=== PATIENT | female | born 1965 | race Caucasian/White ===

== ENCOUNTER 2016-04-17 02:00 | Emergency (ER) | payer MEDICARE, OTHER ==
[~2016-04-17] VITALS: Ht 162.6 cm; Wt 103.4 kg
[~2016-04-17 02:00] MED LIST: AMLO1CAP15 PO; ASPI325T11 PO; ASPI81TA2 PO; AZIT250T PO; BENZ100C PO; CAND32TA2 PO; CRESTOR40 MG PO; ERGO500012 PO; EZET10TA3 PO; FLUT1DIS3 IH; FURO20TA3 PO; FURO40TA4 PO; GEMF600T3 PO; HYDR25TA9 PO; INSU100C SQ; INSU100V8 SQ; LATA2.5D2 EACHEYE; LINA5TAB PO; METF10002 PO; METO50TA2 PO; MUPI22OI2 TP; PANT40TA5 PO; POTA10CA PO; POTA20TA82 PO; PRED-220 PO; PRED50TA PO; PROAIR RESPICL90 MCG IH; PROM118S2 PO; TRAM50TA PO; VENTOLIN HFA18 GM IH
--- NOTE | 2016-04-17 03:17 | PHYS DOC ---
Past Medical History Past Medical History: Diabetes-Type II Additional Past Medical Histor: HIGH CHOL, obesity, YON Past Surgical History: Other Additional Past Surgical Histo: Nose SX Alcohol Use: None Drug Use: None Adult General Chief Complaint Chief Complaint: ABDOMINAL PAIN HPI HPI Patient is a 50 year old female who presents with abdominal pain. Patient reports epigastric pain that started tonight. She describes sharp pain that waxes and wanes. She says the pain gets worse after lying down. She had some diarrhea on Saturday, but none since. She also reports a cough and burping. She tried some sort of pain pill, but she is unsure what it was. No clear mitigating factors. No other acute complaints. Review of Systems Review of Systems Constitutional: Denies fever or chills Eyes: Denies change in visual acuity or eye pain HENT: Denies nasal congestion or sore throat Respiratory: Cough. Denies shortness of breath Cardiovascular: Denies chest pain GI: Epigastric pain, diarrhea (on Saturday only). Denies nausea, vomiting, bloody stools : Dysuria. Denies hematuria Musculoskeletal: Denies back pain or joint pain Integument: Denies rash or skin lesions Neurologic: Denies headache, focal weakness or sensory changes Current Medications Current Medications Current Medications Medications (Trade) Dose Ordered Sig/Palak Start Time Stop Time Status Last Admin Dose Admin Famotidine (Pepcid) 20 mg 1X ONCE 04/17/16 03:30 04/17/16 03:31 DC 04/17/16 03:45 20 MG Morphine Sulfate 4 mg 1X ONCE 04/17/16 03:30 04/17/16 03:31 DC 04/17/16 03:45 4 MG Nitrofurantoin Macrocrystals (Macrobid) 100 mg 1X ONCE 04/17/16 05:30 04/17/16 05:31 DC 04/17/16 05:40 100 MG Sodium Chloride (Iv Sodium Chloride 0.9% 1000ml Bag) 1,000 ml @ 1,000 mls/hr Q1H 04/17/16 03:30 04/17/16 04:29 DC 04/17/16 03:45 1,000 MLS/HR Allergies Allergies Allergies Coded Allergies Type Severity Reaction Last Updated Verified No Known Drug Allergies 06/07/13 No Physical Exam Physical Exam Constitutional: Well developed, well nourished, no acute distress, non-toxic appearance HENT: Normocephalic, atraumatic, bilateral external ears normal Eyes: EOMI, conjunctiva normal, no discharge Neck: Normal range of motion, no stridor Cardiovascular: Heart rate normal, regular rhythm, no murmur Lungs & Thorax: Bilateral breath sounds clear to auscultation. Occasional cough Abdomen: Bowel sounds normal, soft, non-distended, epigastric TTP without guarding or rebound Skin: Warm, dry, no erythema, no rash Extremities: No obvious deformity, no edema Neurologic: Alert and oriented X 3, no gross deficits noted Current Patient Data Vital Signs Vital Signs Date Time Temp Pulse Resp B/P Pulse Ox O2 Delivery O2 Flow Rate FiO2 04/17/16 05:00 80 14 158/66 97 Room Air 04/17/16 02:44 97.7 97.7 Lab Values Laboratory Tests Test 04/17/16 03:00 04/17/16 03:30 Urine Collection Type Unknown Urine Color Yellow Urine Clarity Clear Urine pH 5.5 Urine Specific [place] 1.025 Urine Protein Negativemg/dL (NEG-TRACE) Urine Glucose (UA) Negativemg/dL (NEG) Urine Ketones (Stick) Negativemg/dL (NEG) Urine Blood Negative (NEG) Urine Nitrite Negative (NEG) Urine Bilirubin Negative (NEG) Urine Urobilinogen Dipstick 1.0mg/dL (0.2 mg/dL) Urine Leukocyte Esterase Small (NEG) Urine RBC Occ/HPF (0-2) Urine WBC >40/HPF (0-4) Urine Squamous Epithelial Cells Many/LPF Urine Bacteria Many/HPF (0-FEW) White Blood Count 9.0x10^3/uL (4.0-11.0) Red Blood Count 4.34x10^6/uL (3.50-5.40) Hemoglobin 12.5g/dL (12.0-15.5) Hematocrit 38.7% (36.0-47.0) Mean Corpuscular Volume 89fL (79-100) Mean Corpuscular Hemoglobin 29pg (25-35) Mean Corpuscular Hemoglobin Concent 32g/dL (31-37) Red Cell Distribution Width 15.1% (11.5-14.5) H Platelet Count 201x10^3/uL (140-400) Neutrophils (%) (Auto) 73% (31-73) Lymphocytes (%) (Auto) 20% (24-48) L Monocytes (%) (Auto) 6% (0-9) Eosinophils (%) (Auto) 1% (0-3) Basophils (%) (Auto) 0% (0-3) Neutrophils # (Auto) 6.5x10^3uL (1.8-7.7) Lymphocytes # (Auto) 1.8x10^3/uL (1.0-4.8) Monocytes # (Auto) 0.6x10^3/uL (0.0-1.1) Eosinophils # (Auto) 0.1x10^3/uL (0.0-0.7) Basophils # (Auto) 0.0x10^3/uL (0.0-0.2) Sodium Level 144mmol/L (136-145) Potassium Level 4.5mmol/L (3.5-5.1) Chloride Level 107mmol/L (98-107) Carbon Dioxide Level 30mmol/L (21-32) Anion Gap 7 (6-14) Blood Urea Nitrogen 15mg/dL (7-20) Creatinine 0.8mg/dL (0.6-1.0) Estimated GFR (Cockcroft-Gault) 75.6 BUN/Creatinine Ratio 19 (6-20) Glucose Level 169mg/dL (70-99) H Calcium Level 10.1mg/dL (8.5-10.1) Total Bilirubin 0.5mg/dL (0.2-1.0) Aspartate Amino Transferase (AST) 17U/L (15-37) Alanine Aminotransferase (ALT) 30U/L (14-59) Alkaline Phosphatase 107U/L (46-116) Total Protein 6.8g/dL (6.4-8.2) Albumin 3.2g/dL (3.4-5.0) L Albumin/Globulin Ratio 0.9 (1.0-1.7) L Lipase 115U/L (73-393) Laboratory Tests 04/17/16 03:30 Laboratory Tests 04/17/16 03:30 EKG EKG EKG (my read): sinus rhythm, rate 88, normal axis, intervals wnl, no acute ischemic changes Radiology/Procedures Radiology/Procedures [] Course & Med Decision Making Course & Med Decision Making Pertinent Labs and Imaging studies reviewed. (See chart for details) Patient is 50-year-old female who presents with epigastric pain. Suspect gastritis versus PUD. Pancreatitis, etc. also on differential. Will check labs, UA, EKG to evaluate. IV fluids, pain medication, Pepcid, ordered for relief of symptoms. Labs largely unremarkable except for signs of possible UTI on UA. As patient says she is symptomatic we will go and treat this. Dose of Macrobid given in ED. Patient discharged home with prescription for same as well as omeprazole short course of pain medication. Given instructions for follow-up and return precautions. Dragon Disclaimer Dragon Disclaimer This electronic medical record was generated, in whole or in part, using a voice recognition dictation system. Departure Departure Impression: Primary Impression: Epigastric abdominal pain Additional Impression: UTI (urinary tract infection) Disposition: HOME, SELF-CARE Condition: STABLE Referrals: CHI AGRAWAL MD (PCP) MANUEL FOWLER MD Patient Instructions: Abdominal Pain, Urinary Tract Infection Additional Instructions: Thank you for allowing us to provide care today in the Emergency Department. Take the provided medication as directed. Use caution when taking the pain medication as it can make you drowsy. Schedule a follow up appointment with your primary care doctor and with a GI specialist using the provided contact information. Return promptly to the Emergency Department if you develop any new or concerning symptoms. Scripts Acetaminophen With Codeine (Tylenol With Codeine #3 Tablet)1 Each Tablet1 Tab PO PRN Q6HRS PRN PAIN #12 TAB Prov:COURTNEY ESTEVEZ MD 04/17/16 Omeprazole 20 Mg Tablet.dr20 Mg PO DAILY #30 TAB Prov:COURTNEY ESTEVEZ MD 04/17/16 Nitrofurantoin Monohyd/M-Cryst (Macrobid 100 Mg Capsule)100 Mg Capsule1 Cap PO BID #10 CAP Prov:COURTNEY ESTEVEZ MD 04/17/16 Problem Qualifiers COURTNEY ESTEVEZ MD Apr 17, 2016 03:17
[2016-04-17] MEDS ORDERED: MORPHINE SULFATE 4 MG/ML DISP.SYRIN. IV ONE (03:30)
[2016-04-17] MEDS ORDERED: FAMOTIDINE 20 MG/2 ML VIAL IVP ONE (03:30)
[2016-04-17] MEDS ORDERED: IV NORMAL SALINE 1000ML BAG 1,000 ML IV SCH (03:30)
[2016-04-17 04:14] LABS: BASO % 0 % (0-3); EOS % 1 % (0-3); HEMATOCRIT 38.7 % (36.0-47.0); HEMOGLOBIN 12.5 g/dL (12.0-15.5); LYMPH # 1.8 x10^3/uL (1.0-4.8); LYMPH % 20 % (24-48); MEAN CORPUSCULAR HEMOGLOBIN 29 pg (25-35); MEAN CORPUSCULAR HGB CONC 32 g/dL (31-37); MEAN CORPUSCULAR VOLUME 89 fL (79-100); MONO % 6 % (0-9); NEUT % 73 % (31-73); PLATELET COUNT 201 x10^3/uL (140-400); RED BLOOD COUNT 4.34 x10^6/uL (3.50-5.40); RED CELL DISTRIBUTION WIDTH 15.1 % (11.5-14.5)
[2016-04-17 04:16] LABS: BILIRUBIN,URINE NEGATIVE (NEG); GLUCOSE,URINE NEGATIVE (NEG); NITRITE,URINE NEGATIVE (NEG); PH,URINE 5.5; PROTEIN,URINE NEGATIVE (NEG-TRACE)
[2016-04-17 04:36] LABS: CALCIUM 10.1 mg/dL (8.5-10.1); CREATININE 0.8 mg/dL (0.6-1.0); GFR 75.6; POTASSIUM 4.5 mmol/L (3.5-5.1)
[2016-04-17 04:43] LABS: ALBUMIN 3.2 g/dL (3.4-5.0); ALBUMIN/GLOBULIN RATIO 0.9 (1.0-1.7); TOTAL BILIRUBIN 0.5 mg/dL (0.2-1.0); TOTAL PROTEIN 6.8 g/dL (6.4-8.2)
[2016-04-17 05:00] VITALS: BP 158/66
[2016-04-17 05:13] LABS: BACTERIA,URINE MANY /HPF (0-FEW); RBC,URINE OCC /HPF (0-2); SQUAMOUS EPITHELIAL CELL,UR MANY /LPF; WBC,URINE >40 /HPF (0-4)
[2016-04-17] MEDS ORDERED: NITR100C62 PO (05:24)
[2016-04-17] MEDS ORDERED: OMEP20TA PO (05:24)
[2016-04-17] MEDS ORDERED: ACET-704 PO (05:24)
[2016-04-17] MEDS ORDERED: NITROFURANTOIN MONOHYD/M-CRYST 100 MG CAPSULE. PO ONE (05:30)
--- NOTE | 2016-04-17 06:45 | EKG ---
[facility] [address] [place] [address] Test Date: 2016-04-17 Test Time: 03:49:23 Pat Name: BATSHEVA TRIVEDI Department: Room: Gender: F Make Up Man: [place] ER : 1965 Requested By: COURTNEY ESTEVEZ Order Number: [id number] Reading MD: Measurements Intervals [place] Rate: 88 P: 51 [place]: 124 QRS: 24 QRSD: 76 T: 2 QT: 356 QTc: 434 Interpretive Statements SINUS RHYTHM NO SPECIFIC ECG ABNORMALITIES RI6.01 No previous ECG available for comparison
== END 2016-04-17 05:40 | disposition home or self-care (01) ==
LOC: ER 02:00
DX: R10.13 Epigastric pain (principal); N39.0 Urinary tract infection, site not specified; E11.9 Type 2 diabetes mellitus without complications; M19.90 Unspecified osteoarthritis, unspecified site; E66.9 Obesity, unspecified; Z68.39 Body mass index [BMI] 39.0-39.9, adult
CPT/HCPCS: 36415; 80053; 81001; 83690; 85027; 87086; 93005; 96361; 96374; 96375; 99285; J2270; J7030; S0028

== ENCOUNTER 2016-06-02 19:40 | Emergency (ER) | payer MEDICARE, OTHER ==
[~2016-06-02] VITALS: Ht 162.6 cm; Wt 104.3 kg
[~2016-06-02 19:40] MED LIST changes: +ACET-704 PO; +NITR100C62 PO; +OMEP20TA PO
[2016-06-02] MEDS ORDERED: PREDNISONE 10 MG TABLET PO ONE (20:30)
[2016-06-02] MEDS ORDERED: IPRATRPIUM/ALBUTEROL 0.5/2.5MG 3 ML NEBU. NEB ONE (20:30)
[2016-06-02] MEDS ORDERED: ALBUTEROL SULFATE 2.5 MG/3 ML NEBU. NEB ONE (20:30)
[2016-06-02 20:48] VITALS: BP 158/70
[2016-06-02] MEDS ORDERED: PRED50TA PO (20:55)
--- NOTE | 2016-06-02 21:34 | ED.ADGEN ---
Past Medical History Past Medical History: Diabetes-Type II Additional Past Medical Histor: HIGH CHOL, obesity, YON Past Surgical History: Other Additional Past Surgical Histo: Nose SX Alcohol Use: None Drug Use: None Adult General Chief Complaint Chief Complaint: SHORTNESS OF BREATH HPI HPI Patient is a 50 year old female presents emergency department complaining of increasing dyspnea. Patient has a history of asthma. She reports that she has been using her albuterol as well as her inhaled steroid has been having increasing difficulty. She denies any other recent illness, fever, chills, nausea, vomiting. He does mention that she is being worked up for possible reflux induced asthma and cough. Review of Systems Review of Systems Constitutional: Denies fever or chills. [] Eyes: Denies change in visual acuity. [] HENT: Denies nasal congestion or sore throat. [] Respiratory: Denies cough or shortness of breath. [] Cardiovascular: Denies chest pain or edema. [] GI: Denies abdominal pain, nausea, vomiting, bloody stools or diarrhea. [] : Denies dysuria. [] Musculoskeletal: Denies back pain or joint pain. [] Integument: Denies rash. [] Neurologic: Denies headache, focal weakness or sensory changes. [] Endocrine: Denies polyuria or polydipsia. [] Lymphatic: Denies swollen glands. [] Psychiatric: Denies depression or anxiety. [] Current Medications Current Medications Current Medications Medications (Trade) Dose Ordered Sig/Palak Start Time Stop Time Status Last Admin Dose Admin Albuterol Sulfate (Ventolin Neb Soln) 2.5 mg 1X ONCE 06/02/16 20:30 06/02/16 20:31 DC 06/02/16 20:47 2.5 MG Albuterol/ Ipratropium (Duoneb) 3 ml 1X ONCE 06/02/16 20:30 06/02/16 20:31 DC 06/02/16 20:48 3 ML Prednisone (Prednisone) 50 mg 1X ONCE 06/02/16 20:30 06/02/16 20:31 DC 06/02/16 20:29 50 MG Allergies Allergies Allergies Coded Allergies Type Severity Reaction Last Updated Verified No Known Drug Allergies 06/07/13 No Physical Exam Physical Exam Constitutional: Well developed, well nourished, no acute distress, non-toxic appearance. [] HENT: Normocephalic, atraumatic, bilateral external ears normal, oropharynx moist, no oral exudates, nose normal. [] Eyes: PERRLA, EOMI, conjunctiva normal, no discharge. [] Neck: Normal range of motion, no tenderness, supple, no stridor. [] Cardiovascular:Heart rate regular rhythm, no murmur [] Lungs & Thorax: Bilateral breath sounds diminished with significant inspiratory and expiratory wheezing [] Abdomen: Bowel sounds normal, soft, no tenderness, no masses, no pulsatile masses. [] Skin: Warm, dry, no erythema, no rash. [] Back: No tenderness, no CVA tenderness. [] Extremities: No tenderness, no cyanosis, no clubbing, ROM intact, no edema. [] Neurologic: Alert and oriented X 3, normal motor function, normal sensory function, no focal deficits noted. [] Psychologic: Affect normal, judgement normal, mood normal. [] Current Patient Data Vital Signs Vital Signs Date Time Temp Pulse Resp B/P Pulse Ox O2 Delivery O2 Flow Rate FiO2 06/02/16 20:48 84 17 158/70 97 Room Air 06/02/16 19:50 98.3 98.3 EKG EKG [] Radiology/Procedures Radiology/Procedures Chest x-ray interpreted by me, no acute cardiopulmonary process. [] Course & Med Decision Making Course & Med Decision Making Pertinent Labs and Imaging studies reviewed. (See chart for details) Patient received a dose of prednisone here in emergency department. She also received a DuoNeb and albuterol with significant improvement in her aeration and breathing. Patient is being sent home a short steroid burst. She will follow with her doctor next week as needed return emergency department sooner she develops new or worsening symptoms. [] Dragon Disclaimer Dragon Disclaimer This electronic medical record was generated, in whole or in part, using a voice recognition dictation system. JINNY SOLIMAN MD Jun 02, 2016 21:34
--- NOTE | 2016-06-03 07:55 | RAD ---
EXAM: Chest, single view. HISTORY: Dyspnea. COMPARISON: 03/03/2016. FINDINGS: A frontal view of the chest is obtained. There is no infiltrate, effusion or pneumothorax. The heart is normal in size. IMPRESSION: No acute pulmonary finding.
--- NOTE | 2016-06-03 14:45 | EKG ---
[facility] [address] [place] [address] Test Date: 2016-06-02 Test Time: 19:54:15 Pat Name: BATSHEVA TRIVEDI Department: Room: Gender: F Process Tech: : 1965 Requested By: JINNY SOLIMAN Order Number: [id number] Reading MD: Meme Ramirez Measurements Intervals [place] Rate: 94 P: 39 [place]: 122 QRS: 4 QRSD: 78 T: 5 QT: 338 QTc: 428 Interpretive Statements SINUS RHYTHM NORMAL ECG RI6.01 Compared to ECG 04/17/2016 03:49:23 No significant changes Electronically Signed On 06-03-2016 19:22:26 CDT by Meme Ramirez
== END 2016-06-02 21:10 | disposition home or self-care (01) ==
LOC: ER 19:40
DX: R06.00 Dyspnea, unspecified (principal); R06.2 Wheezing; J45.909 Unspecified asthma, uncomplicated; E11.9 Type 2 diabetes mellitus without complications; G47.33 Obstructive sleep apnea (adult) (pediatric); E78.00 Pure hypercholesterolemia, unspecified; E66.9 Obesity, unspecified; Z68.39 Body mass index [BMI] 39.0-39.9, adult; Z79.899 Other long term (current) drug therapy
CPT/HCPCS: 71010; 93005; 94640; 99284; J7512; J7620

== ENCOUNTER 2016-08-21 16:25 | Emergency (ER) | payer MEDICARE, OTHER ==
[~2016-08-21] VITALS: Ht 162.6 cm; Wt 104.3 kg
[~2016-08-21 16:25] MED LIST changes: +ASPI-630 PO; -ASPI81TA2 PO; -ERGO500012 PO; +ERGO500027 PO; +EZET10TA18 PO; -EZET10TA3 PO; -LINA5TAB PO; +LINA5TAB4 PO; +METF-620 PO; -METF10002 PO; -OMEP20TA PO; +OMEP20TA8 PO; -POTA10CA PO; +POTASSIUM CHLO10 MEQ PO
[2016-08-21 17:44] LABS: CALCIUM 10.2 mg/dL (8.5-10.1); CREATININE 0.9 mg/dL (0.6-1.0); POTASSIUM 4.8 mmol/L (3.5-5.1)
[2016-08-21 17:51] LABS: ALBUMIN 3.2 g/dL (3.4-5.0); ALBUMIN/GLOBULIN RATIO 0.8 (1.0-1.7); TOTAL BILIRUBIN 0.2 mg/dL (0.2-1.0)
[2016-08-21 18:00] VITALS: BP 149/63
--- NOTE | 2016-08-21 18:20 | PHYS DOC ---
Past Medical History Past Medical History: Diabetes-Type II Additional Past Medical Histor: HIGH CHOL, obesity, YON Past Surgical History: Other Additional Past Surgical Histo: Nose SX Alcohol Use: None Drug Use: None Adult General Chief Complaint Chief Complaint: SHORTNESS OF BREATH HPI HPI Patient is a 50 year old female who presents with intermittent dyspnea for approx 3 weeks, but recently associated with abdominal bloating. States when she feels bloated, it makes it hard to breathe. She notes this is associated with some mild constipation. She denies abdominal pain, nausea or vomiting, fever or chills, dark or bloody stools, diarrhea, dysuria, back pain, chest pain , orthopnea, leg pain or swelling, hemoptysis. She states she was recently admitted at an outside facility for asthma exacerbation and is compliant with her medications. Review of Systems Review of Systems Constitutional: Denies fever or chills [] Eyes: Denies change in visual acuity, redness, or eye pain [] HENT: Denies nasal congestion or sore throat [] Respiratory: Has cough and shortness of breath [] Cardiovascular: No additional information not addressed in HPI [] GI: Denies abdominal pain, nausea, vomiting, bloody stools or diarrhea [] : Denies dysuria or hematuria [] Musculoskeletal: Denies back pain or joint pain [] Integument: Denies rash or skin lesions [] Neurologic: Denies headache, focal weakness or sensory changes [] Endocrine: Denies polyuria or polydipsia [] Allergies Allergies Allergies Coded Allergies Type Severity Reaction Last Updated Verified No Known Drug Allergies 06/07/13 No Physical Exam Physical Exam Constitutional: Well developed, well nourished, no acute distress, non-toxic appearance. [] HENT: Normocephalic, atraumatic, bilateral external ears normal, oropharynx moist, no oral exudates, nose normal. [] Eyes: PERRLA, EOMI. [] Neck: Normal range of motion, supple. [] Cardiovascular:Heart rate regular rhythm [] Lungs & Thorax: Bilateral breath sounds clear to auscultation [] Abdomen: Bowel sounds normal, soft, no tenderness, nondistended. [] Skin: Warm, dry, no erythema, no rash. [] Back: No tenderness, no CVA tenderness. [] Extremities: No tenderness, ROM intact, no edema. [] Neurologic: Alert and oriented X 3, normal motor function, normal sensory function, no focal deficits noted. [] Psychologic: Affect normal, judgement normal, mood normal. [] Current Patient Data Vital Signs Vital Signs Date Time Temp Pulse Resp B/P (MAP) Pulse Ox O2 Delivery O2 Flow Rate FiO2 08/21/16 18:00 70 25 149/63 (91) 96 Room Air 08/21/16 16:43 98.3 98.3 Lab Values Laboratory Tests Test 08/21/16 17:15 Sodium Level 138 mmol/L (136-145) Potassium Level 4.8 mmol/L (3.5-5.1) Chloride Level 104 mmol/L (98-107) Carbon Dioxide Level 27 mmol/L (21-32) Anion Gap 7 (6-14) Blood Urea Nitrogen 13 mg/dL (7-20) Creatinine 0.9 mg/dL (0.6-1.0) Estimated GFR (Cockcroft-Gault) 66.0 BUN/Creatinine Ratio 14 (6-20) Glucose Level 361 mg/dL (70-99) H Calcium Level 10.2 mg/dL (8.5-10.1) H Total Bilirubin 0.2 mg/dL (0.2-1.0) Aspartate Amino Transferase (AST) 14 U/L (15-37) L Alanine Aminotransferase (ALT) 32 U/L (14-59) Alkaline Phosphatase 128 U/L (46-116) H Troponin I Quantitative < 0.017 ng/mL (0.000-0.055) MK-Lay-O-Type Natriuretic Peptide 29 pg/mL (0-124) Total Protein 7.0 g/dL (6.4-8.2) Albumin 3.2 g/dL (3.4-5.0) L Albumin/Globulin Ratio 0.8 (1.0-1.7) L Lipase 153 U/L (73-393) Laboratory Tests 08/21/16 17:15 EKG EKG EKG as interpreted by me as normal sinus rhythm, rate 77, no ST-T changes, normal intervals, no ectopy Course & Med Decision Making Course & Med Decision Making Pertinent Labs and Imaging studies reviewed. (See chart for details) Workup is unremarkable. Encouraged symptomatic care such as trial of laxative. Return precautions given. She understands and agrees with plan. Dragon Disclaimer Dragon Disclaimer This electronic medical record was generated, in whole or in part, using a voice recognition dictation system. Departure Departure Impression: Primary Impression: Dyspnea Additional Impression: Abdominal bloating Disposition: HOME, SELF-CARE Condition: STABLE Referrals: CHI AGRAWAL MD (PCP) Patient Instructions: Shortness of Breath, [id number] Additional Instructions: Take miralax to help with abdominal bloating. Follow-up with your primary care doctor within one week. Return for any concerns. Problem Qualifiers Primary Impression: Dyspnea Dyspnea type: unspecified Qualified Codes: R06.00 - Dyspnea, unspecified Sander WALLACE MD Aug 21, 2016 18:20
--- NOTE | 2016-08-22 06:21 | EKG ---
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
== END 2016-08-21 18:52 | disposition home or self-care (01) ==
LOC: ER 16:25
DX: R06.00 Dyspnea, unspecified (principal); R14.0 Abdominal distension (gaseous); K59.00 Constipation, unspecified; E11.9 Type 2 diabetes mellitus without complications; E78.00 Pure hypercholesterolemia, unspecified; G47.33 Obstructive sleep apnea (adult) (pediatric); J45.901 Unspecified asthma with (acute) exacerbation; E66.9 Obesity, unspecified; Z68.39 Body mass index [BMI] 39.0-39.9, adult
CPT/HCPCS: 36415; 80053; 83690; 83880; 84484; 93005; 99285-25

== ENCOUNTER 2016-11-27 20:43 | Emergency (ER) | payer OTHER ==
[~2016-11-27] VITALS: Ht 162.6 cm; Wt 103.9 kg
[2016-11-27 21:52] VITALS: BP 171/75
[2016-11-27] MEDS ORDERED: AMOX500C PO (22:26)
[2016-11-27] MEDS ORDERED: FLUT9.9S NS (22:26)
--- NOTE | 2016-11-27 22:26 | PHYS DOC ---
Past Medical History Past Medical History: Diabetes-Type II, Hypertension Additional Past Medical Histor: HIGH CHOL, obesity, YON Past Surgical History: Hysterectomy, Other Additional Past Surgical Histo: Nose SX, RETINA SURGERY Alcohol Use: None Drug Use: None Adult General Chief Complaint Chief Complaint: EARACHE/EAR PAIN [facility] HPI Patient is a 51 year old female presents to the emergency department stating that she's been having ear discomfort for the last few days. She states that she normally uses Flonase to help with nasal congestion. She states that she has been having a sore throat with laryngitis as well for the last week she just started getting her voice back. She denies fever, chills or any nausea vomiting. Patient denies any drainage or discharge from the ear. She states that she hears an echo in the left ear. Review of Systems Review of Systems Constitutional: Denies fever or chills [] Eyes: Denies change in visual acuity, redness, or eye pain [] HENT: Denies nasal congestion or sore throat. C/o left ear pain and discomfort with echo sounds Respiratory: Denies cough or shortness of breath [] Cardiovascular: No additional information not addressed in HPI [] GI: Denies abdominal pain, nausea, vomiting, bloody stools or diarrhea [] : Denies dysuria or hematuria [] Musculoskeletal: Denies back pain or joint pain [] Integument: Denies rash or skin lesions [] Neurologic: Denies headache, focal weakness or sensory changes [] Endocrine: Denies polyuria or polydipsia [] Allergies Allergies Allergies Coded Allergies Type Severity Reaction Last Updated Verified No Known Drug Allergies 06/07/13 No Physical Exam Physical Exam Constitutional: Well developed, well nourished, no acute distress, non-toxic appearance. [] HENT: Normocephalic, atraumatic, bilateral external ears normal, oropharynx moist, no oral exudates, nose normal. Right tympanic membrane appears to be normal. Left tympanic membrane appears to be slightly red and bulging. Patient with postnasal drip noted no erythematous no exudate noted. Eyes: PERRLA, EOMI, conjunctiva normal, no discharge. [] Neck: Normal range of motion, no tenderness, supple, no stridor. [] Cardiovascular:Heart rate regular rhythm, no murmur [] Lungs & Thorax: Bilateral breath sounds clear to auscultation [] Skin: Warm, dry, no erythema, no rash. [] Back: No tenderness Extremities: No tenderness, no cyanosis, no clubbing, ROM intact, no edema. [] Neurologic: Alert and oriented X 3, normal motor function, normal sensory function, no focal deficits noted. [] Psychologic: Affect normal, judgement normal, mood normal. [] Current Patient Data Vital Signs Vital Signs Date Time Temp Pulse Resp B/P (MAP) Pulse Ox O2 Delivery O2 Flow Rate FiO2 11/27/16 21:52 98.0 84 18 96 Room Air 98.0 EKG EKG [] Radiology/Procedures Radiology/Procedures [] Course & Med Decision Making Course & Med Decision Making Pertinent Labs and Imaging studies reviewed. (See chart for details) She'll be placed on amoxicillin as it appears that she has some this nasal drip with possible sinusitis with an otitis media. Patient will be encouraged to use Coricidin HBP committed following up with primary care physician in the next 3- 5 days. Recommended continue use her Flonase. Signs and symptoms to return back to emergency department as been provided. Also recommended plenty of fluids. All questions and concerns been answered at patient's bedside. Patient agrees with discharge instructions treatment regimens and follow-up recommendations. Dragon Disclaimer Dragon Disclaimer This electronic medical record was generated, in whole or in part, using a voice recognition dictation system. Departure Departure Impression: Primary Impression: Otitis media, left Disposition: HOME, SELF-CARE Condition: STABLE Referrals: CHI AGRAWAL MD (PCP) Patient Instructions: Otitis Media, Adult, [id number] Additional Instructions: Activity as tolerated. You may use Coricidin HBP with nasal congestion and pressure in the left inner. Medication as prescribed. Continue to use Flonase as prescribed. Follow-up to primary care physician next 3-5 days. Return back to emergency prior signs symptoms become worse. Scripts Fluticasone Propionate (Flonase Allergy Relief) 9.9 Ml [place].susp 2 SPRAYS NS DAILY, #1 BOTTLE Prov: TRAY ARMENDARIZ APRN 11/27/16 Amoxicillin (AMOXICILLIN) 500 Mg Capsule 1 CAP PO BID, #20 CAP Prov: TRAY ARMENDARIZ APRN 11/27/16 Problem Qualifiers Primary Impression: Otitis media, left Otitis media type: unspecified Chronicity: unspecified Qualified Codes: H66.92 - Otitis media, unspecified, left ear TRAY ARMENDARIZ [employer] Nov 27, 2016 22:26
== END 2016-11-27 22:59 | disposition home or self-care (01) ==
LOC: ER 20:43
DX: H66.92 Otitis media, unspecified, left ear (principal); I10 Essential (primary) hypertension; E11.9 Type 2 diabetes mellitus without complications; E78.00 Pure hypercholesterolemia, unspecified; G47.33 Obstructive sleep apnea (adult) (pediatric)
CPT/HCPCS: 99283

== ENCOUNTER 2017-02-12 17:57 | Inpatient (IN) | payer OTHER ==
[~2017-02-12] VITALS: Ht 162.6 cm; Wt 105.8 kg
[~2017-02-12 17:57] MED LIST changes: +AMOX500C PO; +FLUT9.9S NS; +GUAI120L35 PO; +INSU100V31 SQ; -METO50TA2 PO; +METO50TA6 PO; +PRED20TA PO
--- NOTE | 2017-02-12 18:27 | PHYS DOC ---
Past Medical History Past Medical History: Asthma, Diabetes-Type II, Hypertension Additional Past Medical Histor: HIGH CHOL, obesity, YON, SLEEP APNEA Past Surgical History: Hysterectomy, Other Additional Past Surgical Histo: Nose SX, RETINA SURGERY Alcohol Use: None Drug Use: None Adult General Chief Complaint Chief Complaint: SHORTNESS OF BREATH [facility] HPI Patient is a 51 year old female who presents with several days of progressive shortness of breath cough denies fever or chills; denies tobacco use but does have a history of asthma; recent admission to the hospital was treated for lung infection and placed on steroids dismissed from the hospital 5 days ago on Saturday. Review of the records demonstrated that the patient was admitted for a chest pain rule out had a normal echocardiogram and was placed on steroids and Levaquin for possible pulmonary infection. Review of Systems Review of Systems Constitutional: Denies fever or chills [] Eyes: Denies change in visual acuity, redness, or eye pain [] HENT: Denies nasal congestion or sore throat [] Respiratory: Denies cough or shortness of breath [] Cardiovascular: No additional information not addressed in HPI [] GI: Denies abdominal pain, nausea, vomiting, bloody stools or diarrhea [] : Denies dysuria or hematuria [] Musculoskeletal: Denies back pain or joint pain [] Integument: Denies rash or skin lesions [] Neurologic: Denies headache, focal weakness or sensory changes [] Endocrine: Denies polyuria or polydipsia [] All other systems were reviewed and found to be within normal limits, except as documented in this note. Current Medications Current Medications Current Medications Medications (Trade) Dose Ordered Sig/Palak Start Time Stop Time Status Last Admin Dose Admin Albuterol Sulfate (Ventolin Neb Soln) 2.5 mg 1X ONCE 02/12/17 18:30 02/12/17 18:31 DC 02/12/17 18:45 2.5 MG Info (Do NOT chart on this entry -- for MONITORING) 1 each PRN DAILY PRN 02/12/17 20:15 02/14/17 20:14 Iohexol (Omnipaque 300 Mg/ml) 75 ml 1X ONCE 02/12/17 20:15 02/12/17 20:16 DC 02/12/17 20:25 75 ML Allergies Allergies Allergies Coded Allergies Type Severity Reaction Last Updated Verified No Known Drug Allergies 06/07/13 No Physical Exam Physical Exam Constitutional: Well developed, well nourished, no acute distress, non-toxic appearance. [] HENT: Normocephalic, atraumatic, bilateral external ears normal, oropharynx moist, no oral exudates, nose normal. [] Eyes: PERRLA, EOMI, conjunctiva normal, no discharge. [] Neck: Normal range of motion, no tenderness, supple, no stridor. [] Cardiovascular:Heart rate regular rhythm, no murmur [] Lungs & Thorax: Bilateral breath sounds crackles[] Abdomen: Bowel sounds normal, soft, no tenderness, no masses, no pulsatile masses. [] Skin: Warm, dry, no erythema, no rash. [] Back: No tenderness, no CVA tenderness. [] Extremities: No tenderness, no cyanosis, no clubbing, ROM intact, no edema. [] Neurologic: Alert and oriented X 3, normal motor function, normal sensory function, no focal deficits noted. [] Psychologic: Affect normal, judgement normal, mood normal. [] Current Patient Data Vital Signs Vital Signs Date Time Temp Pulse Resp B/P (MAP) Pulse Ox O2 Delivery O2 Flow Rate FiO2 02/12/17 21:50 84 22 190/81 (117) 98 Nasal Cannula 2.0 02/12/17 18:07 99.3 99.3 Lab Values Laboratory Tests Test 02/12/17 18:15 02/12/17 19:00 White Blood Count 9.3 x10^3/uL (4.0-11.0) Red Blood Count 4.20 x10^6/uL (3.50-5.40) Hemoglobin 12.3 g/dL (12.0-15.5) Hematocrit 38.0 % (36.0-47.0) Mean Corpuscular Volume 90 fL (79-100) Mean Corpuscular Hemoglobin 29 pg (25-35) Mean Corpuscular Hemoglobin Concent 32 g/dL (31-37) Red Cell Distribution Width 14.8 % (11.5-14.5) H Platelet Count 219 x10^3/uL (140-400) Neutrophils (%) (Auto) 60 % (31-73) Lymphocytes (%) (Auto) 26 % (24-48) Monocytes (%) (Auto) 11 % (0-9) H Eosinophils (%) (Auto) 3 % (0-3) Basophils (%) (Auto) 1 % (0-3) Neutrophils # (Auto) 5.5 x10^3uL (1.8-7.7) Lymphocytes # (Auto) 2.4 x10^3/uL (1.0-4.8) Monocytes # (Auto) 1.0 x10^3/uL (0.0-1.1) Eosinophils # (Auto) 0.3 x10^3/uL (0.0-0.7) Basophils # (Auto) 0.0 x10^3/uL (0.0-0.2) Sodium Level 141 mmol/L (136-145) Potassium Level 4.8 mmol/L (3.5-5.1) Chloride Level 102 mmol/L (98-107) Carbon Dioxide Level 32 mmol/L (21-32) Anion Gap 7 (6-14) Blood Urea Nitrogen 12 mg/dL (7-20) Creatinine 0.8 mg/dL (0.6-1.0) Estimated GFR (Cockcroft-Gault) 75.3 BUN/Creatinine Ratio 15 (6-20) Glucose Level 377 mg/dL (70-99) H Calcium Level 10.0 mg/dL (8.5-10.1) Total Bilirubin 0.3 mg/dL (0.2-1.0) Aspartate Amino Transferase (AST) 15 U/L (15-37) Alanine Aminotransferase (ALT) 30 U/L (14-59) Alkaline Phosphatase 137 U/L (46-116) H PU-Fkk-K-Type Natriuretic Peptide 24 pg/mL (0-124) Total Protein 6.8 g/dL (6.4-8.2) Albumin 3.3 g/dL (3.4-5.0) L Albumin/Globulin Ratio 0.9 (1.0-1.7) L Laboratory Tests 02/12/17 18:15 Laboratory Tests 02/12/17 19:00 EKG EKG [] Radiology/Procedures Radiology/Procedures Chest x-ray[ possible infiltrate left upper lobe not significantly changed from prior x-ray my interpretation] Course & Med Decision Making Course & Med Decision Making Pertinent Labs and Imaging studies reviewed. (See chart for details) [Patient had hypoxia with just walking to the bathroom with a sat in the mid 80s. CT scan of chest did not show any common embolism but did show multilobar pneumonia is worsened since the previous scan one week ago. Immunizations was placed on broad-spectrum antibiotics to cover for healthcare associated pneumonia and did not feel like she can go home. Discussed case with Dr. Culp who agrees to admit the patient to the floor. Dragon Disclaimer Dragon Disclaimer This electronic medical record was generated, in whole or in part, using a voice recognition dictation system. Departure Departure Impression: Primary Impression: Hypoxia Additional Impression: Pneumonia Disposition: 09 ADMITTED INPATIENT Condition: STABLE Referrals: CHI AGRAWAL MD (PCP) Problem Qualifiers EDGAR JUNIOR MD Feb 12, 2017 18:27
[2017-02-12 18:28] LABS: BASO % 1 % (0-3); EOS % 3 % (0-3); HEMOGLOBIN 12.3 g/dL (12.0-15.5); LYMPH # 2.4 x10^3/uL (1.0-4.8); LYMPH % 26 % (24-48); MEAN CORPUSCULAR HEMOGLOBIN 29 pg (25-35); MEAN CORPUSCULAR HGB CONC 32 g/dL (31-37); MEAN CORPUSCULAR VOLUME 90 fL (79-100); MONO % 11 % (0-9); NEUT % 60 % (31-73); PLATELET COUNT 219 x10^3/uL (140-400); RED CELL DISTRIBUTION WIDTH 14.8 % (11.5-14.5); WHITE BLOOD COUNT 9.3 x10^3/uL (4.0-11.0)
[2017-02-12] MEDS ORDERED: ALBUTEROL SULFATE 2.5 MG/3 ML NEBU. NEB ONE (18:30)
[2017-02-12 19:45] LABS: CREATININE 0.8 mg/dL (0.6-1.0); GFR 75.3; POTASSIUM 4.8 mmol/L (3.5-5.1)
[2017-02-12 19:53] LABS: ALBUMIN 3.3 g/dL (3.4-5.0); ALBUMIN/GLOBULIN RATIO 0.9 (1.0-1.7); TOTAL BILIRUBIN 0.3 mg/dL (0.2-1.0); TOTAL PROTEIN 6.8 g/dL (6.4-8.2)
[2017-02-12] MEDS ORDERED: CONTRAST GIVEN MC PRN (20:15)
[2017-02-12] MEDS ORDERED: IOHEXOL 300 MG/ML 100ML VIAL. IV ONE (20:15)
--- NOTE | 2017-02-12 20:52 | RAD ---
Examination: CT angiography chest HISTORY: History of hypoxia COMPARISON: 02/07/2017 TECHNIQUE: Axial CT angiography images were performed with IV contrast. Coronal sagittal 3-D MIP reformats are performed Exposure: One or more of the following individualized dose reduction techniques were utilized for this examination: 1. Automated exposure control 2. Adjustment of the mA and/or kV according to patient size 3. Use of iterative reconstruction technique Findings: The visualized aorta grossly appears unremarkable. No evidence of filling defect identified in the main pulmonary arterial trunk and right and left main pulmonary arteries. The evaluation of the distal segmental branches of the pulmonary arteries is somewhat limited on this examination. Mild coronary artery calcifications. There are multiple tree-in-bud airspace opacities identified in the right upper lobe, right middle lobe, right lower lobe, left lower lobe of the lung. There are patchy groundglass airspace consolidation changes identified in the left upper lobe of the lung again identified. Compared to prior exam the tree-in-bud airspace opacities have increased. Small bilateral hilar and mediastinal lymph nodes identified. The visualized liver, spleen, adrenals grossly appears unremarkable. Mild coronary artery calcifications. Moderate degenerative changes thoracic spine. IMPRESSION: 1. No evidence of central pulmonary embolism. 2. Interval increase in multiple diffuse tree-in-bud airspace opacities in the lungs could be infectious bronchiolitis or pneumonia or mucous plugging. There are patchy groundglass airspace consolidation identified in the left upper lobe of the lung likely pneumonia or atelectasis. Follow-up to resolution. 3. Mild prominent mediastinal and bilateral hilar lymph nodes probably reactive. Electronically signed by: Alon Inman MD (02/12/2017 8:48 PM) [place] [id number]
[2017-02-12] MEDS ORDERED: ONDANSETRON PF 4 MG/2 ML VIAL. IV PRN (22:15)
[2017-02-12] MEDS: CEFEPIME HCL IV Push 1 GM VIAL. IVP SCH (22:44)
[2017-02-12] MEDS ORDERED: VANCOMYCIN 2 GM in IV NORMAL SALINE 500ML BAG 500 ML IV ONE (23:00)
[2017-02-12 23:15] VITALS: BP 176/76
[2017-02-12] MEDS: MORPHINE SULFATE 2 MG/ML DISP.SYRIN. IV PRN (23:40)
[2017-02-12] MEDS: VANCOMYCIN PER PHARMACY MC PRN (23:57)
[2017-02-13 00:12] LABS: OBC FLU VALID
[2017-02-13] MEDS ORDERED: guaiFENesin/CODEINE 100mg/10mg 5 ML LIQUID PO PRN (01:00)
[2017-02-13] MEDS ORDERED: ALBUTEROL SULFATE 2.5 MG/3 ML NEBU. NEB PRN ×2 (01:00→11:00)
[2017-02-13] MEDS: IPRATRPIUM/ALBUTEROL 0.5/2.5MG 3 ML NEBU. NEB SCH ×5 (01:30→20:39)
[2017-02-13 03:52] VITALS: BP 164/72
[2017-02-13 04:30] LABS: BASO % 0 % (0-3); EOS % 3 % (0-3); HEMATOCRIT 37.8 % (36.0-47.0); HEMOGLOBIN 12.1 g/dL (12.0-15.5); LYMPH # 2.2 x10^3/uL (1.0-4.8); LYMPH % 25 % (24-48); MEAN CORPUSCULAR HEMOGLOBIN 29 pg (25-35); MEAN CORPUSCULAR HGB CONC 32 g/dL (31-37); MEAN CORPUSCULAR VOLUME 91 fL (79-100); MONO % 9 % (0-9); NEUT % 63 % (31-73); PLATELET COUNT 219 x10^3/uL (140-400); RED BLOOD COUNT 4.14 x10^6/uL (3.50-5.40); RED CELL DISTRIBUTION WIDTH 14.5 % (11.5-14.5); WHITE BLOOD COUNT 8.8 x10^3/uL (4.0-11.0)
[2017-02-13 05:22] LABS: CALCIUM 9.5 mg/dL (8.5-10.1); CREATININE 0.8 mg/dL (0.6-1.0); GFR 75.3
[2017-02-13] MEDS ORDERED: CEFEPIME HCL 1 GM in IV DEXTROSE 5% 50 ML IV SCH (06:00)
[2017-02-13] MEDS: CEFEPIME HCL IV Push 1 GM VIAL. IVP SCH ×3 (06:25→23:18)
[2017-02-13] MEDS: MORPHINE SULFATE 2 MG/ML DISP.SYRIN. IV PRN ×2 (06:30→20:19)
[2017-02-13 06:59] VITALS: BP 142/63
--- NOTE | 2017-02-13 08:07 | RAD ---
Indication: Cough, short of air for 5 days. Technique: Upright portable chest radiograph was obtained. Comparison is from 5 days ago. Findings: There is a left suprahilar opacity noted. The lungs otherwise are clear. The heart is not enlarged and there is no heart failure. Bony structures are intact. Leads overlie the patient. Impression: Left suprahilar infiltrate suspected.
[2017-02-13 10:36] VITALS: BP 152/74
[2017-02-13] MEDS ORDERED: NON FORMULARY ITEM (Albuterol Sulfate (Ventolin Hfa Inhaler) 2 PUFF) IH SCH (10:45)
[2017-02-13] MEDS ORDERED: [UNRECOGNIZED DRUG - OTHER] PO PRN (10:45)
[2017-02-13] MEDS ORDERED: CODEINE PHOSPHATE PO PRN (10:45)
[2017-02-13] MEDS ORDERED: GUAIFENESIN PO PRN (10:45)
[2017-02-13] MEDS: predniSONE 20 MG TABLET PO SCH (11:23)
[2017-02-13] MEDS: EZETIMIBE 10 MG TABLET. PO SCH (11:23)
[2017-02-13] MEDS: LOSARTAN POTASSIUM 50 MG TABLET. PO SCH (11:23)
[2017-02-13] MEDS: POTASSIUM CHLORIDE 20 MEQ TABLET.ER. PO SCH (11:23)
[2017-02-13] MEDS: FUROSEMIDE 40 MG TABLET. PO SCH (11:23)
[2017-02-13] MEDS: ASPIRIN CHEWABLE 81 MG TABLET. PO SCH (11:24)
[2017-02-13] MEDS: PANTOPRAZOLE 40 MG TABLET.DR. PO SCH (11:24)
[2017-02-13] MEDS: FLUTICASONE 50MCG/NASAL SPRAY 16GM BOTTLE. NS SCH (11:41)
[2017-02-13] MEDS: INSULIN DETEMIR 300 UNITS/3 ML INSULN.PEN. SQ SCH (12:00)
[2017-02-13] MEDS ORDERED: PROMETH/CODEINE 6.25/10MG 5 ML SYRUP. PO PRN (12:00)
[2017-02-13] MEDS: VANCOMYCIN 1.5 GM in IV DEXTROSE 5 %-0.45 % NACL 500 ML IV SCH ×2 (12:02→23:19)
[2017-02-13] MEDS: INSULIN ASPART 300 UNITS/3 ML INSULN.PEN SQ SCH ×3 (12:10→23:27)
--- NOTE | 2017-02-13 12:28 | HP ---
ADMIT DATE: 02/12/2017 CHIEF COMPLAINT: Shortness of breath. HISTORY OF PRESENT ILLNESS: The patient is a 51-year-old morbidly obese woman with asthma, recently admitted for chest pain, which was diagnosed as GERD after cardiac workup. She now presents with ongoing shortness of breath as well as especially right-sided rib pain. In the Emergency Room, a CTA showed left upper lobe pneumonia as well as multilobar tree-in-bud opacities. The patient is now admitted for pneumonia. PAST MEDICAL HISTORY: Asthma, diabetes type 2, hypertension, sleep apnea, hypercholesterolemia. PAST SURGICAL HISTORY: She is status post hysterectomy, retina surgery. FAMILY HISTORY: Positive for CAD. SOCIAL HISTORY: Lives with family. Never smoked, no toxic habits. ALLERGIES: No known drug allergies. MEDICATIONS: MAR reconciled with home medications. REVIEW OF SYSTEMS: Positive as per HPI. She also endorses subjective fevers and chills, general malaise, myalgias. She denies any abdominal pain, nausea, vomiting, diarrhea or dysuria. Denies any headaches or upper respiratory symptoms. Rest of organ system review was answered negatively. PHYSICAL EXAMINATION: VITAL SIGNS: From today show a blood pressure of 152/74, heart rate of 81, respiratory rate at 20. She is afebrile, satting 95% on 2 liters. GENERAL: This is a morbidly obese 51-year-old -Citizen Of [place] woman, alert and oriented, in no acute distress. HEENT: Shows no scleral icterus. NECK: Supple, without any lymphadenopathy. LUNGS: Clear, but poor air movement. HEART: Has regular rate and rhythm. ABDOMEN: Has positive bowel sounds, soft, nontender. EXTREMITIES: Show no edema. SKIN: Warm, soft and dry. NEUROLOGIC: She appears grossly intact. LABORATORY DATA: CBC with a WBC of 8.8, hemoglobin 12.1, platelets of 219. BUN and creatinine of 11 and 0.8. Normal electrolytes. Glucose at 394, calcium at 95. LFTs essentially within normal limits. Albumin at 3.3. Serologies for influenza are negative. IMAGING STUDIES: CTA as per HPI. ASSESSMENT AND PLAN: The patient is a 51-year-old woman with asthma and cardiac risk factors, now presenting with pneumonia. She has been started on broad spectrum antibiotics with cefepime and vancomycin. We will continue this for the time being. She is also receiving steroids for presumed asthma exacerbation given clinical findings. Her regimen also includes guaifenesin with codeine for suspected pneumonitis. We will start her on ibuprofen, adding Argos as needed. She will receive nebulizer treatments through respiratory therapy. All her home medications for cardiac issues will be continued as well as pantoprazole for GERD. We will start Lovenox for DVT prophylaxis. WENDY RAMACHANDRAN MD DR: UR/nts JOB#: [id number] / [id number] CHI Perera MD [facility]
[2017-02-13] MEDS: VANCOMYCIN PER PHARMACY MC PRN (13:48)
[2017-02-13] MEDS ORDERED: MUPIROCIN 2 % NASAL OINTMENT 22GM TUBE. NS SCH (14:00)
[2017-02-13] MEDS: ENOXAPARIN 40 MG/0.4 ML SYRINGE. SQ SCH ×2 (14:02→20:20)
[2017-02-13 14:33] VITALS: BP 153/67
[2017-02-13 19:00] VITALS: BP 147/90
[2017-02-13] MEDS: ATORVASTATIN CALCIUM 40 MG TABLET. PO SCH (20:19)
[2017-02-13] MEDS: LATANOPROST 0.005% OPHTH SOLUTION 2.5ML BOTTLE. OU SCH (20:19)
[2017-02-13] MEDS: LACTOBACILLUS RHAMNOSUS GG 1 CAPSULE. PO SCH (20:19)
[2017-02-13 23:27] VITALS: BP 150/78
[2017-02-14] MEDS: HYDROcodone/APAP 5/325MG 1 TAB TABLET PO PRN ×4 (00:34→23:43)
[2017-02-14 03:55] VITALS: BP 142/64
[2017-02-14 05:23] LABS: BASO % 1 % (0-3); EOS % 1 % (0-3); HEMATOCRIT 36.3 % (36.0-47.0); HEMOGLOBIN 11.8 g/dL (12.0-15.5); LYMPH # 2.2 x10^3/uL (1.0-4.8); LYMPH % 23 % (24-48); MEAN CORPUSCULAR HEMOGLOBIN 29 pg (25-35); MEAN CORPUSCULAR HGB CONC 32 g/dL (31-37); MEAN CORPUSCULAR VOLUME 90 fL (79-100); MONO % 9 % (0-9); NEUT % 67 % (31-73); PLATELET COUNT 217 x10^3/uL (140-400); RED BLOOD COUNT 4.04 x10^6/uL (3.50-5.40); RED CELL DISTRIBUTION WIDTH 14.1 % (11.5-14.5); WHITE BLOOD COUNT 9.3 x10^3/uL (4.0-11.0)
[2017-02-14] MEDS: CEFEPIME HCL IV Push 1 GM VIAL. IVP SCH ×3 (05:42→22:54)
[2017-02-14 05:59] LABS: CALCIUM 10.3 mg/dL (8.5-10.1); CREATININE 0.7 mg/dL (0.6-1.0); GFR 87.9
[2017-02-14 06:58] VITALS: BP 143/78
[2017-02-14] MEDS: IPRATRPIUM/ALBUTEROL 0.5/2.5MG 3 ML NEBU. NEB SCH ×5 (07:13→19:54)
[2017-02-14] MEDS: LACTOBACILLUS RHAMNOSUS GG 1 CAPSULE. PO SCH ×2 (07:59→21:08)
[2017-02-14] MEDS: PANTOPRAZOLE 40 MG TABLET.DR. PO SCH (08:00)
[2017-02-14] MEDS: EZETIMIBE 10 MG TABLET. PO SCH (08:00)
[2017-02-14] MEDS: POTASSIUM CHLORIDE 20 MEQ TABLET.ER. PO SCH (08:00)
[2017-02-14] MEDS: ENOXAPARIN 40 MG/0.4 ML SYRINGE. SQ SCH ×2 (08:01→21:09)
[2017-02-14] MEDS: LOSARTAN POTASSIUM 50 MG TABLET. PO SCH (08:01)
[2017-02-14] MEDS: ASPIRIN CHEWABLE 81 MG TABLET. PO SCH (08:01)
[2017-02-14] MEDS: predniSONE 20 MG TABLET PO SCH (08:01)
[2017-02-14] MEDS: FUROSEMIDE 40 MG TABLET. PO SCH (08:01)
[2017-02-14] MEDS: FLUTICASONE 50MCG/NASAL SPRAY 16GM BOTTLE. NS SCH (08:02)
[2017-02-14] MEDS: INSULIN DETEMIR 300 UNITS/3 ML INSULN.PEN. SQ SCH (08:14)
[2017-02-14] MEDS: INSULIN ASPART 300 UNITS/3 ML INSULN.PEN SQ SCH ×7 (08:15→21:15)
[2017-02-14 10:30] VITALS: BP 154/70
--- NOTE | 2017-02-14 11:48 | PDOC ---
PROGRESS NOTES Chief Complaint Chief Complaint Acute hypoxic respir failure ASSESSMENT AND PLAN: 1. Asthma exacerbation: on steroids, nebs suppl O2 2. Multi-lobar PNA/bronchiolitis: on broad- spectrum Abx, mucolytics. consult Dr Lambert. 3. CAD: no acute issues. cont home meds 4. GERD: on PPI 5. DVT prophylaxis: lovenox History of Present Illness History of Present Illness still SOB, ewa with exertion. no CP, N/V Vitals Vitals Vital Signs Date Time Temp Pulse Resp B/P (MAP) Pulse Ox O2 Delivery O2 Flow Rate FiO2 02/14/17 11:00 96 Nasal Cannula 2.0 02/14/17 10:30 97.4 72 18 154/70 (98) 97.4 Physical Exam General: Alert, Oriented X3, Cooperative, No acute distress Heart: Regular rate Lungs: Other (poor air movement, expir wheezes) Abdomen: Normal bowel sounds, No tenderness Extremities: No clubbing, No edema Skin: No rashes Labs LABS Laboratory Tests Test 02/13/17 16:32 02/13/17 21:06 02/14/17 05:00 02/14/17 07:07 Glucose (Fingerstick) 439 mg/dL (70-99) 433 mg/dL (70-99) 237 mg/dL (70-99) White Blood Count 9.3 x10^3/uL (4.0-11.0) Red Blood Count 4.04 x10^6/uL (3.50-5.40) Hemoglobin 11.8 g/dL (12.0-15.5) Hematocrit 36.3 % (36.0-47.0) Mean Corpuscular Volume 90 fL (79-100) Mean Corpuscular Hemoglobin 29 pg (25-35) Mean Corpuscular Hemoglobin Concent 32 g/dL (31-37) Red Cell Distribution Width 14.1 % (11.5-14.5) Platelet Count 217 x10^3/uL (140-400) Neutrophils (%) (Auto) 67 % (31-73) Lymphocytes (%) (Auto) 23 % (24-48) Monocytes (%) (Auto) 9 % (0-9) Eosinophils (%) (Auto) 1 % (0-3) Basophils (%) (Auto) 1 % (0-3) Neutrophils # (Auto) 6.2 x10^3uL (1.8-7.7) Lymphocytes # (Auto) 2.2 x10^3/uL (1.0-4.8) Monocytes # (Auto) 0.8 x10^3/uL (0.0-1.1) Eosinophils # (Auto) 0.1 x10^3/uL (0.0-0.7) Basophils # (Auto) 0.0 x10^3/uL (0.0-0.2) Sodium Level 137 mmol/L (136-145) Potassium Level 5.0 mmol/L (3.5-5.1) Chloride Level 101 mmol/L (98-107) Carbon Dioxide Level 29 mmol/L (21-32) Anion Gap 7 (6-14) Blood Urea Nitrogen 16 mg/dL (7-20) Creatinine 0.7 mg/dL (0.6-1.0) Estimated GFR (Cockcroft-Gault) 87.9 Glucose Level 327 mg/dL (70-99) Calcium Level 10.3 mg/dL (8.5-10.1) Test 02/14/17 10:40 02/14/17 11:25 Vancomycin Level Trough 10.0 mcg/mL (10.0-20.0) Vancomycin Last Dose Date 02/13/2017 Vancomycin Last Dose Time 2300 Glucose (Fingerstick) 182 mg/dL (70-99) WENDY RAMACHANDRAN MD Feb 14, 2017 11:48
[2017-02-14] MEDS: VANCOMYCIN 1.5 GM in IV DEXTROSE 5 %-0.45 % NACL 500 ML IV SCH (12:27)
[2017-02-14 14:39] VITALS: BP 161/75
--- NOTE | 2017-02-14 14:41 | CONS ---
DATE OF CONSULTATION: ATTENDING PHYSICIAN: Dr. Clay. REASON FOR CONSULTATION: Pneumonia. HISTORY OF PRESENT ILLNESS: The patient is a 51-year-old morbidly obese patient with no history of COPD, but history of asthma, adult onset. She was hospitalized about a week ago and at that time, she was treated for pneumonia, but she states that she did not go home on p.o. antibiotics. She subsequently came back to the hospital with increasing shortness of breath and wheezing. She still had a cough and left-sided pleuritic chest pain. The patient underwent a CT angiogram which was reviewed by me. She also had a CT angiogram on 02/07/2017 as well. There was no evidence of pulmonary embolism. The patient had a consolidation in the left upper lobe. She has no obvious mass. There was mildly prominent mediastinal or hilar adenopathy, which may be reactive. She has also had history of sleep apnea diagnosed recently and was supposed to have a CPAP titration study yesterday, but she ended up in the hospital. PAST MEDICAL HISTORY: Significant for history of asthma, history of type 2 diabetes, hypertension, sleep apnea, and hypercholesterolemia. PAST SURGICAL HISTORY: Status post hysterectomy and retinal surgery. FAMILY HISTORY: Positive for CAD. MEDICATIONS: All reviewed as listed in the MRAD including broad-spectrum antibiotics. REVIEW OF SYSTEMS: A 12-point system was obtained. Pertinent positives discussed in history of present illness, otherwise noncontributory. All systems that were negative were reviewed as well. SOCIAL HISTORY: Nonsmoker. PHYSICAL EXAMINATION: GENERAL: She is in no obvious respiratory distress. VITAL SIGNS: Stable, afebrile, pulse ox 95% on 2 liters. She does not use oxygen at home. HEENT: Sclerae nonicteric. NECK: Supple. LUNGS: With diffuse bilateral expiratory wheezes. CARDIOVASCULAR: Regular rate and rhythm. ABDOMEN: Soft, obese. EXTREMITIES: Just trace pitting edema. LABORATORY DATA: Reviewed. White cell count 9.3, hemoglobin 11.8 and platelets 217. BUN and creatinine 16 and 0.7. IMPRESSION: 1. Dyspnea with acute hypoxic respiratory failure secondary to acute exacerbation of asthma and pneumonia. 2. Abnormal CT chest with evidence of pneumonia involving the left upper lobe. This will be treated as healthcare-associated pneumonia, although the radiographic findings were almost similar to previous CAT scan. 3. No evidence of pulmonary embolism. 4. History of obstructive sleep apnea and will be scheduled for CPAP titration as an outpatient. RECOMMENDATIONS: 1. Continue with present broad-spectrum antibiotics. 2. Follow the clinical response to treatment. 3. Continue oxygen and wean off once saturations stay above 92%. 4. We will deescalate the antibiotics in 72 hours. 5. Outpatient CPAP titration study. 6. Weight loss is strongly emphasized. 7. Change PO prednisone to IV steroids 7. We will follow along with you. NÉSTOR GARNER MD DR: TAMEKA/zoya JOB#: [id number] / [id number] JASON
[2017-02-14] MEDS: methylPREDNISolone SOD SUCC PF 125 MG/2 ML VIAL. IV SCH ×2 (15:04→22:54)
[2017-02-14] MEDS: VANCOMYCIN PER PHARMACY MC PRN (16:13)
[2017-02-14 19:05] VITALS: BP 152/74
[2017-02-14] MEDS: BUDESONIDE 0.5 MG/2 ML NEBU. NEB SCH (19:54)
[2017-02-14] MEDS: LATANOPROST 0.005% OPHTH SOLUTION 2.5ML BOTTLE. OU SCH (21:09)
[2017-02-14] MEDS: ATORVASTATIN CALCIUM 40 MG TABLET. PO SCH (21:09)
[2017-02-14] MEDS: VANCOMYCIN 1.75 GM in IV DEXTROSE 5 %-0.45 % NACL 500 ML IV SCH (22:55)
[2017-02-14 23:05] VITALS: BP 132/84
[2017-02-15] MEDS: IPRATRPIUM/ALBUTEROL 0.5/2.5MG 3 ML NEBU. NEB SCH ×7 (00:05→23:38)
[2017-02-15 03:05] VITALS: BP 152/70
[2017-02-15 04:29] LABS: BASO % 0 % (0-3); EOS % 0 % (0-3); HEMATOCRIT 37.4 % (36.0-47.0); HEMOGLOBIN 11.9 g/dL (12.0-15.5); LYMPH # 1.1 x10^3/uL (1.0-4.8); LYMPH % 13 % (24-48); MEAN CORPUSCULAR HEMOGLOBIN 29 pg (25-35); MEAN CORPUSCULAR HGB CONC 32 g/dL (31-37); MEAN CORPUSCULAR VOLUME 90 fL (79-100); MONO % 3 % (0-9); NEUT % 85 % (31-73); PLATELET COUNT 221 x10^3/uL (140-400); RED BLOOD COUNT 4.14 x10^6/uL (3.50-5.40); RED CELL DISTRIBUTION WIDTH 14.2 % (11.5-14.5)
[2017-02-15 04:48] LABS: CALCIUM 10.9 mg/dL (8.5-10.1); CREATININE 0.8 mg/dL (0.6-1.0); GFR 75.3
[2017-02-15] MEDS: methylPREDNISolone SOD SUCC PF 125 MG/2 ML VIAL. IV SCH ×3 (06:04→21:50)
[2017-02-15] MEDS: HYDROcodone/APAP 5/325MG 1 TAB TABLET PO PRN ×3 (06:04→22:08)
[2017-02-15] MEDS: CEFEPIME HCL IV Push 1 GM VIAL. IVP SCH ×3 (06:04→21:50)
[2017-02-15 07:00] VITALS: BP 160/74
[2017-02-15] MEDS: BUDESONIDE 0.5 MG/2 ML NEBU. NEB SCH ×2 (08:04→20:12)
[2017-02-15] MEDS: LACTOBACILLUS RHAMNOSUS GG 1 CAPSULE. PO SCH ×2 (08:26→21:48)
[2017-02-15] MEDS: EZETIMIBE 10 MG TABLET. PO SCH (08:26)
[2017-02-15] MEDS: LOSARTAN POTASSIUM 50 MG TABLET. PO SCH (08:26)
[2017-02-15] MEDS: FUROSEMIDE 40 MG TABLET. PO SCH (08:27)
[2017-02-15] MEDS: FLUTICASONE 50MCG/NASAL SPRAY 16GM BOTTLE. NS SCH (08:27)
[2017-02-15] MEDS: PANTOPRAZOLE 40 MG TABLET.DR. PO SCH (08:27)
[2017-02-15] MEDS: POTASSIUM CHLORIDE 20 MEQ TABLET.ER. PO SCH (08:27)
[2017-02-15] MEDS: ASPIRIN CHEWABLE 81 MG TABLET. PO SCH (08:27)
[2017-02-15] MEDS: ENOXAPARIN 40 MG/0.4 ML SYRINGE. SQ SCH ×2 (08:28→21:49)
[2017-02-15] MEDS: INSULIN ASPART 300 UNITS/3 ML INSULN.PEN SQ SCH ×7 (08:40→21:53)
[2017-02-15] MEDS: INSULIN DETEMIR 300 UNITS/3 ML INSULN.PEN. SQ SCH (08:41)
[2017-02-15] MEDS: VANCOMYCIN 1.75 GM in IV DEXTROSE 5 %-0.45 % NACL 500 ML IV SCH ×2 (11:11→23:38)
--- NOTE | 2017-02-15 13:36 | PDOC ---
PROGRESS NOTES Chief Complaint Chief Complaint Acute hypoxic respir failure ASSESSMENT AND PLAN: 1. Asthma exacerbation: on steroids, nebs suppl O2 2. Multi-lobar PNA/bronchiolitis: on broad- spectrum Abx, mucolytics. appreciate Dr Lambert's input 3. CAD: no acute issues. cont home meds 4. GERD: on PPI 5. DVT prophylaxis: lovenox 6. Dispo: poss home in AM Vitals Vitals Vital Signs Date Time Temp Pulse Resp B/P (MAP) Pulse Ox O2 Delivery O2 Flow Rate FiO2 02/15/17 12:52 97 Room Air 2.0 02/15/17 08:26 90 160/74 02/15/17 07:00 97.6 18 97.6 Physical Exam General: Alert, Oriented X3, Cooperative, No acute distress Heart: Regular rate Lungs: Other (poor air movement, expir wheezes) Abdomen: Normal bowel sounds, No tenderness Extremities: No clubbing, No edema Skin: No rashes Labs LABS Laboratory Tests Test 02/14/17 16:31 02/14/17 21:08 02/15/17 03:30 02/15/17 07:46 Glucose (Fingerstick) 276 mg/dL (70-99) 380 mg/dL (70-99) 323 mg/dL (70-99) White Blood Count 9.0 x10^3/uL (4.0-11.0) Red Blood Count 4.14 x10^6/uL (3.50-5.40) Hemoglobin 11.9 g/dL (12.0-15.5) Hematocrit 37.4 % (36.0-47.0) Mean Corpuscular Volume 90 fL (79-100) Mean Corpuscular Hemoglobin 29 pg (25-35) Mean Corpuscular Hemoglobin Concent 32 g/dL (31-37) Red Cell Distribution Width 14.2 % (11.5-14.5) Platelet Count 221 x10^3/uL (140-400) Neutrophils (%) (Auto) 85 % (31-73) Lymphocytes (%) (Auto) 13 % (24-48) Monocytes (%) (Auto) 3 % (0-9) Eosinophils (%) (Auto) 0 % (0-3) Basophils (%) (Auto) 0 % (0-3) Neutrophils # (Auto) 7.6 x10^3uL (1.8-7.7) Lymphocytes # (Auto) 1.1 x10^3/uL (1.0-4.8) Monocytes # (Auto) 0.2 x10^3/uL (0.0-1.1) Eosinophils # (Auto) 0.0 x10^3/uL (0.0-0.7) Basophils # (Auto) 0.0 x10^3/uL (0.0-0.2) Sodium Level 138 mmol/L (136-145) Potassium Level 5.0 mmol/L (3.5-5.1) Chloride Level 102 mmol/L (98-107) Carbon Dioxide Level 27 mmol/L (21-32) Anion Gap 9 (6-14) Blood Urea Nitrogen 16 mg/dL (7-20) Creatinine 0.8 mg/dL (0.6-1.0) Estimated GFR (Cockcroft-Gault) 75.3 Glucose Level 324 mg/dL (70-99) Calcium Level 10.9 mg/dL (8.5-10.1) Test 02/15/17 11:44 Glucose (Fingerstick) 384 mg/dL (70-99) WENDY RAMACHANDRAN MD Feb 15, 2017 13:36
--- NOTE | 2017-02-15 14:15 | PDOC ---
PULMONARY PROGRESS NOTES Subjective no soa feels better Vitals Vital Signs Date Time Temp Pulse Resp B/P (MAP) Pulse Ox O2 Delivery O2 Flow Rate FiO2 02/15/17 12:52 97 Room Air 2.0 02/15/17 08:26 90 160/74 02/15/17 07:00 97.6 18 97.6 ROS: No Nausea, No Chest Pain, No Abdominal Pain, No Increase Cough General: Alert, No acute distress Lungs: Wheezing (faint) Cardiovascular: S1 Abdomen: Soft Neuro Exam: Alert Extremities: No Edema Skin: Warm Labs Laboratory Tests Test 02/13/17 16:32 02/13/17 21:06 02/14/17 05:00 02/14/17 07:07 Glucose (Fingerstick) 439 mg/dL (70-99) 433 mg/dL (70-99) 237 mg/dL (70-99) White Blood Count 9.3 x10^3/uL (4.0-11.0) Red Blood Count 4.04 x10^6/uL (3.50-5.40) Hemoglobin 11.8 g/dL (12.0-15.5) Hematocrit 36.3 % (36.0-47.0) Mean Corpuscular Volume 90 fL (79-100) Mean Corpuscular Hemoglobin 29 pg (25-35) Mean Corpuscular Hemoglobin Concent 32 g/dL (31-37) Red Cell Distribution Width 14.1 % (11.5-14.5) Platelet Count 217 x10^3/uL (140-400) Neutrophils (%) (Auto) 67 % (31-73) Lymphocytes (%) (Auto) 23 % (24-48) Monocytes (%) (Auto) 9 % (0-9) Eosinophils (%) (Auto) 1 % (0-3) Basophils (%) (Auto) 1 % (0-3) Neutrophils # (Auto) 6.2 x10^3uL (1.8-7.7) Lymphocytes # (Auto) 2.2 x10^3/uL (1.0-4.8) Monocytes # (Auto) 0.8 x10^3/uL (0.0-1.1) Eosinophils # (Auto) 0.1 x10^3/uL (0.0-0.7) Basophils # (Auto) 0.0 x10^3/uL (0.0-0.2) Sodium Level 137 mmol/L (136-145) Potassium Level 5.0 mmol/L (3.5-5.1) Chloride Level 101 mmol/L (98-107) Carbon Dioxide Level 29 mmol/L (21-32) Anion Gap 7 (6-14) Blood Urea Nitrogen 16 mg/dL (7-20) Creatinine 0.7 mg/dL (0.6-1.0) Estimated GFR (Cockcroft-Gault) 87.9 Glucose Level 327 mg/dL (70-99) Calcium Level 10.3 mg/dL (8.5-10.1) Test 02/14/17 10:40 02/14/17 11:25 02/14/17 16:31 02/14/17 21:08 Vancomycin Level Trough 10.0 mcg/mL (10.0-20.0) Vancomycin Last Dose Date 02/13/2017 Vancomycin Last Dose Time 2300 Glucose (Fingerstick) 182 mg/dL (70-99) 276 mg/dL (70-99) 380 mg/dL (70-99) Test 02/15/17 03:30 02/15/17 07:46 02/15/17 11:44 White Blood Count 9.0 x10^3/uL (4.0-11.0) Red Blood Count 4.14 x10^6/uL (3.50-5.40) Hemoglobin 11.9 g/dL (12.0-15.5) Hematocrit 37.4 % (36.0-47.0) Mean Corpuscular Volume 90 fL (79-100) Mean Corpuscular Hemoglobin 29 pg (25-35) Mean Corpuscular Hemoglobin Concent 32 g/dL (31-37) Red Cell Distribution Width 14.2 % (11.5-14.5) Platelet Count 221 x10^3/uL (140-400) Neutrophils (%) (Auto) 85 % (31-73) Lymphocytes (%) (Auto) 13 % (24-48) Monocytes (%) (Auto) 3 % (0-9) Eosinophils (%) (Auto) 0 % (0-3) Basophils (%) (Auto) 0 % (0-3) Neutrophils # (Auto) 7.6 x10^3uL (1.8-7.7) Lymphocytes # (Auto) 1.1 x10^3/uL (1.0-4.8) Monocytes # (Auto) 0.2 x10^3/uL (0.0-1.1) Eosinophils # (Auto) 0.0 x10^3/uL (0.0-0.7) Basophils # (Auto) 0.0 x10^3/uL (0.0-0.2) Sodium Level 138 mmol/L (136-145) Potassium Level 5.0 mmol/L (3.5-5.1) Chloride Level 102 mmol/L (98-107) Carbon Dioxide Level 27 mmol/L (21-32) Anion Gap 9 (6-14) Blood Urea Nitrogen 16 mg/dL (7-20) Creatinine 0.8 mg/dL (0.6-1.0) Estimated GFR (Cockcroft-Gault) 75.3 Glucose Level 324 mg/dL (70-99) Calcium Level 10.9 mg/dL (8.5-10.1) Glucose (Fingerstick) 323 mg/dL (70-99) 384 mg/dL (70-99) Laboratory Tests Test 02/14/17 16:31 02/14/17 21:08 02/15/17 03:30 02/15/17 07:46 Glucose (Fingerstick) 276 mg/dL (70-99) 380 mg/dL (70-99) 323 mg/dL (70-99) White Blood Count 9.0 x10^3/uL (4.0-11.0) Red Blood Count 4.14 x10^6/uL (3.50-5.40) Hemoglobin 11.9 g/dL (12.0-15.5) Hematocrit 37.4 % (36.0-47.0) Mean Corpuscular Volume 90 fL (79-100) Mean Corpuscular Hemoglobin 29 pg (25-35) Mean Corpuscular Hemoglobin Concent 32 g/dL (31-37) Red Cell Distribution Width 14.2 % (11.5-14.5) Platelet Count 221 x10^3/uL (140-400) Neutrophils (%) (Auto) 85 % (31-73) Lymphocytes (%) (Auto) 13 % (24-48) Monocytes (%) (Auto) 3 % (0-9) Eosinophils (%) (Auto) 0 % (0-3) Basophils (%) (Auto) 0 % (0-3) Neutrophils # (Auto) 7.6 x10^3uL (1.8-7.7) Lymphocytes # (Auto) 1.1 x10^3/uL (1.0-4.8) Monocytes # (Auto) 0.2 x10^3/uL (0.0-1.1) Eosinophils # (Auto) 0.0 x10^3/uL (0.0-0.7) Basophils # (Auto) 0.0 x10^3/uL (0.0-0.2) Sodium Level 138 mmol/L (136-145) Potassium Level 5.0 mmol/L (3.5-5.1) Chloride Level 102 mmol/L (98-107) Carbon Dioxide Level 27 mmol/L (21-32) Anion Gap 9 (6-14) Blood Urea Nitrogen 16 mg/dL (7-20) Creatinine 0.8 mg/dL (0.6-1.0) Estimated GFR (Cockcroft-Gault) 75.3 Glucose Level 324 mg/dL (70-99) Calcium Level 10.9 mg/dL (8.5-10.1) Test 02/15/17 11:44 Glucose (Fingerstick) 384 mg/dL (70-99) Medications Active Scripts Medications Dose Route/Sig Max Daily Dose Days Date Category Codeine-Guaifen 10-100 mg/5 ml (Guaifenesin/Codeine Phosphate) 120 Ml Liquid 120 Ml PO Q4-6HRS PRN 02/08/17 Rx Prednisone 20 Mg Tablet 2 Tab PO DAILY 02/08/17 Rx Novolog (Insulin Aspart) 100 Unit/1 Ml Vial 30 Unit SQ TIDWMEALS 02/07/17 Reported Flonase Allergy Relief (Fluticasone Propionate) 9.9 Ml [place].susp 2 Sprays NS DAILY 11/27/16 Rx Promethazine-Codeine Syrup (Promethazine Hcl/Codeine) 118 Ml Syrup 5 Ml PO Q4-6HRS 02/14/16 Rx Proair Respiclick (Albuterol Sulfate) 90 Mcg Aer.pow.ba 1 Puff IH PRN Q6HRS PRN 02/14/16 Rx Mupirocin Ointment (Mupirocin) 22 Gm Oint...g. 1 Agatha TP TID 11/10/15 Rx Pantoprazole Sodium 40 Mg Tablet.dr 40 Mg PO DAILYAC 02/04/15 Rx Aspirin 81 Mg Tab.chew 81 Mg PO DAILY 02/04/15 Reported Atacand (Candesartan Cilexetil) 32 Mg Tablet 32 Mg PO DAILY 02/04/15 Reported Ventolin Hfa Inhaler (Albuterol Sulfate) 18 Gm Hfa.aer.ad 2 Puff IH PRN Q4-6HRS 02/04/15 Reported Potassium Chloride 20 Meq Tablet.er 20 Meq PO DAILY 02/04/15 Reported Furosemide 40 Mg Tablet 40 Mg PO DAILY 02/04/15 Reported Xalatan (Latanoprost) 2.5 Ml Drops 2.5 Ml EACHEYE QHS 05/14/13 Reported Lantus (Insulin Glargine,Hum.rec.anlog) 100 Unit/1 Ml Vial 100 Unit SQ DAILY 02/09/13 Reported Zetia (Ezetimibe) 10 Mg Tablet 10 Mg PO DAILY 02/09/13 Reported Crestor (Rosuvastatin Calcium) 40 Mg Tablet 40 Mg PO QHS 02/09/13 Reported Metformin Hcl 1,000 Mg Tablet 1,000 Mg PO BID 02/09/13 Reported Impression . 1. Dyspnea with acute hypoxic respiratory failure secondary to acute exacerbation of asthma and pneumonia. 2. Abnormal CT chest with evidence of pneumonia involving the left upper lobe. This will be treated as healthcare-associated pneumonia, 3. No evidence of pulmonary embolism. 4. History of obstructive sleep apnea and will be scheduled for CPAP titration as an outpatient. Plan . 1. Continue with present broad-spectrum antibiotics. 2. Follow the clinical response to treatment. 3. Continue oxygen and wean off once saturations stay above 92%. 4. We will deescalate the antibiotics in 72 hours. 5. Outpatient CPAP titration study. 6. Weight loss is strongly emphasized. 7. IV steroids 7. better NÉSTOR GARNER MD Feb 15, 2017 14:15
[2017-02-15 15:00] VITALS: BP 156/81
[2017-02-15] MEDS: VANCOMYCIN PER PHARMACY MC PRN (15:10)
[2017-02-15 19:16] VITALS: BP 174/83
[2017-02-15] MEDS: LATANOPROST 0.005% OPHTH SOLUTION 2.5ML BOTTLE. OU SCH (21:47)
[2017-02-15] MEDS: ATORVASTATIN CALCIUM 40 MG TABLET. PO SCH (21:48)
[2017-02-15 23:54] VITALS: BP 186/88
[2017-02-16 03:41] VITALS: BP 184/85
[2017-02-16] MEDS: HYDROcodone/APAP 5/325MG 1 TAB TABLET PO PRN ×2 (05:58→13:51)
[2017-02-16] MEDS: CEFEPIME HCL IV Push 1 GM VIAL. IVP SCH ×2 (05:59→14:00)
[2017-02-16] MEDS: methylPREDNISolone SOD SUCC PF 125 MG/2 ML VIAL. IV SCH ×2 (05:59→14:00)
[2017-02-16 06:03] LABS: BASO % 0 % (0-3); EOS % 0 % (0-3); HEMATOCRIT 37.8 % (36.0-47.0); HEMOGLOBIN 12.1 g/dL (12.0-15.5); LYMPH # 1.2 x10^3/uL (1.0-4.8); LYMPH % 11 % (24-48); MEAN CORPUSCULAR HEMOGLOBIN 29 pg (25-35); MEAN CORPUSCULAR HGB CONC 32 g/dL (31-37); MEAN CORPUSCULAR VOLUME 89 fL (79-100); MONO % 4 % (0-9); NEUT % 85 % (31-73); PLATELET COUNT 235 x10^3/uL (140-400); RED BLOOD COUNT 4.22 x10^6/uL (3.50-5.40); RED CELL DISTRIBUTION WIDTH 14.4 % (11.5-14.5); WHITE BLOOD COUNT 11.5 x10^3/uL (4.0-11.0)
[2017-02-16 06:34] LABS: CALCIUM 11.4 mg/dL (8.5-10.1); CREATININE 0.8 mg/dL (0.6-1.0); GFR 75.3; POTASSIUM 4.5 mmol/L (3.5-5.1)
[2017-02-16 07:00] VITALS: BP 168/77
[2017-02-16] MEDS: BUDESONIDE 0.5 MG/2 ML NEBU. NEB SCH (07:59)
[2017-02-16] MEDS: IPRATRPIUM/ALBUTEROL 0.5/2.5MG 3 ML NEBU. NEB SCH ×2 (07:59→11:51)
[2017-02-16] MEDS ORDERED: PRED-220 PO (09:38)
[2017-02-16] MEDS ORDERED: AMOX1TAB61 PO (09:38)
--- NOTE | 2017-02-16 09:45 | PDOC3 ---
Discharge Summary Visit Information Date of Admission: Feb 12, 2017 Date of Discharge: Feb 16, 2017 Admitting Diagnosis: hypoxia Final Diagnosis Acute hypoxic respiratory failure 1. Asthma exacerbation: on steroids, nebs suppl O2 2. Multi-lobar PNA/bronchiolitis: on broad- spectrum Abx, mucolytics. ELIZABETH Mohamud 3. CAD: no acute issues. cont home meds 4. GERD: on PPI 5. YON, not adequately treated Problems Medical Problems: (1) Bilateral lower extremity edema Status: Acute (2) Hypoxia Status: Acute (3) Pneumonia Status: Acute Brief Hospital Course Allergies Allergies Coded Allergies Type Severity Reaction Last Updated Verified No Known Drug Allergies 06/07/13 No Vital Signs Vital Signs Date Time Temp Pulse Resp B/P (MAP) Pulse Ox O2 Delivery O2 Flow Rate FiO2 02/16/17 08:08 Room Air 02/16/17 07:55 94 02/16/17 07:00 97.4 68 18 168/77 (107) 2.0 97.4 Lab Results Laboratory Tests Test 02/14/17 10:40 02/14/17 11:25 02/14/17 16:31 02/14/17 21:08 Vancomycin Level Trough 10.0 mcg/mL (10.0-20.0) Vancomycin Last Dose Date 02/13/2017 Vancomycin Last Dose Time 2300 Glucose (Fingerstick) 182 mg/dL (70-99) 276 mg/dL (70-99) 380 mg/dL (70-99) Test 02/15/17 03:30 02/15/17 07:46 02/15/17 11:44 02/15/17 17:20 White Blood Count 9.0 x10^3/uL (4.0-11.0) Red Blood Count 4.14 x10^6/uL (3.50-5.40) Hemoglobin 11.9 g/dL (12.0-15.5) Hematocrit 37.4 % (36.0-47.0) Mean Corpuscular Volume 90 fL (79-100) Mean Corpuscular Hemoglobin 29 pg (25-35) Mean Corpuscular Hemoglobin Concent 32 g/dL (31-37) Red Cell Distribution Width 14.2 % (11.5-14.5) Platelet Count 221 x10^3/uL (140-400) Neutrophils (%) (Auto) 85 % (31-73) Lymphocytes (%) (Auto) 13 % (24-48) Monocytes (%) (Auto) 3 % (0-9) Eosinophils (%) (Auto) 0 % (0-3) Basophils (%) (Auto) 0 % (0-3) Neutrophils # (Auto) 7.6 x10^3uL (1.8-7.7) Lymphocytes # (Auto) 1.1 x10^3/uL (1.0-4.8) Monocytes # (Auto) 0.2 x10^3/uL (0.0-1.1) Eosinophils # (Auto) 0.0 x10^3/uL (0.0-0.7) Basophils # (Auto) 0.0 x10^3/uL (0.0-0.2) Sodium Level 138 mmol/L (136-145) Potassium Level 5.0 mmol/L (3.5-5.1) Chloride Level 102 mmol/L (98-107) Carbon Dioxide Level 27 mmol/L (21-32) Anion Gap 9 (6-14) Blood Urea Nitrogen 16 mg/dL (7-20) Creatinine 0.8 mg/dL (0.6-1.0) Estimated GFR (Cockcroft-Gault) 75.3 Glucose Level 324 mg/dL (70-99) Calcium Level 10.9 mg/dL (8.5-10.1) Glucose (Fingerstick) 323 mg/dL (70-99) 384 mg/dL (70-99) 285 mg/dL (70-99) Test 02/15/17 21:46 02/16/17 05:40 02/16/17 07:57 Glucose (Fingerstick) 326 mg/dL (70-99) 253 mg/dL (70-99) White Blood Count 11.5 x10^3/uL (4.0-11.0) Red Blood Count 4.22 x10^6/uL (3.50-5.40) Hemoglobin 12.1 g/dL (12.0-15.5) Hematocrit 37.8 % (36.0-47.0) Mean Corpuscular Volume 89 fL (79-100) Mean Corpuscular Hemoglobin 29 pg (25-35) Mean Corpuscular Hemoglobin Concent 32 g/dL (31-37) Red Cell Distribution Width 14.4 % (11.5-14.5) Platelet Count 235 x10^3/uL (140-400) Neutrophils (%) (Auto) 85 % (31-73) Lymphocytes (%) (Auto) 11 % (24-48) Monocytes (%) (Auto) 4 % (0-9) Eosinophils (%) (Auto) 0 % (0-3) Basophils (%) (Auto) 0 % (0-3) Neutrophils # (Auto) 9.8 x10^3uL (1.8-7.7) Lymphocytes # (Auto) 1.2 x10^3/uL (1.0-4.8) Monocytes # (Auto) 0.5 x10^3/uL (0.0-1.1) Eosinophils # (Auto) 0.0 x10^3/uL (0.0-0.7) Basophils # (Auto) 0.0 x10^3/uL (0.0-0.2) Sodium Level 137 mmol/L (136-145) Potassium Level 4.5 mmol/L (3.5-5.1) Chloride Level 102 mmol/L (98-107) Carbon Dioxide Level 32 mmol/L (21-32) Anion Gap 3 (6-14) Blood Urea Nitrogen 15 mg/dL (7-20) Creatinine 0.8 mg/dL (0.6-1.0) Estimated GFR (Cockcroft-Gault) 75.3 Glucose Level 292 mg/dL (70-99) Calcium Level 11.4 mg/dL (8.5-10.1) Laboratory Tests Test 02/15/17 11:44 02/15/17 17:20 02/15/17 21:46 02/16/17 05:40 Glucose (Fingerstick) 384 mg/dL (70-99) 285 mg/dL (70-99) 326 mg/dL (70-99) White Blood Count 11.5 x10^3/uL (4.0-11.0) Red Blood Count 4.22 x10^6/uL (3.50-5.40) Hemoglobin 12.1 g/dL (12.0-15.5) Hematocrit 37.8 % (36.0-47.0) Mean Corpuscular Volume 89 fL (79-100) Mean Corpuscular Hemoglobin 29 pg (25-35) Mean Corpuscular Hemoglobin Concent 32 g/dL (31-37) Red Cell Distribution Width 14.4 % (11.5-14.5) Platelet Count 235 x10^3/uL (140-400) Neutrophils (%) (Auto) 85 % (31-73) Lymphocytes (%) (Auto) 11 % (24-48) Monocytes (%) (Auto) 4 % (0-9) Eosinophils (%) (Auto) 0 % (0-3) Basophils (%) (Auto) 0 % (0-3) Neutrophils # (Auto) 9.8 x10^3uL (1.8-7.7) Lymphocytes # (Auto) 1.2 x10^3/uL (1.0-4.8) Monocytes # (Auto) 0.5 x10^3/uL (0.0-1.1) Eosinophils # (Auto) 0.0 x10^3/uL (0.0-0.7) Basophils # (Auto) 0.0 x10^3/uL (0.0-0.2) Sodium Level 137 mmol/L (136-145) Potassium Level 4.5 mmol/L (3.5-5.1) Chloride Level 102 mmol/L (98-107) Carbon Dioxide Level 32 mmol/L (21-32) Anion Gap 3 (6-14) Blood Urea Nitrogen 15 mg/dL (7-20) Creatinine 0.8 mg/dL (0.6-1.0) Estimated GFR (Cockcroft-Gault) 75.3 Glucose Level 292 mg/dL (70-99) Calcium Level 11.4 mg/dL (8.5-10.1) Test 02/16/17 07:57 Glucose (Fingerstick) 253 mg/dL (70-99) Brief Hospital Course Ms. Howard is a 51 old admit for acute hypoxia, pneumonia and exac of asthma. / Vanc and cefepime, lungs cleared over 4 days, IV solumedrol, will pred taper at DC, Augmentin 5 days she felt well and wanted DC, needs YON eval, titration, Discharge Information Condition at Discharge: Improved Follow Up: Weeks Disposition/Orders: D/C to Home Scheduled Albuterol Sulfate (Ventolin Hfa Inhaler), 2 PUFF IH PRN Q4-6HRS, (Reported) Amoxicillin/Potassium Clav (Augmentin 875-125 Tablet), 1 TAB PO BID Aspirin (Aspirin), 81 MG PO DAILY, (Reported) Candesartan Cilexetil (Atacand), 32 MG PO DAILY, (Reported) Ezetimibe (Zetia), 10 MG PO DAILY, (Reported) Fluticasone Propionate (Flonase Allergy Relief), 2 SPRAYS NS DAILY Furosemide (Furosemide), 40 MG PO DAILY, (Reported) Insulin Aspart (Novolog), 30 UNIT SQ TIDWMEALS, (Reported) Insulin Glargine,Hum.rec.anlog (Lantus), 100 UNIT SQ DAILY, (Reported) Latanoprost (Xalatan), 2.5 ML EACHEYE QHS, (Reported) Metformin Hcl (Metformin Hcl), 1,000 MG PO BID, (Reported) Mupirocin (Mupirocin Ointment), 1 FELICIANO TP TID Pantoprazole Sodium (Pantoprazole Sodium), 40 MG PO DAILYAC Potassium Chloride (Potassium Chloride), 20 MEQ PO DAILY, (Reported) Prednisone (Prednisone), 2 TAB PO DAILY Prednisone (Prednisone), 10 MG PO UD Promethazine Hcl/Codeine (Promethazine-Codeine Syrup), 5 ML PO Q4-6HRS Rosuvastatin Calcium (Crestor), 40 MG PO QHS, (Reported) Scheduled PRN Albuterol Sulfate (Proair Respiclick), 1 PUFF IH PRN Q6HRS PRN for SHORTNESS OF BREATH Guaifenesin/Codeine Phosphate (Codeine-Guaifen 10-100 mg/5 ml), 120 ML PO Q4- 6HRS PRN for COUGH Patient Instructions Patient Instructions > 30 min face to face Exam, alert, lungs clear, good volume, no edema JOHAN RUSSELL MD Feb 16, 2017 09:45
--- NOTE | 2017-02-16 10:18 | PDOC ---
PULMONARY PROGRESS NOTES Subjective no soa feels better Vitals Vital Signs Date Time Temp Pulse Resp B/P (MAP) Pulse Ox O2 Delivery O2 Flow Rate FiO2 02/16/17 08:08 Room Air 02/16/17 07:55 94 02/16/17 07:00 97.4 68 18 168/77 (107) 2.0 97.4 ROS: No Nausea, No Chest Pain, No Abdominal Pain, No Increase Cough General: Alert, No acute distress Lungs: Wheezing (resolved) Cardiovascular: S1 Abdomen: Soft Neuro Exam: Alert Extremities: No Edema Skin: Warm Labs Laboratory Tests Test 02/14/17 10:40 02/14/17 11:25 02/14/17 16:31 02/14/17 21:08 Vancomycin Level Trough 10.0 mcg/mL (10.0-20.0) Vancomycin Last Dose Date 02/13/2017 Vancomycin Last Dose Time 2300 Glucose (Fingerstick) 182 mg/dL (70-99) 276 mg/dL (70-99) 380 mg/dL (70-99) Test 02/15/17 03:30 02/15/17 07:46 02/15/17 11:44 02/15/17 17:20 White Blood Count 9.0 x10^3/uL (4.0-11.0) Red Blood Count 4.14 x10^6/uL (3.50-5.40) Hemoglobin 11.9 g/dL (12.0-15.5) Hematocrit 37.4 % (36.0-47.0) Mean Corpuscular Volume 90 fL (79-100) Mean Corpuscular Hemoglobin 29 pg (25-35) Mean Corpuscular Hemoglobin Concent 32 g/dL (31-37) Red Cell Distribution Width 14.2 % (11.5-14.5) Platelet Count 221 x10^3/uL (140-400) Neutrophils (%) (Auto) 85 % (31-73) Lymphocytes (%) (Auto) 13 % (24-48) Monocytes (%) (Auto) 3 % (0-9) Eosinophils (%) (Auto) 0 % (0-3) Basophils (%) (Auto) 0 % (0-3) Neutrophils # (Auto) 7.6 x10^3uL (1.8-7.7) Lymphocytes # (Auto) 1.1 x10^3/uL (1.0-4.8) Monocytes # (Auto) 0.2 x10^3/uL (0.0-1.1) Eosinophils # (Auto) 0.0 x10^3/uL (0.0-0.7) Basophils # (Auto) 0.0 x10^3/uL (0.0-0.2) Sodium Level 138 mmol/L (136-145) Potassium Level 5.0 mmol/L (3.5-5.1) Chloride Level 102 mmol/L (98-107) Carbon Dioxide Level 27 mmol/L (21-32) Anion Gap 9 (6-14) Blood Urea Nitrogen 16 mg/dL (7-20) Creatinine 0.8 mg/dL (0.6-1.0) Estimated GFR (Cockcroft-Gault) 75.3 Glucose Level 324 mg/dL (70-99) Calcium Level 10.9 mg/dL (8.5-10.1) Glucose (Fingerstick) 323 mg/dL (70-99) 384 mg/dL (70-99) 285 mg/dL (70-99) Test 02/15/17 21:46 02/16/17 05:40 02/16/17 07:57 Glucose (Fingerstick) 326 mg/dL (70-99) 253 mg/dL (70-99) White Blood Count 11.5 x10^3/uL (4.0-11.0) Red Blood Count 4.22 x10^6/uL (3.50-5.40) Hemoglobin 12.1 g/dL (12.0-15.5) Hematocrit 37.8 % (36.0-47.0) Mean Corpuscular Volume 89 fL (79-100) Mean Corpuscular Hemoglobin 29 pg (25-35) Mean Corpuscular Hemoglobin Concent 32 g/dL (31-37) Red Cell Distribution Width 14.4 % (11.5-14.5) Platelet Count 235 x10^3/uL (140-400) Neutrophils (%) (Auto) 85 % (31-73) Lymphocytes (%) (Auto) 11 % (24-48) Monocytes (%) (Auto) 4 % (0-9) Eosinophils (%) (Auto) 0 % (0-3) Basophils (%) (Auto) 0 % (0-3) Neutrophils # (Auto) 9.8 x10^3uL (1.8-7.7) Lymphocytes # (Auto) 1.2 x10^3/uL (1.0-4.8) Monocytes # (Auto) 0.5 x10^3/uL (0.0-1.1) Eosinophils # (Auto) 0.0 x10^3/uL (0.0-0.7) Basophils # (Auto) 0.0 x10^3/uL (0.0-0.2) Sodium Level 137 mmol/L (136-145) Potassium Level 4.5 mmol/L (3.5-5.1) Chloride Level 102 mmol/L (98-107) Carbon Dioxide Level 32 mmol/L (21-32) Anion Gap 3 (6-14) Blood Urea Nitrogen 15 mg/dL (7-20) Creatinine 0.8 mg/dL (0.6-1.0) Estimated GFR (Cockcroft-Gault) 75.3 Glucose Level 292 mg/dL (70-99) Calcium Level 11.4 mg/dL (8.5-10.1) Laboratory Tests Test 02/15/17 11:44 02/15/17 17:20 02/15/17 21:46 02/16/17 05:40 Glucose (Fingerstick) 384 mg/dL (70-99) 285 mg/dL (70-99) 326 mg/dL (70-99) White Blood Count 11.5 x10^3/uL (4.0-11.0) Red Blood Count 4.22 x10^6/uL (3.50-5.40) Hemoglobin 12.1 g/dL (12.0-15.5) Hematocrit 37.8 % (36.0-47.0) Mean Corpuscular Volume 89 fL (79-100) Mean Corpuscular Hemoglobin 29 pg (25-35) Mean Corpuscular Hemoglobin Concent 32 g/dL (31-37) Red Cell Distribution Width 14.4 % (11.5-14.5) Platelet Count 235 x10^3/uL (140-400) Neutrophils (%) (Auto) 85 % (31-73) Lymphocytes (%) (Auto) 11 % (24-48) Monocytes (%) (Auto) 4 % (0-9) Eosinophils (%) (Auto) 0 % (0-3) Basophils (%) (Auto) 0 % (0-3) Neutrophils # (Auto) 9.8 x10^3uL (1.8-7.7) Lymphocytes # (Auto) 1.2 x10^3/uL (1.0-4.8) Monocytes # (Auto) 0.5 x10^3/uL (0.0-1.1) Eosinophils # (Auto) 0.0 x10^3/uL (0.0-0.7) Basophils # (Auto) 0.0 x10^3/uL (0.0-0.2) Sodium Level 137 mmol/L (136-145) Potassium Level 4.5 mmol/L (3.5-5.1) Chloride Level 102 mmol/L (98-107) Carbon Dioxide Level 32 mmol/L (21-32) Anion Gap 3 (6-14) Blood Urea Nitrogen 15 mg/dL (7-20) Creatinine 0.8 mg/dL (0.6-1.0) Estimated GFR (Cockcroft-Gault) 75.3 Glucose Level 292 mg/dL (70-99) Calcium Level 11.4 mg/dL (8.5-10.1) Test 02/16/17 07:57 Glucose (Fingerstick) 253 mg/dL (70-99) Medications Active Scripts Medications Dose Route/Sig Max Daily Dose Days Date Category Codeine-Guaifen 10-100 mg/5 ml (Guaifenesin/Codeine Phosphate) 120 Ml Liquid 120 Ml PO Q4-6HRS PRN 02/08/17 Rx Prednisone 20 Mg Tablet 2 Tab PO DAILY 02/08/17 Rx Novolog (Insulin Aspart) 100 Unit/1 Ml Vial 30 Unit SQ TIDWMEALS 02/07/17 Reported Flonase Allergy Relief (Fluticasone Propionate) 9.9 Ml [place].susp 2 Sprays NS DAILY 11/27/16 Rx Promethazine-Codeine Syrup (Promethazine Hcl/Codeine) 118 Ml Syrup 5 Ml PO Q4-6HRS 02/14/16 Rx Proair Respiclick (Albuterol Sulfate) 90 Mcg Aer.pow.ba 1 Puff IH PRN Q6HRS PRN 02/14/16 Rx Mupirocin Ointment (Mupirocin) 22 Gm Oint...g. 1 Agatha TP TID 11/10/15 Rx Pantoprazole Sodium 40 Mg Tablet.dr 40 Mg PO DAILYAC 02/04/15 Rx Aspirin 81 Mg Tab.chew 81 Mg PO DAILY 02/04/15 Reported Atacand (Candesartan Cilexetil) 32 Mg Tablet 32 Mg PO DAILY 02/04/15 Reported Ventolin Hfa Inhaler (Albuterol Sulfate) 18 Gm Hfa.aer.ad 2 Puff IH PRN Q4-6HRS 02/04/15 Reported Potassium Chloride 20 Meq Tablet.er 20 Meq PO DAILY 02/04/15 Reported Furosemide 40 Mg Tablet 40 Mg PO DAILY 02/04/15 Reported Xalatan (Latanoprost) 2.5 Ml Drops 2.5 Ml EACHEYE QHS 05/14/13 Reported Lantus (Insulin Glargine,Hum.rec.anlog) 100 Unit/1 Ml Vial 100 Unit SQ DAILY 02/09/13 Reported Zetia (Ezetimibe) 10 Mg Tablet 10 Mg PO DAILY 02/09/13 Reported Crestor (Rosuvastatin Calcium) 40 Mg Tablet 40 Mg PO QHS 02/09/13 Reported Metformin Hcl 1,000 Mg Tablet 1,000 Mg PO BID 02/09/13 Reported Impression . 1. Dyspnea with acute hypoxic respiratory failure secondary to acute exacerbation of asthma and pneumonia. 2. Abnormal CT chest with evidence of pneumonia involving the left upper lobe. This will be treated as healthcare-associated pneumonia, 3. No evidence of pulmonary embolism. 4. History of obstructive sleep apnea and will be scheduled for CPAP titration as an outpatient. Plan . 1. can change to PO antibiotics. 2. Follow the clinical response to treatment. 3. oxygen wean off once saturations stay above 92%. 4. ok with [place] home 5. Outpatient CPAP titration study. 6. Weight loss is strongly emphasized. 7. steroids taper 7. ok with [place] home NÉSTOR GARNER MD Feb 16, 2017 10:18
[2017-02-16] MEDS: FLUTICASONE 50MCG/NASAL SPRAY 16GM BOTTLE. NS SCH (10:28)
[2017-02-16] MEDS: LACTOBACILLUS RHAMNOSUS GG 1 CAPSULE. PO SCH (10:28)
[2017-02-16] MEDS: FUROSEMIDE 40 MG TABLET. PO SCH (10:28)
[2017-02-16] MEDS: ASPIRIN CHEWABLE 81 MG TABLET. PO SCH (10:29)
[2017-02-16] MEDS: PANTOPRAZOLE 40 MG TABLET.DR. PO SCH (10:29)
[2017-02-16] MEDS: POTASSIUM CHLORIDE 20 MEQ TABLET.ER. PO SCH (10:29)
[2017-02-16] MEDS: LOSARTAN POTASSIUM 50 MG TABLET. PO SCH (10:30)
[2017-02-16] MEDS: EZETIMIBE 10 MG TABLET. PO SCH (10:30)
[2017-02-16] MEDS: ENOXAPARIN 40 MG/0.4 ML SYRINGE. SQ SCH (10:32)
[2017-02-16] MEDS: INSULIN ASPART 300 UNITS/3 ML INSULN.PEN SQ SCH ×4 (10:45→13:17)
[2017-02-16] MEDS: INSULIN DETEMIR 300 UNITS/3 ML INSULN.PEN. SQ SCH (10:48)
[2017-02-16 11:00] VITALS: BP 192/85
[2017-02-16] MEDS: VANCOMYCIN 1.75 GM in IV DEXTROSE 5 %-0.45 % NACL 500 ML IV SCH (11:00)
[2017-02-16] MEDS: VANCOMYCIN PER PHARMACY MC PRN (13:12)
[2017-02-16 15:00] VITALS: BP 170/71
[2017-02-16] MEDS ORDERED: AMLO5TAB4 PO (15:22)
== END 2017-02-16 17:08 | disposition home or self-care (01) | DRG 193 ==
LOC: ER 17:57 → 6 SOUTH 21:57
PROVIDERS: ADMIT Internal Medicine; ATTEND Internal Medicine
DX: J18.1 Lobar pneumonia, unspecified organism (principal); J96.01 Acute respiratory failure with hypoxia; J45.901 Unspecified asthma with (acute) exacerbation; E66.9 Obesity, unspecified; Y95 Nosocomial condition; J40 Bronchitis, not specified as acute or chronic; E11.9 Type 2 diabetes mellitus without complications; E78.00 Pure hypercholesterolemia, unspecified; G47.33 Obstructive sleep apnea (adult) (pediatric); I10 Essential (primary) hypertension; I25.10 Atherosclerotic heart disease of native coronary artery without angina pectoris; K21.9 Gastro-esophageal reflux disease without esophagitis; Z82.49 Family history of ischemic heart disease and other diseases of the circulatory system; Z90.710 Acquired absence of both cervix and uterus
CPT/HCPCS: 36415; 71010; 71275; 80048; 80053; 80202; 82962; 83880; 85025; 87804; 94640; 94760; 96365; J0692; J1650; J1815; J2270; J2930; J3370; J7040; J7512; J7613; J7620; J7626; Q9967; 99285-25

== ENCOUNTER → 2017-04-22 | Outpatient (CLI) | payer OTHER | END | disposition home or self-care (01) | LOC: RAD 15:12 | DX: M79.671 Pain in right foot (principal); M77.8 Other enthesopathies, not elsewhere classified; M79.89 Other specified soft tissue disorders | CPT/HCPCS: 73630 ==

== ENCOUNTER 2017-05-11 03:47 | Emergency (ER) | payer OTHER ==
[2017-05-11 04:34] LABS: BILIRUBIN,URINE NEGATIVE (NEG); COLOR,URINE YELLOW; GLUCOSE,URINE >=1000 mg/dL (NEG); NITRITE,URINE NEGATIVE (NEG); PROTEIN,URINE NEGATIVE (NEG-TRACE); UROBILINOGEN,URINE 0.2 mg/dL (0.2 mg/dL)
[2017-05-11 04:43] LABS: CLARITY,URINE CLEAR
[2017-05-11 04:44] LABS: AMORPHOUS SEDIMENT,UR PRESENT /HPF; BACTERIA,URINE 0 /HPF (0-FEW); RBC,URINE 0 /HPF (0-2); SQUAMOUS EPITHELIAL CELL,UR FEW /LPF; WBC,URINE OCC /HPF (0-4)
[2017-05-11 04:51] LABS: ADD MAN DIFF? YES; BASO # 0.1 x10^3/uL (0.0-0.2); BASO % 0 % (0-3); EOS # 0.1 x10^3/uL (0.0-0.7); EOS % 1 % (0-3); HEMATOCRIT 41.4 % (36.0-47.0); HEMOGLOBIN 13.6 g/dL (12.0-15.5); LYMPH % 6 % (24-48); MEAN CORPUSCULAR HEMOGLOBIN 29 pg (25-35); MEAN CORPUSCULAR HGB CONC 33 g/dL (31-37); MEAN CORPUSCULAR VOLUME 89 fL (79-100); MONO # 0.9 x10^3/uL (0.0-1.1); MONO % 5 % (0-9); NEUT # 14.7 x10^3uL (1.8-7.7); NEUT % 88 % (31-73); PLATELET COUNT 223 x10^3/uL (140-400); RED BLOOD COUNT 4.65 x10^6/uL (3.50-5.40); RED CELL DISTRIBUTION WIDTH 13.7 % (11.5-14.5); WHITE BLOOD COUNT 16.8 x10^3/uL (4.0-11.0)
[2017-05-11 04:59] LABS: ANION GAP 7 (6-14); BLOOD UREA NITROGEN 17 mg/dL (7-20); BUN/CREATININE RATIO 21 (6-20); CALCIUM 11.6 mg/dL (8.5-10.1); CARBON DIOXIDE 27 mmol/L (21-32); CHLORIDE 101 mmol/L (98-107); CREATININE 0.8 mg/dL (0.6-1.0); GFR 75.3; GLUCOSE 341 mg/dL (70-99); POTASSIUM 4.8 mmol/L (3.5-5.1); SODIUM 135 mmol/L (136-145)
[2017-05-11 05:07] LABS: ALBUMIN 3.6 g/dL (3.4-5.0); ALBUMIN/GLOBULIN RATIO 0.8 (1.0-1.7); ALK PHOS 142 U/L (46-116); ALT (SGPT) 36 U/L (14-59); AST (SGOT) 20 U/L (15-37); TOTAL BILIRUBIN 0.4 mg/dL (0.2-1.0)
[2017-05-11 05:14] LABS: TROPONINI < 0.017 ng/mL (0.000-0.055)
[2017-05-11] MEDS: IV NORMAL SALINE 1000ML BAG 1,000 ML IV (05:17)
[2017-05-11] MEDS: KETOROLAC 30 MG/ML INJ. IV (05:21)
[2017-05-11 05:28] LABS: % BANDS 7 % (0-9); % LYMPHS 8 % (24-48); % MONOS 3 % (0-10); % SEGS 82 % (35-66); PLT ESTIMATE ADEQUATE (ADEQUATE)
[2017-05-11 05:44] LABS: INFLUENZA A PATIENT NEGATIVE (NEGATIVE); INFLUENZA B PATIENT NEGATIVE (NEGATIVE); OBC FLU VALID
[2017-05-11] MEDS: IPRATRPIUM/ALBUTEROL 0.5/2.5MG 3 ML NEBU. NEB (06:14)
== END 2017-05-11 06:46 | disposition home or self-care (01) ==
LOC: ER 03:47
DX: J18.9 Pneumonia, unspecified organism (principal); E78.00 Pure hypercholesterolemia, unspecified; E11.9 Type 2 diabetes mellitus without complications; I10 Essential (primary) hypertension; G47.33 Obstructive sleep apnea (adult) (pediatric); E66.9 Obesity, unspecified; Z68.39 Body mass index [BMI] 39.0-39.9, adult
CPT/HCPCS: 36415; 70450; 71045; 80053; 81001; 84484; 85007; 85025; 87804; 87804-59; 93005; 94640; 96361; 96374; 99285-25; J1885; J7030; J7620

== ENCOUNTER 2017-05-14 18:51 | Inpatient (IN) | payer OTHER ==
[2017-05-14 19:44] LABS: ADD MAN DIFF? NO
[2017-05-14] MEDS ORDERED: ONDANSETRON PF 4 MG/2 ML VIAL. IV (19:45)
[2017-05-14 19:51] LABS: BASO # 0.1 x10^3/uL (0.0-0.2); BASO % 1 % (0-3); EOS # 0.1 x10^3/uL (0.0-0.7); EOS % 2 % (0-3); HEMATOCRIT 37.3 % (36.0-47.0); HEMOGLOBIN 12.3 g/dL (12.0-15.5); LYMPH % 33 % (24-48); MEAN CORPUSCULAR HEMOGLOBIN 30 pg (25-35); MEAN CORPUSCULAR HGB CONC 33 g/dL (31-37); MEAN CORPUSCULAR VOLUME 90 fL (79-100); MONO # 0.6 x10^3/uL (0.0-1.1); MONO % 9 % (0-9); NEUT # 3.5 x10^3uL (1.8-7.7); NEUT % 56 % (31-73); PLATELET COUNT 222 x10^3/uL (140-400); RED BLOOD COUNT 4.16 x10^6/uL (3.50-5.40); RED CELL DISTRIBUTION WIDTH 13.4 % (11.5-14.5); WHITE BLOOD COUNT 6.3 x10^3/uL (4.0-11.0)
[2017-05-14 19:59] LABS: INR 0.9 (0.8-1.1); PARTIAL THROMBOPLASTIN TIME 28 SEC (24-38); PROTHROMBIN TIME PATIENT 11.8 SEC (11.7-14.0)
[2017-05-14] MEDS: PIPERACILLIN/TAZOBACTAM 3.375 GM in IV NORMAL SALINE 50ML 50 ML IV (20:06)
[2017-05-14] MEDS: IV NORMAL SALINE 1000ML BAG 1,000 ML IV ×2 (20:07→22:21)
[2017-05-14 20:08] LABS: ANION GAP 10 (6-14); BLOOD UREA NITROGEN 11 mg/dL (7-20); BUN/CREATININE RATIO 12 (6-20); CALCIUM 10.8 mg/dL (8.5-10.1); CARBON DIOXIDE 25 mmol/L (21-32); CHLORIDE 102 mmol/L (98-107); CREATININE 0.9 mg/dL (0.6-1.0); GFR 65.8; GLUCOSE 416 mg/dL (70-99); POTASSIUM 4.3 mmol/L (3.5-5.1); SODIUM 137 mmol/L (136-145)
[2017-05-14 20:14] LABS: LACTIC ACID 1.7 mmol/L (0.4-2.0)
[2017-05-14 20:16] LABS: TROPONINI < 0.017 ng/mL (0.000-0.055)
[2017-05-14 20:21] LABS: ALBUMIN/GLOBULIN RATIO 0.7 (1.0-1.7); ALK PHOS 138 U/L (46-116); ALT (SGPT) 28 U/L (14-59); AST (SGOT) 18 U/L (15-37); MAGNESIUM 1.8 mg/dL (1.8-2.4); TOTAL BILIRUBIN 0.3 mg/dL (0.2-1.0); TOTAL PROTEIN 7.5 g/dL (6.4-8.2)
[2017-05-14 20:21] LABS: NT-PRO BNP 63 pg/mL (0-124)
[2017-05-14] MEDS: fentaNYL PF VIAL 100 MCG/2 ML VIAL IV (21:05)
[2017-05-14] MEDS ORDERED: diphenhydrAMINE HCL 25 MG CAPSULE PO (21:45)
[2017-05-14] MEDS ORDERED: NON FORMULARY ITEM (Albuterol Sulfate (Proair Respiclick) 1 PUFF) IH (21:45)
[2017-05-14] MEDS ORDERED: DEXTROSE 50% 25 GM / 50ML DISP.SYRIN. IV ×2 (21:45→22:00)
[2017-05-14] MEDS ORDERED: ALBUTEROL SULFATE 2.5 MG/3 ML NEBU. NEB ×2 (21:45→22:00)
[2017-05-14] MEDS: IPRATRPIUM/ALBUTEROL 0.5/2.5MG 3 ML NEBU. NEB (22:13)
[2017-05-14] MEDS: oxyCODONE/APAP 5/325 1 TAB TABLET PO (22:20)
[2017-05-14] MEDS: LATANOPROST 0.005% OPHTH SOLUTION 2.5ML BOTTLE. OU (22:20)
[2017-05-14] MEDS: AZITHRMYCN 500MG IVPB FOR OMNI 250 ML IV (22:21)
[2017-05-14] MEDS: INSULIN ASPART 300 UNITS/3 ML INSULN.PEN SQ (22:34)
[2017-05-14] MEDS: INSULIN DETEMIR 300 UNITS/3 ML INSULN.PEN. SQ (22:34)
[2017-05-15] MEDS: oxyCODONE/APAP 5/325 1 TAB TABLET PO ×4 (01:59→21:01)
[2017-05-15 04:25] LABS: ADD MAN DIFF? NO
[2017-05-15 04:28] LABS: BASO % 1 % (0-3); EOS # 0.2 x10^3/uL (0.0-0.7); EOS % 3 % (0-3); HEMOGLOBIN 11.3 g/dL (12.0-15.5); LYMPH # 2.1 x10^3/uL (1.0-4.8); LYMPH % 36 % (24-48); MEAN CORPUSCULAR HEMOGLOBIN 30 pg (25-35); MEAN CORPUSCULAR HGB CONC 33 g/dL (31-37); MEAN CORPUSCULAR VOLUME 90 fL (79-100); MONO # 0.6 x10^3/uL (0.0-1.1); MONO % 10 % (0-9); NEUT # 2.9 x10^3uL (1.8-7.7); NEUT % 50 % (31-73); PLATELET COUNT 198 x10^3/uL (140-400); RED BLOOD COUNT 3.79 x10^6/uL (3.50-5.40); RED CELL DISTRIBUTION WIDTH 13.3 % (11.5-14.5); WHITE BLOOD COUNT 5.9 x10^3/uL (4.0-11.0)
[2017-05-15 04:49] LABS: ANION GAP 6 (6-14); BLOOD UREA NITROGEN 11 mg/dL (7-20); CARBON DIOXIDE 27 mmol/L (21-32); CHLORIDE 107 mmol/L (98-107); CREATININE 0.7 mg/dL (0.6-1.0); GFR 87.9; GLUCOSE 308 mg/dL (70-99); POTASSIUM 4.2 mmol/L (3.5-5.1); SODIUM 140 mmol/L (136-145)
[2017-05-15] MEDS: IV NORMAL SALINE 1000ML BAG 1,000 ML IV ×3 (06:22→15:45)
[2017-05-15 08:00] LABS: POC GLUCOSE 260 mg/dL (70-99)
[2017-05-15] MEDS: FLUTICASONE 50MCG/NASAL SPRAY 16GM BOTTLE. NS (08:35)
[2017-05-15] MEDS: LOSARTAN POTASSIUM 50 MG TABLET. PO (08:36)
[2017-05-15] MEDS: amLODIPine BESYLATE 5 MG TABLET PO (08:36)
[2017-05-15] MEDS: FUROSEMIDE 40 MG TABLET. PO (08:37)
[2017-05-15] MEDS: PANTOPRAZOLE 40 MG TABLET.DR. PO (08:37)
[2017-05-15] MEDS: EZETIMIBE 10 MG TABLET. PO (08:37)
[2017-05-15] MEDS: IPRATRPIUM/ALBUTEROL 0.5/2.5MG 3 ML NEBU. NEB ×2 (08:41→19:22)
[2017-05-15] MEDS: INSULIN ASPART 300 UNITS/3 ML INSULN.PEN SQ ×6 (08:43→17:40)
[2017-05-15] MEDS: PIPERACILLIN/TAZOBACTAM 3.375 GM in IV NORMAL SALINE 100ML 100 ML IV ×3 (11:44→23:55)
[2017-05-15 13:17] LABS: POC GLUCOSE 192 mg/dL (70-99)
[2017-05-15 17:18] LABS: HEMOGLOBIN A1C 10.3 % (4.8-5.6)
[2017-05-15 19:06] LABS: POC GLUCOSE 108 mg/dL (70-99)
[2017-05-15 20:34] LABS: POC GLUCOSE 109 mg/dL (70-99)
[2017-05-15] MEDS: LATANOPROST 0.005% OPHTH SOLUTION 2.5ML BOTTLE. OU (21:01)
[2017-05-15] MEDS: LACTOBACILLUS RHAMNOSUS GG 1 CAPSULE. PO (21:01)
[2017-05-15] MEDS: ATORVASTATIN CALCIUM 40 MG TABLET. PO (21:01)
[2017-05-15] MEDS: INSULIN DETEMIR 300 UNITS/3 ML INSULN.PEN. SQ (21:06)
[2017-05-16] MEDS: PIPERACILLIN/TAZOBACTAM 3.375 GM in IV NORMAL SALINE 100ML 100 ML IV ×2 (05:20→12:09)
[2017-05-16] MEDS: IPRATRPIUM/ALBUTEROL 0.5/2.5MG 3 ML NEBU. NEB (06:28)
[2017-05-16] MEDS: PANTOPRAZOLE 40 MG TABLET.DR. PO (07:21)
[2017-05-16] MEDS: oxyCODONE/APAP 5/325 1 TAB TABLET PO (07:22)
[2017-05-16] MEDS: amLODIPine BESYLATE 5 MG TABLET PO (07:58)
[2017-05-16] MEDS: FUROSEMIDE 40 MG TABLET. PO (07:58)
[2017-05-16] MEDS: LACTOBACILLUS RHAMNOSUS GG 1 CAPSULE. PO (07:58)
[2017-05-16] MEDS: LOSARTAN POTASSIUM 50 MG TABLET. PO (07:59)
[2017-05-16] MEDS: FLUTICASONE 50MCG/NASAL SPRAY 16GM BOTTLE. NS (08:00)
[2017-05-16] MEDS: EZETIMIBE 10 MG TABLET. PO (08:00)
[2017-05-16] MEDS: INSULIN ASPART 300 UNITS/3 ML INSULN.PEN SQ ×4 (08:37→12:18)
[2017-05-16 09:12] LABS: POC GLUCOSE 243 mg/dL (70-99)
[2017-05-16 13:03] LABS: POC GLUCOSE 227 mg/dL (70-99)
[2017-05-16] MEDS: DIPHENHYDRAMINE/ZINC ACETATE 2%/0.1% TOPICAL CREAM 28GM TUBE. TP (13:42)
[2017-05-17] MEDS ORDERED: PIPERACILLIN/TAZOBACTAM 3.375 GM in IV NORMAL SALINE 50ML 50 ML IV (18:00)
== END 2017-05-16 14:45 | disposition home or self-care (01) | DRG 202 ==
LOC: ER 18:51 → 6 SOUTH 19:45
DX: J45.901 Unspecified asthma with (acute) exacerbation (principal); E44.0 Moderate protein-calorie malnutrition; L03.116 Cellulitis of left lower limb; E11.65 Type 2 diabetes mellitus with hyperglycemia; Z68.41 Body mass index [BMI] 40.0-44.9, adult; J06.9 Acute upper respiratory infection, unspecified; K21.9 Gastro-esophageal reflux disease without esophagitis; B34.9 Viral infection, unspecified; E66.9 Obesity, unspecified; E78.5 Hyperlipidemia, unspecified; G47.33 Obstructive sleep apnea (adult) (pediatric); I10 Essential (primary) hypertension; Z82.49 Family history of ischemic heart disease and other diseases of the circulatory system; Z82.5 Family history of asthma and other chronic lower respiratory diseases; Z90.710 Acquired absence of both cervix and uterus; Z68.39 Body mass index [BMI] 39.0-39.9, adult; Z87.01 Personal history of pneumonia (recurrent)
CPT/HCPCS: 36415; 71045; 80048; 80053; 82962; 83036; 83605; 83735; 83880; 84484; 85025; 85610; 85730; 87040; 93005; 93971; 94640; 94760; 96374; 96375; 99285-25; J0456; J1815; J2543; J3010; J7030; J7620

== ENCOUNTER 2017-06-21 15:50 | Emergency (ER) | payer OTHER ==
[2017-06-21 17:05] LABS: ADD MAN DIFF? NO
[2017-06-21 17:06] LABS: BASO # 0.1 x10^3/uL (0.0-0.2); BASO % 1 % (0-3); EOS # 0.3 x10^3/uL (0.0-0.7); EOS % 4 % (0-3); HEMATOCRIT 40.5 % (36.0-47.0); HEMOGLOBIN 13.5 g/dL (12.0-15.5); LYMPH # 2.3 x10^3/uL (1.0-4.8); LYMPH % 30 % (24-48); MEAN CORPUSCULAR HEMOGLOBIN 30 pg (25-35); MEAN CORPUSCULAR HGB CONC 33 g/dL (31-37); MEAN CORPUSCULAR VOLUME 90 fL (79-100); MONO # 0.6 x10^3/uL (0.0-1.1); MONO % 8 % (0-9); NEUT # 4.4 x10^3uL (1.8-7.7); NEUT % 58 % (31-73); PLATELET COUNT 229 x10^3/uL (140-400); RED BLOOD COUNT 4.51 x10^6/uL (3.50-5.40); RED CELL DISTRIBUTION WIDTH 13.9 % (11.5-14.5); WHITE BLOOD COUNT 7.7 x10^3/uL (4.0-11.0)
[2017-06-21 17:18] LABS: ANION GAP 9 (6-14); BLOOD UREA NITROGEN 16 mg/dL (7-20); BUN/CREATININE RATIO 20 (6-20); CALCIUM 10.3 mg/dL (8.5-10.1); CARBON DIOXIDE 29 mmol/L (21-32); CHLORIDE 106 mmol/L (98-107); CREATININE 0.8 mg/dL (0.6-1.0); GFR 75.3; GLUCOSE 76 mg/dL (70-99); POTASSIUM 3.9 mmol/L (3.5-5.1); SODIUM 144 mmol/L (136-145)
[2017-06-21 17:24] LABS: ALBUMIN 3.5 g/dL (3.4-5.0); ALBUMIN/GLOBULIN RATIO 0.8 (1.0-1.7); ALK PHOS 126 U/L (46-116); ALT (SGPT) 32 U/L (14-59); AST (SGOT) 20 U/L (15-37); TOTAL BILIRUBIN 0.3 mg/dL (0.2-1.0)
[2017-06-21] MEDS: HYDROcodone/APAP 5/325MG 1 TAB TABLET PO (18:21)
[2017-06-21] MEDS: CLINDAMYCIN HCL 150 MG CAPSULE. PO (18:21)
[2017-06-21 18:52] LABS: NT-PRO BNP 58 pg/mL (0-124)
== END 2017-06-21 18:45 | disposition home or self-care (01) ==
LOC: ER 15:50
DX: L03.116 Cellulitis of left lower limb (principal); L03.115 Cellulitis of right lower limb; E11.9 Type 2 diabetes mellitus without complications; E78.00 Pure hypercholesterolemia, unspecified; I10 Essential (primary) hypertension
CPT/HCPCS: 36415; 80053; 83880; 85025; 99284

== ENCOUNTER 2017-06-27 20:01 | Inpatient (IN) | payer OTHER ==
[2017-06-27 20:48] LABS: ADD MAN DIFF? NO
[2017-06-27 20:50] LABS: BASO # 0.1 x10^3/uL (0.0-0.2); BASO % 1 % (0-3); EOS # 0.4 x10^3/uL (0.0-0.7); EOS % 5 % (0-3); HEMATOCRIT 36.4 % (36.0-47.0); HEMOGLOBIN 12.6 g/dL (12.0-15.5); LYMPH # 1.8 x10^3/uL (1.0-4.8); LYMPH % 23 % (24-48); MEAN CORPUSCULAR HEMOGLOBIN 31 pg (25-35); MEAN CORPUSCULAR HGB CONC 35 g/dL (31-37); MEAN CORPUSCULAR VOLUME 90 fL (79-100); MONO # 0.6 x10^3/uL (0.0-1.1); MONO % 7 % (0-9); NEUT # 5.1 x10^3uL (1.8-7.7); NEUT % 65 % (31-73); PLATELET COUNT 230 x10^3/uL (140-400); RED BLOOD COUNT 4.06 x10^6/uL (3.50-5.40); RED CELL DISTRIBUTION WIDTH 13.4 % (11.5-14.5); WHITE BLOOD COUNT 7.8 x10^3/uL (4.0-11.0)
[2017-06-27] MEDS: IPRATRPIUM/ALBUTEROL 0.5/2.5MG 3 ML NEBU. NEB ×2 (20:51→22:43)
[2017-06-27 21:01] LABS: ANION GAP 6 (6-14); BLOOD UREA NITROGEN 13 mg/dL (7-20); BUN/CREATININE RATIO 14 (6-20); CALCIUM 9.8 mg/dL (8.5-10.1); CARBON DIOXIDE 26 mmol/L (21-32); CHLORIDE 104 mmol/L (98-107); CREATININE 0.9 mg/dL (0.6-1.0); GFR 65.8; GLUCOSE 376 mg/dL (70-99); POTASSIUM 4.2 mmol/L (3.5-5.1); SODIUM 136 mmol/L (136-145)
[2017-06-27 21:07] LABS: ALBUMIN 3.1 g/dL (3.4-5.0); ALBUMIN/GLOBULIN RATIO 0.8 (1.0-1.7); ALK PHOS 148 U/L (46-116); ALT (SGPT) 29 U/L (14-59); AST (SGOT) 17 U/L (15-37); TOTAL BILIRUBIN 0.2 mg/dL (0.2-1.0); TOTAL PROTEIN 7.1 g/dL (6.4-8.2)
[2017-06-27 21:12] LABS: NT-PRO BNP 50 pg/mL (0-124); TROPONINI < 0.017 ng/mL (0.000-0.055)
[2017-06-27 21:30] LABS: INFLUENZA A PATIENT NEGATIVE (NEGATIVE); INFLUENZA B PATIENT NEGATIVE (NEGATIVE); OBC FLU VALID
[2017-06-27] MEDS: methylPREDNISolone SOD SUCC PF 125 MG/2 ML VIAL. IV (22:30)
[2017-06-27] MEDS: HYDROcodone/APAP 10/325 1 TAB TABLET PO (22:47)
[2017-06-27] MEDS ORDERED: DEXTROSE 50% 25 GM / 50ML DISP.SYRIN. IV (23:15)
[2017-06-27] MEDS ORDERED: ACETAMINOPHEN 325 MG TABLET. PO (23:15)
[2017-06-27] MEDS ORDERED: ONDANSETRON PF 4 MG/2 ML VIAL. IV (23:15)
[2017-06-28 01:01] LABS: POC GLUCOSE 338 mg/dL (70-99)
[2017-06-28] MEDS: ALBUTEROL SULFATE 2.5 MG/3 ML NEBU. NEB (02:07)
[2017-06-28] MEDS: IPRATRPIUM/ALBUTEROL 0.5/2.5MG 3 ML NEBU. NEB ×2 (07:21→11:23)
[2017-06-28 07:54] LABS: POC GLUCOSE 347 mg/dL (70-99)
[2017-06-28] MEDS: methylPREDNISolone SOD SUCC PF 40 MG/ML VIAL. IV (08:28)
[2017-06-28] MEDS: INSULIN LISPRO 300 UNITS/3 ML INSULN.PEN. SQ ×3 (08:46→13:12)
[2017-06-28 09:26] LABS: BASO % 0 % (0-3); EOS % 0 % (0-3); HEMATOCRIT 39.7 % (36.0-47.0); HEMOGLOBIN 13.1 g/dL (12.0-15.5); LYMPH # 0.9 x10^3/uL (1.0-4.8); LYMPH % 12 % (24-48); MEAN CORPUSCULAR HEMOGLOBIN 30 pg (25-35); MEAN CORPUSCULAR HGB CONC 33 g/dL (31-37); MEAN CORPUSCULAR VOLUME 90 fL (79-100); MONO # 0.1 x10^3/uL (0.0-1.1); MONO % 1 % (0-9); NEUT # 7.1 x10^3uL (1.8-7.7); NEUT % 87 % (31-73); PLATELET COUNT 231 x10^3/uL (140-400); RED BLOOD COUNT 4.43 x10^6/uL (3.50-5.40); WHITE BLOOD COUNT 8.1 x10^3/uL (4.0-11.0)
[2017-06-28] MEDS: INSULIN GLARGINE 300 UNITS/3 ML INSULN.PEN. SQ (09:26)
[2017-06-28 09:33] LABS: ADD MAN DIFF? YES
[2017-06-28 09:42] LABS: ANION GAP 11 (6-14); BLOOD UREA NITROGEN 18 mg/dL (7-20); CALCIUM 10.2 mg/dL (8.5-10.1); CARBON DIOXIDE 26 mmol/L (21-32); CHLORIDE 103 mmol/L (98-107); CREATININE 0.9 mg/dL (0.6-1.0); GFR 65.8; GLUCOSE 412 mg/dL (70-99); POTASSIUM 4.5 mmol/L (3.5-5.1); SODIUM 140 mmol/L (136-145)
[2017-06-28] MEDS ORDERED: HYDROcodone/APAP 5/325MG 1 TAB TABLET PO (10:15)
[2017-06-28] MEDS ORDERED: NON FORMULARY ITEM (Albuterol Sulfate (Proair Respiclick) 1 PUFF) IH (10:15)
[2017-06-28] MEDS ORDERED: DEXTROSE 50% 25 GM / 50ML DISP.SYRIN. IV (10:15)
[2017-06-28] MEDS ORDERED: HYDROcodone/CHLORPHEN POLIS 5 ML SUS.ER.12H PO (10:30)
[2017-06-28 11:24] LABS: POC GLUCOSE 311 mg/dL (70-99)
[2017-06-28] MEDS ORDERED: FUROSEMIDE 40 MG TABLET. PO (11:30)
[2017-06-28] MEDS ORDERED: POTASSIUM CHLORIDE 20 MEQ TABLET.ER. PO (11:30)
[2017-06-28] MEDS ORDERED: EZETIMIBE 10 MG TABLET. PO (11:30)
[2017-06-28] MEDS ORDERED: amLODIPine BESYLATE 5 MG TABLET PO (11:30)
[2017-06-28] MEDS ORDERED: PANTOPRAZOLE 40 MG TABLET.DR. PO (11:30)
[2017-06-28] MEDS ORDERED: ASPIRIN CHEWABLE 81 MG TABLET. PO (11:30)
[2017-06-28] MEDS ORDERED: LOSARTAN POTASSIUM 50 MG TABLET. PO (11:30)
[2017-06-28] MEDS ORDERED: FLUTICASONE 50MCG/NASAL SPRAY 16GM BOTTLE. NS (11:30)
[2017-06-28] MEDS ORDERED: INSULIN LISPRO 300 UNITS/3 ML INSULN.PEN. SQ (12:00)
[2017-06-28 12:49] LABS: % BANDS 3 % (0-9); % LYMPHS 10 % (24-48); % SEGS 87 % (35-66)
[2017-06-28 12:50] LABS: PLT ESTIMATE ADEQUATE (ADEQUATE)
[2017-06-28] MEDS ORDERED: ATORVASTATIN CALCIUM 40 MG TABLET. PO (21:00)
[2017-06-28] MEDS ORDERED: LATANOPROST 0.005% OPHTH SOLUTION 2.5ML BOTTLE. OU (21:00)
[2017-06-29] MEDS ORDERED: predniSONE 20 MG TABLET PO (09:00)
== END 2017-06-28 14:11 | disposition home or self-care (01) | DRG 202 ==
LOC: ER 20:01 → 6 SOUTH 22:04
DX: J45.901 Unspecified asthma with (acute) exacerbation (principal); J44.1 Chronic obstructive pulmonary disease with (acute) exacerbation; E66.01 Morbid (severe) obesity due to excess calories; Z68.41 Body mass index [BMI] 40.0-44.9, adult; I10 Essential (primary) hypertension; S81.802A Unspecified open wound, left lower leg, initial encounter; E11.9 Type 2 diabetes mellitus without complications; E78.5 Hyperlipidemia, unspecified; G47.33 Obstructive sleep apnea (adult) (pediatric); Z87.01 Personal history of pneumonia (recurrent); K21.9 Gastro-esophageal reflux disease without esophagitis; Z82.49 Family history of ischemic heart disease and other diseases of the circulatory system; Z90.710 Acquired absence of both cervix and uterus; E78.00 Pure hypercholesterolemia, unspecified; X58.XXXA Exposure to other specified factors, initial encounter; Y93.89 Activity, other specified; Y92.89 Other specified places as the place of occurrence of the external cause; Y99.8 Other external cause status
CPT/HCPCS: 36415; 71046; 80048; 80053; 82962; 83880; 84484; 85007; 85025; 87804; 87804-59; 93005; 94640; 94760; 99285-25; J1815; J2920; J7613; J7620

== ENCOUNTER 2017-10-16 22:44 | Emergency (ER) | payer OTHER ==
[~2017-10-16] VITALS: Ht 162.6 cm; Wt 103.0 kg
[~2017-10-16 22:44] MED LIST changes: +AMLO5TAB4 PO; +AMOX1TAB61 PO; +CLIN300C8 PO; +GUAI600T47 PO; +HYDR-971 PO; +HYDR5SUS PO; +INSU300I SQ; +LEVO500T59 PO; +LEVO750T31 PO; -METF-620 PO; +METF10003 PO; +POTA10TA12 PO; -POTASSIUM CHLO10 MEQ PO; -PROM118S2 PO; +PROM118S5 PO
[2017-10-16 22:45] VITALS: BP 143/65
--- NOTE | 2017-10-16 23:15 | PHYS DOC ---
Past Medical History Past Medical History: Asthma, Diabetes-Type II, High Cholesterol, Hypertension , Pneumonia Additional Past Medical Histor: HIGH CHOL, obesity, YON, SLEEP APNEA Past Surgical History: Hysterectomy Additional Past Surgical Histo: Nose SX, RETINA SURGERY Alcohol Use: None Drug Use: None Adult General Chief Complaint Chief Complaint: SHORTNESS OF BREATH HPI HPI Patient is a pleasant 52-year-old female who presents to the emergency department for evaluation. She states that she has been having shortness of breath, along with wheezing and a cough, for the past several weeks. She saw her primary care provider a few weeks ago and was diagnosed with bronchitis and placed on Levaquin, but did not get any better. She saw her primary care provider yesterday and was put on azithromycin. She was referred to the emergency department because of shortness of breath but did not come until today. She reports a cough productive of some whitish sputum. She denies any pain, including any chest pain. Does admit to some mild upper back pain with coughing only. She denies any abdominal pain, fevers, chills, dizziness, or lightheadedness. She is noted to be hypertensive, but has a history of such, and reports compliance with her medications. There are no alleviating, or exacerbating factors to her symptoms. Review of Systems Review of Systems Constitutional: Denies fever or chills [] Eyes: Denies change in visual acuity, redness, or eye pain [] HENT: Denies nasal congestion or sore throat [] Respiratory: Reports cough & shortness of breath, denies pleuritic chest pain [] Cardiovascular: The patient denies any chest pain, palpitations, or orthopnea [ ] GI: Denies abdominal pain, nausea, vomiting, bloody stools or diarrhea [] : Denies dysuria or hematuria [] Musculoskeletal: Denies back pain or joint pain [] Integument: Denies rash or skin lesions [] Neurologic: Denies headache, focal weakness or sensory changes [] Endocrine: Denies polyuria or polydipsia [] All other systems were reviewed and found to be within normal limits, except as documented in this note. Current Medications Current Medications Current Medications Medications (Trade) Dose Ordered Sig/Palak Start Time Stop Time Status Last Admin Dose Admin Albuterol/ Ipratropium (Duoneb) 3 ml 1X ONCE 8/15/18 23:30 10/16/17 23:31 DC 10/16/17 23:25 3 ML Insulin Human Regular (HumuLIN R VIAL) 5 unit 1X ONCE 10/17/17 00:30 10/17/17 00:31 Methylprednisolone Sodium Succinate (SOLU-Medrol 125MG VIAL) 125 mg 1X ONCE 10/16/17 23:30 10/16/17 23:31 DC 10/16/17 23:32 125 MG Allergies Allergies Allergies Coded Allergies Type Severity Reaction Last Updated Verified No Known Drug Allergies 06/07/13 No Physical Exam Physical Exam PHYSICAL EXAM: CONSTITUTIONAL: Well developed, well nourished HEAD: normocephalic, atraumatic EENT: PERRL, EOMI. Conjunctivae normal color, sclerae non-icteric; moist mucous membranes. NECK: Supple, non-tender; no meningismus. LUNGS: Lungs CTA, breathing even and unlabored. Normal air movement. HEART: Regular rate and rhythm, no murmur CHEST: No deformity; non-tender ABDOMEN: The abdomen is soft, and non-tender, no masses or bruits. EXTREM: Normal ROM; no deformity, no calf tenderness. Normal pulses palpable in all extremities. There is 1-2+ bilateral pitting pedal edema. The patient states that she has had chronic pedal edema in her legs are actually has a small as they have been in several years. SKIN: No rash; no diaphoresis NEURO: Alert; normal speech and cognition; CN's grossly intact; strength grossly intact without focal deficit. BACK: No CVA TTP. Current Patient Data Vital Signs Vital Signs Date Time Temp Pulse Resp B/P (MAP) Pulse Ox O2 Delivery O2 Flow Rate FiO2 10/16/17 23:27 95 Room Air 10/16/17 22:45 143/65 (91) Lab Values Laboratory Tests Test 10/16/17 23:30 White Blood Count 7.2 x10^3/uL (4.0-11.0) Red Blood Count 4.35 x10^6/uL (3.50-5.40) Hemoglobin 13.0 g/dL (12.0-15.5) Hematocrit 39.0 % (36.0-47.0) Mean Corpuscular Volume 90 fL (79-100) Mean Corpuscular Hemoglobin 30 pg (25-35) Mean Corpuscular Hemoglobin Concent 33 g/dL (31-37) Red Cell Distribution Width 13.5 % (11.5-14.5) Platelet Count 225 x10^3/uL (140-400) Neutrophils (%) (Auto) 62 % (31-73) Lymphocytes (%) (Auto) 27 % (24-48) Monocytes (%) (Auto) 6 % (0-9) Eosinophils (%) (Auto) 3 % (0-3) Basophils (%) (Auto) 1 % (0-3) Neutrophils # (Auto) 4.5 x10^3uL (1.8-7.7) Lymphocytes # (Auto) 2.0 x10^3/uL (1.0-4.8) Monocytes # (Auto) 0.5 x10^3/uL (0.0-1.1) Eosinophils # (Auto) 0.2 x10^3/uL (0.0-0.7) Basophils # (Auto) 0.1 x10^3/uL (0.0-0.2) Sodium Level 136 mmol/L (136-145) Potassium Level 4.6 mmol/L (3.5-5.1) Chloride Level 105 mmol/L (98-107) Carbon Dioxide Level 25 mmol/L (21-32) Anion Gap 6 (6-14) Blood Urea Nitrogen 15 mg/dL (7-20) Creatinine 0.8 mg/dL (0.6-1.0) Estimated GFR (Cockcroft-Gault) 75.0 BUN/Creatinine Ratio 19 (6-20) Glucose Level 373 mg/dL (70-99) H Calcium Level 9.8 mg/dL (8.5-10.1) Total Bilirubin 0.3 mg/dL (0.2-1.0) Aspartate Amino Transferase (AST) 8 U/L (15-37) L Alanine Aminotransferase (ALT) 24 U/L (14-59) Alkaline Phosphatase 149 U/L (46-116) H Creatine Kinase 84 U/L (26-192) Creatine Kinase MB (Mass) 0.5 ng/mL (0.0-3.6) Creatine Kinase MB Relative Index 0.6 % (0-4) Troponin I Quantitative < 0.017 ng/mL (0.000-0.055) [id number]-Yfx-[id number]-Type Natriuretic Peptide 55 pg/mL (0-124) Total Protein 7.3 g/dL (6.4-8.2) Albumin 3.3 g/dL (3.4-5.0) L Albumin/Globulin Ratio 0.8 (1.0-1.7) L Laboratory Tests 10/16/17 23:30 Laboratory Tests 10/16/17 23:30 EKG EKG [Normal sinus rhythm at a rate of 88 bpm, normal axis, normal intervals, nonspecific ST/T changes are present.] Radiology/Procedures Radiology/Procedures [ER physician preliminary chest x-ray interpretation: Bronchial wall thickening in the right lower lobe without definite infiltrate. No other acute disease noted.] Course & Med Decision Making Course & Med Decision Making Pertinent Labs and Imaging studies reviewed. (See chart for details) [12:25 AM: The patient's condition remained stable. Her oxygenation saturation is 96% on room air. Her wheezing has significant improve, she has mild residual rhonchi in the right lung base. I do suspect she might have bronchitis but she just started a Zithromax yesterday and I encouraged her to continue. I will add prednisone. She does take insulin at home and does have information on sliding scale and I stressed importance of close blood sugar monitoring on the steroids and return precautions discussed in detail.] Dragon Disclaimer Dragon Disclaimer This electronic medical record was generated, in whole or in part, using a voice recognition dictation system. Departure Departure Impression: Primary Impression: Acute bronchitis Additional Impression: Asthma exacerbation Disposition: HOME, SELF-CARE Condition: STABLE Referrals: CHI AGRAWAL MD (PCP) Patient Instructions: Acute Bronchitis, Asthma, Adult Additional Instructions: Continue using your previously prescribed antibiotics, as well as your breathing medications as previously prescribed. The prescribed steroids may cause blood sugar elevation. Monitor blood sugar closely and use your insulin as instructed, to help manage elevations in blood sugar. Scripts Prednisone (PREDNISONE) 20 Mg Tablet 40 MG PO DAILY for 5 Days, #10 TAB Prov: JINNY MCCORMACK MD 10/17/17 Problem Qualifiers JINNY MCCORMACK MD Oct 16, 2017 23:15
[2017-10-16] MEDS ORDERED: methylPREDNISolone SOD SUCC PF 125 MG/2 ML VIAL. IV ONE (23:30)
[2017-10-16] MEDS ORDERED: IPRATRPIUM/ALBUTEROL 0.5/2.5MG 3 ML NEBU. NEB ONE (23:30)
[2017-10-16 23:40] LABS: BASO # 0.1 x10^3/uL (0.0-0.2); BASO % 1 % (0-3); EOS # 0.2 x10^3/uL (0.0-0.7); EOS % 3 % (0-3); LYMPH % 27 % (24-48); MEAN CORPUSCULAR HEMOGLOBIN 30 pg (25-35); MEAN CORPUSCULAR HGB CONC 33 g/dL (31-37); MEAN CORPUSCULAR VOLUME 90 fL (79-100); MONO # 0.5 x10^3/uL (0.0-1.1); MONO % 6 % (0-9); NEUT # 4.5 x10^3uL (1.8-7.7); NEUT % 62 % (31-73); PLATELET COUNT 225 x10^3/uL (140-400); RED BLOOD COUNT 4.35 x10^6/uL (3.50-5.40); RED CELL DISTRIBUTION WIDTH 13.5 % (11.5-14.5); WHITE BLOOD COUNT 7.2 x10^3/uL (4.0-11.0)
[2017-10-16 23:52] LABS: CALCIUM 9.8 mg/dL (8.5-10.1); CREATININE 0.8 mg/dL (0.6-1.0); POTASSIUM 4.6 mmol/L (3.5-5.1)
[2017-10-16 23:58] LABS: ALBUMIN 3.3 g/dL (3.4-5.0); ALBUMIN/GLOBULIN RATIO 0.8 (1.0-1.7); TOTAL BILIRUBIN 0.3 mg/dL (0.2-1.0); TOTAL PROTEIN 7.3 g/dL (6.4-8.2)
[2017-10-17] MEDS ORDERED: INSULIN REGULAR 100 UNIT/ML 3ML VIAL. IV ONE (00:30)
[2017-10-17] MEDS ORDERED: PRED20TA PO (00:30)
--- NOTE | 2017-10-17 00:32 | EKG ---
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
--- NOTE | 2017-10-17 08:49 | RAD ---
EXAM: PA and lateral views of the chest DATE: 10/16/2017 11:04 PM INDICATION: cough x 3 weeks COMPARISON: No Prior FINDINGS: The heart is not enlarged. Calcified hilar lymph nodes are seen. Platelike opacities right midlung likely subsegmental atelectasis. No lobar consolidation. No pleural effusion or pneumothorax. IMPRESSION: 1. Platelike opacities right midlung likely subsegmental atelectasis. No lobar consolidation. Electronically signed by: Abhay Elizondo MD (10/17/2017 8:45 AM) [facility]
== END 2017-10-17 00:56 | disposition home or self-care (01) ==
LOC: ER 22:44
DX: J45.901 Unspecified asthma with (acute) exacerbation (principal); J20.9 Acute bronchitis, unspecified; E78.00 Pure hypercholesterolemia, unspecified; E11.9 Type 2 diabetes mellitus without complications; I10 Essential (primary) hypertension; E66.9 Obesity, unspecified; Z68.39 Body mass index [BMI] 39.0-39.9, adult
CPT/HCPCS: 36415; 71046; 80053; 82553; 83880; 84484; 85025; 93005; 94640; 96374; 96375; 99285; J1815; J2930; J7620

== ENCOUNTER 2018-03-02 19:10 | Emergency (ER) | payer OTHER ==
[~2018-03-02] VITALS: Ht 162.6 cm; Wt 81.6 kg
[~2018-03-02 19:10] MED LIST changes: +CAND32TA19 PO; -CAND32TA2 PO; -GEMF600T3 PO; +GEMF600T8 PO; +HYDR-2145 PO; +HYDR-3164 PO; -HYDR-971 PO; -HYDR25TA9 PO; +LINA5TAB PO; -LINA5TAB4 PO; -METF10003 PO; +METF10007 PO
--- NOTE | 2018-03-02 19:38 | PHYS DOC ---
Past Medical History Past Medical History: Asthma, Diabetes-Type II, High Cholesterol, Hypertension , Pneumonia Additional Past Medical Histor: HIGH CHOL, obesity, YON, SLEEP APNEA Past Surgical History: Hysterectomy Additional Past Surgical Histo: Nose SX, RETINA SURGERY Alcohol Use: None Drug Use: None Adult General Chief Complaint Chief Complaint: SHORTNESS OF BREATH HPI HPI Patient is a 52 year old female who presents with shortness of breath and cough. This started approximately a month ago prior to traveling to [facility]. While in [facility] approximately 48 hours ago was exposed to generator exhaust which made things much worse. Patient has been using a leftover metered-dose inhaler which initially helped with symptoms while she was overseas however over the past 48 hours has not significantly improved anything. Notes that she is coughing up green sputum. No fever. Nothing else seems to make the symptoms better or worse. Patient reports the symptoms as moderate in intensity.[] Review of Systems Review of Systems Constitutional: Denies fever or chills [] Eyes: Denies change in visual acuity, redness, or eye pain [] HENT: Denies nasal congestion or sore throat [] Respiratory: See history of present illness[] Cardiovascular: No chest pain or palpitations[] GI: Denies abdominal pain, nausea, vomiting, bloody stools or diarrhea [] : Denies dysuria or hematuria [] Musculoskeletal: Denies back pain or joint pain [] Integument: Denies rash or skin lesions [] Neurologic: Denies headache, focal weakness or sensory changes [] Endocrine: Denies polyuria or polydipsia [] All other systems were reviewed and found to be within normal limits, except as documented in this note. Current Medications Current Medications Current Medications Medications (Trade) Dose Ordered Sig/Palak Start Time Stop Time Status Last Admin Dose Admin Albuterol Sulfate (Ventolin Neb Soln) 2.5 mg 1X ONCE 03/02/18 23:15 03/02/18 23:16 DC Albuterol/ Ipratropium (Duoneb) 3 ml STK-MED ONCE 03/03/18 01:25 03/03/18 01:27 DC Insulin Human Regular (HumuLIN R VIAL) 10 unit 1X ONCE 03/02/18 23:00 03/02/18 23:01 DC 03/02/18 23:05 10 UNIT Ipratropium Steedman (Atrovent) 0.5 mg 1X ONCE 03/02/18 19:45 03/02/18 19:46 DC 03/02/18 19:52 0.5 MG Lidocaine HCl (Lidocaine HCl 2% Abboject) 100 mg STK-MED ONCE 03/02/18 21:34 03/02/18 21:35 DC Propofol 50 ml @ As Directed STK-MED ONCE 03/02/18 21:44 03/02/18 21:45 DC Succinylcholine Chloride (Anectine) 200 mg STK-MED ONCE 03/02/18 21:34 03/02/18 21:35 DC Allergies Allergies Allergies Coded Allergies Type Severity Reaction Last Updated Verified No Known Drug Allergies 06/07/13 No Physical Exam Physical Exam Constitutional: Well developed, well nourished, no acute distress, non-toxic appearance. [] HENT: Normocephalic, atraumatic, bilateral external ears normal, oropharynx moist, no oral exudates, nose normal. [] Eyes: PERRLA, EOMI, conjunctiva normal, no discharge. [] Neck: Normal range of motion, no tenderness, supple, no stridor. [] Cardiovascular:Heart rate regular rhythm, no murmur [] Lungs & Thorax: Inspiratory and expiratory wheezes[] Abdomen: Bowel sounds normal, soft, no tenderness, no masses, no pulsatile masses. [] Skin: Warm, dry, no erythema, no rash. [] Back: No tenderness, no CVA tenderness. [] Extremities: No tenderness, no cyanosis, no clubbing, ROM intact, no edema. [] Neurologic: Alert and oriented X 3, normal motor function, normal sensory function, no focal deficits noted. [] Psychologic: Affect normal, judgement normal, mood normal. [] Current Patient Data Vital Signs Vital Signs Date Time Temp Pulse Resp B/P (MAP) Pulse Ox O2 Delivery O2 Flow Rate FiO2 03/03/18 01:28 95 Nasal Cannula 1.0 03/02/18 20:10 97.7 124 22 172/75 (107) 97.7 Lab Values Laboratory Tests Test 03/02/18 19:20 03/02/18 19:37 03/02/18 20:00 03/03/18 00:00 Urine Collection Type Unknown Urine Color Yellow Urine Clarity Cloudy Urine pH 5.0 Urine Specific [place] >=1.030 Urine Protein Negative mg/dL (NEG-TRACE) Urine Glucose (UA) >=1000 mg/dL (NEG) Urine Ketones (Stick) Negative mg/dL (NEG) Urine Blood Trace (NEG) Urine Nitrite Negative (NEG) Urine Bilirubin Negative (NEG) Urine Urobilinogen Dipstick 0.2 mg/dL (0.2 mg/dL) Urine Leukocyte Esterase Small (NEG) Urine RBC Occ /HPF (0-2) Urine WBC 5-10 /HPF (0-4) Urine Squamous Epithelial Cells Many /LPF Urine Bacteria Few /HPF (0-FEW) Urine Yeast Present /HPF POC Urine HCG, Qualitative Hcg negative (Negative) White Blood Count 7.9 x10^3/uL (4.0-11.0) Red Blood Count 4.63 x10^6/uL (3.50-5.40) Hemoglobin 14.4 g/dL (12.0-15.5) Hematocrit 42.6 % (36.0-47.0) Mean Corpuscular Volume 92 fL (79-100) Mean Corpuscular Hemoglobin 31 pg (25-35) Mean Corpuscular Hemoglobin Concent 34 g/dL (31-37) Red Cell Distribution Width 13.4 % (11.5-14.5) Platelet Count 229 x10^3/uL (140-400) Neutrophils (%) (Auto) 62 % (31-73) Lymphocytes (%) (Auto) 23 % (24-48) L Monocytes (%) (Auto) 8 % (0-9) Eosinophils (%) (Auto) 6 % (0-3) H Basophils (%) (Auto) 1 % (0-3) Neutrophils # (Auto) 4.9 x10^3uL (1.8-7.7) Lymphocytes # (Auto) 1.8 x10^3/uL (1.0-4.8) Monocytes # (Auto) 0.7 x10^3/uL (0.0-1.1) Eosinophils # (Auto) 0.5 x10^3/uL (0.0-0.7) Basophils # (Auto) 0.1 x10^3/uL (0.0-0.2) D-Dimer (Priscilla) 0.68 ug/mlFEU (0.00-0.50) H Sodium Level 134 mmol/L (136-145) L Potassium Level 4.2 mmol/L (3.5-5.1) Chloride Level 97 mmol/L (98-107) L Carbon Dioxide Level 26 mmol/L (21-32) Anion Gap 11 (6-14) Blood Urea Nitrogen 16 mg/dL (7-20) Creatinine 1.4 mg/dL (0.6-1.0) H Estimated GFR (Cockcroft-Gault) 39.3 BUN/Creatinine Ratio 11 (6-20) Glucose Level 530 mg/dL (70-99) *H Calcium Level 11.7 mg/dL (8.5-10.1) H Total Bilirubin 0.4 mg/dL (0.2-1.0) Aspartate Amino Transferase (AST) 19 U/L (15-37) Alanine Aminotransferase (ALT) 27 U/L (14-59) Alkaline Phosphatase 150 U/L (46-116) H Troponin I Quantitative < 0.017 ng/mL (0.000-0.055) JO-Dhb-A-Type Natriuretic Peptide 44 pg/mL (0-124) Total Protein 7.6 g/dL (6.4-8.2) Albumin 3.6 g/dL (3.4-5.0) Albumin/Globulin Ratio 0.9 (1.0-1.7) L Prothrombin Time 12.4 SEC (11.7-14.0) Prothrombin Time INR 1.0 (0.8-1.1) Test 03/03/18 02:44 Glucose (Fingerstick) 306 mg/dL (70-99) H Laboratory Tests 03/02/18 20:00 Laboratory Tests 03/02/18 20:00 EKG EKG EKG shows a sinus rhythm at 80 bpm, normal axis, QTC of 507 ms, no ST elevation , nonspecific ST-T wave changes.[] Radiology/Procedures Radiology/Procedures Examination: PORTABLE CHEST 1V History: PATIENT JUST RETURNED FROM [place] AFTER 1 MONTH THERE. PATIENT SAID PRODUCTIVE (GREEN) COUGH X1 MONTH. STARTED OUT IN SINUSES BEFORE LEFT AND NOW IN CHEST. SOB, HX OF ASTHMA, HYPERTENTION, AND HYPERLIPIDEMIA Comparison/Correlation: 10/16/2017 two-view chest x-ray exam Findings: Portable upright frontal view chest was obtained. Heart size and pulmonary vasculature are normal. No infiltrate or effusion. Bony structures are intact. No pneumothorax. Impression: No active disease. PROCEDURE: LUNG VENT/PERFUSION SCAN(VQ) Nuclear medicine ventilation/perfusion scan: Reason for examination: Dyspnea. Chest pain with productive cough for one month. Elevated d-dimer. Recent travel. Ventilation scan was performed with 13.5 mCi of xenon-133 gas and posterior images were obtained. Perfusion scan was performed using 5.5 mCi of technetium 99m MAA. Standard 8 images were obtained. The ventilation scan shows homogeneous activity on single breath and equilibrium phase images and there appears be good washout. Perfusion scan shows heterogeneous activity but no focal perfusion defect is identified. IMPRESSION: No focal perfusion defect identified. No ventilation/perfusion mismatch. Low probability of pulmonary embolus.[] Course & Med Decision Making Course & Med Decision Making Pertinent Labs and Imaging studies reviewed. (See chart for details) ED course: Patient arrived, was placed in bed, in tolerated exam well. Patient breathing treatment which significantly improved her breath sounds and patient was feeling better. With the slightly elevated d-dimer was elected to perform the VQ scan given her risk due to traveling. Patient tolerated the VQ scan without any complications. After the return of lab and imaging findings these were discussed with the patient, all questions were answered. Patient was discharged in improved condition. Medical decision making: There does not appear to be congestive heart failure, acute coronary syndrome, status asthmaticus/continued hypoxia. Patient's oxygen saturation was at 94% on room air after breathing treatments were concluded. Patient's blood sugar improved with insulin administration and patient continuing to eat crackers and pudding.[] Dragon Disclaimer Dragon Disclaimer This electronic medical record was generated, in whole or in part, using a voice recognition dictation system. Departure Departure Impression: Primary Impression: Asthma exacerbation Additional Impression: Type 2 diabetes mellitus Disposition: HOME, SELF-CARE Condition: GOOD Referrals: CHI AGRAWAL MD (PCP) Follow-up in 2 days Patient Instructions: Asthma, Adult, Type 2 Diabetes Mellitus, Adult Additional Instructions: Follow-up with your regular doctor in 2 days. Follow your diabetic diet. Return to the ER if worsening difficulty breathing or any other concerns. Scripts Prednisone (PREDNISONE) 50 Mg Tablet 50 MG PO DAILY for 7 Days, #7 TAB Prov: XOCHITL WELLINGTON DO 03/03/18 Nebulizer and Compressor (Procare Compressor Nebulizer) 1 Each Each EACH , #1 Prov: XOCHITL WELLINGTON 03/03/18 Ipratropium Steedman (ATROVENT HFA) 12.9 Gm Hfa.aer.ad 2 PUFF IH QID, #12.9 GM 0 Refills Prov: ELIZXOCHITL PEREZ 03/03/18 Albuterol Sulfate (VENTOLIN HFA INHALER) 18 Gm Hfa.aer.ad 2 PUFF INH Q4HRS for FOR ASTHMA, #1 INHALER 0 Refills Prov: ELIZXOCHITL PEREZ 03/03/18 Problem Qualifiers Primary Impression: Asthma exacerbation Asthma severity: moderate Asthma persistence: unspecified Qualified Codes: J45.901 - Unspecified asthma with (acute) exacerbation Additional Impression: Type 2 diabetes mellitus Diabetes mellitus residential insulin use: with termination clerk use Diabetes mellitus complication status: with unspecified complications Qualified Codes: E11.8 - Type 2 diabetes mellitus with unspecified complications; 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
[2018-03-02 19:44] LABS: BILIRUBIN,URINE NEGATIVE (NEG); CLARITY,URINE CLOUDY; COLOR,URINE YELLOW; NITRITE,URINE NEGATIVE (NEG); PROTEIN,URINE NEGATIVE (NEG-TRACE); UROBILINOGEN,URINE 0.2 mg/dL (0.2 mg/dL)
[2018-03-02] MEDS ORDERED: ALBUTEROL SULFATE 2.5 MG/3 ML NEBU. NEB ONE ×2 (19:45→23:15)
[2018-03-02] MEDS ORDERED: IPRATROPIUM BROMIDE 0.5 MG/2.5 ML NEBU. NEB ONE (19:45)
--- NOTE | 2018-03-02 19:53 | RAD ---
Examination: PORTABLE CHEST 1V History: PATIENT JUST RETURNED FROM [place] AFTER 1 MONTH THERE. PATIENT SAID PRODUCTIVE (GREEN) COUGH X1 MONTH. STARTED OUT IN SINUSES BEFORE LEFT AND NOW IN CHEST. SOB, HX OF ASTHMA, HYPERTENTION, AND HYPERLIPIDEMIA Comparison/Correlation: 10/16/2017 two-view chest x-ray exam Findings: Portable upright frontal view chest was obtained. Heart size and pulmonary vasculature are normal. No infiltrate or effusion. Bony structures are intact. No pneumothorax. Impression: No active disease. Electronically signed by: Reggie Alamo MD (03/02/2018 7:49 PM) [facility]
[2018-03-02 20:00] LABS: BACTERIA,URINE FEW /HPF (0-FEW); RBC,URINE OCC /HPF (0-2); SQUAMOUS EPITHELIAL CELL,UR MANY /LPF; YEAST,URINE PRESENT /HPF
--- NOTE | 2018-03-02 20:23 | EKG ---
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
[2018-03-02 20:25] LABS: BASO # 0.1 x10^3/uL (0.0-0.2); BASO % 1 % (0-3); EOS # 0.5 x10^3/uL (0.0-0.7); EOS % 6 % (0-3); HEMATOCRIT 42.6 % (36.0-47.0); HEMOGLOBIN 14.4 g/dL (12.0-15.5); LYMPH # 1.8 x10^3/uL (1.0-4.8); LYMPH % 23 % (24-48); MEAN CORPUSCULAR HEMOGLOBIN 31 pg (25-35); MEAN CORPUSCULAR HGB CONC 34 g/dL (31-37); MEAN CORPUSCULAR VOLUME 92 fL (79-100); MONO # 0.7 x10^3/uL (0.0-1.1); MONO % 8 % (0-9); NEUT # 4.9 x10^3uL (1.8-7.7); NEUT % 62 % (31-73); PLATELET COUNT 229 x10^3/uL (140-400); RED BLOOD COUNT 4.63 x10^6/uL (3.50-5.40); RED CELL DISTRIBUTION WIDTH 13.4 % (11.5-14.5); WHITE BLOOD COUNT 7.9 x10^3/uL (4.0-11.0)
[2018-03-02 20:56] LABS: ALBUMIN 3.6 g/dL (3.4-5.0); ALBUMIN/GLOBULIN RATIO 0.9 (1.0-1.7); CALCIUM 11.7 mg/dL (8.5-10.1); CREATININE 1.4 mg/dL (0.6-1.0); GFR 39.3; POTASSIUM 4.2 mmol/L (3.5-5.1); TOTAL BILIRUBIN 0.4 mg/dL (0.2-1.0); TOTAL PROTEIN 7.6 g/dL (6.4-8.2)
[2018-03-02] MEDS ORDERED: SUCCINYLCHOLINE 200 MG/10 ML VIAL. ONE (21:34)
[2018-03-02] MEDS ORDERED: LIDOCAINE 2% 100 MG/5 ML SYRINGE. ONE (21:34)
[2018-03-02] MEDS ORDERED: PROPOFOL 50 ML IV ONE (21:44)
[2018-03-02] MEDS ORDERED: INSULIN REGULAR 100 UNIT/ML 3ML VIAL. IV ONE (23:00)
[2018-03-03 01:00] VITALS: BP 183/83
[2018-03-03] MEDS ORDERED: IPRATRPIUM/ALBUTEROL 0.5/2.5MG 3 ML NEBU. ONE (01:25)
[2018-03-03] MEDS ORDERED: IPRATRPIUM/ALBUTEROL 0.5/2.5MG 3 ML NEBU. NEB ONE (01:30)
[2018-03-03 01:59] LABS: PROTHROMBIN TIME PATIENT 12.4 SEC (11.7-14.0)
--- NOTE | 2018-03-03 02:51 | RAD ---
Nuclear medicine ventilation/perfusion scan: Reason for examination: Dyspnea. Chest pain with productive cough for one month. Elevated d-dimer. Recent travel. Ventilation scan was performed with 13.5 mCi of xenon-133 gas and posterior images were obtained. Perfusion scan was performed using 5.5 mCi of technetium 99m MAA. Standard 8 images were obtained. The ventilation scan shows homogeneous activity on single breath and equilibrium phase images and there appears be good washout. Perfusion scan shows heterogeneous activity but no focal perfusion defect is identified. IMPRESSION: No focal perfusion defect identified. No ventilation/perfusion mismatch. Low probability of pulmonary embolus. Electronically signed by: Paula Mendiola MD (03/03/2018 2:47 AM) [facility]
[2018-03-03] MEDS ORDERED: ATROVENT HFA12.9 GM IH (03:06)
[2018-03-03] MEDS ORDERED: VENTOLIN HFA18 GM INH (03:06)
[2018-03-03] MEDS ORDERED: [UNRECOGNIZED DRUG - CODE] MC (03:06)
[2018-03-03] MEDS ORDERED: PRED50TA PO (03:06)
== END 2018-03-03 03:19 | disposition home or self-care (01) ==
LOC: ER 19:10
DX: E11.9 Type 2 diabetes mellitus without complications (principal); J45.901 Unspecified asthma with (acute) exacerbation; J45.909 Unspecified asthma, uncomplicated; E78.00 Pure hypercholesterolemia, unspecified; I10 Essential (primary) hypertension; E66.9 Obesity, unspecified; Z90.710 Acquired absence of both cervix and uterus; Z79.4 Long term (current) use of insulin; Z68.30 Body mass index [BMI] 30.0-30.9, adult
CPT/HCPCS: 36415; 71045; 78582; 80053; 81001; 81025; 82962; 83880; 84484; 85025; 85379; 85610; 87086; 93005; 94640; 96374; 99284; A9540; A9558; J1815; J7613; J7620; J7644

== ENCOUNTER 2018-04-06 17:28 | Emergency (ER) | payer OTHER ==
[~2018-04-06] VITALS: Ht 162.6 cm; Wt 94.8 kg
[~2018-04-06 17:28] MED LIST changes: +ATROVENT HFA12.9 GM IH; +VENTOLIN HFA18 GM INH; +[UNRECOGNIZED DRUG - CODE] MC
[2018-04-06] MEDS ORDERED: IPRATRPIUM/ALBUTEROL 0.5/2.5MG 3 ML NEBU. ONE (18:24)
[2018-04-06] MEDS ORDERED: IPRATRPIUM/ALBUTEROL 0.5/2.5MG 3 ML NEBU. NEB ONE (18:30)
[2018-04-06] MEDS ORDERED: predniSONE 10 MG TABLET PO ONE (18:30)
[2018-04-06 18:37] LABS: BASO # 0.1 x10^3/uL (0.0-0.2); BASO % 1 % (0-3); EOS # 0.2 x10^3/uL (0.0-0.7); EOS % 3 % (0-3); HEMATOCRIT 38.8 % (36.0-47.0); HEMOGLOBIN 12.5 g/dL (12.0-15.5); LYMPH # 1.9 x10^3/uL (1.0-4.8); LYMPH % 25 % (24-48); MEAN CORPUSCULAR HEMOGLOBIN 29 pg (25-35); MEAN CORPUSCULAR HGB CONC 32 g/dL (31-37); MEAN CORPUSCULAR VOLUME 90 fL (79-100); MONO # 0.7 x10^3/uL (0.0-1.1); MONO % 9 % (0-9); NEUT # 4.8 x10^3uL (1.8-7.7); NEUT % 63 % (31-73); PLATELET COUNT 283 x10^3/uL (140-400); RED BLOOD COUNT 4.29 x10^6/uL (3.50-5.40); RED CELL DISTRIBUTION WIDTH 13.1 % (11.5-14.5); WHITE BLOOD COUNT 7.6 x10^3/uL (4.0-11.0)
[2018-04-06 18:46] LABS: CALCIUM 11.3 mg/dL (8.5-10.1); POTASSIUM 4.4 mmol/L (3.5-5.1)
[2018-04-06 18:51] LABS: ALBUMIN/GLOBULIN RATIO 0.7 (1.0-1.7); TOTAL BILIRUBIN 0.2 mg/dL (0.2-1.0); TOTAL PROTEIN 7.1 g/dL (6.4-8.2)
[2018-04-06 18:53] LABS: BILIRUBIN,URINE NEGATIVE (NEG); CLARITY,URINE CLOUDY; COLOR,URINE YELLOW; NITRITE,URINE NEGATIVE (NEG); PROTEIN,URINE NEGATIVE (NEG-TRACE); UROBILINOGEN,URINE 0.2 mg/dL (0.2 mg/dL)
[2018-04-06 19:01] LABS: BACTERIA,URINE MODERATE /HPF (0-FEW); RBC,URINE 0 /HPF (0-2); SQUAMOUS EPITHELIAL CELL,UR FEW /LPF
[2018-04-06 19:23] VITALS: BP 173/80
[2018-04-06] MEDS ORDERED: IOHEXOL 350 MG/ML 100 ML VIAL. IV ONE (19:30)
--- NOTE | 2018-04-06 19:57 | RAD ---
CTA Chest with contrast: Clinical History: soa, exercise intolerance, OMNI 350, 80ml Shortness of breath. Axial helical images of the chest were obtained after the administration of 80 cc of IV Omni 300 and timed appropriately for a pulmonary arterial study. Conventional axial reconstruction was performed in addition to coronal, sagittal and bilateral oblique MIP (maximum intensity projection). This study was ordered to detect possible pulmonary embolism. There are no filling defects to suggest pulmonary embolism. The more peripheral subsegmental pulmonary arteries are not well opacified limiting our sensitivity for small peripheral pulmonary emboli. There is patchy opacities throughout the lungs with some sparing of the lung bases. There is no mediastinal or hilar lymphadenopathy. The thoracic aorta appears normal. Impression: 1. No evidence of pulmonary embolism. 2. Bilateral infiltrates likely atypical pneumonia. PQRS Compliance Statement: One or more of the following individualized dose reduction techniques were utilized for this examination: 1. Automated exposure control 2. Adjustment of the mA and/or kV according to patient size 3. Use of iterative reconstruction technique Electronically signed by: Bridger Jansen III, MD (04/06/2018 7:52 PM) [facility]
--- NOTE | 2018-04-06 20:34 | RAD ---
Chest PA and lateral: Reason for examination: Short of breath. Exercise intolerance. Comparison is made to previous studies dated 03/02/2018 and 10/16/2017. The heart size is normal. Mediastinum is unremarkable. Calcified granuloma is again seen at the left hilum. Lung baker show some faint groundglass infiltrates bilaterally which correspond to the infiltrates seen on CT exam. No acute bony abnormalities are seen. Impression: Subtle groundglass infiltrates bilaterally which appear to be predominantly lower lobe. Electronically signed by: Paula Mendiola MD (04/06/2018 8:29 PM) [facility]
[2018-04-06] MEDS ORDERED: AZIT250T PO (21:09)
[2018-04-06] MEDS ORDERED: PRED50TA PO (21:09)
--- NOTE | 2018-04-06 21:09 | PHYS DOC ---
Past Medical History Past Medical History: Asthma, Diabetes-Type II, High Cholesterol, Hypertension , Pneumonia Additional Past Medical Histor: HIGH CHOL, obesity, YON, SLEEP APNEA Past Surgical History: Hysterectomy Additional Past Surgical Histo: Nose SX, RETINA SURGERY Alcohol Use: None Drug Use: None Adult General Chief Complaint Chief Complaint: SHORTNESS OF BREATH HPI HPI Patient is a 52 year old [f__sex] who presents with [] Review of Systems Review of Systems Constitutional: Denies fever or chills [] Eyes: Denies change in visual acuity, redness, or eye pain [] HENT: Denies nasal congestion or sore throat [] Respiratory: Denies cough or shortness of breath [] Cardiovascular: No additional information not addressed in HPI [] GI: Denies abdominal pain, nausea, vomiting, bloody stools or diarrhea [] : Denies dysuria or hematuria [] Musculoskeletal: Denies back pain or joint pain [] Integument: Denies rash or skin lesions [] Neurologic: Denies headache, focal weakness or sensory changes [] Endocrine: Denies polyuria or polydipsia [] All other systems were reviewed and found to be within normal limits, except as documented in this note. Current Medications Current Medications Current Medications Medications (Trade) Dose Ordered Sig/Palak Start Time Stop Time Status Last Admin Dose Admin Albuterol/ Ipratropium (Duoneb) 3 ml STK-MED ONCE 04/06/18 18:24 04/06/18 18:28 DC Iohexol (Omnipaque 350 Mg/ml) 80 ml 1X ONCE 04/06/18 19:30 04/06/18 19:31 DC 04/06/18 19:41 80 ML Prednisone (Prednisone) 50 mg 1X ONCE 04/06/18 18:30 04/06/18 18:31 DC 04/06/18 19:22 50 MG Allergies Allergies Allergies Coded Allergies Type Severity Reaction Last Updated Verified No Known Drug Allergies 06/07/13 No Physical Exam Physical Exam Constitutional: Well developed, well nourished, no acute distress, non-toxic appearance. [] HENT: Normocephalic, atraumatic, bilateral external ears normal, oropharynx moist, no oral exudates, nose normal. [] Eyes: PERRLA, EOMI, conjunctiva normal, no discharge. [] Neck: Normal range of motion, no tenderness, supple, no stridor. [] Cardiovascular:Heart rate regular rhythm, no murmur [] Lungs & Thorax: Bilateral breath sounds clear to auscultation [] Abdomen: Bowel sounds normal, soft, no tenderness, no masses, no pulsatile masses. [] Skin: Warm, dry, no erythema, no rash. [] Back: No tenderness, no CVA tenderness. [] Extremities: No tenderness, no cyanosis, no clubbing, ROM intact, no edema. [] Neurologic: Alert and oriented X 3, normal motor function, normal sensory function, no focal deficits noted. [] Psychologic: Affect normal, judgement normal, mood normal. [] Current Patient Data Vital Signs Vital Signs Date Time Temp Pulse Resp B/P (MAP) Pulse Ox O2 Delivery O2 Flow Rate FiO2 04/06/18 19:23 85 18 173/80 (111) 94 Room Air 04/06/18 18:04 97.4 97.4 Lab Values Laboratory Tests Test 04/06/18 18:27 04/06/18 18:45 04/06/18 18:51 White Blood Count 7.6 x10^3/uL (4.0-11.0) Red Blood Count 4.29 x10^6/uL (3.50-5.40) Hemoglobin 12.5 g/dL (12.0-15.5) Hematocrit 38.8 % (36.0-47.0) Mean Corpuscular Volume 90 fL (79-100) Mean Corpuscular Hemoglobin 29 pg (25-35) Mean Corpuscular Hemoglobin Concent 32 g/dL (31-37) Red Cell Distribution Width 13.1 % (11.5-14.5) Platelet Count 283 x10^3/uL (140-400) Neutrophils (%) (Auto) 63 % (31-73) Lymphocytes (%) (Auto) 25 % (24-48) Monocytes (%) (Auto) 9 % (0-9) Eosinophils (%) (Auto) 3 % (0-3) Basophils (%) (Auto) 1 % (0-3) Neutrophils # (Auto) 4.8 x10^3uL (1.8-7.7) Lymphocytes # (Auto) 1.9 x10^3/uL (1.0-4.8) Monocytes # (Auto) 0.7 x10^3/uL (0.0-1.1) Eosinophils # (Auto) 0.2 x10^3/uL (0.0-0.7) Basophils # (Auto) 0.1 x10^3/uL (0.0-0.2) D-Dimer (Priscilla) 0.75 ug/mlFEU (0.00-0.50) H Sodium Level 141 mmol/L (136-145) Potassium Level 4.4 mmol/L (3.5-5.1) Chloride Level 104 mmol/L (98-107) Carbon Dioxide Level 29 mmol/L (21-32) Anion Gap 8 (6-14) Blood Urea Nitrogen 21 mg/dL (7-20) H Creatinine 1.0 mg/dL (0.6-1.0) Estimated GFR (Cockcroft-Gault) 58.0 BUN/Creatinine Ratio 21 (6-20) H Glucose Level 190 mg/dL (70-99) H Calcium Level 11.3 mg/dL (8.5-10.1) H Total Bilirubin 0.2 mg/dL (0.2-1.0) Aspartate Amino Transferase (AST) 16 U/L (15-37) Alanine Aminotransferase (ALT) 26 U/L (14-59) Alkaline Phosphatase 147 U/L (46-116) H HX-Vkp-R-Type Natriuretic Peptide 41 pg/mL (0-124) Total Protein 7.1 g/dL (6.4-8.2) Albumin 3.0 g/dL (3.4-5.0) L Albumin/Globulin Ratio 0.7 (1.0-1.7) L Urine Collection Type Unknown Urine Color Yellow Urine Clarity Cloudy Urine pH 6.0 Urine Specific [place] >=1.030 Urine Protein Negative mg/dL (NEG-TRACE) Urine Glucose (UA) >=1000 mg/dL (NEG) Urine Ketones (Stick) Negative mg/dL (NEG) Urine Blood Negative (NEG) Urine Nitrite Negative (NEG) Urine Bilirubin Negative (NEG) Urine Urobilinogen Dipstick 0.2 mg/dL (0.2 mg/dL) Urine Leukocyte Esterase Negative (NEG) Urine RBC 0 /HPF (0-2) Urine WBC 1-4 /HPF (0-4) Urine Squamous Epithelial Cells Few /LPF Urine Bacteria Moderate /HPF (0-FEW) Urine Mucus Slight /LPF POC Urine HCG, Qualitative Hcg negative (Negative) Laboratory Tests 04/06/18 18:27 Laboratory Tests 04/06/18 18:27 EKG EKG [] Radiology/Procedures Radiology/Procedures [] Course & Med Decision Making Course & Med Decision Making Pertinent Labs and Imaging studies reviewed. (See chart for details) [] Dragon Disclaimer Dragon Disclaimer This electronic medical record was generated, in whole or in part, using a voice recognition dictation system. Departure Departure Impression: Primary Impression: Pneumonia Disposition: HOME, SELF-CARE Condition: STABLE Referrals: CHI AGRAWAL MD (PCP) Patient Instructions: Pneumonia, Adult Additional Instructions: Take medications as prescribed. Use your inhalers at home as directed. Follow- up with your primary care provider in 3 days if not improving or return to the emergency department if worsening. Scripts Prednisone (PREDNISONE) 50 Mg Tablet 1 TAB PO DAILY for SOA, #5 TAB Prov: JODY VÁSQUEZ CIG[employer]OLER 04/06/18 Azithromycin (ZITHROMAX) 250 Mg Tablet 1 PKG PO UD for pneumonia, #1 PKG Prov: JODY VÁSQUEZ [employer]IG[employer]OLER 04/06/18 JODY VÁSQUEZ APRN Apr 06, 2018 21:09
--- NOTE | 2018-04-07 06:15 | EKG ---
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
== END 2018-04-06 21:20 | disposition home or self-care (01) ==
LOC: ER 17:28
DX: J18.9 Pneumonia, unspecified organism (principal); J45.909 Unspecified asthma, uncomplicated; E11.9 Type 2 diabetes mellitus without complications; E78.00 Pure hypercholesterolemia, unspecified; I10 Essential (primary) hypertension; G47.33 Obstructive sleep apnea (adult) (pediatric); E66.9 Obesity, unspecified; Z68.35 Body mass index [BMI] 35.0-35.9, adult; Z90.710 Acquired absence of both cervix and uterus
CPT/HCPCS: 36415; 71046; 71275; 80053; 81001; 81025; 83880; 85025; 85379; 93005; 94640; 99284; J7512; J7620; Q9967

== ENCOUNTER 2018-06-09 20:38 | Inpatient (IN) | payer OTHER ==
[~2018-06-09] VITALS: Ht 162.6 cm; Wt 94.8 kg
[2018-06-09] MEDS ORDERED: IPRATRPIUM/ALBUTEROL 0.5/2.5MG 3 ML NEBU. NEB ONE (21:45)
[2018-06-09] MEDS ORDERED: methylPREDNISolone SOD SUCC PF 125 MG/2 ML VIAL. IV ONE (21:45)
[2018-06-09] MEDS ORDERED: IV NORMAL SALINE 1000ML BAG 1,000 ML IV ONE (21:45)
[2018-06-09 21:57] LABS: BASO # 0.1 x10^3/uL (0.0-0.2); BASO % 1 % (0-3); EOS # 0.1 x10^3/uL (0.0-0.7); EOS % 1 % (0-3); HEMATOCRIT 39.7 % (36.0-47.0); HEMOGLOBIN 13.1 g/dL (12.0-15.5); LYMPH # 0.7 x10^3/uL (1.0-4.8); LYMPH % 9 % (24-48); MEAN CORPUSCULAR HEMOGLOBIN 30 pg (25-35); MEAN CORPUSCULAR HGB CONC 33 g/dL (31-37); MEAN CORPUSCULAR VOLUME 90 fL (79-100); MONO # 0.5 x10^3/uL (0.0-1.1); MONO % 7 % (0-9); NEUT # 6.5 x10^3uL (1.8-7.7); NEUT % 83 % (31-73); PLATELET COUNT 195 x10^3/uL (140-400); WHITE BLOOD COUNT 7.8 x10^3/uL (4.0-11.0)
[2018-06-09 22:08] LABS: CALCIUM 10.2 mg/dL (8.5-10.1); CREATININE 0.8 mg/dL (0.6-1.0); POTASSIUM 4.3 mmol/L (3.5-5.1)
[2018-06-09 22:14] LABS: ALBUMIN 3.5 g/dL (3.4-5.0); ALBUMIN/GLOBULIN RATIO 0.8 (1.0-1.7); TOTAL BILIRUBIN 0.4 mg/dL (0.2-1.0); TOTAL PROTEIN 7.7 g/dL (6.4-8.2)
[2018-06-09] MEDS ORDERED: ACETAMINOPHEN 500 MG TABLET PO ONE (22:45)
--- NOTE | 2018-06-09 23:04 | PHYS DOC ---
Past Medical History Past Medical History: Asthma, Diabetes-Type II, High Cholesterol, Hypertension , Pneumonia Additional Past Medical Histor: HIGH CHOL, obesity, YON, SLEEP APNEA Past Surgical History: Hysterectomy, Oophorectomy Additional Past Surgical Histo: Nose SX, RETINA SURGERY Alcohol Use: None Drug Use: None Adult General Chief Complaint Chief Complaint: SHORTNESS OF BREATH HPI HPI 52-year-old female with multiple medical problems presents with a several day history of progressive shortness of breath cough and fever. She states she was hospitalized with pneumonia recently. She denies any hemoptysis. She did not have a flu shot this year. Patient did her nebulize treatments at home without any relief.[] Review of Systems Review of Systems Constitutional: Reports fever[] Eyes: Denies change in visual acuity, redness, or eye pain [] HENT: Denies nasal congestion or sore throat [] Respiratory: Per history of present illness[] Cardiovascular: No additional information not addressed in HPI [] GI: Denies abdominal pain, nausea, vomiting, bloody stools or diarrhea [] : Denies dysuria or hematuria [] Musculoskeletal: Denies back pain or joint pain [] Integument: Denies rash or skin lesions [] Neurologic: Denies headache, focal weakness or sensory changes [] Endocrine: Denies polyuria or polydipsia [] All other systems were reviewed and found to be within normal limits, except as documented in this note. Current Medications Current Medications Current Medications Medications (Trade) Dose Ordered Sig/Palak Start Time Stop Time Status Last Admin Dose Admin Acetaminophen (Tylenol) 650 mg PRN Q4HRS PRN 06/09/18 23:15 06/10/18 23:14 UNV Albuterol/ Ipratropium (Duoneb) 3 ml RTQID 06/10/18 08:00 06/11/18 07:59 UNV Methylprednisolone Sodium Succinate (SOLU-Medrol 40MG VIAL) 40 mg Q8HRS 06/10/18 06:00 UNV Methylprednisolone Sodium Succinate (SOLU-Medrol 125MG VIAL) 125 mg 1X ONCE 06/09/18 21:45 06/09/18 21:46 DC 06/09/18 22:12 125 MG Sodium Chloride 1,000 ml @ 125 mls/hr Q8H 06/09/18 23:05 06/10/18 23:04 UNV Allergies Allergies Allergies Coded Allergies Type Severity Reaction Last Updated Verified No Known Drug Allergies 06/07/13 No Physical Exam Physical Exam Constitutional: Well developed, well nourished, no acute distress, appears acutely ill but not toxic. [] HENT: Normocephalic, atraumatic, bilateral external ears normal, oropharynx moist, no oral exudates, nose normal. [] Eyes: PERRLA, EOMI, conjunctiva normal, no discharge. [] Neck: Normal range of motion, no tenderness, supple, no stridor. [] Cardiovascular:Heart rate regular rhythm, no murmur [] Lungs & Thorax: Scattered wheezes throughout both lungs no rales[] Abdomen: Bowel sounds normal, soft, no tenderness, no masses, no pulsatile masses. [] Skin: Warm, dry, no erythema, no rash. [] Back: No tenderness, no CVA tenderness. [] Extremities: No tenderness, no cyanosis, no clubbing, ROM intact, no edema. [] Neurologic: Alert and oriented X 3, normal motor function, normal sensory function, no focal deficits noted. [] Psychologic: Anxious. [] Current Patient Data Vital Signs Vital Signs Date Time Temp Pulse Resp B/P (MAP) Pulse Ox O2 Delivery O2 Flow Rate FiO2 06/09/18 22:31 96 Nasal Cannula 2.0 06/09/18 21:14 101.2 109 22 177/72 (107) 101.2 Lab Values Laboratory Tests Test 06/09/18 21:48 06/09/18 22:36 White Blood Count 7.8 x10^3/uL (4.0-11.0) Red Blood Count 4.40 x10^6/uL (3.50-5.40) Hemoglobin 13.1 g/dL (12.0-15.5) Hematocrit 39.7 % (36.0-47.0) Mean Corpuscular Volume 90 fL (79-100) Mean Corpuscular Hemoglobin 30 pg (25-35) Mean Corpuscular Hemoglobin Concent 33 g/dL (31-37) Red Cell Distribution Width 14.0 % (11.5-14.5) Platelet Count 195 x10^3/uL (140-400) Neutrophils (%) (Auto) 83 % (31-73) H Lymphocytes (%) (Auto) 9 % (24-48) L Monocytes (%) (Auto) 7 % (0-9) Eosinophils (%) (Auto) 1 % (0-3) Basophils (%) (Auto) 1 % (0-3) Neutrophils # (Auto) 6.5 x10^3uL (1.8-7.7) Lymphocytes # (Auto) 0.7 x10^3/uL (1.0-4.8) L Monocytes # (Auto) 0.5 x10^3/uL (0.0-1.1) Eosinophils # (Auto) 0.1 x10^3/uL (0.0-0.7) Basophils # (Auto) 0.1 x10^3/uL (0.0-0.2) Sodium Level 141 mmol/L (136-145) Potassium Level 4.3 mmol/L (3.5-5.1) Chloride Level 104 mmol/L (98-107) Carbon Dioxide Level 25 mmol/L (21-32) Anion Gap 12 (6-14) Blood Urea Nitrogen 12 mg/dL (7-20) Creatinine 0.8 mg/dL (0.6-1.0) Estimated GFR (Cockcroft-Gault) 75.0 BUN/Creatinine Ratio 15 (6-20) Glucose Level 167 mg/dL (70-99) H Calcium Level 10.2 mg/dL (8.5-10.1) H Total Bilirubin 0.4 mg/dL (0.2-1.0) Aspartate Amino Transferase (AST) 22 U/L (15-37) Alanine Aminotransferase (ALT) 31 U/L (14-59) Alkaline Phosphatase 138 U/L (46-116) H Troponin I Quantitative < 0.017 ng/mL (0.000-0.055) OS-Mvm-J-Type Natriuretic Peptide 23 pg/mL (0-124) Total Protein 7.7 g/dL (6.4-8.2) Albumin 3.5 g/dL (3.4-5.0) Albumin/Globulin Ratio 0.8 (1.0-1.7) L Influenza Type A Antigen Negative (NEGATIVE) Influenza Type B Antigen Negative (NEGATIVE) Laboratory Tests 06/09/18 21:48 Laboratory Tests 06/09/18 21:48 EKG EKG [] Interpretation Time: EKG: Normal sinus rhythm rate of [address]-T changes Radiology/Procedures Radiology/Procedures [] Impressions: Chest x-ray: Negative exam as interpreted by me. Certainly no infiltrate that I can see Course & Med Decision Making Course & Med Decision Making Pertinent Labs and Imaging studies reviewed. (See chart for details) [ED course: Evaluation reveals a 52-year-old female with scattered wheezes and high fever. She was given Tylenol along with a liter of IV normal saline, 2 DuoNeb's and 125 Solu-Medrol. She continued to wheeze and maintain an oxygen saturation of 91% on 2 L. At this time I feel it best to keep her hospitalized if her frequent nebs and IV steroids. We will go ahead and also get a pulmonary consult. Dragon Disclaimer Dragon Disclaimer This electronic medical record was generated, in whole or in part, using a voice recognition dictation system. Departure Departure Impression: Primary Impression: COPD exacerbation Disposition: ADMITTED INPATIENT Admitting Physician: Tc Fletcher Condition: GUARDED Referrals: CHI AGRAWAL MD (PCP) JODI MADRIGAL DO Jun 09, 2018 23:04
[2018-06-09 23:07] LABS: INFLUENZA A PATIENT NEGATIVE (NEGATIVE); INFLUENZA B PATIENT NEGATIVE (NEGATIVE)
[2018-06-09] MEDS ORDERED: ACETAMINOPHEN 325 MG TABLET. PO PRN (23:15)
[2018-06-10] VITALS (7 sets, daily range): BP systolic 135–179; BP diastolic 65–83
[2018-06-10] MEDS: IV NORMAL SALINE 1000ML BAG 1,000 ML IV SCH ×3 (00:35→13:00)
[2018-06-10] MEDS: methylPREDNISolone SOD SUCC PF 40 MG/ML VIAL. IV SCH ×3 (05:40→21:36)
--- NOTE | 2018-06-10 06:44 | EKG ---
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
[2018-06-10] MEDS: IPRATRPIUM/ALBUTEROL 0.5/2.5MG 3 ML NEBU. NEB SCH ×4 (07:45→19:58)
--- NOTE | 2018-06-10 07:57 | RAD ---
CHEST AP ONLY Clinical Indication: SOA X1 DAY. HX OF ASTHMA Comparison: 04/06/2018 two-view chest x-ray exam. Findings: The cardiomediastinal silhouette is normal. Lungs are clear. There is no pneumothorax. No pleural effusion is appreciated. No acute bone abnormality. IMPRESSION: No acute cardiopulmonary process. Electronically signed by: Reggie Alamo MD (06/10/2018 7:54 AM) [facility]
--- NOTE | 2018-06-10 09:26 | NUR ---
O2 use: Pt tried ADLs w/o oxygen, sats dropped to 88% on RA. Pt sitting upright at bedside w/o O2, sat @ 88% on RA. Pt states she felt tired w/o O2. Pt put back on O2 via NC on 2lt, Sat 95%. Will remain on O2 for now. Will continue to monitor.
--- NOTE | 2018-06-10 09:59 | PDOC1 ---
History and Physical Date of Admission Date of Admission DATE: 06/10/18 TIME: 09:59 Identification/Chief Complaint Chief Complaint SEEN IN ER, 52-year-old female with multiple medical problems presents with a several day history of progressive shortness of breath cough and fever. She states she was hospitalized with pneumonia recently. She denies any hemoptysis. does have hx hypercapnic/ hypoxic resp failure, she has never smoked, however her son is a heavy smoker, and smokes near her and in her car. FEBRILE AFTER ADMIT TO 101 F r/o sepsis Past Medical History Past Medical History Past Medical History Past Medical History Past Medical History: Asthma, Diabetes-Type II, High Cholesterol, Hypertension , Pneumonia Additional Past Medical Histor: HIGH CHOL, obesity, YON, SLEEP APNEA Past Surgical History: Hysterectomy, Oophorectomy Additional Past Surgical Histo: Nose SX, RETINA SURGERY Alcohol Use: None Drug Use: None family hx obesity Cardiovascular: HTN, Hyperlipidemia Pulmonary: Asthma, Pneumonia CENTRAL NERVOUS SYSTEM: Other GI: GERD Heme/Onc: No pertinent hx Hepatobiliary: No pertinent hx Psych: No pertinent hx Musculoskeletal: low back pain Rheumatologic: No pertinent hx Infectious disease: No pertinent hx Endocrine: Diabetes Dermatology: Cellulitis Past Surgical History Past Surgical History: , Hysterectomy Family History Family History: Coronary Artery Disease, Hypertension Social History Smoke: No ALCOHOL: none Drugs: None Current Medications Current Medications Current Medications Methylprednisolone Sodium Succinate (SOLU-Medrol 125MG VIAL) 125 mg 1X ONCE IV Last administered on 06/09/18at 22:12; Start 06/09/18 at 21:45; Stop 06/09/18 at 21:46; Status DC Albuterol/ Ipratropium (Duoneb) 6 ml 1X ONCE NEB Last administered on at 22:31; Start 06/09/18 at 21:45; Stop 06/09/18 at 21:46; Status DC Sodium Chloride 1,000 ml @ 1,000 mls/hr 1X ONCE IV Last administered on at 22:12; Start 06/09/18 at 21:45; Stop 06/09/18 at 22:44; Status DC Acetaminophen (Tylenol) 1,000 mg 1X ONCE PO Last administered on 06/09/18at 22: 40; Start 06/09/18 at 22:45; Stop 06/09/18 at 22:46; Status DC Sodium Chloride 1,000 ml @ 125 mls/hr Q8H IV Last administered on 06/10/18at 00: 35; Start 06/09/18 at 23:15; Stop 06/10/18 at 23:14 Acetaminophen (Tylenol) 650 mg PRN Q4HRS PRN PO FEVER Last administered on at 05:39; Start 06/09/18 at 23:15; Stop 06/10/18 at 23:14 Albuterol/ Ipratropium (Duoneb) 3 ml RTQID NEB Last administered on 06/10/18at 07 :45; Start 06/10/18 at 08:00; Stop 06/11/18 at 07:59 Methylprednisolone Sodium Succinate (SOLU-Medrol 40MG VIAL) 40 mg Q8HRS IV Last administered on 06/10/18at 05:40; Start 06/10/18 at 06:00 Active Scripts Active Procare Compressor Nebulizer (Nebulizer and Compressor) 1 Each Each Each MC Atrovent Hfa (Ipratropium [place]) 12.9 Gm Hfa.aer.ad 2 Puff IH QID Ventolin Hfa Inhaler (Albuterol Sulfate) 18 Gm Hfa.aer.ad 2 Puff INH Q4HRS [place] 5-325 Tablet (Acetaminophen/Hydrocodone Bitart) 1 Each Tablet 1 Tab PO PRN Q6HRS PRN Hydrocodone-Chlorpheniram Susp (Hydrocodone/Chlorphen Polis) 5 Ml Amanda.er.12h 5 Ml PO PRN Q12HR PRN 5 Days Norvasc (Amlodipine Besylate) 5 Mg Tablet 1 Tab PO DAILY Flonase Allergy Relief (Fluticasone Propionate) 9.9 Ml [place].susp 2 Sprays NS DAILY Proair Respiclick (Albuterol Sulfate) 90 Mcg Aer.pow.ba 1 Puff IH PRN Q6HRS PRN Pantoprazole Sodium 40 Mg Tablet.dr 40 Mg PO DAILYAC Reported Lola Breenostar (Insulin Glargine,Hum.rec.anlog) 300 Unit/1 Ml Insuln.pen 100 Units SQ DAILY08 Novolog (Insulin Aspart) 100 Unit/1 Ml Vial 30 Unit SQ TIDWMEALS Aspirin 81 Mg Tab.chew 81 Mg PO DAILY Atacand (Candesartan Cilexetil) 32 Mg Tablet 32 Mg PO DAILY Potassium Chloride 20 Meq Tablet.er 20 Meq PO DAILY Furosemide 40 Mg Tablet 40 Mg PO DAILY Xalatan (Latanoprost) 2.5 Ml Drops 2.5 Ml EACHEYE QHS Zetia (Ezetimibe) 10 Mg Tablet 10 Mg PO DAILY Crestor (Rosuvastatin Calcium) 40 Mg Tablet 40 Mg PO QHS Metformin Hcl 1,000 Mg Tablet 1,000 Mg PO BID Allergies Allergies: Coded Allergies: No Known Drug Allergies (Unverified , 06/07/13) ROS Review of System Review of Systems Review of Systems Constitutional: Reports fever[] Eyes: Denies change in visual acuity, redness, or eye pain [] HENT: Denies nasal congestion or sore throat [] Respiratory: Per history of present illness[] Cardiovascular: No additional information not addressed in HPI [] GI: Denies abdominal pain, nausea, vomiting, bloody stools or diarrhea [] : Denies dysuria or hematuria [] Musculoskeletal: Denies back pain or joint pain [] Integument: Denies rash or skin lesions [] they are healing left lower leg Neurologic: Denies headache, focal weakness or sensory changes [] Endocrine: Denies polyuria or polydipsia [] 14 pt systems were reviewed and found to be within normal limits, except as documented Respiratory: YES: Cough, Shortness of breath, Wheezing Skin: Yes Rash Physical Exam Physical Exam HEENT: Eyes, the sclerae were nonicteric. NECK: Jugular venous distention was not elevated. No lymphadenopathy. CHEST: Full expansion. LUNGS: wheezes. CARDIOVASCULAR: Regular rate and rhythm with S1, S2, no S3. ABDOMEN: Soft, nontender, nondistended. EXTREMITIES: No clubbing, cyanosis or edema. cellulitis of the left lower leg. General: Alert, Oriented X3, Cooperative, mild distress HEENT: PERRLA, EOMI, Mucous membr. moist/pink Lungs: Other (few exp wheezes) Heart: S1S2, RRR, no thrills Breasts: Not examined Abdomen: Soft Rectal Exam: not examined PELVIC: Examination not indicated Neuro: Normal speech, Cranial nerves 3-12 NL Psych/Mental Status: Mental status NL, Mood NL Vitals Vitals Vital Signs Date Time Temp Pulse Resp B/P (MAP) Pulse Ox O2 Delivery O2 Flow Rate FiO2 06/10/18 07:45 96 Nasal Cannula 2.0 06/10/18 07:00 98.1 78 16 143/83 (103) 98.1 Labs Labs Laboratory Tests Test 06/09/18 21:48 06/09/18 22:36 06/10/18 07:19 White Blood Count 7.8 x10^3/uL (4.0-11.0) Red Blood Count 4.40 x10^6/uL (3.50-5.40) Hemoglobin 13.1 g/dL (12.0-15.5) Hematocrit 39.7 % (36.0-47.0) Mean Corpuscular Volume 90 fL (79-100) Mean Corpuscular Hemoglobin 30 pg (25-35) Mean Corpuscular Hemoglobin Concent 33 g/dL (31-37) Red Cell Distribution Width 14.0 % (11.5-14.5) Platelet Count 195 x10^3/uL (140-400) Neutrophils (%) (Auto) 83 % (31-73) Lymphocytes (%) (Auto) 9 % (24-48) Monocytes (%) (Auto) 7 % (0-9) Eosinophils (%) (Auto) 1 % (0-3) Basophils (%) (Auto) 1 % (0-3) Neutrophils # (Auto) 6.5 x10^3uL (1.8-7.7) Lymphocytes # (Auto) 0.7 x10^3/uL (1.0-4.8) Monocytes # (Auto) 0.5 x10^3/uL (0.0-1.1) Eosinophils # (Auto) 0.1 x10^3/uL (0.0-0.7) Basophils # (Auto) 0.1 x10^3/uL (0.0-0.2) Sodium Level 141 mmol/L (136-145) Potassium Level 4.3 mmol/L (3.5-5.1) Chloride Level 104 mmol/L (98-107) Carbon Dioxide Level 25 mmol/L (21-32) Anion Gap 12 (6-14) Blood Urea Nitrogen 12 mg/dL (7-20) Creatinine 0.8 mg/dL (0.6-1.0) Estimated GFR (Cockcroft-Gault) 75.0 BUN/Creatinine Ratio 15 (6-20) Glucose Level 167 mg/dL (70-99) Calcium Level 10.2 mg/dL (8.5-10.1) Total Bilirubin 0.4 mg/dL (0.2-1.0) Aspartate Amino Transf (AST/SGOT) 22 U/L (15-37) Alanine Aminotransferase (ALT/SGPT) 31 U/L (14-59) Alkaline Phosphatase 138 U/L (46-116) Troponin I Quantitative < 0.017 ng/mL (0.000-0.055) ZL-Hdg-X-Type Natriuretic Peptide 23 pg/mL (0-124) Total Protein 7.7 g/dL (6.4-8.2) Albumin 3.5 g/dL (3.4-5.0) Albumin/Globulin Ratio 0.8 (1.0-1.7) Influenza Type A Antigen Negative (NEGATIVE) Influenza Type B Antigen Negative (NEGATIVE) Glucose (Fingerstick) 318 mg/dL (70-99) Laboratory Tests Test 06/09/18 21:48 06/09/18 22:36 06/10/18 07:19 White Blood Count 7.8 x10^3/uL (4.0-11.0) Red Blood Count 4.40 x10^6/uL (3.50-5.40) Hemoglobin 13.1 g/dL (12.0-15.5) Hematocrit 39.7 % (36.0-47.0) Mean Corpuscular Volume 90 fL (79-100) Mean Corpuscular Hemoglobin 30 pg (25-35) Mean Corpuscular Hemoglobin Concent 33 g/dL (31-37) Red Cell Distribution Width 14.0 % (11.5-14.5) Platelet Count 195 x10^3/uL (140-400) Neutrophils (%) (Auto) 83 % (31-73) Lymphocytes (%) (Auto) 9 % (24-48) Monocytes (%) (Auto) 7 % (0-9) Eosinophils (%) (Auto) 1 % (0-3) Basophils (%) (Auto) 1 % (0-3) Neutrophils # (Auto) 6.5 x10^3uL (1.8-7.7) Lymphocytes # (Auto) 0.7 x10^3/uL (1.0-4.8) Monocytes # (Auto) 0.5 x10^3/uL (0.0-1.1) Eosinophils # (Auto) 0.1 x10^3/uL (0.0-0.7) Basophils # (Auto) 0.1 x10^3/uL (0.0-0.2) Sodium Level 141 mmol/L (136-145) Potassium Level 4.3 mmol/L (3.5-5.1) Chloride Level 104 mmol/L (98-107) Carbon Dioxide Level 25 mmol/L (21-32) Anion Gap 12 (6-14) Blood Urea Nitrogen 12 mg/dL (7-20) Creatinine 0.8 mg/dL (0.6-1.0) Estimated GFR (Cockcroft-Gault) 75.0 BUN/Creatinine Ratio 15 (6-20) Glucose Level 167 mg/dL (70-99) Calcium Level 10.2 mg/dL (8.5-10.1) Total Bilirubin 0.4 mg/dL (0.2-1.0) Aspartate Amino Transf (AST/SGOT) 22 U/L (15-37) Alanine Aminotransferase (ALT/SGPT) 31 U/L (14-59) Alkaline Phosphatase 138 U/L (46-116) Troponin I Quantitative < 0.017 ng/mL (0.000-0.055) AK-Ddr-L-Type Natriuretic Peptide 23 pg/mL (0-124) Total Protein 7.7 g/dL (6.4-8.2) Albumin 3.5 g/dL (3.4-5.0) Albumin/Globulin Ratio 0.8 (1.0-1.7) Influenza Type A Antigen Negative (NEGATIVE) Influenza Type B Antigen Negative (NEGATIVE) Glucose (Fingerstick) 318 mg/dL (70-99) Images Images CHEST AP ONLY Clinical Indication: SOA X1 DAY. HX OF ASTHMA Comparison: 04/06/2018 two-view chest x-ray exam. Findings: The cardiomediastinal silhouette is normal. Lungs are clear. There is no pneumothorax. No pleural effusion is appreciated. No acute bone abnormality. IMPRESSION: No acute cardiopulmonary process. 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
[2018-06-10] MEDS ORDERED: DEXTROSE 50% 25 GM / 50ML DISP.SYRIN. IV PRN (10:45)
[2018-06-10] MEDS ORDERED: [UNRECOGNIZED DRUG - OTHER] PO PRN (10:45)
[2018-06-10] MEDS ORDERED: HYDROCODONE PO PRN (10:45)
[2018-06-10] MEDS ORDERED: ALBUTEROL SULFATE 2.5 MG/3 ML NEBU. NEB PRN (11:00)
[2018-06-10] MEDS: BUDESONIDE 0.5 MG/2 ML NEBU. NEB SCH ×2 (12:00→19:58)
[2018-06-10] MEDS: INSULIN LISPRO 300 UNITS/3 ML INSULN.PEN. SQ SCH ×4 (12:00→17:01)
[2018-06-10] MEDS ORDERED: IPRATROPIUM BROMIDE 0.5 MG/2.5 ML NEBU. NEB SCH (12:00)
[2018-06-10] MEDS: PIPERACILLIN/TAZOBACTAM 3.375 GM in IV NORMAL SALINE 50ML 50 ML IV SCH ×2 (12:03→17:03)
[2018-06-10] MEDS: FUROSEMIDE 40 MG TABLET. PO SCH (12:05)
[2018-06-10] MEDS: EZETIMIBE 10 MG TABLET. PO SCH (12:05)
[2018-06-10] MEDS: ASPIRIN CHEWABLE 81 MG TABLET. PO SCH (12:05)
[2018-06-10] MEDS: amLODIPine BESYLATE 5 MG TABLET PO SCH (12:06)
[2018-06-10] MEDS: FLUTICASONE 50MCG/NASAL SPRAY 16GM BOTTLE. NS SCH (12:07)
[2018-06-10] MEDS: PANTOPRAZOLE 40 MG TABLET.DR. PO SCH (12:51)
[2018-06-10] MEDS: POTASSIUM CHLORIDE 20 MEQ TABLET.ER. PO SCH (12:51)
[2018-06-10] MEDS: metFORMIN 500 MG TABLET PO SCH ×2 (12:52→16:55)
[2018-06-10] MEDS: LOSARTAN POTASSIUM 50 MG TABLET. PO SCH (12:52)
[2018-06-10] MEDS ORDERED: NON FORMULARY ITEM (Ipratropium Bromide (Atrovent Hfa) 2 PUFF) IH SCH (13:00)
[2018-06-10 13:14] LABS: BASE EXCESS COOX -3 mmol/L (-3-3); HCO3 COOX 22 mmol/L (21-28); METHEMOGLOBIN 0.5 % (0.0-1.9); OXYHEMOGLOBIN 91.6 %; PCO2 COOX 39 mmHg (35-46); PO2 COOX 69 mmHg (75-108); SAT O2 COOX 92 % (92-99)
--- NOTE | 2018-06-10 17:17 | CONS ---
DATE OF CONSULTATION: 06/10/2018 PULMONARY CONSULTATION ATTENDING PHYSICIAN: Dr. Tc Fletcher. REASON FOR CONSULTATION: Dyspnea. HISTORY OF PRESENT ILLNESS: The patient is a 52-year-old obese patient who has history of asthma and second-hand exposure to cigarettes from her son. She came into the hospital with several days of shortness of breath, cough and some subjective fever. She says she has some wheezing as well. The patient was seen in the Emergency Room and was hospitalized. Her chest x-ray was reviewed by me. There was no acute infiltrates. She also has sleep apnea for which she is not compliant with CPAP. PAST MEDICAL HISTORY: History of asthma, obesity, type 2 diabetes, dyslipidemia, YON. PAST SURGICAL HISTORY: Hysterectomy, oophorectomy. ALLERGIES: None. CURRENT MEDICATIONS: Reviewed as listed in the MRAD. REVIEW OF SYSTEMS: Twelve-point system obtained. Pertinent positives discussed in my history of present illness, otherwise noncontributory. All systems that were negative were reviewed as well. SOCIAL HISTORY: Denies any significant tobacco use. FAMILY HISTORY: Noncontributory to lungs. PHYSICAL EXAMINATION: VITAL SIGNS: Reviewed. She had a fever of 101.2, now she has been afebrile. HEENT: Sclerae nonicteric. NECK: Supple. LUNGS: Clear breath sounds, no wheezing. CARDIOVASCULAR: Regular rate. ABDOMEN: Soft, nontender. EXTREMITIES: With no pitting edema. LABORATORY DATA: Reviewed. Influenza screen negative. Her ABGs with a pH of 7.37, pCO2 of 39 and pO2 of 69 on room air. IMPRESSION: 1. Dyspnea secondary to acute asthma exacerbation, probably triggered by viral illness. 2. No definite consolidation seen on the chest x-ray. 3. Influenza screen negative. 4. History of obstructive sleep apnea with marginal compliance to CPAP. 5. Underlying obesity. RECOMMENDATIONS: 1. Continue with present bronchodilators. 2. She was instructed regarding losing weight. 3. She was also instructed regarding compliance with CPAP. 4. She is afebrile. Antibiotics can be changed to p.o. 5. Change steroids to p.o. 6. If she continues to remain afebrile, could be discharged home. NÉSTOR GARNER MD DR: TAMEKA/zoya JOB#: [id number] / [id number]
[2018-06-10] MEDS ORDERED: HYDROcodone/APAP 5/325MG 1 TAB TABLET PO PRN (19:30)
[2018-06-10] MEDS ORDERED: ATORVASTATIN CALCIUM 40 MG TABLET. PO SCH (21:00)
[2018-06-10] MEDS ORDERED: MONTELUKAST SODIUM 10 MG TABLET. PO SCH (21:00)
[2018-06-10] MEDS ORDERED: LATANOPROST 0.005% OPHTH SOLUTION 2.5ML BOTTLE. OU SCH (21:00)
[2018-06-11] MEDS: PIPERACILLIN/TAZOBACTAM 3.375 GM in IV NORMAL SALINE 50ML 50 ML IV SCH ×3 (00:20→12:00)
[2018-06-11 02:43] VITALS: BP 138/65
[2018-06-11] MEDS: methylPREDNISolone SOD SUCC PF 40 MG/ML VIAL. IV SCH ×2 (05:47→13:22)
[2018-06-11 06:17] LABS: BILIRUBIN,URINE NEGATIVE (NEG); CLARITY,URINE CLEAR; COLOR,URINE YELLOW; NITRITE,URINE NEGATIVE (NEG); PROTEIN,URINE NEGATIVE (NEG-TRACE); UROBILINOGEN,URINE 0.2 mg/dL (0.2 mg/dL)
[2018-06-11 06:48] LABS: HYALINE CASTS, URINE OCCASIONAL /HPF; SQUAMOUS EPITHELIAL CELL,UR MOD /LPF
[2018-06-11 06:49] LABS: BACTERIA,URINE 0 /HPF (0-FEW); RBC,URINE 0 /HPF (0-2)
[2018-06-11 06:50] LABS: YEAST,URINE PRESENT /HPF
[2018-06-11 07:00] VITALS: BP 149/77
[2018-06-11] MEDS: INSULIN LISPRO 300 UNITS/3 ML INSULN.PEN. SQ SCH ×4 (07:56→12:09)
[2018-06-11] MEDS: BUDESONIDE 0.5 MG/2 ML NEBU. NEB SCH (08:25)
[2018-06-11 08:35] LABS: BASO % 0 % (0-3); EOS % 0 % (0-3); HEMATOCRIT 36.1 % (36.0-47.0); HEMOGLOBIN 12.1 g/dL (12.0-15.5); LYMPH # 0.8 x10^3/uL (1.0-4.8); LYMPH % 11 % (24-48); MEAN CORPUSCULAR HEMOGLOBIN 31 pg (25-35); MEAN CORPUSCULAR HGB CONC 34 g/dL (31-37); MEAN CORPUSCULAR VOLUME 92 fL (79-100); MONO # 0.3 x10^3/uL (0.0-1.1); MONO % 5 % (0-9); NEUT # 6.5 x10^3uL (1.8-7.7); NEUT % 85 % (31-73); PLATELET COUNT 176 x10^3/uL (140-400); RED BLOOD COUNT 3.95 x10^6/uL (3.50-5.40); RED CELL DISTRIBUTION WIDTH 14.2 % (11.5-14.5); WHITE BLOOD COUNT 7.7 x10^3/uL (4.0-11.0)
[2018-06-11 08:53] LABS: ALBUMIN 2.8 g/dL (3.4-5.0); ALBUMIN/GLOBULIN RATIO 0.7 (1.0-1.7); CALCIUM 9.8 mg/dL (8.5-10.1); CREATININE 0.8 mg/dL (0.6-1.0); POTASSIUM 4.7 mmol/L (3.5-5.1); TOTAL BILIRUBIN 0.3 mg/dL (0.2-1.0); TOTAL PROTEIN 6.6 g/dL (6.4-8.2)
[2018-06-11] MEDS ORDERED: LACTOBACILLUS RHAMNOSUS GG 1 CAPSULE. PO SCH (09:00)
[2018-06-11] MEDS ORDERED: INSULIN GLARGINE 300 UNITS/3 ML INSULN.PEN. SQ SCH ×2 (09:00→21:00)
[2018-06-11] MEDS: metFORMIN 500 MG TABLET PO SCH (09:42)
[2018-06-11] MEDS: LOSARTAN POTASSIUM 50 MG TABLET. PO SCH (09:43)
[2018-06-11] MEDS: POTASSIUM CHLORIDE 20 MEQ TABLET.ER. PO SCH (09:43)
[2018-06-11] MEDS: PANTOPRAZOLE 40 MG TABLET.DR. PO SCH (09:44)
[2018-06-11] MEDS: ASPIRIN CHEWABLE 81 MG TABLET. PO SCH (09:44)
[2018-06-11] MEDS: EZETIMIBE 10 MG TABLET. PO SCH (09:45)
[2018-06-11] MEDS: FUROSEMIDE 40 MG TABLET. PO SCH (09:45)
[2018-06-11] MEDS: amLODIPine BESYLATE 5 MG TABLET PO SCH (09:45)
[2018-06-11] MEDS: FLUTICASONE 50MCG/NASAL SPRAY 16GM BOTTLE. NS SCH (09:50)
[2018-06-11] MEDS ORDERED: MONT10TA9 PO (10:52)
[2018-06-11] MEDS ORDERED: BUDE0.5A NEB (10:52)
[2018-06-11 11:00] VITALS: BP 158/70
--- NOTE | 2018-06-11 11:00 | PDOC3 ---
Discharge Summary Visit Information Date of Admission: Jun 10, 2018 Date of Discharge: Jun 11, 2018 Admitting Diagnosis Comment: 1. Dyspnea secondary to acute asthma exacerbation, probably triggered by viral illness. 2. No definite consolidation seen on the chest x-ray. 3. Influenza screen negative. 4. History of obstructive sleep apnea with marginal compliance to CPAP. 5. Underlying obesity. Brief Hospital Course Allergies Allergies Coded Allergies Type Severity Reaction Last Updated Verified No Known Drug Allergies 06/07/13 No Vital Signs Vital Signs Date Time Temp Pulse Resp B/P (MAP) Pulse Ox O2 Delivery O2 Flow Rate FiO2 06/11/18 09:45 84 149/77 06/11/18 08:22 91 Room Air 06/11/18 07:00 98.1 18 98.1 06/10/18 21:32 2.0 Lab Results Laboratory Tests Test 06/09/18 21:48 06/09/18 22:36 06/10/18 07:19 06/10/18 10:43 White Blood Count 7.8 x10^3/uL (4.0-11.0) Red Blood Count 4.40 x10^6/uL (3.50-5.40) Hemoglobin 13.1 g/dL (12.0-15.5) Hematocrit 39.7 % (36.0-47.0) Mean Corpuscular Volume 90 fL (79-100) Mean Corpuscular Hemoglobin 30 pg (25-35) Mean Corpuscular Hemoglobin Concent 33 g/dL (31-37) Red Cell Distribution Width 14.0 % (11.5-14.5) Platelet Count 195 x10^3/uL (140-400) Neutrophils (%) (Auto) 83 % (31-73) Lymphocytes (%) (Auto) 9 % (24-48) Monocytes (%) (Auto) 7 % (0-9) Eosinophils (%) (Auto) 1 % (0-3) Basophils (%) (Auto) 1 % (0-3) Neutrophils # (Auto) 6.5 x10^3uL (1.8-7.7) Lymphocytes # (Auto) 0.7 x10^3/uL (1.0-4.8) Monocytes # (Auto) 0.5 x10^3/uL (0.0-1.1) Eosinophils # (Auto) 0.1 x10^3/uL (0.0-0.7) Basophils # (Auto) 0.1 x10^3/uL (0.0-0.2) Sodium Level 141 mmol/L (136-145) Potassium Level 4.3 mmol/L (3.5-5.1) Chloride Level 104 mmol/L (98-107) Carbon Dioxide Level 25 mmol/L (21-32) Anion Gap 12 (6-14) Blood Urea Nitrogen 12 mg/dL (7-20) Creatinine 0.8 mg/dL (0.6-1.0) Estimated GFR (Cockcroft-Gault) 75.0 BUN/Creatinine Ratio 15 (6-20) Glucose Level 167 mg/dL (70-99) Calcium Level 10.2 mg/dL (8.5-10.1) Total Bilirubin 0.4 mg/dL (0.2-1.0) Aspartate Amino Transf (AST/SGOT) 22 U/L (15-37) Alanine Aminotransferase (ALT/SGPT) 31 U/L (14-59) Alkaline Phosphatase 138 U/L (46-116) Troponin I Quantitative < 0.017 ng/mL (0.000-0.055) CM-Ibk-X-Type Natriuretic Peptide 23 pg/mL (0-124) Total Protein 7.7 g/dL (6.4-8.2) Albumin 3.5 g/dL (3.4-5.0) Albumin/Globulin Ratio 0.8 (1.0-1.7) Influenza Type A Antigen Negative (NEGATIVE) Influenza Type B Antigen Negative (NEGATIVE) Glucose (Fingerstick) 318 mg/dL (70-99) O2 Saturation 92 % (92-99) Arterial Blood pH 7.37 (7.35-7.45) Arterial Blood pCO2 at Patient Temp 39 mmHg (35-46) Arterial Blood pO2 at Patient Temp 69 mmHg (75-108) Arterial Blood HCO3 22 mmol/L (21-28) Arterial Blood Base Excess -3 mmol/L (-3-3) Oxyhemoglobin 91.6 % Methemoglobin 0.5 % (0.0-1.9) Carbon Monoxide, Quantitative 0.3 % (0.0-1.9) FiO2 21 Test 06/10/18 11:43 06/10/18 12:55 06/10/18 16:56 06/10/18 19:20 Glucose (Fingerstick) 335 mg/dL (70-99) 323 mg/dL (70-99) Lactic Acid Level 3.3 mmol/L (0.4-2.0) Urine Collection Type Unknown Urine Color Yellow Urine Clarity Clear Urine pH 5.0 Urine Specific [place] 1.020 Urine Protein Negative mg/dL (NEG-TRACE) Urine Glucose (UA) >=1000 mg/dL (NEG) Urine Ketones (Stick) Negative mg/dL (NEG) Urine Blood Negative (NEG) Urine Nitrite Negative (NEG) Urine Bilirubin Negative (NEG) Urine Urobilinogen Dipstick 0.2 mg/dL (0.2 mg/dL) Urine Leukocyte Esterase Negative (NEG) Urine RBC 0 /HPF (0-2) Urine WBC 1-4 /HPF (0-4) Urine Squamous Epithelial Cells Mod /LPF Urine Bacteria 0 /HPF (0-FEW) Urine Hyaline Casts Occasional /HPF Urine Mucus Slight /LPF Urine Yeast Present /HPF Test 06/10/18 20:04 06/11/18 06:30 06/11/18 07:17 06/11/18 07:22 Glucose (Fingerstick) 248 mg/dL (70-99) 300 mg/dL (70-99) White Blood Count 7.7 x10^3/uL (4.0-11.0) Red Blood Count 3.95 x10^6/uL (3.50-5.40) Hemoglobin 12.1 g/dL (12.0-15.5) Hematocrit 36.1 % (36.0-47.0) Mean Corpuscular Volume 92 fL (79-100) Mean Corpuscular Hemoglobin 31 pg (25-35) Mean Corpuscular Hemoglobin Concent 34 g/dL (31-37) Red Cell Distribution Width 14.2 % (11.5-14.5) Platelet Count 176 x10^3/uL (140-400) Neutrophils (%) (Auto) 85 % (31-73) Lymphocytes (%) (Auto) 11 % (24-48) Monocytes (%) (Auto) 5 % (0-9) Eosinophils (%) (Auto) 0 % (0-3) Basophils (%) (Auto) 0 % (0-3) Neutrophils # (Auto) 6.5 x10^3uL (1.8-7.7) Lymphocytes # (Auto) 0.8 x10^3/uL (1.0-4.8) Monocytes # (Auto) 0.3 x10^3/uL (0.0-1.1) Eosinophils # (Auto) 0.0 x10^3/uL (0.0-0.7) Basophils # (Auto) 0.0 x10^3/uL (0.0-0.2) Sodium Level 139 mmol/L (136-145) Potassium Level 4.7 mmol/L (3.5-5.1) Chloride Level 105 mmol/L (98-107) Carbon Dioxide Level 24 mmol/L (21-32) Anion Gap 10 (6-14) Blood Urea Nitrogen 16 mg/dL (7-20) Creatinine 0.8 mg/dL (0.6-1.0) Estimated GFR (Cockcroft-Gault) 75.0 BUN/Creatinine Ratio 20 (6-20) Glucose Level 345 mg/dL (70-99) Calcium Level 9.8 mg/dL (8.5-10.1) Total Bilirubin 0.3 mg/dL (0.2-1.0) Aspartate Amino Transf (AST/SGOT) 16 U/L (15-37) Alanine Aminotransferase (ALT/SGPT) 26 U/L (14-59) Alkaline Phosphatase 124 U/L (46-116) Total Protein 6.6 g/dL (6.4-8.2) Albumin 2.8 g/dL (3.4-5.0) Albumin/Globulin Ratio 0.7 (1.0-1.7) Lactic Acid Level 1.9 mmol/L (0.4-2.0) Laboratory Tests Test 06/10/18 11:43 06/10/18 12:55 06/10/18 16:56 06/10/18 19:20 Glucose (Fingerstick) 335 mg/dL (70-99) 323 mg/dL (70-99) Lactic Acid Level 3.3 mmol/L (0.4-2.0) Urine Collection Type Unknown Urine Color Yellow Urine Clarity Clear Urine pH 5.0 Urine Specific [place] 1.020 Urine Protein Negative mg/dL (NEG-TRACE) Urine Glucose (UA) >=1000 mg/dL (NEG) Urine Ketones (Stick) Negative mg/dL (NEG) Urine Blood Negative (NEG) Urine Nitrite Negative (NEG) Urine Bilirubin Negative (NEG) Urine Urobilinogen Dipstick 0.2 mg/dL (0.2 mg/dL) Urine Leukocyte Esterase Negative (NEG) Urine RBC 0 /HPF (0-2) Urine WBC 1-4 /HPF (0-4) Urine Squamous Epithelial Cells Mod /LPF Urine Bacteria 0 /HPF (0-FEW) Urine Hyaline Casts Occasional /HPF Urine Mucus Slight /LPF Urine Yeast Present /HPF Test 06/10/18 20:04 06/11/18 06:30 06/11/18 07:17 06/11/18 07:22 Glucose (Fingerstick) 248 mg/dL (70-99) 300 mg/dL (70-99) White Blood Count 7.7 x10^3/uL (4.0-11.0) Red Blood Count 3.95 x10^6/uL (3.50-5.40) Hemoglobin 12.1 g/dL (12.0-15.5) Hematocrit 36.1 % (36.0-47.0) Mean Corpuscular Volume 92 fL (79-100) Mean Corpuscular Hemoglobin 31 pg (25-35) Mean Corpuscular Hemoglobin Concent 34 g/dL (31-37) Red Cell Distribution Width 14.2 % (11.5-14.5) Platelet Count 176 x10^3/uL (140-400) Neutrophils (%) (Auto) 85 % (31-73) Lymphocytes (%) (Auto) 11 % (24-48) Monocytes (%) (Auto) 5 % (0-9) Eosinophils (%) (Auto) 0 % (0-3) Basophils (%) (Auto) 0 % (0-3) Neutrophils # (Auto) 6.5 x10^3uL (1.8-7.7) Lymphocytes # (Auto) 0.8 x10^3/uL (1.0-4.8) Monocytes # (Auto) 0.3 x10^3/uL (0.0-1.1) Eosinophils # (Auto) 0.0 x10^3/uL (0.0-0.7) Basophils # (Auto) 0.0 x10^3/uL (0.0-0.2) Sodium Level 139 mmol/L (136-145) Potassium Level 4.7 mmol/L (3.5-5.1) Chloride Level 105 mmol/L (98-107) Carbon Dioxide Level 24 mmol/L (21-32) Anion Gap 10 (6-14) Blood Urea Nitrogen 16 mg/dL (7-20) Creatinine 0.8 mg/dL (0.6-1.0) Estimated GFR (Cockcroft-Gault) 75.0 BUN/Creatinine Ratio 20 (6-20) Glucose Level 345 mg/dL (70-99) Calcium Level 9.8 mg/dL (8.5-10.1) Total Bilirubin 0.3 mg/dL (0.2-1.0) Aspartate Amino Transf (AST/SGOT) 16 U/L (15-37) Alanine Aminotransferase (ALT/SGPT) 26 U/L (14-59) Alkaline Phosphatase 124 U/L (46-116) Total Protein 6.6 g/dL (6.4-8.2) Albumin 2.8 g/dL (3.4-5.0) Albumin/Globulin Ratio 0.7 (1.0-1.7) Lactic Acid Level 1.9 mmol/L (0.4-2.0) Brief Hospital Course Ms. Howard is a 52 old female admitted for acute asthma exacerbation. Chest x-ray is negative for pneumonia. She had some fevers. No white count. Comanagement pulmonary. Okay to go home today. Steroid taper Pulmicort, she requested PPI and Robitussin with codeine. Wrote some Doxy Rx 1 midnight stay today dc < 30 mins Proc: none Discharge Information Condition at Discharge: Improved, Stable Disposition/Orders: D/C to Home Scheduled Albuterol Sulfate (Ventolin Hfa Inhaler) 18 Gm Hfa.aer.ad, 2 PUFF INH Q4HRS for FOR ASTHMA, #1 Ref 0 Prescribed by: XOCHITL WELLINGTON DO on 03/03/18 0306 Last Action: HELD on 06/10/181920 by KJ VÁSQUEZ Amlodipine Besylate (Norvasc) 5 Mg Tablet, 1 TAB PO DAILY, #30 Ref 1 Prescribed by: JOHAN RUSSELL on 02/16/17 1522 Last Action: Continued on 06/10/18 1040 by ROME JOHNSON MD Aspirin (Aspirin) 81 Mg Tab.chew, 81 MG PO DAILY, (Reported) Entered as Reported by: EDDIE GRIFFITH RPH on 02/04/15 1008 Last Action: Continued on 06/10/181039 by ROME JOHNSON MD Budesonide (Budesonide) 0.5 Mg/2 Ml Ampul.neb, 0.5 MG NEB RTBID for copd MDD 1, #60 Prescribed by: RUDY ARIAS on 06/11/18 1052 Candesartan Cilexetil (Atacand) 32 Mg Tablet, 32 MG PO DAILY, (Reported) Entered as Reported by: EDDIE GRIFFITH RPH on 02/04/15 0957 Last Action: Converted on 06/10/181039 by ROME JOHNSON MD Ezetimibe (Zetia) 10 Mg Tablet, 10 MG PO DAILY, (Reported) Entered as Reported by: OLIVER TEJADA on 02/09/13 1748 Last Action: Continued on 06/10/181039 by ROME JOHNSON MD Fluticasone Propionate (Flonase Allergy Relief) 9.9 Ml [place].susp, 2 SPRAYS NS DAILY, #1 Prescribed by: TRAY ARMENDARIZ APRN on 11/27/16 2226 Last Action: Converted on 06/10/181039 by ROME JOHNSON MD Furosemide (Furosemide) 40 Mg Tablet, 40 MG PO DAILY, (Reported) Entered as Reported by: EDDIE GRIFFITH RPH on 02/04/15 0955 Last Action: Continued on 06/10/181039 by ROME JOHNSON MD Insulin Aspart (Novolog) 100 Unit/1 Ml Vial, 30 UNIT SQ TIDWMEALS, (Reported) Entered as Reported by: CORINA MORENO on 02/07/17 195 Last Action: Converted on 06/10/181039 by ROME JOHNSON MD Insulin Glargine,Hum.rec.anlog ([place]jeo Solostar) 300 Unit/1 Ml Insuln.pen, 100 UNITS SQ DAILY08, (Reported) Entered as Reported by: MIA CIFUENTES on 06/28/17 0832 Last Action: Converted on 06/10/18 1506 by NEVA PEREIRA RN Ipratropium [place] (Atrovent Hfa) 12.9 Gm Hfa.aer.ad, 2 PUFF IH QID, #12.9 Ref 0 Prescribed by: XOCHITL WELLINGTON DO on 03/03/18 0306 Last Action: Converted on 06/10/181039 by ROME JOHNSON MD Latanoprost (Xalatan) 2.5 Ml Drops, 2.5 ML EACHEYE QHS, (Reported) Entered as Reported by: CARMEL VILLANUEVA on 05/14/132135 Last Action: Converted on 06/10/181039 by ROME JOHNSON MD Metformin Hcl (Metformin Hcl) 1,000 Mg Tablet, 1,000 MG PO BID, (Reported) Entered as Reported by: OLIVER TEJADA on 02/09/131744 Last Action: Converted on 06/10/181039 by ROME JOHNSON MD Montelukast Sodium (Montelukast Sodium Tablet) 10 Mg Tablet, 10 MG PO QHS for copd MDD 1, #30 Prescribed by: RUDY ARIAS on 06/11/18 1052 Pantoprazole Sodium (Pantoprazole Sodium) 40 Mg Tablet.dr, 40 MG PO DAILYAC, # 30 Ref 1 Prescribed by: JOHAN RUSSELL on 02/04/15 1425 Last Action: Continued on 06/10/181039 by ROME JOHNSON MD Potassium Chloride (Potassium Chloride) 20 Meq Tablet.er, 20 MEQ PO DAILY, ( Reported) Entered as Reported by: EDDIE GRIFFITH [facility] on 02/04/15 0955 Last Action: Converted on 06/10/181039 by ROME JOHNSON MD Rosuvastatin Calcium (Crestor) 40 Mg Tablet, 40 MG PO QHS, (Reported) Entered as Reported by: OLIVER TEJADA on 02/09/138 Last Action: Converted on 06/10/181039 by ROME JOHNSON MD Scheduled PRN Albuterol Sulfate (Proair Respiclick) 90 Mcg Aer.pow.ba, 1 PUFF IH PRN Q6HRS PRN for SHORTNESS OF BREATH, #1 Prescribed by: Sallie Lipscomb APRN on 02/14/162146 Last Action: Converted on 06/10/181039 by ROME JOHNSON MD Hydrocodone/Apap 5-325 ([place] 5-325 Tablet) 1 Each Tablet, 1 TAB PO PRN Q6HRS PRN for PAIN, #8 Ref 0 Prescribed by: DANIELLE HONEYCUTT on 06/21/171810 Last Action: Continued on 06/10/181920 by KJ VÁSQUEZ Hydrocodone/Chlorphen Polis (Hydrocodone-Chlorpheniram Susp) 5 Ml Amanda.er.12h, 5 ML PO PRN Q12HR PRN for COUGH for 5 Days, #60 Ref 0 Prescribed by: RIO JOSEPH on 05/11/17 0616 Last Action: Converted on 06/10/18 1040 by ROME JOHNSON MD [employer] Nebulizer and Compressor (Procare Compressor Nebulizer) 1 Each Each, EACH , #1 , (DME) Prescribed by: XOCHITL WELLINGTON DO on 03/03/18 0306 RUDY ARIAS MD Jun 11, 2018 11:00
--- NOTE | 2018-06-11 11:00 | NUR ---
SW following pt for anticipated dc needs. Chart reviewed. Pt does not have skilled needs. No other SW needs noted at this time.
[2018-06-11] MEDS ORDERED: DOXY100T PO (11:01)
--- NOTE | 2018-06-11 15:00 | NUR ---
Discharge Note: pt discharged home with self care pt stable upon discharge BATSHEVA TRIVEDI Discharge instructions and discharge home medications reviewed with Patient and a copy given. All questions have been answered and understanding verbalized. The following instructions and handouts were given: COPD exacerbation
== END 2018-06-11 15:06 | disposition home or self-care (01) | DRG 202 ==
LOC: ER 20:38 → 5 NORTH 23:05 → OBSVTOIN 06-10 10:46
PROVIDERS: ADMIT Internal Medicine; ATTEND Internal Medicine
DX: J45.901 Unspecified asthma with (acute) exacerbation (principal); J44.1 Chronic obstructive pulmonary disease with (acute) exacerbation; R65.10 Systemic inflammatory response syndrome (SIRS) of non-infectious origin without acute organ dysfunction; L03.116 Cellulitis of left lower limb; J44.0 Chronic obstructive pulmonary disease with (acute) lower respiratory infection; I10 Essential (primary) hypertension; E66.01 Morbid (severe) obesity due to excess calories; E78.00 Pure hypercholesterolemia, unspecified; G47.33 Obstructive sleep apnea (adult) (pediatric); K21.9 Gastro-esophageal reflux disease without esophagitis; E78.5 Hyperlipidemia, unspecified; E11.9 Type 2 diabetes mellitus without complications; B34.9 Viral infection, unspecified; Z79.899 Other long term (current) drug therapy; Z79.82 Long term (current) use of aspirin; Z90.710 Acquired absence of both cervix and uterus; Z91.19 Patient's noncompliance with other medical treatment and regimen; Z82.49 Family history of ischemic heart disease and other diseases of the circulatory system; Z79.51 Long term (current) use of inhaled steroids; Z68.35 Body mass index [BMI] 35.0-35.9, adult; Z79.4 Long term (current) use of insulin; J20.9 Acute bronchitis, unspecified
CPT/HCPCS: 36415; 36600; 71045; 80053; 81001; 82805; 82962; 83605; 83880; 84484; 85025; 87040; 87804; 93005; 94640; 94760; 96361; 96374; G0378; G0379; J1815; J2543; J2920; J2930; J7030; J7613; J7620; J7626; 99285-25

== ENCOUNTER 2018-07-11 15:36 | Emergency (ER) | payer OTHER ==
[~2018-07-11] VITALS: Ht 162.6 cm; Wt 99.8 kg
[~2018-07-11 15:36] MED LIST changes: +BUDE0.5A NEB; +DOXY100T PO; +MONT10TA9 PO
[2018-07-11] MEDS ORDERED: IPRATRPIUM/ALBUTEROL 0.5/2.5MG 3 ML NEBU. NEB ONE (16:30)
[2018-07-11] MEDS ORDERED: methylPREDNISolone SOD SUCC PF 125 MG/2 ML VIAL. IV ONE (16:30)
[2018-07-11 16:39] LABS: BASO # 0.1 x10^3/uL (0.0-0.2); BASO % 1 % (0-3); EOS # 0.1 x10^3/uL (0.0-0.7); EOS % 1 % (0-3); HEMATOCRIT 38.6 % (36.0-47.0); HEMOGLOBIN 12.6 g/dL (12.0-15.5); LYMPH # 1.4 x10^3/uL (1.0-4.8); LYMPH % 18 % (24-48); MEAN CORPUSCULAR HEMOGLOBIN 30 pg (25-35); MEAN CORPUSCULAR HGB CONC 33 g/dL (31-37); MEAN CORPUSCULAR VOLUME 91 fL (79-100); MONO # 0.6 x10^3/uL (0.0-1.1); MONO % 8 % (0-9); NEUT # 5.7 x10^3uL (1.8-7.7); NEUT % 72 % (31-73); PLATELET COUNT 228 x10^3/uL (140-400); RED BLOOD COUNT 4.23 x10^6/uL (3.50-5.40); RED CELL DISTRIBUTION WIDTH 13.8 % (11.5-14.5); WHITE BLOOD COUNT 7.9 x10^3/uL (4.0-11.0)
[2018-07-11 16:49] LABS: CALCIUM 10.6 mg/dL (8.5-10.1); CREATININE 0.9 mg/dL (0.6-1.0); GFR 65.5; POTASSIUM 5.1 mmol/L (3.5-5.1)
[2018-07-11 16:54] LABS: ALBUMIN 3.2 g/dL (3.4-5.0); ALBUMIN/GLOBULIN RATIO 0.9 (1.0-1.7); MAGNESIUM 1.6 mg/dL (1.8-2.4); TOTAL BILIRUBIN 0.2 mg/dL (0.2-1.0); TOTAL PROTEIN 6.6 g/dL (6.4-8.2)
--- NOTE | 2018-07-11 17:01 | PHYS DOC ---
Past Medical History Past Medical History: Asthma, COPD, Diabetes-Type II, High Cholesterol, Hypertension, Pneumonia Additional Past Medical Histor: HIGH CHOL, obesity, YON, SLEEP APNEA Past Surgical History: Hysterectomy, Oophorectomy Additional Past Surgical Histo: Nose SX, RETINA SURGERY Alcohol Use: None Drug Use: None Adult General Chief Complaint Chief Complaint: SHORTNESS OF BREATH HPI HPI Patient is a 52 year old female with history of asthma, COPD, nonsmoker, hy pertension, high cholesterol, diabetes type 2, who presents to the ED today complaining of a productive cough, nasal, social, shortness of breath, symptoms began yesterday. Patient denies any fever. Denies any chest pain. PCP Dr. Carmen Agrawal Review of Systems Review of Systems Constitutional: Denies fever or chills [] Eyes: Denies change in visual acuity, redness, or eye pain [] HENT: Reports nasal congestion, sore throat [] Respiratory: Reports cough and shortness of breath [] Cardiovascular: No additional information not addressed in HPI [] GI: Denies abdominal pain, nausea, vomiting, bloody stools or diarrhea [] : Denies dysuria or hematuria [] Musculoskeletal: Denies back pain or joint pain [] Integument: Denies rash or skin lesions [] Neurologic: Denies headache, focal weakness or sensory changes [] All other systems were reviewed and found to be within normal limits, except as documented in this note. Current Medications Current Medications Current Medications Medications (Trade) Dose Ordered Sig/Palak Start Time Stop Time Status Last Admin Dose Admin Albuterol/ Ipratropium (Duoneb) 3 ml 1X ONCE 07/11/18 16:30 07/11/18 16:31 DC 07/11/18 16:37 3 ML Insulin Human Regular (HumuLIN R VIAL) 8 unit 1X ONCE 07/11/18 17:45 07/11/18 17:46 DC 07/11/18 17:51 8 UNIT Methylprednisolone Sodium Succinate (SOLU-Medrol 125MG VIAL) 125 mg 1X ONCE 07/11/18 16:30 07/11/18 16:31 DC 07/11/18 17:20 125 MG Allergies Allergies Allergies Coded Allergies Type Severity Reaction Last Updated Verified No Known Drug Allergies 06/07/13 No Physical Exam Physical Exam Constitutional: Well developed, well nourished, no acute distress, non-toxic appearance. [] HENT: Normocephalic, atraumatic, bilateral external ears normal, oropharynx moist, no oral exudates, nose normal. [] Eyes: PERRLA, EOMI, conjunctiva normal, no discharge. [] Neck: Normal range of motion, no tenderness, supple, no stridor. [] Cardiovascular:Heart rate regular rhythm, no murmur [] Lungs & Thorax: Slight wheezing to anterior and posterior lung bases specific ally upper lung bases. Abdomen: Bowel sounds normal, soft, no tenderness, no masses, no pulsatile masses. [] Skin: Warm, dry, no erythema, no rash. [] Back: No tenderness, no CVA tenderness. [] Extremities: No tenderness, no cyanosis, no clubbing, ROM intact, no edema. [] Neurologic: Alert and oriented X 3, normal motor function, normal sensory function, no focal deficits noted. [] Psychologic: Affect normal, judgement normal, mood normal. [] Current Patient Data Vital Signs Vital Signs Date Time Temp Pulse Resp B/P (MAP) Pulse Ox O2 Delivery O2 Flow Rate FiO2 07/11/18 16:39 94 Room Air 07/11/18 15:57 98.3 95 20 191/86 (121) 98.3 Lab Values Laboratory Tests Test 07/11/18 16:25 07/11/18 17:15 White Blood Count 7.9 x10^3/uL (4.0-11.0) Red Blood Count 4.23 x10^6/uL (3.50-5.40) Hemoglobin 12.6 g/dL (12.0-15.5) Hematocrit 38.6 % (36.0-47.0) Mean Corpuscular Volume 91 fL (79-100) Mean Corpuscular Hemoglobin 30 pg (25-35) Mean Corpuscular Hemoglobin Concent 33 g/dL (31-37) Red Cell Distribution Width 13.8 % (11.5-14.5) Platelet Count 228 x10^3/uL (140-400) Neutrophils (%) (Auto) 72 % (31-73) Lymphocytes (%) (Auto) 18 % (24-48) L Monocytes (%) (Auto) 8 % (0-9) Eosinophils (%) (Auto) 1 % (0-3) Basophils (%) (Auto) 1 % (0-3) Neutrophils # (Auto) 5.7 x10^3uL (1.8-7.7) Lymphocytes # (Auto) 1.4 x10^3/uL (1.0-4.8) Monocytes # (Auto) 0.6 x10^3/uL (0.0-1.1) Eosinophils # (Auto) 0.1 x10^3/uL (0.0-0.7) Basophils # (Auto) 0.1 x10^3/uL (0.0-0.2) Sodium Level 137 mmol/L (136-145) Potassium Level 5.1 mmol/L (3.5-5.1) Chloride Level 102 mmol/L (98-107) Carbon Dioxide Level 27 mmol/L (21-32) Anion Gap 8 (6-14) Blood Urea Nitrogen 15 mg/dL (7-20) Creatinine 0.9 mg/dL (0.6-1.0) Estimated GFR (Cockcroft-Gault) 65.5 BUN/Creatinine Ratio 17 (6-20) Glucose Level 391 mg/dL (70-99) H Calcium Level 10.6 mg/dL (8.5-10.1) H Magnesium Level 1.6 mg/dL (1.8-2.4) L Total Bilirubin 0.2 mg/dL (0.2-1.0) Aspartate Amino Transferase (AST) 19 U/L (15-37) Alanine Aminotransferase (ALT) 30 U/L (14-59) Alkaline Phosphatase 152 U/L (46-116) H Creatine Kinase 87 U/L (26-192) Creatine Kinase MB (Mass) 0.6 ng/mL (0.0-3.6) Creatine Kinase MB Relative Index 0.7 % (0-4) Troponin I Quantitative < 0.017 ng/mL (0.000-0.055) QI-Rgl-P-Type Natriuretic Peptide 27 pg/mL (0-124) Total Protein 6.6 g/dL (6.4-8.2) Albumin 3.2 g/dL (3.4-5.0) L Albumin/Globulin Ratio 0.9 (1.0-1.7) L Thyroid Stimulating Hormone (TSH) 0.857 uIU/mL (0.358-3.74) Urine Collection Type Void Urine Color Yellow Urine Clarity Clear Urine pH 6.0 Urine Specific [place] >=1.030 Urine Protein Negative mg/dL (NEG-TRACE) Urine Glucose (UA) >=1000 mg/dL (NEG) Urine Ketones (Stick) Negative mg/dL (NEG) Urine Blood Negative (NEG) Urine Nitrite Negative (NEG) Urine Bilirubin Negative (NEG) Urine Urobilinogen Dipstick 0.2 mg/dL (0.2 mg/dL) Urine Leukocyte Esterase Small (NEG) Urine RBC 0 /HPF (0-2) Urine WBC 5-10 /HPF (0-4) Urine Squamous Epithelial Cells Few /LPF Urine Bacteria 0 /HPF (0-FEW) Urine Opiates Screen Neg (NEG) Urine Methadone Screen Neg (NEG) Urine Barbiturates Neg (NEG) Urine Phencyclidine Screen Neg (NEG) Urine Amphetamine/Methamphetamine Neg (NEG) Urine Benzodiazepines Screen Neg (NEG) Urine Cocaine Screen Neg (NEG) Urine Cannabinoids Screen Neg (NEG) Urine Ethyl Alcohol Neg (NEG) Laboratory Tests 07/11/18 16:25 Laboratory Tests 07/11/18 16:25 EKG EKG Interpreted by Dr. Brower sinus rhythm heart rate 97 no STEMI Radiology/Procedures Radiology/Procedures Chest x-ray interpreted by Dr. Brower was negative for any acute findings[] Course & Med Decision Making Course & Med Decision Making Pertinent Labs and Imaging studies reviewed. (See chart for details) This is a 52-year-old female patient presenting to the ED today with sore throat, cough, nasal congestion, shortness of breath, symptoms began yesterday. She has history of asthma and COPD, she is not a nonsmoker. Patient arrives in the ED with a temperature of 98.3, heart rate 95, O2 sats 95% on room air, blood pressure 191/86, respiration 20 room air. She had slight wheezing. Given a DuoNeb treatment, Solu-Medrol. Lungs are cleared up. Her O2 sats have remained above 95% after the breathing treatment. CBC with normal WBC, CMP with nothing really acute, blood glucose was 391, she has history of diabetes and states she is in the process of trying to get a different doctor because she believes her PCP is not managing her diabetes well. Blood pressure went down to 150s over 70s. She was given insulin in the ED. Blood glucose will be rechecked prior to d/c. Chest x-ray was negative for any acute findings I offered this patient admission, she declined, she states she does not want to be admitted because the last time she was admitted the hospital at [facility], she felt she had to tell the nurses what to do including changing her bed after the bed was not changed for 3 days. Patient was discharged to home with prednisone, doxycycline and breathing treatments. Encouraged her to follow-up with her current PCPuntil she finds a new one provided return precautions and discharged in stable condition. Dragon Disclaimer Dragon Disclaimer This electronic medical record was generated, in whole or in part, using a voice recognition dictation system. Departure Departure Impression: Primary Impression: URI (upper respiratory infection) Additional Impressions: Hypertension COPD exacerbation Acute bronchitis Hyperglycemia Disposition: HOME, SELF-CARE Condition: STABLE Referrals: CHI AGRAWAL MD (PCP) follow up next week Patient Instructions: Chronic Obstructive Pulmonary Disease Exacerbation, Upper Respiratory Infection, Adult, [id number] Additional Instructions: You were evaluated in the emergency room, please continue taking your breathing treatments as ordered. Continue using your blood pressure medications and insulin, follow-up with your doctor in the course of next week, come back to the ED at any point symptoms worsen. Scripts Hydrocodone/Chlorphen Polis (HYDROCODONE-CHLORPHENIRAM SUSP) 5 Ml Amanda.er.12h 5 ML PO PRN Q12HR PRN for COUGH, #100 ML 0 Refills Prov: PAOLO CHEKE APRN 07/11/18 Albuterol Sulfate (PROAIR HFA INHALER) 8.5 Gm Hfa.aer.ad 1 PUFF INH PRN Q6HRS PRN for SHORTNESS OF BREATH, #1 INHALER 0 Refills Prov: PAOLO CHEEK ACTING TEACHER 07/11/18 Doxycycline Hyclate (DOXYCYCLINE HYCLATE) 100 Mg Tablet.dr 1 TAB PO BID, #14 TAB Prov: PAOLO CHEEK ACTING TEACHER 07/11/18 Prednisone (PREDNISONE) 50 Mg Tablet 1 TAB PO DAILY, #5 TAB Prov: MUTUNGAPAOLO ACTING TEACHER 07/11/18 Problem Qualifiers Primary Impression: URI (upper respiratory infection) URI type: unspecified URI Qualified Codes: J06.9 - Acute upper respiratory infection, unspecified Additional Impressions: Hypertension Hypertension type: unspecified Qualified Codes: I10 - Essential (primary) hypertension Acute bronchitis Bronchitis organism: unspecified organism Qualified Codes: J20.9 - Acute bronchitis, unspecified PAOLO CHEEK ACTING TEACHER July 11, 2018 17:01
--- NOTE | 2018-07-11 17:31 | RAD ---
PA and lateral chest. HISTORY: Short of breath PA and lateral views were taken of the chest. Lungs are free of infiltrates. Heart is normal in size. There is no effusion. IMPRESSION: 1. No acute chest disease. Electronically signed by: Gagandeep Simpson MD (07/11/2018 5:29 PM) [facility]
[2018-07-11 17:35] LABS: BILIRUBIN,URINE NEGATIVE (NEG); CLARITY,URINE CLEAR; COLOR,URINE YELLOW; NITRITE,URINE NEGATIVE (NEG); PROTEIN,URINE NEGATIVE (NEG-TRACE); UROBILINOGEN,URINE 0.2 mg/dL (0.2 mg/dL)
[2018-07-11 17:41] LABS: BARBITURATES NEG (NEG); BENZODIAZEPINES NEG (NEG); CANNABINOIDS NEG (NEG); COCAINE NEG (NEG); METHADONE NEG (NEG); OPIATES NEG (NEG); PHENCYCLIDINE NEG (NEG)
[2018-07-11 17:43] LABS: AMPHETAMINE/METHAMPHETAMINE NEG (NEG)
[2018-07-11] MEDS ORDERED: INSULIN REGULAR 100 UNIT/ML 3ML VIAL. IV ONE (17:45)
[2018-07-11 17:49] LABS: BACTERIA,URINE 0 /HPF (0-FEW); RBC,URINE 0 /HPF (0-2); SQUAMOUS EPITHELIAL CELL,UR FEW /LPF
[2018-07-11] MEDS ORDERED: HYDR5SUS PO (18:25)
[2018-07-11] MEDS ORDERED: ALBU2.5V8 INH (18:25)
[2018-07-11] MEDS ORDERED: DOXY100T9 PO (18:25)
[2018-07-11] MEDS ORDERED: PRED50TA PO (18:25)
[2018-07-11 18:30] VITALS: BP 184/86
--- NOTE | 2018-07-13 15:45 | EKG ---
[facility] [address] [place] [address] Test Date: 2018-07-11 Test Time: 16:06:30 Pat Name: BATSHEVA TRIVEDI Department: Room: Gender: F Pantograph Engraver: : 1965 Requested By: PAOLO CHEEK Order Number: [id number] Reading MD: Puneet Medina MD Measurements Intervals [place] Rate: 97 P: 49 MT: 122 QRS: 24 QRSD: 74 T: -27 QT: 404 QTc: 518 Interpretive Statements SINUS RHYTHM NON-SPECIFIC ST/T CHANGES Electronically Signed On 08-07-2018 14:40:57 CDT by Puneet Medina MD
== END 2018-07-11 18:50 | disposition home or self-care (01) ==
LOC: ER 15:36
DX: J44.1 Chronic obstructive pulmonary disease with (acute) exacerbation (principal); J20.9 Acute bronchitis, unspecified; J44.0 Chronic obstructive pulmonary disease with (acute) lower respiratory infection; I10 Essential (primary) hypertension; E11.65 Type 2 diabetes mellitus with hyperglycemia; E78.00 Pure hypercholesterolemia, unspecified
CPT/HCPCS: 36415; 71046; 80053; 80307; 81001; 82553; 83735; 83880; 84443; 84484; 85025; 87040; 87070; 87086; 87880; 93005; 94640; 96374; 96375; 99285; J1815; J2930; J7620

== ENCOUNTER 2018-09-22 03:37 | Emergency (ER) | payer OTHER ==
[~2018-09-22] VITALS: Ht 157.5 cm; Wt 99.8 kg
[~2018-09-22 03:37] MED LIST changes: +ALBU2.5V8 INH; +DOXY100T9 PO; +MONT10TA49 PO; -MONT10TA9 PO; -PANT40TA5 PO; +PANT40TA77 PO
[2018-09-22] MEDS ORDERED: methylPREDNISolone SOD SUCC PF 125 MG/2 ML VIAL. IV ONE (04:00)
[2018-09-22 04:14] LABS: BASO # 0.1 x10^3/uL (0.0-0.2); BASO % 1 % (0-3); EOS # 0.3 x10^3/uL (0.0-0.7); EOS % 4 % (0-3); HEMATOCRIT 37.5 % (36.0-47.0); HEMOGLOBIN 12.4 g/dL (12.0-15.5); LYMPH % 28 % (24-48); MEAN CORPUSCULAR HEMOGLOBIN 30 pg (25-35); MEAN CORPUSCULAR HGB CONC 33 g/dL (31-37); MEAN CORPUSCULAR VOLUME 91 fL (79-100); MONO # 0.7 x10^3/uL (0.0-1.1); MONO % 9 % (0-9); NEUT # 4.3 x10^3/uL (1.8-7.7); NEUT % 58 % (31-73); PLATELET COUNT 238 x10^3/uL (140-400); RED BLOOD COUNT 4.14 x10^6/uL (3.50-5.40); RED CELL DISTRIBUTION WIDTH 13.2 % (11.5-14.5); WHITE BLOOD COUNT 7.4 x10^3/uL (4.0-11.0)
[2018-09-22] MEDS ORDERED: IPRATRPIUM/ALBUTEROL 0.5/2.5MG 3 ML NEBU. NEB ONE (04:15)
[2018-09-22 04:24] LABS: CALCIUM 10.6 mg/dL (8.5-10.1); GFR 57.8; POTASSIUM 4.1 mmol/L (3.5-5.1); PROTHROMBIN TIME PATIENT 11.8 SEC (11.7-14.0)
[2018-09-22 04:30] LABS: ALBUMIN 3.2 g/dL (3.4-5.0); ALBUMIN/GLOBULIN RATIO 0.8 (1.0-1.7); TOTAL BILIRUBIN 0.2 mg/dL (0.2-1.0); TOTAL PROTEIN 7.3 g/dL (6.4-8.2)
--- NOTE | 2018-09-22 04:43 | RAD ---
PORTABLE CHEST 1V Clinical Indication: Shortness of breath. Comparison: Two-view chest, July 11, 2018. Findings: There is calcified left hilar lymph node, stable. The cardiomediastinal silhouette is normal. Lungs are clear. There is no pneumothorax. No pleural effusion is appreciated. No acute bone abnormality. Degenerative endplate spurring of the thoracic spine. IMPRESSION: No acute cardiopulmonary process. Electronically signed by: Agutsín Rodrigues MD (09/22/2018 4:39 AM) [id number]
[2018-09-22 04:47] VITALS: BP 171/78
[2018-09-22] MEDS ORDERED: LEVO750T31 PO (04:47)
[2018-09-22] MEDS ORDERED: PRED50TA PO (04:47)
--- NOTE | 2018-09-22 05:02 | PHYS DOC ---
Past Medical History Past Medical History: Asthma, COPD, Diabetes-Type II, High Cholesterol, Hypertension, Pneumonia Additional Past Medical Histor: HIGH CHOL, obesity, YON, SLEEP APNEA Past Surgical History: Hysterectomy, Oophorectomy Additional Past Surgical Histo: Nose SX, RETINA SURGERY Alcohol Use: None Drug Use: None Adult General Chief Complaint Chief Complaint: SHORTNESS OF BREATH [facility] HPI Patient is a 53 year old female who presents with chief complaint shortness of breath she feels that she's having an asthma exacerbation she says she's had increasing cough with green sputum which really thick it's hard to get L she is having more shortness of breath and cough as a result of that. Patient denies any chest pain she just says it is hard to breathe. No fevers that she knows of in addition she is worried because her legs have been getting more swollen over the last few weeks. She is taking Lasix once a day she endorses compliant with her medication she is taking multiple blood pressure medications. Review of Systems Review of Systems Constitutional: Denies fever or chills [] Eyes: Denies change in visual acuity, redness, or eye pain [] HENT: Denies nasal congestion or sore throat [] Respiratory: Cardiovascular: No additional information not addressed in HPI [] GI: Musculoskeletal: Denies back pain or joint pain [] Integument: Denies rash or skin lesions [] Neurologic: Denies headache, focal weakness or sensory changes [] Endocrine: Denies polyuria or polydipsia [] All other systems were reviewed and found to be within normal limits, except as documented in this note. Current Medications Current Medications Current Medications Medications (Trade) Dose Ordered Sig/Palak Start Time Stop Time Status Last Admin Dose Admin Albuterol/ Ipratropium (Duoneb) 3 ml 1X ONCE 09/22/18 04:15 09/22/18 04:16 DC 09/22/18 03:58 3 ML Methylprednisolone Sodium Succinate (SOLU-Medrol 125MG VIAL) 125 mg 1X ONCE 09/22/18 04:00 09/22/18 04:01 DC 09/22/18 04:36 125 MG Allergies Allergies Allergies Coded Allergies Type Severity Reaction Last Updated Verified No Known Drug Allergies 06/07/13 No Physical Exam Physical Exam Constitutional: Well developed, well nourished, no acute distress, non-toxic appearance. [] HENT: Normocephalic, atraumatic, bilateral external ears normal, oropharynx moist, no oral exudates, nose normal. [] Eyes: PERRLA, EOMI, conjunctiva injected bilaterally she tells me she's been treated for glaucoma Neck: Normal range of motion, no tenderness, supple, no stridor. [] Cardiovascular:Heart rate regular rhythm, no murmur [] Lungs & Thorax: Wheezing noted bilaterally this cleared up after one neb Abdomen is soft nontender nondistended Back: No tenderness, no CVA tenderness. [] Extremities: No tenderness, no cyanosis, no clubbing, ROM intact, 2+ edema bilaterally Neurologic: Alert and oriented X 3, normal motor function, normal sensory function, no focal deficits noted. [] Psychologic: Affect normal, judgement normal, mood normal. [] Current Patient Data Vital Signs Vital Signs Date Time Temp Pulse Resp B/P (MAP) Pulse Ox O2 Delivery O2 Flow Rate FiO2 09/22/18 04:17 88 24 180/81 (114) 96 Room Air Lab Values Laboratory Tests Test 09/22/18 04:05 White Blood Count 7.4 x10^3/uL (4.0-11.0) Red Blood Count 4.14 x10^6/uL (3.50-5.40) Hemoglobin 12.4 g/dL (12.0-15.5) Hematocrit 37.5 % (36.0-47.0) Mean Corpuscular Volume 91 fL (79-100) Mean Corpuscular Hemoglobin 30 pg (25-35) Mean Corpuscular Hemoglobin Concent 33 g/dL (31-37) Red Cell Distribution Width 13.2 % (11.5-14.5) Platelet Count 238 x10^3/uL (140-400) Neutrophils (%) (Auto) 58 % (31-73) Lymphocytes (%) (Auto) 28 % (24-48) Monocytes (%) (Auto) 9 % (0-9) Eosinophils (%) (Auto) 4 % (0-3) H Basophils (%) (Auto) 1 % (0-3) Neutrophils # (Auto) 4.3 x10^3/uL (1.8-7.7) Lymphocytes # (Auto) 2.0 x10^3/uL (1.0-4.8) Monocytes # (Auto) 0.7 x10^3/uL (0.0-1.1) Eosinophils # (Auto) 0.3 x10^3/uL (0.0-0.7) Basophils # (Auto) 0.1 x10^3/uL (0.0-0.2) Prothrombin Time 11.8 SEC (11.7-14.0) Prothrombin Time INR 0.9 (0.8-1.1) Sodium Level 140 mmol/L (136-145) Potassium Level 4.1 mmol/L (3.5-5.1) Chloride Level 104 mmol/L (98-107) Carbon Dioxide Level 27 mmol/L (21-32) Anion Gap 9 (6-14) Blood Urea Nitrogen 20 mg/dL (7-20) Creatinine 1.0 mg/dL (0.6-1.0) Estimated GFR (Cockcroft-Gault) 57.8 BUN/Creatinine Ratio 20 (6-20) Glucose Level 189 mg/dL (70-99) H Calcium Level 10.6 mg/dL (8.5-10.1) H Total Bilirubin 0.2 mg/dL (0.2-1.0) Aspartate Amino Transferase (AST) 16 U/L (15-37) Alanine Aminotransferase (ALT) 33 U/L (14-59) Alkaline Phosphatase 133 U/L (46-116) H Troponin I Quantitative < 0.017 ng/mL (0.000-0.055) DU-Mic-W-Type Natriuretic Peptide 12 pg/mL (0-124) Total Protein 7.3 g/dL (6.4-8.2) Albumin 3.2 g/dL (3.4-5.0) L Albumin/Globulin Ratio 0.8 (1.0-1.7) L Laboratory Tests 09/22/18 04:05 Laboratory Tests 09/22/18 04:05 EKG EKG []EKG shows a normal sinus rhythm rate of 85 no acute ischemic changes noted interpreted by me the time of encounter Radiology/Procedures Radiology/Procedures [] Impressions: Chest x-ray negative acuteFindings: There is calcified left hilar lymph node, stable. The cardiomediastinal silhouette is normal. Lungs are clear. There is no pneumothorax. No pleural effusion is appreciated. No acute bone abnormality. Degenerative endplate spurring of the thoracic spine. IMPRESSION: No acute cardiopulmonary process. Electronically signed by: Agustín Damico MD (09/22/2018 4:39 AM) [facility] DICTATED and SIGNED BY: AGUSTÍN DAMICO MD DATE: 09/22/18 0439 Course & Med Decision Making Course & Med Decision Making Pertinent Labs and Imaging studies reviewed. (See chart for details) []53-year-old female with a history of hypertension as well as asthma presenting with shortness of breath and wheezing cleared up after one neb she felt better sat 97 on room air does have a cough with green-colored sputum. Breathing clear up after one nebulizer chest x-ray was negative labs were not consistent with CHF or acute coronary syndrome EKG looked fine. I recommended fo r the lower extremity edema that she take an extra dose of Lasix for the next week as well as potassium supplementation once a day take prednisone because of the blood sugar affect switch the amoxicillin that she is on for her dental problem to Levaquin which should have better pulmonary coverage Follow-up primary care doctor should she be not improving in the next few days. She understands Dragon Disclaimer Dragon Disclaimer This electronic medical record was generated, in whole or in part, using a voice recognition dictation system. Departure Departure Impression: Primary Impression: Acute bronchitis Additional Impression: Asthma exacerbation Disposition: 01 HOME, SELF-CARE Condition: STABLE Referrals: CHI AGRAWAL MD (PCP) Patient Instructions: Asthma, Acute Bronchospasm Scripts Levofloxacin (LEVAQUIN) 750 Mg Tablet 1 TAB PO DAILY, #5 TAB Prov: SEAN INMAN MD 09/22/18 Prednisone (PREDNISONE) 50 Mg Tablet 1 TAB PO DAILY, #5 TAB Prov: SEAN INMAN MD 09/22/18 Problem Qualifiers SEAN INMAN MD Sep 22, 2018 05:02
--- NOTE | 2018-09-22 07:21 | EKG ---
[facility] [address] [place] [address] Test Date: 2018-09-22 Test Time: 03:58:39 Pat Name: BATSHEVA TRIVEDI Department: Room: Gender: F Professor Of Violin: : 1965 Requested By: SEAN INMAN Order Number: [id number] Reading MD: Measurements Intervals [place] Rate: 85 P: 43 WY: 126 QRS: 13 QRSD: 78 T: -19 QT: 360 QTc: 429 Interpretive Statements SINUS RHYTHM NORMAL ECG RI6.01 Unconfirmed report No previous ECG available for comparison
== END 2018-09-22 05:00 | disposition home or self-care (01) ==
LOC: ER 03:37
DX: J45.901 Unspecified asthma with (acute) exacerbation (principal); J20.9 Acute bronchitis, unspecified; J44.9 Chronic obstructive pulmonary disease, unspecified; E78.00 Pure hypercholesterolemia, unspecified; E11.9 Type 2 diabetes mellitus without complications; I10 Essential (primary) hypertension; E66.9 Obesity, unspecified; Z68.41 Body mass index [BMI] 40.0-44.9, adult
CPT/HCPCS: 36415; 71045; 80053; 83880; 84484; 85025; 85610; 93005; 94640; 96374; 99285; J2930; J7620

== ENCOUNTER 2018-10-14 12:09 | Observation (INO) | payer OTHER ==
[~2018-10-14] VITALS: Ht 162.6 cm; Wt 104.3 kg
[~2018-10-14 12:09] MED LIST changes: -AMLO1CAP15 PO; +AMLO1CAP54 PO
--- NOTE | 2018-10-14 12:28 | PHYS DOC ---
Past Medical History Past Medical History: Asthma, COPD, Diabetes-Type II, High Cholesterol, Hypertension, Pneumonia Additional Past Medical Histor: obesity, SLEEP APNEA Past Surgical History: Hysterectomy, Oophorectomy Additional Past Surgical Histo: Nose SX, RETINA SURGERY Alcohol Use: None Drug Use: None Adult General Chief Complaint Chief Complaint: LOWER EXT PAIN HPI HPI Patient is a 53 year old female presents to the ED complaining of left lower leg redness. Patient has a history of lymphedema. States that she started to notice the redness 2 days ago. States it got worse last night and she developed some chills. States she did not take her temperature to see if she had a fever. Denies injury, weakness, difficulty walking, chest pain, shortness of breath or nausea/vomiting. Review of Systems Review of Systems Constitutional: Denies fever or chills [] Eyes: Denies change in visual acuity, redness, or eye pain [] HENT: Denies nasal congestion or sore throat [] Respiratory: Denies cough or shortness of breath [] Cardiovascular: No additional information not addressed in HPI [] GI: Denies abdominal pain, nausea, vomiting, bloody stools or diarrhea [] : Denies dysuria or hematuria [] Musculoskeletal: Complains of left leg redness and swelling. Denies back pain or joint pain [] Integument: Denies rash or skin lesions [] Neurologic: Denies headache, focal weakness or sensory changes [] All other systems were reviewed and found to be within normal limits, except as documented in this note. Current Medications Current Medications Current Medications Medications (Trade) Dose Ordered Sig/Palak Start Time Stop Time Status Last Admin Dose Admin Piperacillin Sod/ Tazobactam Sod 3.375 gm/Sodium Chloride 50 ml @ 100 mls/hr 1X ONCE 10/14/18 14:15 10/14/18 14:44 Allergies Allergies Allergies Coded Allergies Type Severity Reaction Last Updated Verified No Known Drug Allergies 06/07/13 No Physical Exam Physical Exam Constitutional: Well developed, well nourished, no acute distress, non-toxic appearance. [] HENT: Normocephalic, atraumatic Neck: Normal range of motion, no tenderness, supple, no stridor. [] Cardiovascular:Heart rate regular rhythm, no murmur [] Lungs & Thorax: Bilateral breath sounds clear to auscultation [] Abdomen: Bowel sounds normal, soft, no tenderness, no masses, no pulsatile masses. [] Skin: Warm, dry, no erythema, no rash. [] Back: No tenderness, no CVA tenderness. [] Extremities: Bilateral lower leg swelling. Left lower leg circumferential erythema and warmth. no cyanosis, no clubbing, ROM intact, no edema. [] Neurologic: Alert and oriented X 3, normal motor function, normal sensory function, no focal deficits noted. [] Psychologic: Affect normal, judgement normal, mood normal. [] Current Patient Data Vital Signs Vital Signs Date Time Temp Pulse Resp B/P (MAP) Pulse Ox O2 Delivery O2 Flow Rate FiO2 10/14/18 12:15 99.0 97 18 150/81 (104) 97 Room Air 99.0 Lab Values Laboratory Tests Test 10/14/18 12:35 White Blood Count 9.6 x10^3/uL (4.0-11.0) Red Blood Count 4.16 x10^6/uL (3.50-5.40) Hemoglobin 12.5 g/dL (12.0-15.5) Hematocrit 37.7 % (36.0-47.0) Mean Corpuscular Volume 91 fL (79-100) Mean Corpuscular Hemoglobin 30 pg (25-35) Mean Corpuscular Hemoglobin Concent 33 g/dL (31-37) Red Cell Distribution Width 13.3 % (11.5-14.5) Platelet Count 223 x10^3/uL (140-400) Neutrophils (%) (Auto) 70 % (31-73) Lymphocytes (%) (Auto) 20 % (24-48) L Monocytes (%) (Auto) 8 % (0-9) Eosinophils (%) (Auto) 1 % (0-3) Basophils (%) (Auto) 1 % (0-3) Neutrophils # (Auto) 6.7 x10^3/uL (1.8-7.7) Lymphocytes # (Auto) 1.9 x10^3/uL (1.0-4.8) Monocytes # (Auto) 0.8 x10^3/uL (0.0-1.1) Eosinophils # (Auto) 0.1 x10^3/uL (0.0-0.7) Basophils # (Auto) 0.1 x10^3/uL (0.0-0.2) Sodium Level 140 mmol/L (136-145) Potassium Level 4.2 mmol/L (3.5-5.1) Chloride Level 104 mmol/L (98-107) Carbon Dioxide Level 28 mmol/L (21-32) Anion Gap 8 (6-14) Blood Urea Nitrogen 11 mg/dL (7-20) Creatinine 0.7 mg/dL (0.6-1.0) Estimated GFR (Cockcroft-Gault) 87.2 BUN/Creatinine Ratio 16 (6-20) Glucose Level 109 mg/dL (70-99) H Calcium Level 10.3 mg/dL (8.5-10.1) H Total Bilirubin 0.7 mg/dL (0.2-1.0) Aspartate Amino Transferase (AST) 20 U/L (15-37) Alanine Aminotransferase (ALT) 39 U/L (14-59) Alkaline Phosphatase 126 U/L (46-116) H C-Reactive Protein, Quantitative 116.7 mg/L (0-3.3) H Total Protein 7.6 g/dL (6.4-8.2) Albumin 3.4 g/dL (3.4-5.0) Albumin/Globulin Ratio 0.8 (1.0-1.7) L Laboratory Tests 10/14/18 12:35 Laboratory Tests 10/14/18 12:35 EKG EKG [] Radiology/Procedures Radiology/Procedures []PROCEDURE: TIBIA FIBULA LEFT EXAM: AP and lateral views of the left tibia/fibula DATE: 10/14/2018 12:24 PM INDICATION: Left lower leg pain, swelling, erythema, no known injury COMPARISON: No Prior FINDINGS/ IMPRESSION: 1. No evidence of acute fracture or dislocation. 2. No definite erosive/destructive bony changes or periostitis seen to suggest osteomyelitis. 3. Diffuse left lower leg soft tissue swelling. No definite retained radiopaque foreign body. A few small subcutaneous soft tissue calcifications are seen, likely heterotopic ossification. PROCEDURE: VENOUS LOWER EXT BILATERAL Bilateral lower extremity venous real time grayscale, color and spectral duplex ultrasound was performed. History: Bilateral lower extremity swelling Comparison: None. Findings: The common femoral, femoral and popliteal veins demonstrate anechoic lumina, full compressibility, and cephalad color doppler flow. The bilateral posterior tibial veins are unremarkable. Impression: No evidence of DVT in either lower extremity. Course & Med Decision Making Course & Med Decision Making Pertinent Labs and Imaging studies reviewed. (See chart for details) []Patient has left lower leg cellulitis and is a diabetic. We'll treat with Zosyn in the ED which she has tolerated in the past. Discussed case with Dr. Culp. Agrees to admission and further management patient. Patient stable for admission. Dragon Disclaimer Dragon Disclaimer This electronic medical record was generated, in whole or in part, using a voice recognition dictation system. Departure Departure Impression: Primary Impression: Cellulitis, leg Disposition: ADMITTED INPATIENT Admitting Physician: ALISSON Condition: STABLE Referrals: CHI AGRAWAL MD (PCP) LAZARO BAER Oct 14, 2018 12:28
[2018-10-14 12:50] LABS: BASO # 0.1 x10^3/uL (0.0-0.2); BASO % 1 % (0-3); EOS # 0.1 x10^3/uL (0.0-0.7); EOS % 1 % (0-3); HEMATOCRIT 37.7 % (36.0-47.0); HEMOGLOBIN 12.5 g/dL (12.0-15.5); LYMPH # 1.9 x10^3/uL (1.0-4.8); LYMPH % 20 % (24-48); MEAN CORPUSCULAR HEMOGLOBIN 30 pg (25-35); MEAN CORPUSCULAR HGB CONC 33 g/dL (31-37); MEAN CORPUSCULAR VOLUME 91 fL (79-100); MONO # 0.8 x10^3/uL (0.0-1.1); MONO % 8 % (0-9); NEUT # 6.7 x10^3/uL (1.8-7.7); NEUT % 70 % (31-73); PLATELET COUNT 223 x10^3/uL (140-400); RED BLOOD COUNT 4.16 x10^6/uL (3.50-5.40); RED CELL DISTRIBUTION WIDTH 13.3 % (11.5-14.5); WHITE BLOOD COUNT 9.6 x10^3/uL (4.0-11.0)
[2018-10-14 12:51] LABS: CALCIUM 10.3 mg/dL (8.5-10.1); CREATININE 0.7 mg/dL (0.6-1.0); GFR 87.2; POTASSIUM 4.2 mmol/L (3.5-5.1)
--- NOTE | 2018-10-14 12:56 | RAD ---
Bilateral lower extremity venous real time grayscale, color and spectral duplex ultrasound was performed. History: Bilateral lower extremity swelling Comparison: None. Findings: The common femoral, femoral and popliteal veins demonstrate anechoic lumina, full compressibility, and cephalad color doppler flow. The bilateral posterior tibial veins are unremarkable. Impression: No evidence of DVT in either lower extremity. Electronically signed by: Cristino Thomas MD (10/14/2018 12:53 PM) [facility]
[2018-10-14 12:57] LABS: ALBUMIN 3.4 g/dL (3.4-5.0); ALBUMIN/GLOBULIN RATIO 0.8 (1.0-1.7); C-REACTIVE PROTEIN 116.7 mg/L (0-3.3); TOTAL BILIRUBIN 0.7 mg/dL (0.2-1.0); TOTAL PROTEIN 7.6 g/dL (6.4-8.2)
--- NOTE | 2018-10-14 13:25 | RAD ---
EXAM: AP and lateral views of the left tibia/fibula DATE: 10/14/2018 12:24 PM INDICATION: Left lower leg pain, swelling, erythema, no known injury COMPARISON: No Prior FINDINGS/ IMPRESSION: 1. No evidence of acute fracture or dislocation. 2. No definite erosive/destructive bony changes or periostitis seen to suggest osteomyelitis. 3. Diffuse left lower leg soft tissue swelling. No definite retained radiopaque foreign body. A few small subcutaneous soft tissue calcifications are seen, likely heterotopic ossification. Electronically signed by: Abhay Elizondo MD (10/14/2018 1:22 PM) [facility]
[2018-10-14] MEDS ORDERED: NON FORMULARY ITEM (Albuterol Sulfate (Proair Respiclick) 1 PUFF) IH PRN (14:15)
[2018-10-14] MEDS ORDERED: [UNRECOGNIZED DRUG - OTHER] PO PRN (14:15)
[2018-10-14] MEDS ORDERED: ZOLPIDEM 5 MG TABLET. PO PRN (14:15)
[2018-10-14] MEDS ORDERED: IV DEXTROSE 5% 250 ML BAG. IV PRN (14:15)
[2018-10-14] MEDS ORDERED: ALBUTEROL SULFATE 2.5 MG/3 ML NEBU. NEB PRN (14:15)
[2018-10-14] MEDS ORDERED: PIP/TAZO PER PHARMACY MC PRN (14:15)
[2018-10-14] MEDS ORDERED: HYDROCODONE PO PRN (14:15)
[2018-10-14] MEDS ORDERED: fentaNYL PF VIAL 100 MCG/2 ML VIAL IV PRN ×2 (14:15)
[2018-10-14] MEDS ORDERED: PIPERACILLIN/TAZOBACTAM 3.375 GM in IV NORMAL SALINE 50ML 50 ML IV ONE (14:15)
[2018-10-14] MEDS ORDERED: ACETAMINOPHEN 325 MG TABLET. PO PRN (14:15)
[2018-10-14] MEDS ORDERED: ONDANSETRON PF 4 MG/2 ML VIAL. IV PRN ×2 (14:15)
[2018-10-14] MEDS ORDERED: DEXTROSE 50% 25 GM / 50ML DISP.SYRIN. IV PRN (14:15)
--- NOTE | 2018-10-14 14:24 | PDOC1 ---
History and Physical Date of Admission Date of Admission DATE: 10/14/18 TIME: 14:19 Identification/Chief Complaint Chief Complaint left leg pain and swelling Source Source: Caregiver, Chart review, Patient History of Present Illness History of Present Illness 53 AA female, diabetic, hx cellulitis in past and lymphedema, zosyn worked in past, comes in for the same,left leg some swelling, mild, no skin breaks, chills at home, normal WBC but [id number], Agreeable to admission and zosyn, UNknown hgba1c, on hefty doses insulin at home,TRying to look for another PCP, she is non toxic appearing. US neg clots, xray, no FB , no fx but verifies soft tissue swelling. Past Medical History Cardiovascular: HTN, Hyperlipidemia Pulmonary: Asthma, Pneumonia CENTRAL NERVOUS SYSTEM: Other GI: GERD Heme/Onc: No pertinent hx Hepatobiliary: No pertinent hx Psych: No pertinent hx Musculoskeletal: low back pain Rheumatologic: No pertinent hx Infectious disease: No pertinent hx Endocrine: Diabetes Past Surgical History Past Surgical History: , Hysterectomy Family History Family History: Coronary Artery Disease Social History Smoke: No ALCOHOL: none Drugs: None Current Problem List Problem List Problems Medical Problems: (1) Cellulitis, leg Status: Acute Current Medications Current Medications Current Medications Piperacillin Sod/ Tazobactam Sod 3.375 gm/Sodium Chloride 50 ml @ 100 mls/hr 1X ONCE IV ; Start 10/14/18 at 14:15; Stop 10/14/18 at 14:44 Ondansetron HCl (Zofran) 4 mg PRN Q8HRS PRN IV NAUSEA/VOMITING; Start 10/14/18 at 14:15; Stop 10/15/18 at 14:14 Fentanyl Citrate (Fentanyl 2ml Vial) 50 mcg PRN Q1HR PRN IV PAIN; Start 10/14/18 at 14:15; Stop 10/15/18 at 14:14 Acetaminophen (Tylenol) 650 mg PRN Q4HRS PRN PO FEVER; Start 10/14/18 at 14:15; Stop 10/15/18 at 14:14 Active Scripts Active Levaquin (Levofloxacin) 750 Mg Tablet 1 Tab PO DAILY Prednisone 50 Mg Tablet 1 Tab PO DAILY Hydrocodone-Chlorpheniram Susp (Hydrocodone/Chlorphen Polis) 5 Ml Amanda.er.12h 5 Ml PO PRN Q12HR PRN Proair Hfa Inhaler (Albuterol Sulfate) 8.5 Gm Hfa.aer.ad 1 Puff INH PRN Q6HRS PRN Doxycycline Hyclate 100 Mg Tablet.dr 1 Tab PO BID Prednisone 50 Mg Tablet 1 Tab PO DAILY Doxycycline Hyclate 100 Mg Tablet 1 Tab PO BID Montelukast Sodium Tablet (Montelukast Sodium) 10 Mg Tablet 10 Mg PO QHS MDD 1 Budesonide 0.5 Mg/2 Ml Ampul.neb 0.5 Mg NEB RTBID MDD 1 Procare Compressor Nebulizer (Nebulizer and Compressor) 1 Each Each Each MC Atrovent Hfa (Ipratropium Ina) 12.9 Gm Hfa.aer.ad 2 Puff IH QID Ventolin Hfa Inhaler (Albuterol Sulfate) 18 Gm Hfa.aer.ad 2 Puff INH Q4HRS [place] 5-325 Tablet (Acetaminophen/Hydrocodone Bitart) 1 Each Tablet 1 Tab PO PRN Q6HRS PRN Hydrocodone-Chlorpheniram Susp (Hydrocodone/Chlorphen Polis) 5 Ml Amanda.er.12h 5 Ml PO PRN Q12HR PRN 5 Days Norvasc (Amlodipine Besylate) 5 Mg Tablet 1 Tab PO DAILY Flonase Allergy Relief (Fluticasone Propionate) 9.9 Ml [place].susp 2 Sprays NS DAILY Pantoprazole Sodium (Pantoprazole Sodium) 40 Mg Tablet.dr 40 Mg PO DAILYAC Reported Toudanielo Solostar (Insulin Glargine,Hum.rec.anlog) 300 Unit/1 Ml Insuln.pen 100 Units SQ DAILY08 Novolog (Insulin Aspart) 100 Unit/1 Ml Vial 30 Unit SQ TIDWMEALS Aspirin 81 Mg Tab.chew 81 Mg PO DAILY Atacand (Candesartan Cilexetil) 32 Mg Tablet 32 Mg PO DAILY Potassium Chloride 20 Meq Tablet.er 20 Meq PO DAILY Furosemide 40 Mg Tablet 40 Mg PO DAILY Xalatan (Latanoprost) 2.5 Ml Drops 2.5 Ml EACHEYE QHS Zetia (Ezetimibe) 10 Mg Tablet 10 Mg PO DAILY Crestor (Rosuvastatin Calcium) 40 Mg Tablet 40 Mg PO QHS Metformin Hcl 1,000 Mg Tablet 1,000 Mg PO BID Allergies Allergies: Coded Allergies: No Known Drug Allergies (Unverified , 06/07/13) ROS Review of System as per HPI, the rest 14 pt neg Physical Exam General: Alert, Oriented X3, Cooperative, No acute distress HEENT: Atraumatic, PERRLA, EOMI Lungs: Clear to auscultation, Normal air movement Heart: S1S2, RRR, no thrills, no rubs, no gallops, no murmurs Cardiovascular: S1, S2 Abdomen: Normal bowel sounds, Soft, No tenderness, No hepatosplenomegaly, No masses Rectal Exam: not examined PELVIC: Nml ext genitalia Extremities: Other (tenderness, mild swelling left leg, no skin break, old scar coin sized, medial aspect from prev skin biopsy site) Neuro: Normal gait, Normal speech, Strength at 5/5 X4 ext, Normal tone, Sensation intact, Cranial nerves 3-12 NL, Reflexes 2+ Psych/Mental Status: Mental status NL, Mood NL Vitals Vitals Vital Signs Date Time Temp Pulse Resp B/P (MAP) Pulse Ox O2 Delivery O2 Flow Rate FiO2 10/14/18 12:15 99.0 97 18 150/81 (104) 97 Room Air 99.0 Labs Labs Laboratory Tests Test 10/14/18 12:35 White Blood Count 9.6 x10^3/uL (4.0-11.0) Red Blood Count 4.16 x10^6/uL (3.50-5.40) Hemoglobin 12.5 g/dL (12.0-15.5) Hematocrit 37.7 % (36.0-47.0) Mean Corpuscular Volume 91 fL (79-100) Mean Corpuscular Hemoglobin 30 pg (25-35) Mean Corpuscular Hemoglobin Concent 33 g/dL (31-37) Red Cell Distribution Width 13.3 % (11.5-14.5) Platelet Count 223 x10^3/uL (140-400) Neutrophils (%) (Auto) 70 % (31-73) Lymphocytes (%) (Auto) 20 % (24-48) Monocytes (%) (Auto) 8 % (0-9) Eosinophils (%) (Auto) 1 % (0-3) Basophils (%) (Auto) 1 % (0-3) Neutrophils # (Auto) 6.7 x10^3/uL (1.8-7.7) Lymphocytes # (Auto) 1.9 x10^3/uL (1.0-4.8) Monocytes # (Auto) 0.8 x10^3/uL (0.0-1.1) Eosinophils # (Auto) 0.1 x10^3/uL (0.0-0.7) Basophils # (Auto) 0.1 x10^3/uL (0.0-0.2) Erythrocyte Sedimentation Rate 58 (0-25) Sodium Level 140 mmol/L (136-145) Potassium Level 4.2 mmol/L (3.5-5.1) Chloride Level 104 mmol/L (98-107) Carbon Dioxide Level 28 mmol/L (21-32) Anion Gap 8 (6-14) Blood Urea Nitrogen 11 mg/dL (7-20) Creatinine 0.7 mg/dL (0.6-1.0) Estimated GFR (Cockcroft-Gault) 87.2 BUN/Creatinine Ratio 16 (6-20) Glucose Level 109 mg/dL (70-99) Calcium Level 10.3 mg/dL (8.5-10.1) Total Bilirubin 0.7 mg/dL (0.2-1.0) Aspartate Amino Transf (AST/SGOT) 20 U/L (15-37) Alanine Aminotransferase (ALT/SGPT) 39 U/L (14-59) Alkaline Phosphatase 126 U/L (46-116) C-Reactive Protein, Quantitative 116.7 mg/L (0-3.3) Total Protein 7.6 g/dL (6.4-8.2) Albumin 3.4 g/dL (3.4-5.0) Albumin/Globulin Ratio 0.8 (1.0-1.7) Laboratory Tests Test 10/14/18 12:35 White Blood Count 9.6 x10^3/uL (4.0-11.0) Red Blood Count 4.16 x10^6/uL (3.50-5.40) Hemoglobin 12.5 g/dL (12.0-15.5) Hematocrit 37.7 % (36.0-47.0) Mean Corpuscular Volume 91 fL (79-100) Mean Corpuscular Hemoglobin 30 pg (25-35) Mean Corpuscular Hemoglobin Concent 33 g/dL (31-37) Red Cell Distribution Width 13.3 % (11.5-14.5) Platelet Count 223 x10^3/uL (140-400) Neutrophils (%) (Auto) 70 % (31-73) Lymphocytes (%) (Auto) 20 % (24-48) Monocytes (%) (Auto) 8 % (0-9) Eosinophils (%) (Auto) 1 % (0-3) Basophils (%) (Auto) 1 % (0-3) Neutrophils # (Auto) 6.7 x10^3/uL (1.8-7.7) Lymphocytes # (Auto) 1.9 x10^3/uL (1.0-4.8) Monocytes # (Auto) 0.8 x10^3/uL (0.0-1.1) Eosinophils # (Auto) 0.1 x10^3/uL (0.0-0.7) Basophils # (Auto) 0.1 x10^3/uL (0.0-0.2) Erythrocyte Sedimentation Rate 58 (0-25) Sodium Level 140 mmol/L (136-145) Potassium Level 4.2 mmol/L (3.5-5.1) Chloride Level 104 mmol/L (98-107) Carbon Dioxide Level 28 mmol/L (21-32) Anion Gap 8 (6-14) Blood Urea Nitrogen 11 mg/dL (7-20) Creatinine 0.7 mg/dL (0.6-1.0) Estimated GFR (Cockcroft-Gault) 87.2 BUN/Creatinine Ratio 16 (6-20) Glucose Level 109 mg/dL (70-99) Calcium Level 10.3 mg/dL (8.5-10.1) Total Bilirubin 0.7 mg/dL (0.2-1.0) Aspartate Amino Transf (AST/SGOT) 20 U/L (15-37) Alanine Aminotransferase (ALT/SGPT) 39 U/L (14-59) Alkaline Phosphatase 126 U/L (46-116) C-Reactive Protein, Quantitative 116.7 mg/L (0-3.3) Total Protein 7.6 g/dL (6.4-8.2) Albumin 3.4 g/dL (3.4-5.0) Albumin/Globulin Ratio 0.8 (1.0-1.7) VTE Prophylaxis Ordered VTE Prophylaxis Devices: Yes VTE Pharmacological Prophylaxi: Yes Assessment/Plan Assessment/Plan left leg cellulitis with elev CRP 116 DM 2 ,, insulin req, unknown hgba1c COPD< GERD stable Obesity BMI 39.5 PLAn: 2 [place] MEd surg floor Zosyn Celebrex SSI Hgba1c check I have reconciled meds ADA diet Crp check in a few days seen at ER FULL CODE RUDY ARIAS MD Oct 14, 2018 14:23
[2018-10-14] MEDS ORDERED: guaiFENesin/CODEINE 100mg/10mg 5 ML LIQUID PO PRN (15:15)
[2018-10-14 16:00] VITALS: BP 162/84
[2018-10-14] MEDS: metFORMIN 500 MG TABLET PO SCH (16:14)
[2018-10-14] MEDS: CELECOXIB 100 MG CAPSULE. PO SCH ×2 (16:14→21:14)
[2018-10-14] MEDS: oxyCODONE/APAP 5/325 1 TAB TABLET PO PRN ×2 (16:16→23:29)
[2018-10-14] MEDS: INSULIN LISPRO 300 UNITS/3 ML VIAL. SQ SCH ×2 (17:00→21:51)
[2018-10-14] MEDS ORDERED: INSULIN LISPRO 300 UNITS/3 ML VIAL. SQ SCH (17:00)
[2018-10-14] MEDS: PIPERACILLIN/TAZOBACTAM 3.375 GM in IV NORMAL SALINE 50ML 50 ML IV SCH ×2 (17:51→23:15)
[2018-10-14 19:00] VITALS: BP 137/62
[2018-10-14] MEDS: IPRATROPIUM BROMIDE 0.5 MG/2.5 ML NEBU. NEB SCH (20:00)
[2018-10-14] MEDS ORDERED: LATANOPROST 0.005% OPHTH SOLUTION 2.5ML BOTTLE. OU SCH (21:00)
[2018-10-14] MEDS ORDERED: MONTELUKAST SODIUM 10 MG TABLET. PO SCH (21:00)
[2018-10-14] MEDS ORDERED: ATORVASTATIN CALCIUM 40 MG TABLET. PO SCH (21:00)
[2018-10-14] MEDS: BUDESONIDE 0.5 MG/2 ML NEBU. NEB SCH (21:11)
[2018-10-14 23:00] VITALS: BP 125/59
[2018-10-15 00:08] LABS: HEMOGLOBIN A1C 9.7 % (4.8-5.6)
[2018-10-15 03:00] VITALS: BP 137/66
[2018-10-15 04:47] LABS: BASO % 1 % (0-3); EOS # 0.2 x10^3/uL (0.0-0.7); EOS % 2 % (0-3); HEMATOCRIT 35.4 % (36.0-47.0); HEMOGLOBIN 11.7 g/dL (12.0-15.5); LYMPH # 1.8 x10^3/uL (1.0-4.8); LYMPH % 22 % (24-48); MEAN CORPUSCULAR HEMOGLOBIN 30 pg (25-35); MEAN CORPUSCULAR HGB CONC 33 g/dL (31-37); MEAN CORPUSCULAR VOLUME 92 fL (79-100); MONO # 0.8 x10^3/uL (0.0-1.1); MONO % 9 % (0-9); NEUT # 5.5 x10^3/uL (1.8-7.7); NEUT % 67 % (31-73); PLATELET COUNT 196 x10^3/uL (140-400); RED BLOOD COUNT 3.86 x10^6/uL (3.50-5.40); RED CELL DISTRIBUTION WIDTH 13.3 % (11.5-14.5); WHITE BLOOD COUNT 8.3 x10^3/uL (4.0-11.0)
[2018-10-15 05:06] LABS: ALBUMIN 2.7 g/dL (3.4-5.0); ALBUMIN/GLOBULIN RATIO 0.7 (1.0-1.7); CALCIUM 10.6 mg/dL (8.5-10.1); GFR 57.8; POTASSIUM 4.6 mmol/L (3.5-5.1); TOTAL BILIRUBIN 0.4 mg/dL (0.2-1.0); TOTAL PROTEIN 6.6 g/dL (6.4-8.2)
[2018-10-15] MEDS: PIPERACILLIN/TAZOBACTAM 3.375 GM in IV NORMAL SALINE 50ML 50 ML IV SCH ×2 (06:02→12:00)
[2018-10-15] MEDS: oxyCODONE/APAP 5/325 1 TAB TABLET PO PRN (06:10)
[2018-10-15 07:00] VITALS: BP 123/64
[2018-10-15] MEDS ORDERED: PANTOPRAZOLE 40 MG TABLET.DR. PO SCH (07:30)
[2018-10-15] MEDS: IPRATROPIUM BROMIDE 0.5 MG/2.5 ML NEBU. NEB SCH ×2 (08:00→12:12)
[2018-10-15] MEDS ORDERED: POTASSIUM CHLORIDE 20 MEQ TABLET.ER. PO SCH (08:00)
[2018-10-15] MEDS ORDERED: INSULIN GLARGINE 300 UNITS/3 ML INSULN.PEN. SQ SCH (08:00)
[2018-10-15] MEDS: metFORMIN 500 MG TABLET PO SCH (08:00)
[2018-10-15] MEDS: CELECOXIB 100 MG CAPSULE. PO SCH (08:40)
[2018-10-15] MEDS: INSULIN LISPRO 300 UNITS/3 ML VIAL. SQ SCH ×6 (08:44→12:02)
[2018-10-15] MEDS: ALBUTEROL SULFATE 2.5 MG/3 ML NEBU. NEB SCH ×2 (08:50→12:11)
[2018-10-15] MEDS: BUDESONIDE 0.5 MG/2 ML NEBU. NEB SCH (08:50)
[2018-10-15] MEDS ORDERED: ASPIRIN CHEWABLE 81 MG TABLET. PO SCH (09:00)
[2018-10-15] MEDS ORDERED: FLUTICASONE 50MCG/NASAL SPRAY 16GM BOTTLE. NS SCH (09:00)
[2018-10-15] MEDS ORDERED: FUROSEMIDE 40 MG TABLET. PO SCH (09:00)
[2018-10-15] MEDS ORDERED: EZETIMIBE 10 MG TABLET. PO SCH (09:00)
[2018-10-15] MEDS ORDERED: amLODIPine BESYLATE 5 MG TABLET PO SCH (09:00)
[2018-10-15] MEDS ORDERED: LOSARTAN POTASSIUM 50 MG TABLET. PO SCH (09:00)
[2018-10-15] MEDS ORDERED: AMOX1TAB61 PO (10:27)
[2018-10-15] MEDS ORDERED: LACT1CAP19 PO (10:27)
[2018-10-15] MEDS ORDERED: guaiFENesin/CODEINE 100mg/10mg PO (10:34)
[2018-10-15] MEDS ORDERED: guaiFENesin/CODEINE 100mg/10mg 5 ML LIQUID PO PRN (10:45)
[2018-10-15 11:00] VITALS: BP 154/72
--- NOTE | 2018-10-15 14:46 | PDOC3 ---
Discharge Summary Visit Information Date of Admission: Oct 14, 2018 Date of Discharge: Oct 15, 2018 Final Diagnosis left leg cellulitis with elev CRP 116 chronic lymphedema, has not followed up in clinic as directed DM 2 ,, insulin req, unknown hgba1c COPD< GERD stable Obesity BMI 39.5 on disability, Problems Medical Problems: (1) Cellulitis, leg Status: Acute (2) Type 2 diabetes mellitus Status: Chronic Brief Hospital Course Allergies Allergies Coded Allergies Type Severity Reaction Last Updated Verified No Known Drug Allergies 06/07/13 No Vital Signs Vital Signs Date Time Temp Pulse Resp B/P (MAP) Pulse Ox O2 Delivery O2 Flow Rate FiO2 10/15/18 11:00 97.4 78 16 154/72 (99) 95 Room Air 97.4 Lab Results Laboratory Tests Test 10/14/18 12:35 10/14/18 16:38 10/14/18 20:35 10/15/18 03:30 White Blood Count 9.6 x10^3/uL (4.0-11.0) 8.3 x10^3/uL (4.0-11.0) Red Blood Count 4.16 x10^6/uL (3.50-5.40) 3.86 x10^6/uL (3.50-5.40) Hemoglobin 12.5 g/dL (12.0-15.5) 11.7 g/dL (12.0-15.5) Hematocrit 37.7 % (36.0-47.0) 35.4 % (36.0-47.0) Mean Corpuscular Volume 91 fL (79-100) 92 fL (79-100) Mean Corpuscular Hemoglobin 30 pg (25-35) 30 pg (25-35) Mean Corpuscular Hemoglobin Concent 33 g/dL (31-37) 33 g/dL (31-37) Red Cell Distribution Width 13.3 % (11.5-14.5) 13.3 % (11.5-14.5) Platelet Count 223 x10^3/uL (140-400) 196 x10^3/uL (140-400) Neutrophils (%) (Auto) 70 % (31-73) 67 % (31-73) Lymphocytes (%) (Auto) 20 % (24-48) 22 % (24-48) Monocytes (%) (Auto) 8 % (0-9) 9 % (0-9) Eosinophils (%) (Auto) 1 % (0-3) 2 % (0-3) Basophils (%) (Auto) 1 % (0-3) 1 % (0-3) Neutrophils # (Auto) 6.7 x10^3/uL (1.8-7.7) 5.5 x10^3/uL (1.8-7.7) Lymphocytes # (Auto) 1.9 x10^3/uL (1.0-4.8) 1.8 x10^3/uL (1.0-4.8) Monocytes # (Auto) 0.8 x10^3/uL (0.0-1.1) 0.8 x10^3/uL (0.0-1.1) Eosinophils # (Auto) 0.1 x10^3/uL (0.0-0.7) 0.2 x10^3/uL (0.0-0.7) Basophils # (Auto) 0.1 x10^3/uL (0.0-0.2) 0.0 x10^3/uL (0.0-0.2) Erythrocyte Sedimentation Rate 58 (0-25) Sodium Level 140 mmol/L (136-145) Potassium Level 4.2 mmol/L (3.5-5.1) Chloride Level 104 mmol/L (98-107) Carbon Dioxide Level 28 mmol/L (21-32) Anion Gap 8 (6-14) Blood Urea Nitrogen 11 mg/dL (7-20) Creatinine 0.7 mg/dL (0.6-1.0) Estimated GFR (Cockcroft-Gault) 87.2 BUN/Creatinine Ratio 16 (6-20) Glucose Level 109 mg/dL (70-99) Hemoglobin A1c 9.7 % (4.8-5.6) Calcium Level 10.3 mg/dL (8.5-10.1) Total Bilirubin 0.7 mg/dL (0.2-1.0) Aspartate Amino Transf (AST/SGOT) 20 U/L (15-37) Alanine Aminotransferase (ALT/SGPT) 39 U/L (14-59) Alkaline Phosphatase 126 U/L (46-116) C-Reactive Protein, Quantitative 116.7 mg/L (0-3.3) Total Protein 7.6 g/dL (6.4-8.2) Albumin 3.4 g/dL (3.4-5.0) Albumin/Globulin Ratio 0.8 (1.0-1.7) Glucose (Fingerstick) 94 mg/dL (70-99) 258 mg/dL (70-99) Test 10/15/18 03:35 10/15/18 07:18 10/15/18 11:44 Sodium Level 139 mmol/L (136-145) Potassium Level 4.6 mmol/L (3.5-5.1) Chloride Level 105 mmol/L (98-107) Carbon Dioxide Level 28 mmol/L (21-32) Anion Gap 6 (6-14) Blood Urea Nitrogen 19 mg/dL (7-20) Creatinine 1.0 mg/dL (0.6-1.0) Estimated GFR (Cockcroft-Gault) 57.8 BUN/Creatinine Ratio 19 (6-20) Glucose Level 283 mg/dL (70-99) Calcium Level 10.6 mg/dL (8.5-10.1) Total Bilirubin 0.4 mg/dL (0.2-1.0) Aspartate Amino Transf (AST/SGOT) 17 U/L (15-37) Alanine Aminotransferase (ALT/SGPT) 21 U/L (14-59) Alkaline Phosphatase 121 U/L (46-116) Total Protein 6.6 g/dL (6.4-8.2) Albumin 2.7 g/dL (3.4-5.0) Albumin/Globulin Ratio 0.7 (1.0-1.7) Glucose (Fingerstick) 297 mg/dL (70-99) 273 mg/dL (70-99) Laboratory Tests Test 10/14/18 16:38 10/14/18 20:35 10/15/18 03:30 10/15/18 03:35 Glucose (Fingerstick) 94 mg/dL (70-99) 258 mg/dL (70-99) White Blood Count 8.3 x10^3/uL (4.0-11.0) Red Blood Count 3.86 x10^6/uL (3.50-5.40) Hemoglobin 11.7 g/dL (12.0-15.5) Hematocrit 35.4 % (36.0-47.0) Mean Corpuscular Volume 92 fL (79-100) Mean Corpuscular Hemoglobin 30 pg (25-35) Mean Corpuscular Hemoglobin Concent 33 g/dL (31-37) Red Cell Distribution Width 13.3 % (11.5-14.5) Platelet Count 196 x10^3/uL (140-400) Neutrophils (%) (Auto) 67 % (31-73) Lymphocytes (%) (Auto) 22 % (24-48) Monocytes (%) (Auto) 9 % (0-9) Eosinophils (%) (Auto) 2 % (0-3) Basophils (%) (Auto) 1 % (0-3) Neutrophils # (Auto) 5.5 x10^3/uL (1.8-7.7) Lymphocytes # (Auto) 1.8 x10^3/uL (1.0-4.8) Monocytes # (Auto) 0.8 x10^3/uL (0.0-1.1) Eosinophils # (Auto) 0.2 x10^3/uL (0.0-0.7) Basophils # (Auto) 0.0 x10^3/uL (0.0-0.2) Sodium Level 139 mmol/L (136-145) Potassium Level 4.6 mmol/L (3.5-5.1) Chloride Level 105 mmol/L (98-107) Carbon Dioxide Level 28 mmol/L (21-32) Anion Gap 6 (6-14) Blood Urea Nitrogen 19 mg/dL (7-20) Creatinine 1.0 mg/dL (0.6-1.0) Estimated GFR (Cockcroft-Gault) 57.8 BUN/Creatinine Ratio 19 (6-20) Glucose Level 283 mg/dL (70-99) Calcium Level 10.6 mg/dL (8.5-10.1) Total Bilirubin 0.4 mg/dL (0.2-1.0) Aspartate Amino Transf (AST/SGOT) 17 U/L (15-37) Alanine Aminotransferase (ALT/SGPT) 21 U/L (14-59) Alkaline Phosphatase 121 U/L (46-116) Total Protein 6.6 g/dL (6.4-8.2) Albumin 2.7 g/dL (3.4-5.0) Albumin/Globulin Ratio 0.7 (1.0-1.7) Test 10/15/18 07:18 10/15/18 11:44 Glucose (Fingerstick) 297 mg/dL (70-99) 273 mg/dL (70-99) Brief Hospital Course Ms. Taylor is a 53 old [sex] who presented with [ ] Discharge Information Condition at Discharge: Improved Follow Up: Weeks Disposition/Orders: D/C to Home Scheduled Albuterol Sulfate (Ventolin Hfa Inhaler) 18 Gm Hfa.aer.ad, 2 PUFF INH Q4HRS for FOR ASTHMA, #1 Ref 0 Prescribed by: XOCHITL WELLINGTON DO on 03/03/18 0306 Last Action: Converted on 10/14/181417 by RUDY ARIAS Amlodipine Besylate (Norvasc) 5 Mg Tablet, 1 TAB PO DAILY, #30 Ref 1 Prescribed by: JOHAN RUSSELL on 02/16/17 1522 Last Action: Continued on 10/14/181417 by RUDY ARIAS Amoxicillin/Potassium Clav (Augmentin 875-125 Tablet) 1 Each Tablet, 1 TAB PO BID for cellulitis, #14 Prescribed by: JOHAN RUSSELL on 10/15/18 1027 Aspirin (Aspirin) 81 Mg Tab.chew, 81 MG PO DAILY, (Reported) Entered as Reported by: EDDIE GRIFFITH RPH on 02/04/15 1008 Last Action: Continued on 10/14/181417 by RUDY ARIAS Budesonide (Budesonide) 0.5 Mg/2 Ml Ampul.neb, 0.5 MG NEB RTBID for copd MDD 1, #60 Prescribed by: RUDY ARIAS on 06/11/18 1052 Last Action: Continued on 10/14/181417 by RUDY ARIAS Candesartan Cilexetil (Atacand) 32 Mg Tablet, 32 MG PO DAILY, (Reported) Entered as Reported by: EDDIE GRIFFITH RPH on 02/04/15 0957 Last Action: Converted on 10/14/181417 by RUDY ARIAS Ezetimibe (Zetia) 10 Mg Tablet, 10 MG PO DAILY, (Reported) Entered as Reported by: OLIVER TEJADA on 12/9/13 1748 Last Action: Continued on 10/14/181417 by RUDY ARIAS Fluticasone Propionate (Flonase Allergy Relief) 9.9 Ml [place].susp, 2 SPRAYS NS DAILY, #1 Prescribed by: TRAY ARMENDARIZ APRN on 11/27/16 2226 Last Action: Converted on 10/14/181417 by RUDY ARIAS Furosemide (Furosemide) 40 Mg Tablet, 40 MG PO DAILY, (Reported) Entered as Reported by: EDDIE GRIFFITH [facility] on 02/04/15 0955 Last Action: Continued on 10/14/181417 by RUDY ARIAS Insulin Aspart (Novolog) 100 Unit/1 Ml Vial, 30 UNIT SQ TIDWMEALS, (Reported) Entered as Reported by: CORINA MORENO on 02/07/171958 Last Action: Converted on 10/14/181417 by RUDY ARIAS Insulin Glargine,Hum.rec.anlog (Toujeo Solostar) 300 Unit/1 Ml Insuln.pen, 100 UNITS SQ DAILY08, (Reported) Entered as Reported by: MIA CIFUENTES on 06/28/17 0832 Last Action: Converted on 10/14/181417 by RUDY ARIAS Ipratropium [place] (Atrovent Hfa) 12.9 Gm Hfa.aer.ad, 2 PUFF IH QID, #12.9 Ref 0 Prescribed by: XOCHITL WELLINGTON DO on 03/03/18 0306 Last Action: Converted on 10/14/181417 by RUDY ARIAS Lactobacillus Rhamnosus Gg (Culturelle) 1 Each Cap.sprink, 1 CAP PO BID for gut health on antibiotic, #30 Prescribed by: JOHAN RUSSELL on 10/15/18 1027 Latanoprost (Xalatan) 2.5 Ml Drops, 2.5 ML EACHEYE QHS, (Reported) Entered as Reported by: CARMEL VILLANUEVA on 05/14/132135 Last Action: Continued on 10/14/181417 by RUDY ARIAS Metformin Hcl (Metformin Hcl) 1,000 Mg Tablet, 1,000 MG PO BID, (Reported) Entered as Reported by: OLIVER TEJADA on 02/09/131744 Last Action: Converted on 10/14/181417 by RUDY ARIAS Pantoprazole Sodium (Pantoprazole Sodium ) 40 Mg Tablet.dr, 40 MG PO DAILYAC, #30 Ref 1 Prescribed by: JOHAN RUSSELL on 02/04/151424 Last Action: Continued on 10/14/181417 by RUDY ARIAS Potassium Chloride (Potassium Chloride) 20 Meq Tablet.er, 20 MEQ PO DAILY, (Reported) Entered as Reported by: EDDIE GRIFFITH [facility] on 02/04/15 0955 Last Action: Converted on 10/14/181417 by RUDY ARIAS Rosuvastatin Calcium (Crestor) 40 Mg Tablet, 40 MG PO QHS, (Reported) Entered as Reported by: OLIVER TEJADA on 02/09/131747 Last Action: Converted on 10/14/181417 by RUDY ARIAS Scheduled PRN Albuterol Sulfate (Proair Respiclick) 90 Mcg Aer.pow.ba, 1 PUFF IH PRN Q6HRS PRN for SHORTNESS OF BREATH, #1 Prescribed by: Sallie Lipscomb APRN on 02/14/162146 Last Action: Converted on 10/14/181417 by RUDY ARIAS Hydrocodone/Chlorphen Polis (Hydrocodone-Chlorpheniram Susp) 5 Ml Amanda.er.12h, 5 ML PO PRN Q12HR PRN for COUGH for 5 Days, #60 Ref 0 Prescribed by: RIO JOSEPH on 05/11/17 0616 Last Action: Converted on 10/14/181417 by RUDY ARIAS [guaiFENesin/CODEINE 100mg/10mg] 5 ML LIQUID, 5 ML PO PRN Q6HRS PRN for COUGH, #75 Prescribed by: JOHAN RUSSELL on 10/15/18 1034 Discontinued Medications Hydrocodone/Apap 5-325 ([place] 5-325 Tablet) 1 Each Tablet, 1 TAB PO PRN Q6HRS PRN for PAIN, #8 Ref 0 Prescribed by: DANIELLE HONEYCUTT on 06/21/17 181 Last Action: HELD on 10/14/181417 by RUDY ARIAS Prednisone (Prednisone) 50 Mg Tablet, 1 TAB PO DAILY, #5 Prescribed by: Sallie Lipscomb APRN on 07/11/18 1825 Last Action: HELD on 10/14/18 1418 by RUDY ARIAS [employer] Nebulizer and Compressor (Procare Compressor Nebulizer) 1 Each Each, EACH MC, #1, (DME) Prescribed by: XOCHITL WELLINGTON DO on 03/03/18 0306 Patient Instructions Patient Instructions f/u lymphedema clinic time > 30 min face to face and exam JOHAN RUSSELL MD Oct 15, 2018 14:46
--- NOTE | 2018-10-15 14:52 | NUR ---
Discharge instructions reviewed with patient, verbalized understanding. Patient escorted out of hospital via ambulation by Adela JOHNSON.
[2018-10-15] MEDS ORDERED: LACTOBACILLUS RHAMNOSUS GG 1 CAPSULE. PO SCH (21:00)
== END 2018-10-15 15:01 | disposition home or self-care (01) ==
LOC: ER 12:09 → 4 NORTH 14:08
PROVIDERS: ADMIT Internal Medicine; ATTEND Internal Medicine
DX: L03.116 Cellulitis of left lower limb (principal); I89.0 Lymphedema, not elsewhere classified; J44.9 Chronic obstructive pulmonary disease, unspecified; E11.9 Type 2 diabetes mellitus without complications; E78.00 Pure hypercholesterolemia, unspecified; I10 Essential (primary) hypertension; E66.9 Obesity, unspecified; E78.5 Hyperlipidemia, unspecified; G47.30 Sleep apnea, unspecified; K21.9 Gastro-esophageal reflux disease without esophagitis; Z82.49 Family history of ischemic heart disease and other diseases of the circulatory system; Z68.39 Body mass index [BMI] 39.0-39.9, adult; Z90.710 Acquired absence of both cervix and uterus
CPT/HCPCS: 36415; 73590; 80053; 82962; 83036; 85025; 85651; 86140; 93970; 94640; 94760; 96365; 96366; 96372; 97165; 97535; 99284; G0378; J1815; J2543; J7613; J7626; J7644; G0379

== ENCOUNTER 2018-11-14 17:06 | Emergency (ER) | payer MEDICARE, OTHER ==
[~2018-11-14] VITALS: Ht 162.6 cm; Wt 107.0 kg
[~2018-11-14 17:06] MED LIST changes: -EZET10TA18 PO; +EZET10TA20 PO; +LACT1CAP19 PO; +guaiFENesin/CODEINE 100mg/10mg PO
[2018-11-14 17:32] VITALS: BP 180/79
[2018-11-14] MEDS ORDERED: NEOMY/BACITR/POLYMYXIN OINT PACKET. TP STA (17:34)
[2018-11-14] MEDS ORDERED: CIPR500T PO (17:44)
--- NOTE | 2018-11-14 17:44 | PHYS DOC ---
Past Medical History Past Medical History: Asthma, COPD, Diabetes-Type II, High Cholesterol, H ypertension, Pneumonia Additional Past Medical Histor: obesity, SLEEP APNEA Past Surgical History: Hysterectomy, Oophorectomy Additional Past Surgical Histo: Nose SX, RETINA SURGERY Alcohol Use: None Drug Use: None Adult General Chief Complaint Chief Complaint: COUGH HPI HPI Patient is a 53 year old female that presents stating that she's been having a cough and shortness of breath at night that has been ongoing for several weeks. The patient states she was evaluated for this at her primary care doctor's office was at her fifth and schedule for a sleep apnea test at a sleep clinic however that has not happened yet. She states that she does not feel short of breath on arrival to room it is only at night. The patient also states that 2 nights ago that she cut her left foot on her bed. Rates her pain is 5 out of 10 in severity. Patient has a history of COPD. Review of Systems Review of Systems Constitutional: Denies fever or chills [] Eyes: Denies change in visual acuity, redness, or eye pain [] HENT: Denies nasal congestion or sore throat [] Respiratory: Reports cough. Denies shortness of breath [] Cardiovascular: No additional information not addressed in HPI [] GI: Denies abdominal pain, nausea, vomiting, bloody stools or diarrhea [] : Denies dysuria or hematuria [] Musculoskeletal: Denies back pain or joint pain [] Integument: Denies rash or skin lesions [] Neurologic: Denies headache, focal weakness or sensory changes [] Endocrine: Denies polyuria or polydipsia [] Complete systems were reviewed and found to be within normal limits, except as documented in this note. Current Medications Current Medications Current Medications Medications (Trade) Dose Ordered Sig/Palak Start Time Stop Time Status Last Admin Dose Admin Neomycin/ Polymyxin/ Bacitracin (Triple Antibiotic Ointment) 1 pkt 1X STAT 11/14/18 17:34 11/14/18 17:36 DC 11/14/18 18:13 1 PKT Allergies Allergies Allergies Coded Allergies Type Severity Reaction Last Updated Verified No Known Drug Allergies 06/07/13 No Physical Exam Physical Exam Constitutional: Well developed, well nourished, no acute distress, non-toxic appearance. [] HENT: Normocephalic, atraumatic, bilateral external ears normal, oropharynx moist, no oral exudates, nose normal. [] Eyes: PERRLA, EOMI, conjunctiva normal, no discharge. [] Neck: Normal range of motion, no tenderness, supple, no stridor. [] Cardiovascular:Heart rate regular rhythm, no murmur [] Lungs & Thorax: Bilateral breath sounds clear to auscultation [] Abdomen: Bowel sounds normal, soft, no tenderness, no masses, no pulsatile masses. [] Skin: skin flap avulsion to left foot 0.25 cm. No erythema or exudate. Back: No tenderness, no CVA tenderness. [] Extremities: No tenderness, no cyanosis, no clubbing, ROM intact, no edema. [] Neurologic: Alert and oriented X 3, normal motor function, normal sensory function, no focal deficits noted. [] Psychologic: Affect normal, judgement normal, mood normal. [] Current Patient Data Vital Signs Vital Signs Date Time Temp Pulse Resp B/P (MAP) Pulse Ox O2 Delivery O2 Flow Rate FiO2 11/14/18 17:32 98.3 83 20 180/79 (112) 97 Room Air 98.3 EKG EKG [] Radiology/Procedures Radiology/Procedures [][facility] [address] [place], [place] [id number] IMAGING REPORT Signed PATIENT: BATSHEVA VASQUEZCOUNT: [id number] : 1965 LOCATION: ER AGE: 53 SEX: F EXAM STATUS: REG ER ORD. PHYSICIAN: BABY YEPEZ APRN REASON: cough PROCEDURE: CHEST PA & LATERAL Exam: Chest 2 views INDICATION: Cough TECHNIQUE: Frontal and lateral views of the chest Comparisons: 09/22/2018 FINDINGS: The cardiomediastinal silhouette and pulmonary vessels are within normal limits. Subtle patchy bibasilar airspace disease. IMPRESSION: Patchy bibasilar airspace disease may represent infectious process. Electronically signed by: Nikky Olsen MD (11/14/2018 6:17 PM) [id number] DICTATED and SIGNED BY: NIKKY OLSEN MD DATE: 11/14/181816 Course & Med Decision Making Course & Med Decision Making Pertinent Labs and Imaging studies reviewed. (See chart for details) Patient reports a cough, will obtain chest x-ray. Due to history of diabetes will put patient on Levaquin for wound on foot. Will also have nursing apply Neosporin and dress it. Will have patient follow up with pcp for further care. Chest x-ray could possibly show the beginning of Pneumonia per preliminary read by Dr. Gibson. Will cover for the foot and pneumonia with Levaquin. Patient is non-toxic and does not feel short of air at this time. Dragon Disclaimer Dragon Disclaimer This electronic medical record was generated, in whole or in part, using a voice recognition dictation system. Departure Departure Impression: Primary Impression: Visit for wound check Additional Impression: Pneumonia Disposition: HOME, SELF-CARE Condition: STABLE Referrals: CHI AGRAWAL MD (PCP) Patient Instructions: Wound Care, [id number] Additional Instructions: Thank you for visiting [facility]. We appreciate you trusting us with your care. If any additional problems come up don't hesitate to return to visit us. Please follow up with your primary care provider so they can plan additional care if needed and know about the problem that you had. If symptoms worsen come back to the Emergency Department. Any concerning symptoms that start such as chest pain, shortness of air, weakness or numbness on one side of the body, running high fevers or any other concerning symptoms return to the ER. You have been prescribed an antibiotic today prevent infection. Please take all of the antibiotic as directed. If the infection worsens, return to ER for additional care. Scripts Benzonatate (TESSALON PERLE) 100 Mg Capsule 1 CAP PO TID, #21 CAP Prov: ABBY YEPEZ APRN 11/14/18 Levofloxacin (LEVAQUIN) 750 Mg Tablet 1 TAB PO DAILY for 10 Days, #10 TAB Prov: ABBY YEPEZ APRN 11/14/18 Problem Qualifiers Additional Impression: Pneumonia Pneumonia type: due to unspecified organism Laterality: right Lung location: lower lobe of lung Qualified Codes: J18.1 - Lobar pneumonia, unspecified organism ABBY YEPEZ APRN Nov 14, 2018 17:44
--- NOTE | 2018-11-14 18:20 | RAD ---
Exam: Chest 2 views INDICATION: Cough TECHNIQUE: Frontal and lateral views of the chest Comparisons: 09/22/2018 FINDINGS: The cardiomediastinal silhouette and pulmonary vessels are within normal limits. Subtle patchy bibasilar airspace disease. IMPRESSION: Patchy bibasilar airspace disease may represent infectious process. Electronically signed by: Nikky Godinez MD (11/14/2018 6:17 PM) [facility]
[2018-11-14] MEDS ORDERED: LEVO750T31 PO (18:26)
[2018-11-14] MEDS ORDERED: BENZ100C PO (18:35)
== END 2018-11-14 18:58 | disposition home or self-care (01) ==
LOC: ER 17:06
DX: J18.1 Lobar pneumonia, unspecified organism (principal); S91.302D Unspecified open wound, left foot, subsequent encounter; X58.XXXD Exposure to other specified factors, subsequent encounter; J44.9 Chronic obstructive pulmonary disease, unspecified; E11.9 Type 2 diabetes mellitus without complications; E78.00 Pure hypercholesterolemia, unspecified; I10 Essential (primary) hypertension; Z90.710 Acquired absence of both cervix and uterus; E66.9 Obesity, unspecified; Z68.41 Body mass index [BMI] 40.0-44.9, adult
CPT/HCPCS: 71046; 99284

== ENCOUNTER 2018-11-28 01:22 | Inpatient (IN) | payer MEDICARE ==
[~2018-11-28] VITALS: Ht 162.6 cm; Wt 104.8 kg
[~2018-11-28 01:22] MED LIST changes: +CIPR500T PO; +DOXY-96 PO; -DOXY100T9 PO
[2018-11-28 02:04] LABS: BASO # 0.1 x10^3/uL (0.0-0.2); BASO % 1 % (0-3); EOS # 0.1 x10^3/uL (0.0-0.7); EOS % 0 % (0-3); HEMOGLOBIN 13.2 g/dL (12.0-15.5); LYMPH # 1.5 x10^3/uL (1.0-4.8); LYMPH % 9 % (24-48); MEAN CORPUSCULAR HEMOGLOBIN 30 pg (25-35); MEAN CORPUSCULAR HGB CONC 33 g/dL (31-37); MEAN CORPUSCULAR VOLUME 90 fL (79-100); MONO # 0.9 x10^3/uL (0.0-1.1); MONO % 5 % (0-9); NEUT # 14.9 x10^3/uL (1.8-7.7); NEUT % 85 % (31-73); PLATELET COUNT 218 x10^3/uL (140-400); RED BLOOD COUNT 4.46 x10^6/uL (3.50-5.40); RED CELL DISTRIBUTION WIDTH 13.5 % (11.5-14.5); WHITE BLOOD COUNT 17.5 x10^3/uL (4.0-11.0)
[2018-11-28 02:11] LABS: CALCIUM 11.4 mg/dL (8.5-10.1); CREATININE 0.9 mg/dL (0.6-1.0); GFR 65.2; POTASSIUM 4.5 mmol/L (3.5-5.1)
[2018-11-28 02:16] LABS: ALBUMIN 3.7 g/dL (3.4-5.0); ALBUMIN/GLOBULIN RATIO 0.8 (1.0-1.7); TOTAL BILIRUBIN 0.4 mg/dL (0.2-1.0); TOTAL PROTEIN 8.2 g/dL (6.4-8.2)
--- NOTE | 2018-11-28 02:18 | RAD ---
EXAM: CHEST 1 VIEW History: Cough COMPARISON: 11/14/2018 TECHNIQUE: Single portable radiograph of the chest FINDINGS: The cardiac silhouette is unremarkable. The lungs are clear bilaterally. The costophrenic sulci are clear and well demarcated. IMPRESSION: No radiographic evidence of an acute cardiopulmonary process. Electronically signed by: Alon Inman MD (11/28/2018 2:15 AM) [facility]
[2018-11-28] MEDS ORDERED: cefTRIAXone IV Push 1 GM VIAL. IVP ONE (02:30)
[2018-11-28] MEDS ORDERED: IV NORMAL SALINE 500ML BAG 500 ML IV ONE (02:30)
[2018-11-28] MEDS ORDERED: IPRATRPIUM/ALBUTEROL 0.5/2.5MG 3 ML NEBU. NEB ONE (02:30)
[2018-11-28] MEDS ORDERED: fentaNYL PF VIAL 100 MCG/2 ML VIAL IV ONE (02:30)
[2018-11-28] MEDS ORDERED: methylPREDNISolone SOD SUCC PF 125 MG/2 ML VIAL. IV ONE (02:30)
[2018-11-28 02:43] LABS: % BANDS 1 % (0-9); % LYMPHS 7 % (24-48); % MONOS 6 % (0-10); % SEGS 86 % (35-66); PLT ESTIMATE ADEQUATE (ADEQUATE)
--- NOTE | 2018-11-28 02:46 | PHYS DOC ---
Past Medical History Past Medical History: Asthma, COPD, Diabetes-Type II, Hypertension, Pneumonia Additional Past Medical Histor: SLEEP APNEA Past Surgical History: Hysterectomy, Oophorectomy Additional Past Surgical Histo: Nose SX, RETINA SURGERY Alcohol Use: None Drug Use: None Adult General Chief Complaint Chief Complaint: Congestion HPI HPI Patient is a 53 year old f p/w cough sob weakness subjective fever SHE Took her antibiotics she completed them she has not yet had any steroids. she feels like she never got better in fact she feels worse no chest pain does have upper back pain from coughing and with coughing she tells me Review of Systems Review of Systems Cardiovascular: No additional information not addressed in HPI [] GI: Denies abdominal pain, nausea, vomiting, bloody stools or diarrhea [] : Denies dysuria or hematuria [] Musculoskeletal: Integument: Denies rash or skin lesions [] Neurologic: All other systems were reviewed and found to be within normal limits, except as documented in this note. Current Medications Current Medications Current Medications Medications (Trade) Dose Ordered Sig/Palak Start Time Stop Time Status Last Admin Dose Admin Albuterol/ Ipratropium (Duoneb) 3 ml 1X ONCE 11/28/18 02:30 11/28/18 02:31 DC 11/28/18 01:57 3 ML Ceftriaxone Sodium (Rocephin) 1 gm 1X ONCE 11/28/18 02:30 11/28/18 02:31 DC Fentanyl Citrate (Fentanyl 2ml Vial) 50 mcg 1X ONCE 11/28/18 02:30 11/28/18 02:31 DC Methylprednisolone Sodium Succinate (SOLU-Medrol 125MG VIAL) 125 mg 1X ONCE 11/28/18 02:30 11/28/18 02:31 DC Sodium Chloride 500 ml @ 500 mls/hr 1X ONCE 11/28/18 02:30 11/28/18 03:29 Allergies Allergies Allergies Coded Allergies Type Severity Reaction Last Updated Verified No Known Drug Allergies 06/07/13 No Physical Exam Physical Exam Constitutional: Well developed, well nourished, no acute distress, non-toxic juliann earance. [] HENT: Normocephalic, atraumatic, bilateral external ears normal, oropharynx moist, no oral exudates, nose normal. [] Eyes: PERRLA, EOMI, conjunctiva normal, no discharge. [] Neck: Normal range of motion, no tenderness, supple, no stridor. [] Cardiovascular:Heart rate regular rhythm, mild tachycardia noted Lungs & Thorax: wheezing noted b/l rhonchi noted more on the right. Abdomen: Bowel sounds normal, soft, no tenderness, no masses, no pulsatile masses. [] Skin: Warm, dry, no erythema, no rash. [] Back: No tenderness, no CVA tenderness. [] Extremities: No tenderness, no cyanosis, no clubbing, ROM intact, no edema. [] Neurologic: Alert and oriented X 3, normal motor function, normal sensory function, no focal deficits noted. [] Psychologic: Affect normal, judgement normal, mood normal. [] Current Patient Data Vital Signs Vital Signs Date Time Temp Pulse Resp B/P (MAP) Pulse Ox O2 Delivery O2 Flow Rate FiO2 11/28/18 01:56 96 Room Air 11/28/18 01:56 99.1 106 22 162/105 (124) 99.1 Lab Values Laboratory Tests Test 11/28/18 01:51 White Blood Count 17.5 x10^3/uL (4.0-11.0) H Red Blood Count 4.46 x10^6/uL (3.50-5.40) Hemoglobin 13.2 g/dL (12.0-15.5) Hematocrit 40.0 % (36.0-47.0) Mean Corpuscular Volume 90 fL (79-100) Mean Corpuscular Hemoglobin 30 pg (25-35) Mean Corpuscular Hemoglobin Concent 33 g/dL (31-37) Red Cell Distribution Width 13.5 % (11.5-14.5) Platelet Count 218 x10^3/uL (140-400) Neutrophils (%) (Auto) 85 % (31-73) H Lymphocytes (%) (Auto) 9 % (24-48) L Monocytes (%) (Auto) 5 % (0-9) Eosinophils (%) (Auto) 0 % (0-3) Basophils (%) (Auto) 1 % (0-3) Neutrophils # (Auto) 14.9 x10^3/uL (1.8-7.7) H Lymphocytes # (Auto) 1.5 x10^3/uL (1.0-4.8) Monocytes # (Auto) 0.9 x10^3/uL (0.0-1.1) Eosinophils # (Auto) 0.1 x10^3/uL (0.0-0.7) Basophils # (Auto) 0.1 x10^3/uL (0.0-0.2) Platelet Estimate Pending Sodium Level 140 mmol/L (136-145) Potassium Level 4.5 mmol/L (3.5-5.1) Chloride Level 103 mmol/L (98-107) Carbon Dioxide Level 31 mmol/L (21-32) Anion Gap 6 (6-14) Blood Urea Nitrogen 15 mg/dL (7-20) Creatinine 0.9 mg/dL (0.6-1.0) Estimated GFR (Cockcroft-Gault) 65.2 BUN/Creatinine Ratio 17 (6-20) Glucose Level 248 mg/dL (70-99) H Lactic Acid Level 1.8 mmol/L (0.4-2.0) Calcium Level 11.4 mg/dL (8.5-10.1) H Total Bilirubin 0.4 mg/dL (0.2-1.0) Aspartate Amino Transferase (AST) 17 U/L (15-37) Alanine Aminotransferase (ALT) 24 U/L (14-59) Alkaline Phosphatase 141 U/L (46-116) H Troponin I Quantitative < 0.017 ng/mL (0.000-0.055) CJ-Pjp-S-Type Natriuretic Peptide 24 pg/mL (0-124) Total Protein 8.2 g/dL (6.4-8.2) Albumin 3.7 g/dL (3.4-5.0) Albumin/Globulin Ratio 0.8 (1.0-1.7) L Laboratory Tests 11/28/18 01:51 Laboratory Tests 11/28/18 01:51 EKG EKG sinus tach rate 109 no acute ischemic changes noted[] Radiology/Procedures Radiology/Procedures [] Impressions: History: Cough COMPARISON: 11/14/2018 TECHNIQUE: Single portable radiograph of the chest FINDINGS: The cardiac silhouette is unremarkable. The lungs are clear bilaterally. The costophrenic sulci are clear and well demarcated. IMPRESSION: No radiographic evidence of an acute cardiopulmonary process. Electronically signed by: Alon Inman MD (11/28/2018 2:15 AM) [id number] DICTATED and SIGNED BY: ALON INMAN MD DATE: 11/28/18 0215 Course & Med Decision Making Course & Med Decision Making Pertinent Labs and Imaging studies reviewed. (See chart for details) 53-year-old female presenting with history of hypertension diabetes she tells me COPD presenting with cough and body aches subjective fever mild tachycardia wheezing gave nebs continued wheezing leukocytosis noted chest x-ray read out as negative I suspect there may be a subtle right basilar pneumonia persisting antibiotics were given steroids given given the persistent wheezing patient's symptoms despite outpatient treatment admission will be requested service of Dr. Elliott lactic acid normal pressure is good in the emergency room Dragon Disclaimer Dragon Disclaimer This electronic medical record was generated, in whole or in part, using a voice recognition dictation system. Departure Departure Impression: Primary Impression: Asthma exacerbation Disposition: ADMITTED INPATIENT Admitting Physician: ALISSON Condition: STABLE Referrals: CHI AGRAWAL MD (PCP) SEAN INMAN MD Nov 28, 2018 02:46
[2018-11-28] MEDS ORDERED: ONDANSETRON PF 4 MG/2 ML VIAL. IV ONE (03:30)
[2018-11-28 04:13] LABS: BILIRUBIN,URINE NEGATIVE (NEG); CLARITY,URINE CLEAR; COLOR,URINE YELLOW; NITRITE,URINE NEGATIVE (NEG); PH,URINE 6.5; PROTEIN,URINE NEGATIVE (NEG-TRACE); UROBILINOGEN,URINE 0.2 mg/dL (0.2 mg/dL)
[2018-11-28 04:23] LABS: SQUAMOUS EPITHELIAL CELL,UR MANY /LPF
[2018-11-28 04:24] LABS: BACTERIA,URINE 0 /HPF (0-FEW); RBC,URINE RARE /HPF (0-2)
[2018-11-28 04:28] VITALS: BP 141/67
--- NOTE | 2018-11-28 04:30 | NUR ---
Admit from ED via WC. A/O x 4. VSS. Ambulates from WC to bed with steady gait. Patient has SOA. Dx Nov 14, 2018 with pneumonia. Just completed her ABx but does not feel better. Has O2 2L NC in place. Patient uses c-pap at [facility]. Orientated to POC and unit. Verbalized understanding. Resting in bed with call light at hand.
[2018-11-28 04:31] LABS: INFLUENZA A PATIENT NEGATIVE (NEGATIVE); INFLUENZA B PATIENT NEGATIVE (NEGATIVE)
[2018-11-28 07:00] VITALS: BP 163/75
--- NOTE | 2018-11-28 07:16 | EKG ---
[facility] [address] [place] [address] Test Date: 2018-11-28 Test Time: 02:04:19 Pat Name: BATSHEVA VASQUEZ Department: Room: 204 1 Gender: F Notereader: : 1965 Requested By: SEAN INMAN Order Number: [id number] Reading MD: Puneet Medina MD Measurements Intervals [place] Rate: 109 P: 39 SD: 122 QRS: -3 QRSD: 74 T: -2 QT: 288 QTc: 389 Interpretive Statements SINUS TACHYCARDIA NON-SPECIFIC ST/T CHANGES Electronically Signed On 12-09-2018 10:00:49 CDT by Puneet Medina MD
[2018-11-28] MEDS: IPRATRPIUM/ALBUTEROL 0.5/2.5MG 3 ML NEBU. NEB SCH ×4 (07:48→19:49)
[2018-11-28] MEDS ORDERED: FLU VAX QS 2019-20 (36MOS+)/PF 0.5 ML SYRINGE. VAX IM ONE (09:00)
[2018-11-28] MEDS ORDERED: [UNRECOGNIZED DRUG - OTHER] PO PRN (10:00)
[2018-11-28] MEDS ORDERED: HYDROCODONE PO PRN (10:00)
[2018-11-28] MEDS ORDERED: ALBUTEROL SULFATE 2.5 MG/3 ML NEBU. NEB PRN (10:30)
[2018-11-28] MEDS ORDERED: guaiFENesin/CODEINE 100mg/10mg 5 ML LIQUID PO PRN (10:30)
[2018-11-28 11:00] VITALS: BP 168/80
[2018-11-28] MEDS: BENZONATATE 100 MG CAPSULE. PO SCH ×3 (11:00→21:32)
[2018-11-28] MEDS: PANTOPRAZOLE 40 MG TABLET.DR. PO SCH (11:14)
[2018-11-28] MEDS: FUROSEMIDE 40 MG TABLET. PO SCH (11:14)
[2018-11-28] MEDS: LOSARTAN POTASSIUM 50 MG TABLET. PO SCH (11:14)
[2018-11-28] MEDS: ASPIRIN CHEWABLE 81 MG TABLET. PO SCH (11:14)
[2018-11-28] MEDS: metFORMIN 500 MG TABLET PO SCH ×2 (11:14→17:15)
[2018-11-28] MEDS: POTASSIUM CHLORIDE 20 MEQ TABLET.ER. PO SCH (11:15)
[2018-11-28] MEDS: EZETIMIBE 10 MG TABLET. PO SCH (11:15)
[2018-11-28] MEDS: FLUTICASONE 50MCG/NASAL SPRAY 16GM BOTTLE. NS SCH (11:15)
[2018-11-28] MEDS: amLODIPine BESYLATE 5 MG TABLET PO SCH (11:17)
[2018-11-28] MEDS: INSULIN LISPRO 300 UNITS/3 ML VIAL. SQ SCH ×3 (11:42→21:40)
--- NOTE | 2018-11-28 11:52 | HP ---
ADMIT DATE: 11/28/2018 CHIEF COMPLAINT: Shortness of breath. HISTORY OF PRESENT ILLNESS: The patient is a pleasant 49-year-old female who never smoked. She presented with shortness of breath and cough last night. She also had some subjective fevers. She took some [id number] meds and some antibiotics that she had around the house, but symptoms did not improve. We did a chest x-ray, it shows no radiographic evidence of any acute disease, but clinically she seems to have a COPD exacerbation. I have discussed the case with the ER physician. We are going to admit the patient, give her steroids, breathing treatments and oxygen, and consult Pulmonary Medicine. PAST MEDICAL HISTORY: COPD, asthma, diabetes, hypertension, pneumonia, obstructive sleep apnea, hysterectomy, oophorectomy, retinal surgery. ALLERGIES: None. FAMILY HISTORY: Asthma. SOCIAL HISTORY: She does not drink, smoke or take drugs. MEDICATIONS: Reviewed, please refer to the MRAD. REVIEW OF SYSTEMS: GENERAL: No history of weight change, weakness or fevers. SKIN: No bruising, hair changes or rashes. EYES: No blurred, double or loss of vision. NOSE AND THROAT: No history of nosebleeds, hoarseness or sore throat. HEART: No history of palpitations, chest pain or shortness of breath on exertion. LUNGS: The patient complains of shortness of breath and wheezing. GASTROINTESTINAL: Denies changes in appetite, nausea, vomiting, diarrhea or constipation. GENITOURINARY: No history of frequency, urgency, hesitancy or nocturia. NEUROLOGIC: Denies history of numbness, tingling, tremor or weakness. PSYCHIATRIC: No history of panic, anxiety or depression. ENDOCRINE: No history of heat or cold intolerance, polyuria or polydipsia. EXTREMITIES: Denies muscle weakness, joint pain, pain on walking or stiffness. PHYSICAL EXAMINATION: VITALS: Within normal limits and are stable. GENERAL: No apparent distress. Alert and oriented. HEENT: Head is normocephalic, atraumatic, pupils were equally round and reactive to light and accommodation. NECK: Supple, no JVD, no thyromegaly was noted. LUNGS: She has diffuse wheezing with decreased breath sounds. HEART: RRR, S1, S2 present. Peripheral pulses intact, no obvious murmurs were noted. ABDOMEN: Soft, nontender. Positive bowel sounds no organomegaly, normal bowel sounds. EXTREMITIES: Without any cyanosis, clubbing, or edema. Pedal pulses intact, Homans sign is negative. NEUROLOGIC: Normal speech, normal tone. A & O x3, moves all extremities, no obvious focal deficits. PSYCHIATRIC: Normal affect, normal mood. Stable. SKIN: No ulcerations or rashes, good skin turgor, no jaundice. VASCULAR: Good capillary refill, neurovascular bundle appears to be intact. LABORATORY DATA: White count 17. ASSESSMENT AND PLAN: Chronic obstructive pulmonary disease and asthma exacerbation. The patient has been admitted. We will give her IV steroids, breathing treatments, oxygen. Consult Pulmonary. DVT prophylaxis, home meds. PROGNOSIS: Guarded. NIXON KHOURY DO DR: MORRIS/zoya JOB#: [id number] / [id number]
--- NOTE | 2018-11-28 13:06 | NUR ---
SS following for discharge planning. SS reviewed pt chart. Pt is from home with spouse and is currently requiring oxygen. No discharge needs noted at this time. SS will continue to follow for discharge planning.
[2018-11-28 15:00] VITALS: BP 170/81
[2018-11-28] MEDS ORDERED: DEXTROSE 50% 25 GM / 50ML DISP.SYRIN. IV PRN (18:45)
[2018-11-28] MEDS ORDERED: diphenhydrAMINE HCL 25 MG CAPSULE PO PRN (18:45)
[2018-11-28 19:00] VITALS: BP 149/69
[2018-11-28] MEDS: BUDESONIDE 0.5 MG/2 ML NEBU. NEB SCH (20:00)
[2018-11-28] MEDS ORDERED: ACETAMINOPHEN 325 MG TABLET. PO PRN (20:30)
[2018-11-28] MEDS: HYDROcodone/APAP 5/325MG 1 TAB TABLET PO PRN (20:42)
[2018-11-28] MEDS ORDERED: INSULIN GLARGINE SYRINGE. SQ SCH (21:00)
[2018-11-28] MEDS ORDERED: ATORVASTATIN CALCIUM 40 MG TABLET. PO SCH (21:00)
[2018-11-28] MEDS ORDERED: LATANOPROST 0.005% OPHTH SOLUTION 2.5ML BOTTLE. OU SCH (21:00)
[2018-11-28 23:00] VITALS: BP 137/56
[2018-11-29] MEDS: HYDROcodone/APAP 5/325MG 1 TAB TABLET PO PRN (02:49)
[2018-11-29 02:57] VITALS: BP 122/57
[2018-11-29] MEDS ORDERED: cefTRIAXone IV Push 1 GM VIAL. IVP SCH (03:00)
[2018-11-29 07:00] VITALS: BP 151/73
[2018-11-29] MEDS: ASPIRIN CHEWABLE 81 MG TABLET. PO SCH (08:30)
[2018-11-29] MEDS: POTASSIUM CHLORIDE 20 MEQ TABLET.ER. PO SCH (08:30)
[2018-11-29] MEDS: metFORMIN 500 MG TABLET PO SCH (08:30)
[2018-11-29] MEDS: PANTOPRAZOLE 40 MG TABLET.DR. PO SCH (08:30)
[2018-11-29] MEDS: BENZONATATE 100 MG CAPSULE. PO SCH ×2 (08:31→14:00)
[2018-11-29] MEDS: FUROSEMIDE 40 MG TABLET. PO SCH (08:31)
[2018-11-29] MEDS: EZETIMIBE 10 MG TABLET. PO SCH (08:31)
[2018-11-29] MEDS: amLODIPine BESYLATE 5 MG TABLET PO SCH (08:31)
[2018-11-29] MEDS: LOSARTAN POTASSIUM 50 MG TABLET. PO SCH (08:32)
[2018-11-29] MEDS: FLUTICASONE 50MCG/NASAL SPRAY 16GM BOTTLE. NS SCH (08:32)
[2018-11-29] MEDS: INSULIN LISPRO 300 UNITS/3 ML VIAL. SQ SCH ×4 (08:42→12:30)
[2018-11-29] MEDS: BUDESONIDE 0.5 MG/2 ML NEBU. NEB SCH (09:04)
[2018-11-29] MEDS: IPRATROPIUM BROMIDE 0.5 MG/2.5 ML NEBU. NEB SCH ×2 (09:04→12:38)
[2018-11-29 10:42] LABS: ALBUMIN 2.9 g/dL (3.4-5.0); ALBUMIN/GLOBULIN RATIO 0.7 (1.0-1.7); CALCIUM 10.7 mg/dL (8.5-10.1); CREATININE 0.9 mg/dL (0.6-1.0); GFR 65.2; POTASSIUM 4.6 mmol/L (3.5-5.1); TOTAL BILIRUBIN 0.2 mg/dL (0.2-1.0); TOTAL PROTEIN 6.8 g/dL (6.4-8.2)
[2018-11-29 10:51] VITALS: BP 142/69
--- NOTE | 2018-11-29 12:42 | PDOC ---
[employer] PROGRESS NOTE Chief Complaint Chief Complaint Asthma exacerbation. Shortness of breath History of Present Illness History of Present Illness 11/29/18 Pt seen and examined at bedside Pt appeared better and was not breathing heavily Pt eager to go home Chart and labs reviewed D/w RN Vitals/I&O Vitals/I&O: Vital Signs Date Time Temp Pulse Resp B/P (MAP) Pulse Ox O2 Delivery O2 Flow Rate FiO2 11/29/18 10:51 97.7 78 18 142/69 (93) 96 Nasal Cannula 2.5 97.7 I & O 11/28/18 11/28/18 11/29/18 15:00 23:00 07:00 Intake Total 300 ml 60 ml 360 ml Output Total 250 ml 300 ml Balance 300 ml -190 ml 60 ml Physical Exam General: Alert, Oriented X3, Cooperative, No acute distress Heart: Regular rate, Normal S1, Normal S2 Lungs: Clear Extremities: No clubbing, No edema, Normal pulses Labs Labs: Laboratory Tests Test 11/28/18 16:59 11/28/18 20:47 11/29/18 07:50 11/29/18 10:11 Glucose (Fingerstick) 414 mg/dL (70-99) 367 mg/dL (70-99) 299 mg/dL (70-99) Sodium Level 137 mmol/L (136-145) Potassium Level 4.6 mmol/L (3.5-5.1) Chloride Level 102 mmol/L (98-107) Carbon Dioxide Level 29 mmol/L (21-32) Anion Gap 6 (6-14) Blood Urea Nitrogen 19 mg/dL (7-20) Creatinine 0.9 mg/dL (0.6-1.0) Estimated GFR (Cockcroft-Gault) 65.2 BUN/Creatinine Ratio 21 (6-20) Glucose Level 316 mg/dL (70-99) Calcium Level 10.7 mg/dL (8.5-10.1) Total Bilirubin 0.2 mg/dL (0.2-1.0) Aspartate Amino Transf (AST/SGOT) 11 U/L (15-37) Alanine Aminotransferase (ALT/SGPT) 21 U/L (14-59) Alkaline Phosphatase 112 U/L (46-116) Total Protein 6.8 g/dL (6.4-8.2) Albumin 2.9 g/dL (3.4-5.0) Albumin/Globulin Ratio 0.7 (1.0-1.7) Test 11/29/18 11:30 Glucose (Fingerstick) 177 mg/dL (70-99) Review of Systems Review of Systems: Pt denies fever Pt denies chest pain Assessment and Plan Assessmemt and Plan Problems Medical Problems: (1) Asthma exacerbation Status: Acute Assessment Asthma exacerbation Plan Discharge in progress Prescriptions for Medrol, Augmentin, and combivent Reconcile home meds DVT prophylaxis Full code Comment Review of Relevant I have reviewed the following items av (where applicable) has been applied. Medications: Current Medications Medications (Trade) Dose Ordered Sig/Palak Route PRN Reason Start Time Stop Time Status Last Admin Dose Admin Budesonide (Pulmicort) 0.5 mg RTBID NEB 11/28/18 20:00 11/29/18 09:04 Latanoprost (Xalatan) 1 drop QHS OU 11/28/18 21:00 11/28/18 21:32 Insulin Glargine (Lantus Syringe) 80 unit QHS SQ 11/28/18 21:00 11/28/18 21:38 Ipratropium [place] (Atrovent) 0.5 mg RTQID NEB 11/29/18 08:00 11/29/18 09:04 Atorvastatin Calcium (Lipitor) 80 mg QHS PO 11/28/18 21:00 11/28/18 21:32 Ceftriaxone Sodium (Rocephin) 1 gm Q24H IVP 11/29/18 03:00 11/29/18 02:49 Insulin Human Lispro (HumaLOG) 0-9 UNITS TIDWMEALS SQ 11/28/18 19:00 11/29/18 12:30 Acetaminophen/ Hydrocodone Bitart (Lortab 5/325) 2 tab PRN Q4HRS PRN PO PAIN 11/28/18 20:30 11/29/18 02:49 NIXON KHOURY III DO Nov 29, 2018 12:42
[2018-11-29] MEDS ORDERED: METH4TAB2 PO (14:42)
[2018-11-29] MEDS ORDERED: AMOX1TAB61 PO (14:42)
[2018-11-29] MEDS ORDERED: IPRA4AER IH (14:43)
--- NOTE | 2018-11-29 16:34 | NUR ---
Discharge Note: BATSHEVA VASQUEZ [address] [place] [address] Discharge instructions and discharge home medications reviewed with Patient and a copy given. All questions have been answered and understanding verbalized. The following instructions and handouts were given: Asthma Discontinued IV line Patient discharged to home with self care via wheelchair
[2018-11-29] MEDS ORDERED: LACTOBACILLUS RHAMNOSUS GG 1 CAPSULE. PO SCH (21:00)
--- NOTE | 2018-11-30 13:07 | DS ---
DATE OF DISCHARGE: 11/29/2018 ADMISSION DIAGNOSES: 1. Chronic obstructive pulmonary disease exacerbation. 2. Asthma. DISCHARGE DIAGNOSIS: Resolving asthma. HOSPITAL COURSE: The patient is a pleasant middle-aged female, who presented with asthma/chronic obstructive pulmonary disease exacerbation. We gave her intravenous steroids, breathing treatments, oxygen, and empiric antibiotics. Yesterday, she looked great. We discharged to home. DISPOSITION: Home. ACTIVITY: As tolerated. DIET: Low sodium. MEDICATIONS: Please see MRAD. TOTAL TIME: 33 minutes. NIXON KHOURY DO DR: MORRIS/zoya JOB#: [id number] / [id number]
== END 2018-11-29 16:48 | disposition home or self-care (01) | DRG 202 ==
LOC: ER 01:22 → 2 NORTH 02:40
PROVIDERS: ADMIT Family Medicine; ATTEND Family Medicine
DX: J45.901 Unspecified asthma with (acute) exacerbation (principal); J44.1 Chronic obstructive pulmonary disease with (acute) exacerbation; E11.9 Type 2 diabetes mellitus without complications; G47.33 Obstructive sleep apnea (adult) (pediatric); I10 Essential (primary) hypertension; Z82.5 Family history of asthma and other chronic lower respiratory diseases; Z90.710 Acquired absence of both cervix and uterus
CPT/HCPCS: 36415; 71045; 80053; 81001; 82962; 83605; 83690; 83880; 84484; 85007; 85025; 87040; 87086; 87804; 90471; 90686; 93005; 94640; 96361; 96374; 96375; J0696; J1815; J2405; J2930; J3010; J7040; J7620; J7626; J7644; 99285-25; G0378

== ENCOUNTER 2019-01-20 13:48 | Emergency (ER) | payer MEDICARE ==
[~2019-01-20] VITALS: Ht 162.6 cm; Wt 108.0 kg
[~2019-01-20 13:48] MED LIST changes: +IPRA4AER IH; +METH4TAB2 PO
[2019-01-20 14:16] VITALS: BP 148/70
--- NOTE | 2019-01-20 14:30 | PHYS DOC ---
Past Medical History Past Medical History: Asthma, Bronchitis, COPD, Diabetes-Type II, High Ch olesterol, Hypertension, Pneumonia Additional Past Medical Histor: SLEEP APNEA, SLEEP APNEA (EVELYN DONAHUE NP) Past Surgical History: Hysterectomy, Oophorectomy Additional Past Surgical Histo: Nose SX, RETINA SURGERY (EVELYN DONAHUE NP) Alcohol Use: None Drug Use: None (EVELYN DONAHUE NP) Adult General Chief Complaint Chief Complaint: SHORTNESS OF BREATH HPI HPI Patient is a 53 year old female who presents with the complaint "I know I have pneumonia again". Reports 3 day hx of non-productive cough, runny nose and congestion, intermittent sore throat along with sore chest wall, abdominal muscles from coughing. Patient reports that she had chills last evening but denies known fever. Denies any known sick contacts. Denies abd pain, n/v/d, or chest pain. Denies SOA, respiratory distress. (EVELYN DONAHUE NP) Review of Systems Review of Systems Constitutional: Denies fever but complains of chills and fatigue. Eyes: Denies change in visual acuity, redness, or eye pain. HENT: Complains of nasal congestion/runny nose. Denies sore throat. Respiratory: Reports non-productive cough, worse at night. Denies shortness of breath. Cardiovascular: Denies chest pain. Denies palpitation. GI: Denies abdominal pain, nausea, vomiting, bloody stools or diarrhea . : Denies dysuria or hematuria Musculoskeletal: Denies back pain or joint pain Integument: Denies rash or skin lesions Neurologic: Complains of headache. Denies focal weakness or sensory changes Endocrine: Denies polyuria or polydipsia All other systems were reviewed and found to be within normal limits, except as documented in this note. (EVELYN DONAHUE NP) Current Medications Current Medications Current Medications Medications (Trade) Dose Ordered Sig/Palak Start Time Stop Time Status Last Admin Dose Admin Albuterol/ Ipratropium (Duoneb) 3 ml 1X ONCE 01/20/19 15:30 01/20/19 15:31 DC 01/20/19 15:30 3 ML (ABBY BLANCAS DO) Allergies Allergies Allergies Coded Allergies Type Severity Reaction Last Updated Verified No Known Drug Allergies 06/07/13 No (ABBY BLANCAS DO) Physical Exam Physical Exam Constitutional: Well developed, obese. No acute distress, non-toxic appearance. HENT: Normocephalic, atraumatic, bilateral external ears normal, oropharynx moist, no oral exudates, nose normal. Eyes: PERRLA, EOMI, conjunctiva normal, no discharge. Neck: Normal range of motion, no tenderness, supple, no stridor. Cardiovascular:Heart rate regular rhythm, no murmur Lungs & Thorax: Scattered I/E wheezing noted throughout posterior upper lung baker. No cough noted during exam. Abdomen: Bowel sounds normal, soft, no tenderness, no masses, no pulsatile masses. Skin: Warm, dry, no erythema, no rash. Back: No tenderness, no CVA tenderness. Extremities: No tenderness, no cyanosis, no clubbing, ROM intact, no edema. Neurologic: Alert and oriented X 3, normal motor function, normal sensory function, no focal deficits noted. Psychologic: Affect normal, judgement normal, mood normal. (EVELYN DONAHUE NP) Current Patient Data Vital Signs Vital Signs Date Time Temp Pulse Resp B/P (MAP) Pulse Ox O2 Delivery O2 Flow Rate FiO2 01/20/19 15:01 98 Room Air 01/20/19 14:16 98.3 93 20 148/70 (96) 98.3 (ABBY BLANCAS DO) EKG EKG [] (EVELYN DONAHUE NP) Radiology/Procedures Radiology/Procedures FINDINGS: The cardiomediastinal silhouette is within normal limits. There are no pleural effusions. There is no pulmonary vascular congestion. There is no pneumothorax. Increased patchy interstitial changes are noted in the right middle lobe. No significant osseous abnormality is identified. IMPRESSION: Increased patchy interstitial changes in the right middle lobe may represent interstitial pneumonitis versus subsegmental atelectasis. (EVELYN DONAHUE NP) Impressions: IMPRESSION: Increased patchy interstitial changes in the right middle lobe may represent interstitial pneumonitis versus subsegmental atelectasis. Correlate with physical findings. (EVELYN DONAHUE NP) Course & Med Decision Making Course & Med Decision Making Patient with 3 day hx of URI symptoms and fatigue that states she has had pneumonia several times in the past and it "feels the same way now". Denies fever but complains of chills. Reports non-productive cough that is increasing in its intensity. Patient states that she was unable to get into her PCP's office this week and wants to make sure that she doesn't need to be admitted. VSS and afebrile. Lungs with bilateral posterior upper I/E wheezing noted which patient admits improves with her inhalers. CXR and breathing treatment ordered. Patient reports improvement in cough/wheezing post-neb treatment. Pertinent Labs and Imaging studies reviewed. (See chart for details) FINDINGS: The cardiomediastinal silhouette is within normal limits. There are no pleural effusions. There is no pulmonary vascular congestion. There is no pneumothorax. Increased patchy interstitial changes are noted in the right middle lobe. No significant osseous abnormality is identified. IMPRESSION: Increased patchy interstitial changes in the right middle lobe may represent interstitial pneumonitis versus subsegmental atelectasis. Due to complaints, cough/wheezing, decision made to place patient on Levaquin qd x 5 days. Patient with significant co-morbidities. Patient instructed to follow up with PCP if symptoms do not improve or get worse. Given Tessalon perles for persistent cough. (EVELYN DONAHUE NP) Dragon Disclaimer Dragon Disclaimer This electronic medical record was generated, in whole or in part, using a voice recognition dictation system. (EVELYN DONAHUE NP) Departure Departure Impression: Primary Impression: URI (upper respiratory infection) Disposition: 01 HOME, SELF-CARE Condition: STABLE Referrals: CHI AGRAWAL MD (PCP) Scripts Benzonatate (BENZONATATE) 200 Mg Capsule 200 MG PO TID PRN for COUGH, #30 CAP Prov: EVELYN DONAHUE NP 01/20/19 Levofloxacin (LEVAQUIN) 750 Mg Tablet 1 TAB PO DAILY for 5 Days, #5 TAB 0 Refills Prov: EVELYN DONAHUE NP 01/20/19 Attending Signature Attending Signature I have reviewed the PA/DIRECTOR OF MARKETING's note and plan of care. I was available for consulta tion as needed during the patient's visit in the emergency department. I agree with the clinical impression, plan, and disposition. (ABBY BLANCAS DO) Problem Qualifiers Primary Impression: URI (upper respiratory infection) URI type: unspecified URI Qualified Codes: J06.9 - Acute upper respiratory infection, unspecified EVELYN DONAHUE NP Jan 20, 2019 14:30 ABBY BLANCAS DO Jan 22, 2019 14:03
--- NOTE | 2019-01-20 15:28 | RAD ---
Chest radiograph 01/20/2019 2:30 PM INDICATION: Wheezing, productive cough COMPARISON: 11/28/2018 TECHNIQUE: Frontal and lateral views of the chest are provided. FINDINGS: The cardiomediastinal silhouette is within normal limits. There are no pleural effusions. There is no pulmonary vascular congestion. There is no pneumothorax. Increased patchy interstitial changes are noted in the right middle lobe. No significant osseous abnormality is identified. IMPRESSION: Increased patchy interstitial changes in the right middle lobe may represent interstitial pneumonitis versus subsegmental atelectasis. Correlate with physical findings. Electronically signed by: Karely Smith MD (01/20/2019 3:25 PM) [id number]
[2019-01-20] MEDS ORDERED: IPRATRPIUM/ALBUTEROL 0.5/2.5MG 3 ML NEBU. NEB ONE (15:30)
[2019-01-20] MEDS ORDERED: LEVO750T31 PO (15:54)
[2019-01-20] MEDS ORDERED: BENZ200C47 PO (15:56)
== END 2019-01-20 16:01 | disposition home or self-care (01) ==
LOC: ER 13:48
DX: J06.9 Acute upper respiratory infection, unspecified (principal); J44.9 Chronic obstructive pulmonary disease, unspecified; E11.9 Type 2 diabetes mellitus without complications; E78.00 Pure hypercholesterolemia, unspecified; I10 Essential (primary) hypertension
CPT/HCPCS: 71046; 94640; 99284; J7620

== ENCOUNTER 2019-02-11 20:18 | Emergency (ER) | payer MEDICARE ==
[~2019-02-11] VITALS: Ht 162.6 cm; Wt 108.0 kg
[~2019-02-11 20:18] MED LIST changes: +BENZ200C47 PO; +POTA20TA4 PO; -POTA20TA82 PO
[2019-02-11] MEDS ORDERED: ASPIRIN CHEWABLE 81 MG TABLET. PO ONE (20:30)
[2019-02-11 20:43] LABS: BASO # 0.1 x10^3/uL (0.0-0.2); BASO % 1 % (0-3); EOS # 0.1 x10^3/uL (0.0-0.7); EOS % 1 % (0-3); HEMATOCRIT 36.1 % (36.0-47.0); HEMOGLOBIN 12.1 g/dL (12.0-15.5); LYMPH # 2.2 x10^3/uL (1.0-4.8); LYMPH % 29 % (24-48); MEAN CORPUSCULAR HEMOGLOBIN 30 pg (25-35); MEAN CORPUSCULAR HGB CONC 34 g/dL (31-37); MEAN CORPUSCULAR VOLUME 90 fL (79-100); MONO # 0.6 x10^3/uL (0.0-1.1); MONO % 8 % (0-9); NEUT # 4.6 x10^3/uL (1.8-7.7); NEUT % 60 % (31-73); PLATELET COUNT 242 x10^3/uL (140-400); RED BLOOD COUNT 4.02 x10^6/uL (3.50-5.40); RED CELL DISTRIBUTION WIDTH 14.5 % (11.5-14.5); WHITE BLOOD COUNT 7.7 x10^3/uL (4.0-11.0)
[2019-02-11] MEDS: NITROGLYCERIN SUBLINGUAL 0.4 MG BOTTLE OF 25. SL PRN ×2 (20:53→21:27)
[2019-02-11 20:56] LABS: CALCIUM 10.6 mg/dL (8.5-10.1); CREATININE 0.9 mg/dL (0.6-1.0); GFR 65.2; POTASSIUM 3.8 mmol/L (3.5-5.1)
[2019-02-11 21:02] LABS: ALBUMIN 3.2 g/dL (3.4-5.0); ALBUMIN/GLOBULIN RATIO 0.8 (1.0-1.7); MAGNESIUM 1.7 mg/dL (1.8-2.4); TOTAL BILIRUBIN 0.3 mg/dL (0.2-1.0); TOTAL PROTEIN 7.3 g/dL (6.4-8.2)
--- NOTE | 2019-02-11 21:23 | RAD ---
Indication: Chest pain TECHNIQUE:Portable AP chest X-ray COMPARISON: 01/20/2019 FINDINGS: Heart is normal in size. Mild interstitial opacities without focal consolidation. No pneumothorax or large pleural effusion. Visualized bony thorax within normal limits. IMPRESSION: Mild interstitial opacities bilaterally may be secondary to atypical/viral infection. Electronically signed by: Spencer Shannon DO (02/11/2019 9:20 PM) [facility]
--- NOTE | 2019-02-11 21:49 | PHYS DOC ---
Past Medical History Past Medical History: Asthma, Bronchitis, COPD, Diabetes-Type II, High Cholesterol, Hypertension, Pneumonia Additional Past Medical Histor: SLEEP APNEA, SLEEP APNEA Past Surgical History: Hysterectomy, Oophorectomy Additional Past Surgical Histo: Nose SX, RETINA SURGERY Alcohol Use: None Drug Use: None Adult General Chief Complaint Chief Complaint: CHEST PAIN HPI HPI 53-year-old female presents to the emergency department with complaints of shortness of breath with exertion, bilateral lower extremity edema. Patient describes chest burning sensation as well as diaphoresis. She as well has had cough which has been nonproductive. She denies any orthopnea, fever. Patient has taken no new medications [id number] nor has had adjustment of medications. She does describe bilateral lower extremity edema as discussed above right greater than left. Review of Systems Review of Systems Constitutional: Denies fever or chills [] HENT: Denies nasal congestion or sore throat [] Respiratory: Cough, shortness of breath Cardiovascular: No additional information not addressed in HPI [] GI: Denies abdominal pain, nausea, vomiting, bloody stools or diarrhea [] : Denies dysuria or hematuria [] Musculoskeletal: Denies back pain or joint pain [] Neurologic: Denies headache, focal weakness or sensory changes [] All other systems were reviewed and found to be within normal limits, except as documented in this note. Current Medications Current Medications Current Medications Medications (Trade) Dose Ordered Sig/Palak Start Time Stop Time Status Last Admin Dose Admin Albuterol/ Ipratropium (Duoneb) 3 ml 1X ONCE 02/11/19 22:00 02/11/19 22:01 DC 02/11/19 22:00 3 ML Aspirin (Children'S Aspirin) 324 mg 1X ONCE 02/11/19 20:30 02/11/19 20:33 DC 02/11/19 20:50 324 MG Multi-Ingredient Mouthwash/Gargle (Gi Cocktail) 20 ml 1X ONCE 02/11/19 22:45 02/11/19 22:46 DC 02/11/19 22:44 20 ML Nitroglycerin (Nitrostat) 0.4 mg PRN Q5MIN PRN 02/11/19 20:30 02/12/19 20:29 02/11/19 21:27 0.4 MG Allergies Allergies Allergies Coded Allergies Type Severity Reaction Last Updated Verified No Known Drug Allergies 06/07/13 No Physical Exam Physical Exam Constitutional: Well developed, well nourished, no acute distress, non-toxic appearance. [] HENT: Normocephalic, atraumatic, bilateral external ears normal, oropharynx moist, no oral exudates, nose normal. [] Eyes: PERRLA, EOMI, conjunctiva normal, no discharge. [] Cardiovascular: Tachycardia Lungs & Thorax: Increased breath sounds Abdomen: Bowel sounds normal, soft, no tenderness, no masses, no pulsatile masses. [] Skin: Warm, dry, no erythema, no rash. [] Extremities: No tenderness, no cyanosis, no clubbing, ROM intact, no edema. [] Neurologic: Alert and oriented X 3, no focal deficits noted. [] Psychologic: Affect normal, judgement normal, mood normal. [] Current Patient Data Vital Signs Vital Signs Date Time Temp Pulse Resp B/P (MAP) Pulse Ox O2 Delivery O2 Flow Rate FiO2 02/11/19 22:02 94 Room Air 02/11/19 21:27 99 186/74 02/11/19 20:21 98.8 22 98.8 Lab Values Laboratory Tests Test 02/11/19 20:32 02/11/19 22:10 White Blood Count 7.7 x10^3/uL (4.0-11.0) Red Blood Count 4.02 x10^6/uL (3.50-5.40) Hemoglobin 12.1 g/dL (12.0-15.5) Hematocrit 36.1 % (36.0-47.0) Mean Corpuscular Volume 90 fL (79-100) Mean Corpuscular Hemoglobin 30 pg (25-35) Mean Corpuscular Hemoglobin Concent 34 g/dL (31-37) Red Cell Distribution Width 14.5 % (11.5-14.5) Platelet Count 242 x10^3/uL (140-400) Neutrophils (%) (Auto) 60 % (31-73) Lymphocytes (%) (Auto) 29 % (24-48) Monocytes (%) (Auto) 8 % (0-9) Eosinophils (%) (Auto) 1 % (0-3) Basophils (%) (Auto) 1 % (0-3) Neutrophils # (Auto) 4.6 x10^3/uL (1.8-7.7) Lymphocytes # (Auto) 2.2 x10^3/uL (1.0-4.8) Monocytes # (Auto) 0.6 x10^3/uL (0.0-1.1) Eosinophils # (Auto) 0.1 x10^3/uL (0.0-0.7) Basophils # (Auto) 0.1 x10^3/uL (0.0-0.2) D-Dimer (Priscilla) 0.43 ug/mlFEU (0.00-0.50) Sodium Level 139 mmol/L (136-145) Potassium Level 3.8 mmol/L (3.5-5.1) Chloride Level 104 mmol/L (98-107) Carbon Dioxide Level 28 mmol/L (21-32) Anion Gap 7 (6-14) Blood Urea Nitrogen 14 mg/dL (7-20) Creatinine 0.9 mg/dL (0.6-1.0) Estimated GFR (Cockcroft-Gault) 65.2 BUN/Creatinine Ratio 16 (6-20) Glucose Level 296 mg/dL (70-99) H Calcium Level 10.6 mg/dL (8.5-10.1) H Magnesium Level 1.7 mg/dL (1.8-2.4) L Total Bilirubin 0.3 mg/dL (0.2-1.0) Aspartate Amino Transferase (AST) 20 U/L (15-37) Alanine Aminotransferase (ALT) 35 U/L (14-59) Alkaline Phosphatase 141 U/L (46-116) H Troponin I Quantitative < 0.017 ng/mL (0.000-0.055) LC-Hms-E-Type Natriuretic Peptide 61 pg/mL (0-124) Total Protein 7.3 g/dL (6.4-8.2) Albumin 3.2 g/dL (3.4-5.0) L Albumin/Globulin Ratio 0.8 (1.0-1.7) L Urine Collection Type Unknown Urine Color Yellow Urine Clarity Clear Urine pH 6.5 Urine Specific [place] >=1.030 Urine Protein Negative mg/dL (NEG-TRACE) Urine Glucose (UA) >=1000 mg/dL (NEG) Urine Ketones (Stick) Negative mg/dL (NEG) Urine Blood Negative (NEG) Urine Nitrite Negative (NEG) Urine Bilirubin Negative (NEG) Urine Urobilinogen Dipstick 1.0 mg/dL (0.2 mg/dL) Urine Leukocyte Esterase Negative (NEG) Urine RBC 0 /HPF (0-2) Urine WBC 1-4 /HPF (0-4) Urine Bacteria 0 /HPF (0-FEW) Urine Yeast Present /HPF Laboratory Tests 02/11/19 20:32 Laboratory Tests 02/11/19 20:32 EKG EKG [] Radiology/Procedures Radiology/Procedures [facility] [address] [place] [address] IMAGING REPORT Signed PATIENT: BATSHEVA VASQUEZ MACCOUNT: [id number] : 1965 LOCATION: ER AGE: 53 SEX: F EXAM STATUS: REG ER ORD. PHYSICIAN: COURTNEY REA MD REASON: chest pain PROCEDURE: PORTABLE CHEST 1V Indication: Chest pain TECHNIQUE:Portable AP chest X-ray COMPARISON: 01/20/2019 FINDINGS: Heart is normal in size. Mild interstitial opacities without focal consolidation. No pneumothorax or large pleural effusion. Visualized bony thorax within normal limits. IMPRESSION: Mild interstitial opacities bilaterally may be secondary to atypical/viral infection. Electronically signed by: Spencer Shannon DO (02/11/2019 9:20 PM) [facility] DICTATED and SIGNED BY: SPENCER SHANNON DO DATE: 02/11/192119 [] Course & Med Decision Making Course & Med Decision Making Pertinent Labs and Imaging studies reviewed. (See chart for details) [] 53-year-old female presents to the emergency department with complaints of shortness of breath with exertion, bilateral lower extremity edema. Patient describes chest burning sensation as well as diaphoresis. She as well has had cough which has been nonproductive. She denies any orthopnea, fever. Patient has taken no new medications [id number] nor has had adjustment of medications. She does describe bilateral lower extremity edema as discussed above right greater than left. Chest x-ray reveals evidence of atypical pneumonia, laboratory values are reviewed white blood cell count 7.7, d-dimer is 0.43 within age adjusted limits. Metabolic profile unremarkable. Patient provided with GI cocktail as well as DuoNeb with improvement. Troponin was unremarkable, EKG with normal limits. Plan for antibiotic therapy as well as inhalers upon discharge. Patient was am bulated in the emergency department without evidence of desaturations her oxygen saturations remained 94-96%. Discussed disposition with patient, return precautions provided. Dragon Disclaimer Dragon Disclaimer This electronic medical record was generated, in whole or in part, using a voice recognition dictation system. Departure Departure Impression: Primary Impression: GERD (gastroesophageal reflux disease) Additional Impressions: Type 2 diabetes mellitus Atypical pneumonia Disposition: HOME, SELF-CARE Condition: IMPROVED Referrals: CHI AGRAWAL MD (PCP) Patient Instructions: Diet for Gastroesophageal Reflux Disease, Adult, [id number], Pneumonia, Adult, [id number] Additional Instructions: Recommend follow up with PCP 3 - 5 days Return to the ER with worsening symptoms, intractable pain, fever, altered mental status Tylenol/Motrin as needed for pain Take antibiotics as directed Scripts Albuterol Sulfate (PROAIR HFA INHALER) 8.5 Gm Hfa.aer.ad 1 PUFF INH PRN Q6HRS PRN for SHORTNESS OF BREATH, #1 INHALER 0 Refills Prov: COURTNEY REA MD 02/11/19 Azithromycin (AZITHROMYCIN TABLET) 500 Mg Tablet 500 MG PO DAILY for ANTI-BIOTIC for 5 Days, #5 TAB 0 Refills Prov: COURTNEY REA MD 02/11/19 Problem Qualifiers Primary Impression: GERD (gastroesophageal reflux disease) Esophagitis presence: esophagitis presence not specified Qualified Codes: K21.9 - Gastro-esophageal reflux disease without esophagitis Additional Impressions: Type 2 diabetes mellitus 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
[2019-02-11] MEDS ORDERED: IPRATRPIUM/ALBUTEROL 0.5/2.5MG 3 ML NEBU. NEB ONE (22:00)
[2019-02-11 22:37] LABS: BILIRUBIN,URINE NEGATIVE (NEG); CLARITY,URINE CLEAR; COLOR,URINE YELLOW; NITRITE,URINE NEGATIVE (NEG); PH,URINE 6.5; PROTEIN,URINE NEGATIVE (NEG-TRACE)
[2019-02-11 22:41] LABS: BACTERIA,URINE 0 /HPF (0-FEW); RBC,URINE 0 /HPF (0-2); YEAST,URINE PRESENT /HPF
[2019-02-11] MEDS ORDERED: LIDO:MAALOX 1:1 20 ML SINGLE DOSE. SWSW ONE (22:45)
[2019-02-11 22:57] VITALS: BP 160/73
[2019-02-11] MEDS ORDERED: ALBU2.5V8 INH (23:00)
[2019-02-11] MEDS ORDERED: AZIT500T4 PO (23:00)
--- NOTE | 2019-02-12 05:59 | EKG ---
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
== END 2019-02-11 23:11 | disposition home or self-care (01) ==
LOC: ER 20:18
DX: J18.9 Pneumonia, unspecified organism (principal); K21.9 Gastro-esophageal reflux disease without esophagitis; E11.9 Type 2 diabetes mellitus without complications; I10 Essential (primary) hypertension; E78.00 Pure hypercholesterolemia, unspecified; J44.9 Chronic obstructive pulmonary disease, unspecified; Z90.710 Acquired absence of both cervix and uterus; Z90.722 Acquired absence of ovaries, bilateral
CPT/HCPCS: 36415; 71045; 80053; 81001; 83735; 83880; 84484; 85025; 85379; 93005; 94640; 99285; J7620

== ENCOUNTER → 2019-03-03 | Outpatient (CLI) | payer MEDICARE ==
[2019-02-11 22:57] VITALS: BP 160/73
[~2019-03-03] MED LIST changes: +AZIT500T4 PO
--- NOTE | 2019-03-03 13:44 | RAD ---
CT MAXILLOFACIAL WO CONTRAST DATE: 03/03/2019 10:04 AM INDICATION: Chronic recurrent sinusitis. COMPARISON: None. TECHNIQUE: CT images of the paranasal sinuses were obtained without intravenous contrast. Coronal and sagittal reformatted images were performed at a separate workstation and reviewed. One or more of the following dose reduction techniques were utilized: Automated exposure control (AEC), Adjustment of mA and/or kV according to patient size, Use of iterative reconstruction technique such as ASiR, CT scan done according to ALARA and image gently/image wisely FINDINGS: Postsurgical changes of bilateral uncinectomies and middle meatal maxillary antrostomies, middle turbinate resections, ethmoidectomies, and sphenoidotomies. Moderate bilateral maxillary sinus mucosal thickening. Complete opacification of the sphenoid sinus on the right, mild mucosal thickening in the sphenoid sinus on the left. Mild ethmoid sinus mucosal thickening. Frontal sinuses are poorly pneumatized. Mucoperiosteal reaction in the maxillary and sphenoid sinuses. No air-fluid levels. No significant nasal septal deviation. The visualized osseous structures are otherwise normal. The visualized orbits and globes are normal. The visualized brain parenchyma is normal in attenuation. IMPRESSION: 1. Extensive paranasal sinus disease as above, with evidence of chronic sinusitis. No air-fluid levels. 2. Postsurgical changes of functional endoscopic sinus surgery. Electronically signed by: Prasanna Kaufman MD (03/03/2019 1:41 PM) [facility]
--- NOTE | 2019-03-03 14:04 | RAD ---
CT CHEST WO CONTRAST INDICATION: Bronchitis. COMPARISON STUDY: 04/06/2018. TECHNIQUE: Unenhanced axial images were obtained through the lungs and upper abdomen. Coronal and sagittal multiplanar reconstructions were also obtained. PQRS compliance statement: One or more of the following individualized dose reduction techniques were utilized for this examination: 1. Automated exposure control 2. Adjustment of the mA and/or kV according to patient size 3. Use of iterative reconstruction technique FINDINGS: Lungs and Airways: Mild left lower lobe groundglass and tree-in-bud opacities. Calcified pulmonary granulomas. Bronchial wall thickening. Pleura: The pleural spaces are normal. Heart and Mediastinum: The visualized thyroid gland is normal in size and attenuation. No axillary or supraclavicular lymphadenopathy. Stable mildly enlarged right upper paratracheal lymph node measuring 1 cm short axis (series 2 image 19). Calcified mediastinal and hilar lymph nodes consistent with remote granulomatous disease Normal cardiac size. No pericardial effusion. Coronary artery atherosclerotic disease. Aortic and mitral annular calcification. The great vessels of the thorax are normal. Abdomen: The visualized abdominal organs demonstrate no abnormality. Bones and Soft Tissues: Degenerative changes of the spine. IMPRESSION: 1. Mild left lower lobe groundglass and tree-in-bud opacities, likely infectious bronchiolitis. 2. Coronary artery atherosclerotic disease. Electronically signed by: Prasanna Kaufman MD (03/03/2019 2:01 PM) [facility]
== END | disposition home or self-care (01) ==
LOC: CT 09:49
PROVIDERS: ATTEND Internal Medicine
DX: J32.9 Chronic sinusitis, unspecified (principal); J44.9 Chronic obstructive pulmonary disease, unspecified; J34.89 Other specified disorders of nose and nasal sinuses; I25.10 Atherosclerotic heart disease of native coronary artery without angina pectoris; I08.0 Rheumatic disorders of both mitral and aortic valves
CPT/HCPCS: 70486; 71250

== ENCOUNTER → 2019-04-15 | Outpatient (CLI) | payer MEDICARE ==
--- NOTE | 2019-04-15 13:21 | CARD ---
MR#: [id number] Date of Study: 04/15/2019 Ordering Physician: DEMETRA NARAYAN, Referring Physician: DEMETRA NARAYAN, Tech: Mariah Donald APPROVED REPORT EXAM: Two-dimensional and M-mode echocardiogram with Doppler and color Doppler. Other Information Quality : AverageHR: 88bpm Technically limited study due to body habitus. INDICATION Dyspnea RISK FACTORS Hypertension Hyperlipidemia Diabetes Asthma 2D DIMENSIONS RVDd3.4 (2.9-3.5cm)Left Atrium(2D)3.4 (1.6-4.0cm) IVSd0.9 (0.7-1.1cm)Aortic Root(2D)2.6 (2.0-3.7cm) LVDd4.6 (3.9-5.9cm)LVOT Diameter1.9 (1.8-2.4cm) PWd1.1 (0.7-1.1cm)LVDs3.0 (2.5-4.0cm) FS (%) 33.4 %SV59.3 ml LVEF(%)62.1 (>50%) Aortic Valve AoV Peak Mal.171.9cm/sAoV VTI34.9cm AO Peak GR.11.8mmHgLVOT Peak Mal.118.6cm/s LVOT VTI 25.48cmAO Mean GR.6mmHg JAVID (VMAX)1.34be2CAO (VTI)2.09cm2 Mitral Valve MV E Kfeoyiir872.2cm/sMV DECEL RMDQ195ey MV A Uckrlzwp456.5cm/sMV E Mean Gr.5mmHg MV QVA84bpP/A Ratio0.9 MVA (PHT)3.57cm2 TDI E/Lateral E'22.2E/Medial E'19.0 Pulmonary Valve PV Peak Bqqlvgzg19.2cm/sPV Peak Grad.2mmHg Tricuspid Valve TR P. Scodylfb352fe/sRAP FGRUHRWL5xkUi TR Peak Gr.59llUlSWXC21fqVl Pulmonary Vein S1 Sgewhjsw00.4cm/sD2 Pivbhnli25.9cm/s PVa [id number] LEFT VENTRICLE The left ventricle is normal size. There is borderline to mild concentric left ventricular hypertroph y. The left ventricular systolic function is normal. The Ejection Fraction is 55%. There is normal LV segmental wall motion. Transmitral Doppler flow pattern is Grade I-abnormal relaxation pattern. RIGHT VENTRICLE The right ventricle is normal size. There is normal right ventricular wall thickness. The right ventr icular systolic function is normal. ATRIA The left atrium size is normal. The right atrium size is normal. The interatrial septum is intact wit h no evidence for an atrial septal defect or patent foramen ovale as noted on 2-D or Doppler imaging. AORTIC VALVE The aortic valve is calcified but opens well. Doppler and Color Flow revealed no significant aortic r egurgitation. There is no significant aortic valvular stenosis. MITRAL VALVE The mitral valve is thickened but opens well. There is no evidence of mitral valve prolapse. There is no mitral valve stenosis. Doppler and Color-flow revealed trace mitral regurgitation. TRICUSPID VALVE The tricuspid valve is normal in structure and function. Doppler and Color Flow revealed trace tricus pid regurgitation with an estimated PAP of 41 mmHg. There is no tricuspid valve stenosis. PULMONIC VALVE The pulmonic valve is not well visualized. Doppler and Color Flow revealed no pulmonic valvular regur gitation. GREAT VESSELS The aortic root is normal in size. The ascending aorta is normal in size. The IVC is normal in size a nd collapses >50% with inspiration. PERICARDIAL EFFUSION There is no evidence of significant pericardial effusion. Critical Notification Critical Value: No <Conclusion> The left ventricular systolic function is normal. The Ejection Fraction is 55%. There is normal LV segmental wall motion. Transmitral Doppler flow pattern is Grade I-abnormal relaxation pattern. Trace mitral regurgitation. Trace tricuspid regurgitation with an estimated PAP of 41 mmHg. There is no evidence of significant pericardial effusion. Signed by : Homero Aguayo, Electronically Approved : 04/15/2019 12:46:44
== END | disposition home or self-care (01) ==
LOC: ECHO 09:34
PROVIDERS: ATTEND Internal Medicine Cardiovascular Disease
DX: I35.8 Other nonrheumatic aortic valve disorders (principal); I51.7 Cardiomegaly
CPT/HCPCS: 93306

== ENCOUNTER 2019-09-14 21:47 | Emergency (ER) | payer MEDICARE ==
[~2019-09-14] VITALS: Ht 157.5 cm; Wt 104.5 kg
[2019-09-14] MEDS ORDERED: CEPH-264 PO (23:26)
[2019-09-14] MEDS ORDERED: HYDROcodone/APAP 5/325MG 1 TAB TABLET PO ONE (23:30)
[2019-09-14] MEDS ORDERED: cloNIDine TTS-2 1 PATCH PATCH TD ONE (23:30)
[2019-09-15 00:25] VITALS: BP 173/72
--- NOTE | 2019-09-15 00:35 | PHYS DOC ---
Past Medical History Past Medical History: Asthma, Bronchitis, COPD, Diabetes-Type II, High Ch olesterol, Hypertension, Pneumonia Additional Past Medical Histor: SLEEP APNEA Past Surgical History: Hysterectomy, Oophorectomy Additional Past Surgical Histo: Nose SX, RETINA SURGERY Smoking Status: Never Smoker Alcohol Use: None Drug Use: None General Adult EDM: Chief Complaint: GENERALIZED BODY ACHES HPI: HPI: Patient is a 53 year old female present with the chief complaint of diffuse muscle aches primarily in lower extremities. Patient is concern that she has cellulitis of her right anterior nicolas. On exam patient right lower extremity is warm to the touch. Patient has some open wounds on anterior nicolas. There is no wound drainage. During exam patient with cough. She states cough is chronic. Patients blood pressure noted to be greater than 200 systolic. She states she has not taken her blood pressure medications today. Review of Systems: Review of Systems: Constitutional: Denies fever or chills. [] Eyes: Denies change in visual acuity. [] HENT: Denies nasal congestion or sore throat. [] Respiratory: positive chronic cough Cardiovascular: Denies chest pain or edema. [] GI: Denies abdominal pain, nausea, vomiting, bloody stools or diarrhea. [] : Denies dysuria. [] Musculoskeletal: positive myalgias positive leg pain Integument: Denies rash. [positive cellulitis] Neurologic: Denies headache, focal weakness or sensory changes. [] Endocrine: Denies polyuria or polydipsia. [] Lymphatic: Denies swollen glands. [] Psychiatric: Denies depression or anxiety. [] Heart Score: Risk Factors: Risk Factors: DM, Current or recent (<one month) smoker, HTN, HLP, family history of CAD, obesity. Risk Scores: Score 0 - 3: 2.5% MACE over next 6 weeks - Discharge Home Score 4 - 6: 20.3% MACE over next 6 weeks - Admit for Clinical Observation Score 7 - 10: 72.7% MACE over next 6 weeks - Early Invasive Strategies Current Medications: Current Medications Medications (Trade) Dose Ordered Sig/Palak Start Time Stop Time Status Last Admin Dose Admin Acetaminophen/ Hydrocodone Bitart (Lortab 5/325) 1 tab 1X ONCE 09/14/19 23:30 09/14/19 23:31 DC 09/14/19 23:43 1 TAB Clonidine HCl (Catapres Tts-2) 1 patch 1X ONCE 09/14/19 23:30 09/14/19 23:31 DC 09/14/19 23:43 1 PATCH Allergies: Allergies: Allergies Coded Allergies Type Severity Reaction Last Updated Verified No Known Drug Allergies 06/07/13 No Physical Exam: PE: Constitutional: Well developed, well nourished, no acute distress, non-toxic appearance. [] HENT: Normocephalic, atraumatic, bilateral external ears normal, oropharynx moist, no oral exudates, nose normal. [] Eyes:, EOMI, conjunctiva normal, no discharge. [] Neck: Normal range of motion, no tenderness, supple, no stridor. [] Cardiovascular:Heart rate regular rhythm, no murmur [] Lungs & Thorax: no respiratory distress Abdomen: Bowel sounds normal, soft, no tenderness, no masses, no pulsatile masses. [] Skin: Warm, dry, erythema right anterior nicolas Back: No tenderness, no CVA tenderness. [] Extremities: No tenderness, no cyanosis, no clubbing, ROM intact, no edema. [] Neurologic: Alert and oriented X 3, normal motor function, normal sensory funct ion, no focal deficits noted. [] Psychologic: Affect normal, judgement normal, mood normal. [] Current Patient Data: Vital Signs: Vital Signs Date Time Temp Pulse Resp B/P (MAP) Pulse Ox O2 Delivery O2 Flow Rate FiO2 09/14/19 23:43 18 96 Room Air 09/14/19 23:26 95 192/79 (116) 09/14/19 22:05 98.8 98.8 EKG: EKG: [] Radiology/Procedures: Radiology/Procedures: [] Course & Med Decision Making: Course & Med Decision Making Pertinent Labs and Imaging studies reviewed. (See chart for details) []Patient evaluated for myalgias and leg pain. History of cellulities. Patient states her cough is chronic and denies sob and fever. Catapress and norco for blood pressure and pain. Patient discharged home on norco and keflex. Patient advised to take bp medications as prescribed. Dragon Disclaimer: Gisella Disclaimer: This electronic medical record was generated, in whole or in part, using a voice recognition dictation system. Departure Departure Impression: Primary Impression: Hypertension Additional Impression: Cellulitis Disposition: 01 HOME/RESIDENCE PRIOR TO ADM Condition: STABLE Patient Instructions: Cellulitis, Hypertension Scripts Cephalexin (KEFLEX) 500 Mg Capsule 500 MG PO QID for 10 Days, #40 CAP Prov: JANIE NELSON DO 09/14/19 Justicifation of Admission Dx: Justifications for Admission: Justification of Admission Dx: N/A JANIE NELSON DO Sep 15, 2019 00:35
== END 2019-09-15 00:25 | disposition home or self-care (01) ==
LOC: ER 21:47
DX: I10 Essential (primary) hypertension (principal); L03.115 Cellulitis of right lower limb; R05 Cough; L53.9 Erythematous condition, unspecified; J44.9 Chronic obstructive pulmonary disease, unspecified; E11.9 Type 2 diabetes mellitus without complications; E78.00 Pure hypercholesterolemia, unspecified; Z90.710 Acquired absence of both cervix and uterus; Z90.89 Acquired absence of other organs; Z98.890 Other specified postprocedural states
CPT/HCPCS: 99285

== ENCOUNTER 2019-10-02 04:20 | Emergency (ER) | payer MEDICARE ==
[~2019-10-02] VITALS: Ht 162.6 cm; Wt 100.0 kg
[~2019-10-02 04:20] MED LIST changes: +CEPH-264 PO
[2019-10-02 05:52] LABS: BASO % 0 % (0-3); EOS # 0.1 x10^3/uL (0.0-0.7); EOS % 1 % (0-3); HEMATOCRIT 36.9 % (36.0-47.0); HEMOGLOBIN 12.3 g/dL (12.0-15.5); LYMPH # 1.5 x10^3/uL (1.0-4.8); LYMPH % 17 % (24-48); MEAN CORPUSCULAR HEMOGLOBIN 30 pg (25-35); MEAN CORPUSCULAR HGB CONC 33 g/dL (31-37); MEAN CORPUSCULAR VOLUME 90 fL (79-100); MONO # 0.6 x10^3/uL (0.0-1.1); MONO % 7 % (0-9); NEUT # 6.4 x10^3/uL (1.8-7.7); NEUT % 74 % (31-73); PLATELET COUNT 200 x10^3/uL (140-400); RED BLOOD COUNT 4.13 x10^6/uL (3.50-5.40); RED CELL DISTRIBUTION WIDTH 13.2 % (11.5-14.5); WHITE BLOOD COUNT 8.7 x10^3/uL (4.0-11.0)
[2019-10-02 05:55] LABS: BILIRUBIN,URINE NEGATIVE (NEG); CLARITY,URINE CLEAR; COLOR,URINE YELLOW; NITRITE,URINE NEGATIVE (NEG); PROTEIN,URINE NEGATIVE (NEG-TRACE)
[2019-10-02] MEDS ORDERED: ONDANSETRON PF 4 MG/2 ML VIAL. IVP ONE (06:00)
[2019-10-02] MEDS ORDERED: MORPHINE SULFATE 10 MG/ML VIAL. IV ONE (06:00)
[2019-10-02 06:04] LABS: CALCIUM 10.9 mg/dL (8.5-10.1); GFR 57.6; POTASSIUM 4.2 mmol/L (3.5-5.1)
[2019-10-02 06:06] LABS: ALBUMIN 3.4 g/dL (3.4-5.0); ALBUMIN/GLOBULIN RATIO 0.9 (1.0-1.7); TOTAL BILIRUBIN 0.4 mg/dL (0.2-1.0); TOTAL PROTEIN 7.4 g/dL (6.4-8.2)
[2019-10-02 06:14] LABS: BACTERIA,URINE FEW /HPF (0-FEW); SQUAMOUS EPITHELIAL CELL,UR FEW /LPF
[2019-10-02 06:15] LABS: YEAST,URINE PRESENT /HPF
--- NOTE | 2019-10-02 06:20 | PHYS DOC ---
Past Medical History Past Medical History: Asthma, Bronchitis, COPD, Diabetes-Type II, High Cholesterol, Hypertension, Pneumonia Additional Past Medical Histor: SLEEP APNEA (SHAE WALL MD) Past Surgical History: Hysterectomy, Oophorectomy Additional Past Surgical Histo: Nose SX, RETINA SURGERY (SHAE WALL MD) Smoking Status: Never Smoker Alcohol Use: None Drug Use: None (SHAE WALL MD) General Adult EDM: Chief Complaint: ABDOMINAL PAIN HPI: HPI: Patient is a 54 year old female who presents with sudden onset upper abdominal pain. Patient states that this woke her from her sleep. She has had multiple episodes of vomiting since she woke up. She denies any constipation or diarrhea. She continues to feel very nauseous and have a lot of abdominal pain. She states that it feels like a cramping sharp pain on the left side of her abdomen. She also had some shortness of breath when she woke up. She has a mild cough. She has not had any fever that she knows of. She states it feels kind of like food poisoning. (SHAE WALL MD) Review of Systems: Review of Systems: General: Denies fever, chills, sweats, fatigue Eyes: Denies drainage, blurred vision, eye redness HENT: Denies rhinorrhea, sore throat, earache Respiratory: Reports cough, shortness of breath Cardiac: Denies edema, palpitations, chest pain GI: Reports nausea, vomiting, abdominal pain MSK: Denies neck pain. Reports back pain Skin: Denies rash, jaundice Neuro: Denies headache, dizziness Psychiatric: Denies SI/HI (SHAE WALL MD) Heart Score: Risk Factors: Risk Factors: DM, Current or recent (<one month) smoker, HTN, HLP, family history of CAD, obesity. Risk Scores: Score 0 - 3: 2.5% MACE over next 6 weeks - Discharge Home Score 4 - 6: 20.3% MACE over next 6 weeks - Admit for Clinical Observation Score 7 - 10: 72.7% MACE over next 6 weeks - Early Invasive Strategies (SHAE WALL MD) Current Medications: Current Medications Medications (Trade) Dose Ordered Sig/Palak Start Time Stop Time Status Last Admin Dose Admin Morphine Sulfate (Morphine Sulfate) 5 mg 1X ONCE 10/02/19 06:00 10/02/19 06:01 DC 10/02/19 06:02 5 MG Ondansetron HCl (Zofran) 4 mg 1X ONCE 10/02/19 06:00 10/02/19 06:01 DC 10/02/19 06:03 4 MG (SHAE WALL MD) Allergies: Allergies: Allergies Coded Allergies Type Severity Reaction Last Updated Verified No Known Drug Allergies 06/07/13 No (SHAE WALL MD) Physical Exam: PE: General: Awake, alert, NAD. Well Nourished, well hydrated. Cooperative HEENT: Atraumatic, EOMI, PERRL, airway patent, moist oral mucosa Neck: Supple, trachea midline Respiratory: Decreased breath sounds bilaterally with minimal crackles, normal respiratory effort CV: RRR, no murmur, cap refill <2 GI: Soft, nondistended, left upper abdomen tenderness, no masses MSK: No obvious deformities Skin: Warm, dry, intact Neuro: A&O x3, speech NL, sensory and motor grossly intact, no focal deficits Psych: Normal affect, normal mood, not suicidal or homicidal (SHAE WALL MD) Current Patient Data: Labs: Laboratory Tests Test 10/02/19 04:33 10/02/19 05:30 Urine Collection Type Unknown Urine Color Yellow Urine Clarity Clear Urine pH 7.0 (<5.0-8.0) Urine Specific Douglas 1.020 (1.000-1.030) Urine Protein Negative mg/dL (NEG-TRACE) Urine Glucose (UA) >=1000 mg/dL (NEG) Urine Ketones (Stick) Negative mg/dL (NEG) Urine Blood Moderate (NEG) Urine Nitrite Negative (NEG) Urine Bilirubin Negative (NEG) Urine Urobilinogen Dipstick 1.0 mg/dL (0.2 mg/dL) Urine Leukocyte Esterase Negative (NEG) Urine RBC 11-20 /HPF (0-2) Urine WBC 1-4 /HPF (0-4) Urine Squamous Epithelial Cells Few /LPF Urine Bacteria Few /HPF (0-FEW) Urine Mucus Slight /LPF Urine Yeast Present /HPF White Blood Count 8.7 x10^3/uL (4.0-11.0) Red Blood Count 4.13 x10^6/uL (3.50-5.40) Hemoglobin 12.3 g/dL (12.0-15.5) Hematocrit 36.9 % (36.0-47.0) Mean Corpuscular Volume 90 fL (79-100) Mean Corpuscular Hemoglobin 30 pg (25-35) Mean Corpuscular Hemoglobin Concent 33 g/dL (31-37) Red Cell Distribution Width 13.2 % (11.5-14.5) Platelet Count 200 x10^3/uL (140-400) Neutrophils (%) (Auto) 74 % (31-73) H Lymphocytes (%) (Auto) 17 % (24-48) L Monocytes (%) (Auto) 7 % (0-9) Eosinophils (%) (Auto) 1 % (0-3) Basophils (%) (Auto) 0 % (0-3) Neutrophils # (Auto) 6.4 x10^3/uL (1.8-7.7) Lymphocytes # (Auto) 1.5 x10^3/uL (1.0-4.8) Monocytes # (Auto) 0.6 x10^3/uL (0.0-1.1) Eosinophils # (Auto) 0.1 x10^3/uL (0.0-0.7) Basophils # (Auto) 0.0 x10^3/uL (0.0-0.2) Laboratory Tests 10/02/19 05:30 Vital Signs: Vital Signs Date Time Temp Pulse Resp B/P (MAP) Pulse Ox O2 Delivery O2 Flow Rate FiO2 10/02/19 06:02 99 Room Air (SHAE WALL MD) Labs: Laboratory Tests Test 10/02/19 04:33 10/02/19 05:30 Urine Collection Type Unknown Urine Color Yellow Urine Clarity Clear Urine pH 7.0 Urine Specific Douglas 1.020 Urine Protein Negative mg/dL Urine Glucose (UA) >=1000 mg/dL Urine Ketones (Stick) Negative mg/dL Urine Blood Moderate Urine Nitrite Negative Urine Bilirubin Negative Urine Urobilinogen Dipstick 1.0 mg/dL Urine Leukocyte Esterase Negative Urine RBC 11-20 /HPF Urine WBC 1-4 /HPF Urine Squamous Epithelial Cells Few /LPF Urine Bacteria Few /HPF Urine Mucus Slight /LPF Urine Yeast Present /HPF White Blood Count 8.7 x10^3/uL Red Blood Count 4.13 x10^6/uL Hemoglobin 12.3 g/dL Hematocrit 36.9 % Mean Corpuscular Volume 90 fL Mean Corpuscular Hemoglobin 30 pg Mean Corpuscular Hemoglobin Concent 33 g/dL Red Cell Distribution Width 13.2 % Platelet Count 200 x10^3/uL Neutrophils (%) (Auto) 74 % Lymphocytes (%) (Auto) 17 % Monocytes (%) (Auto) 7 % Eosinophils (%) (Auto) 1 % Basophils (%) (Auto) 0 % Neutrophils # (Auto) 6.4 x10^3/uL Lymphocytes # (Auto) 1.5 x10^3/uL Monocytes # (Auto) 0.6 x10^3/uL Eosinophils # (Auto) 0.1 x10^3/uL Basophils # (Auto) 0.0 x10^3/uL Sodium Level 138 mmol/L Potassium Level 4.2 mmol/L Chloride Level 104 mmol/L Carbon Dioxide Level 28 mmol/L Anion Gap 6 Blood Urea Nitrogen 17 mg/dL Creatinine 1.0 mg/dL Estimated GFR (Cockcroft-Gault) 57.6 BUN/Creatinine Ratio 17 Glucose Level 295 mg/dL Calcium Level 10.9 mg/dL Total Bilirubin 0.4 mg/dL Aspartate Amino Transf (AST/SGOT) 20 U/L Alanine Aminotransferase (ALT/SGPT) 36 U/L Alkaline Phosphatase 141 U/L Total Protein 7.4 g/dL Albumin 3.4 g/dL Albumin/Globulin Ratio 0.9 Lipase 141 U/L Current Medications Medications (Trade) Dose Ordered Sig/Palak Route PRN Reason Start Time Stop Time Status Last Admin Dose Admin Ondansetron HCl (Zofran) 4 mg 1X ONCE IVP 10/02/19 06:00 10/02/19 06:01 DC 10/02/19 06:03 Morphine Sulfate (Morphine Sulfate) 5 mg 1X ONCE IV 10/02/19 06:00 10/02/19 06:01 DC 10/02/19 06:02 Iohexol (Omnipaque 300 Mg/ml) 60 ml 1X ONCE IV 10/02/19 07:00 10/02/19 07:01 DC 10/02/19 07:30 Iohexol (Omnipaque 240 Mg/ml) 30 ml 1X ONCE PO 10/02/19 07:00 10/02/19 07:01 DC 10/02/19 07:30 Info (CONTRAST GIVEN -- Rx MONITORING) 1 each PRN DAILY PRN MC SEE COMMENTS 10/02/19 06:30 10/02/19 09:41 DC Vital Signs: Vital Signs Date Time Temp Pulse Resp B/P (MAP) Pulse Ox O2 Delivery O2 Flow Rate FiO2 10/02/19 09:12 74 18 181/85 (117) 97 Room Air 10/02/19 08:12 74 20 187/85 (119) 97 Room Air 10/02/19 07:42 78 16 205/89 (127) 95 Room Air 10/02/19 07:22 72 15 195/85 (121) 95 Room Air 10/02/19 06:30 80 20 187/84 (118) 99 Room Air 10/02/19 06:02 99 Room Air 10/02/19 06:00 76 20 185/86 (119) 99 Room Air 10/02/19 05:30 78 22 222/84 (130) 99 Room Air 10/02/19 05:19 97.8 76 20 222/84 (130) 96 Room Air 97.8 (REAL QUEEN DO) EKG: EKG: [] (SHAE WALL MD) Radiology/Procedures: Radiology/Procedures: [] (SHAE WALL MD) Radiology/Procedures: PROCEDURE: CHEST AP ONLY Chest AP portable at 0536: Reason for examination: Short of breath. Comparison is made to previous study dated 02/11/2019. The heart size is normal. Mediastinum is unremarkable. Lung baker are clear. No acute bony abnormalities are seen. Impression: No acute cardiopulmonary disease. Electronically signed by: Paula Vance MD (10/02/2019 6:26 AM) [id number] DICTATED and SIGNED BY: PAULA VANCE MD DATE: 10/02/19 0626 PROCEDURE: CT ABD PELV W/ORAL&IV CONTRAST CT ABD PELV W/ORAL IV CONTRAST History: abdominal pain, vomiting Comparison: 04/17/2008 Technique: After administration of intravenous contrast, helical CT of the abdomen and pelvis was performed from the lung bases through the ischial tuberosities. Coronal and sagittal reconstructions were obtained. 60 mL of Omnipaque 300 were used. One or more of the following dose reduction techniques were utilized: Automated exposure control (AEC), Adjustment of mA and/or kV according to patient size, Use of iterative reconstruction technique such as ASiR, CT scan done according to ALARA and image gently/image wisely Findings: Middle lobe subsegmental atelectasis. Left lower lobe calcified pulmonary granuloma. Coronary artery atherosclerotic disease. The liver, gallbladder, pancreas, and bilateral adrenal glands are normal. Calcified splenic granulomas. Symmetric renal enhancement. Mild left hydroureteronephrosis with periureteral stranding. 5 x 3 mm calcification in the base of the bladder, possibly at the ureterovesicular junction. The visualized loops of small bowel are normal. The visualized loops of large bowel are normal. There is no evidence of bowel obstruction. Appendix is normal. There is no free fluid. There is no mesenteric or retroperitoneal adenopathy. The abdominal aorta is normal in caliber. Mild to moderate aortoiliac atherosclerotic disease. Pelvis Findings: Urinary bladder is normal. No pelvic free fluid. There is no pelvic or inguinal adenopathy. Degenerative changes spine. IMPRESSION: 1. Mild left hydroureteronephrosis with periureteral stranding. 5 x 3 mm calcification in the base of the bladder, possibly at the ureterovesicular junction. 2. Coronary artery atherosclerotic disease. Electronically signed by: Prasanna Kaufman MD (10/02/2019 8:07 AM) [id number] (REAL QUEEN DO) Course & Med Decision Making: Course & Med Decision Making Pertinent Labs and Imaging studies reviewed. (See chart for details) Patient is a 54 year-old female with a history of hypertension who presents to the Emergency Room complaining of abdominal pain, vomiting, shortness of breath. On exam, patient has abdominal tenderness, decreased breath sounds, minimal crackles. Due to patients history, age, and exam work up will need to be done to evaluate for intra-abdominal pathology. Work up ordered includes CBC, CMP, lipase, UA, CT abdomen and pelvis. Patient's pain does not epigastric and a cardiac evaluation does not be needed for atypical pain. Ddx includes colitis, pancreatitis, COVID-19, pneumonia. Coronavirus swab was also done and a chest x-ray was ordered given patient shortness of breath. Patient was discussed with oncoming physician who will assume care. (SHAE WALL MD) Course & Med Decision Making Assumed care of patient from overnight physician after thorough sign-out Patient seen and examined by myself, hemodynamically stable, history and physical exam consistent with prior physician's documentation. Patient improved since ED arrival with supportive care provided Discussed findings of labs and imaging ordered that showed no acute signs of illness. Patient has known Lt kidney stone that is well monitored and unchanged in position from prior studies per patient Patient unconvinced she is a PUI for COVID but admits she will self-isolate until she hears back regarding her swab results Patients symptoms not typical for emergent causes of abdominal pain such as, but not limited to, appendicitis, abdominal aortic aneurysm, surgical biliary disease, pancreatitis, SBO, mesenteric ischemia, serious intra-abdominal bacterial illness. Presentation also not typical of gynecologic emergencies such as TOA, Ovarian Torsion, PID. Not Ectopic. Doubt atypical ACS. Patient understands that this still may have an early presentation of an emergent medical condition such as appendicitis that will require a recheck. Patient convinced she has food poisoning and amenable to discharge home with continued supportive care Zofran script offered and written on discharge Strict return precautions discussed at length with good understanding, all questions and concerns addressed prior to departure (REAL QUEEN DO) Dragon Disclaimer: Dragon Disclaimer: This electronic medical record was generated, in whole or in part, using a voice recognition dictation system. (SHAE WALL MD) Departure Departure Impression: Primary Impression: UPPER ABDOMINAL PAIN, UNSPECIFIED Additional Impression: Shortness of breath Disposition: 01 HOME, SELF-CARE Condition: IMPROVED Referrals: SARAH PAYAN MD (PCP) Patient Instructions: Abdominal Pain (Nonspecific), Ondansetron tablets Additional Instructions: You have been evaluated in the Emergency Department today for abdominal pain. Your evaluation was not suggestive of any emergent condition requiring medical intervention at this time. However, some abdominal problems make take more time to appear. Therefore, it is important for you to watch for any new symptoms or worsening of your current condition. Please follow up with your primary care physician as needed. If you do not have a primary doctor, you can call your insurance company to find one. If you do not have insurance, you can go to the finance/registration department for more assistance. Return to the Emergency Department if you experience worsening pain, persistent fevers greater than 100.4, recurrent vomiting, blood in vomit, blood in stool, dark tarry stool, chest pain, difficulty breathing, or any other concerning symptoms. Scripts Ondansetron Hcl (ZOFRAN) 4 Mg Tablet 4 MG PO PRN TID PRN for NAUSEA, #15 nausea/vomiting Prov: REAL QUEEN DO 10/02/19 Justicifation of Admission Dx: Justifications for Admission: Justification of Admission Dx: Yes (SHAE WALL MD) SHAE WALL MD Oct 02, 2019 06:20 REAL QUEEN DO Oct 02, 2019 09:11
--- NOTE | 2019-10-02 06:29 | RAD ---
Chest AP portable at 0536: Reason for examination: Short of breath. Comparison is made to previous study dated 02/11/2019. The heart size is normal. Mediastinum is unremarkable. Lung baker are clear. No acute bony abnormalities are seen. Impression: No acute cardiopulmonary disease. Electronically signed by: Paula Mendiola MD (10/02/2019 6:26 AM) [id number]
[2019-10-02] MEDS ORDERED: CONTRAST GIVEN. MC PRN (06:30)
[2019-10-02] MEDS ORDERED: IOHEXOL 240 MG/ML 50ML VIAL. PO ONE (07:00)
[2019-10-02] MEDS ORDERED: IOHEXOL 300 MG/ML 100ML VIAL. IV ONE (07:00)
--- NOTE | 2019-10-02 08:09 | RAD ---
CT ABD PELV W/ORAL IV CONTRAST History: abdominal pain, vomiting Comparison: 04/17/2008 Technique: After administration of intravenous contrast, helical CT of the abdomen and pelvis was performed from the lung bases through the ischial tuberosities. Coronal and sagittal reconstructions were obtained. 60 mL of Omnipaque 300 were used. One or more of the following dose reduction techniques were utilized: Automated exposure control (AEC), Adjustment of mA and/or kV according to patient size, Use of iterative reconstruction technique such as ASiR, CT scan done according to ALARA and image gently/image wisely Findings: Middle lobe subsegmental atelectasis. Left lower lobe calcified pulmonary granuloma. Coronary artery atherosclerotic disease. The liver, gallbladder, pancreas, and bilateral adrenal glands are normal. Calcified splenic granulomas. Symmetric renal enhancement. Mild left hydroureteronephrosis with periureteral stranding. 5 x 3 mm calcification in the base of the bladder, possibly at the ureterovesicular junction. The visualized loops of small bowel are normal. The visualized loops of large bowel are normal. There is no evidence of bowel obstruction. Appendix is normal. There is no free fluid. There is no mesenteric or retroperitoneal adenopathy. The abdominal aorta is normal in caliber. Mild to moderate aortoiliac atherosclerotic disease. Pelvis Findings: Urinary bladder is normal. No pelvic free fluid. There is no pelvic or inguinal adenopathy. Degenerative changes spine. IMPRESSION: 1. Mild left hydroureteronephrosis with periureteral stranding. 5 x 3 mm calcification in the base of the bladder, possibly at the ureterovesicular junction. 2. Coronary artery atherosclerotic disease. Electronically signed by: Prasanna Kaufman MD (10/02/2019 8:07 AM) [id number]
[2019-10-02] MEDS ORDERED: ONDA4TAB7 PO (09:10)
[2019-10-02 09:12] VITALS: BP 181/85
[2019-10-03] MEDS ORDERED: TAMS0.4C97 PO (20:25)
[2019-10-03] MEDS ORDERED: ONDA4TAB12 PO (20:25)
[2019-10-03] MEDS ORDERED: HYDR-3164 PO (20:25)
== END 2019-10-02 09:41 | disposition home or self-care (01) ==
LOC: ER 04:20
DX: R10.12 Left upper quadrant pain (principal); R06.02 Shortness of breath; Z20.828 Contact with and (suspected) exposure to other viral communicable diseases; R11.2 Nausea with vomiting, unspecified; R05 Cough; J44.9 Chronic obstructive pulmonary disease, unspecified; E11.9 Type 2 diabetes mellitus without complications; E78.00 Pure hypercholesterolemia, unspecified; I10 Essential (primary) hypertension; Z90.710 Acquired absence of both cervix and uterus; Z90.722 Acquired absence of ovaries, bilateral
CPT/HCPCS: 36415; 71045; 74177; 80053; 81001; 83690; 85025; 96374; 96375; 99285; J2270; J2405; Q9966; Q9967; U0003

== ENCOUNTER 2019-10-03 18:32 | Emergency (ER) | payer MEDICARE ==
[~2019-10-03] VITALS: Ht 162.6 cm; Wt 106.8 kg
[~2019-10-03 18:32] MED LIST changes: +ONDA4TAB7 PO
[2019-10-03] MEDS ORDERED: IV NORMAL SALINE 1000ML BAG 1,000 ML IV ONE (19:00)
[2019-10-03] MEDS ORDERED: KETOROLAC 15 MG/ML VIAL. IVP ONE (19:00)
[2019-10-03] MEDS ORDERED: METOCLOPRAMIDE HCL 10 MG/2 ML VIAL. IVP ONE (19:00)
[2019-10-03] MEDS ORDERED: METOCLOPRAMIDE HCL 10 MG/2 ML VIAL. ONE (19:11)
[2019-10-03 19:31] LABS: BASO # 0.1 x10^3/uL (0.0-0.2); BASO % 1 % (0-3); EOS # 0.1 x10^3/uL (0.0-0.7); EOS % 1 % (0-3); HEMATOCRIT 35.5 % (36.0-47.0); HEMOGLOBIN 11.8 g/dL (12.0-15.5); LYMPH # 1.8 x10^3/uL (1.0-4.8); LYMPH % 19 % (24-48); MEAN CORPUSCULAR HEMOGLOBIN 30 pg (25-35); MEAN CORPUSCULAR HGB CONC 33 g/dL (31-37); MEAN CORPUSCULAR VOLUME 89 fL (79-100); MONO # 0.7 x10^3/uL (0.0-1.1); MONO % 7 % (0-9); NEUT # 6.6 x10^3/uL (1.8-7.7); NEUT % 72 % (31-73); PLATELET COUNT 216 x10^3/uL (140-400); RED BLOOD COUNT 3.99 x10^6/uL (3.50-5.40); RED CELL DISTRIBUTION WIDTH 13.4 % (11.5-14.5); WHITE BLOOD COUNT 9.2 x10^3/uL (4.0-11.0)
--- NOTE | 2019-10-03 19:32 | RAD ---
Study: CT abdomen/pelvis without intravenous contrast Indication: Left flank pain. Comparison: 10/02/2019 Technique: Helical CT imaging performed of the abdomen and pelvis without the use of intravenous contrast. Sagittal and coronal reformats were obtained. One or more of the following individualized dose reduction techniques were utilized for this examination: 1. Automated exposure control 2. Adjustment of the mA and/or kV according to patient size 3. Use of iterative reconstruction technique. Findings: Inherently limited evaluation without intravenous contrast. Chest: Opacity within the right middle lobe is again partially imaged and suggestive of atelectasis. A few punctate right lower lobe nodules are unchanged. Faint infiltrate at the left lower lung favored residual from a more pronounced infiltrate at this location on the 03/03/2019 comparison as opposed to an active infectious or inflammatory process. Left lower lobe granuloma. Liver: Unchanged. Gallbladder/Biliary Tree: No CT findings of acute cholecystitis. Pancreas: Unremarkable. Spleen: Granulomas. Adrenal Glands: Unremarkable. Kidneys/Ureters/Bladder: Unchanged right kidney and collecting system. There is again mild caliectasis on the left as well as hydroureter with a stone projecting in the region of the bladder trigone, image 203 series 2, measuring up to 5 mm. Reproductive Organs: No newly seen abnormality. Colon: Retained contrast scattered throughout the colon. No newly seen abnormality. Appendix: Normal with contrast opacifying the lumen. Small Bowel: Nonobstructed. Stomach: Unremarkable. Vasculature: Nonaneurysmal aorta. Multifocal calcific atherosclerosis. Lymph Nodes: No enlargement of any abdominal or pelvic lymph nodes. Peritoneum and Body Wall: No free fluid or gas. Midline ventral pelvis surgical scarring. Scattered body wall edema. Bones: No acute or aggressive osseous process. Scattered degenerative changes which are relatively mild. Miscellaneous: None. Impression: No interval change from 10/02/2019. There is again hydroureter on the left and minimal caliectasis in the setting of a 5 mm stone favored to be lodged at the ureterovesicular junction as opposed to layering within the dependent aspect of the bladder (image 203 series 2). Electronically signed by: PAL VILLASEÑOR MD (10/03/2019 7:29 PM) [id number]
[2019-10-03 19:40] LABS: CALCIUM 10.2 mg/dL (8.5-10.1); CREATININE 1.1 mg/dL (0.6-1.0); GFR 51.6; POTASSIUM 4.2 mmol/L (3.5-5.1)
[2019-10-03 19:45] LABS: ALBUMIN 3.2 g/dL (3.4-5.0); ALBUMIN/GLOBULIN RATIO 0.8 (1.0-1.7); MAGNESIUM 1.6 mg/dL (1.8-2.4); TOTAL BILIRUBIN 0.4 mg/dL (0.2-1.0)
[2019-10-03 19:55] LABS: BILIRUBIN,URINE NEGATIVE (NEG); CLARITY,URINE CLEAR; COLOR,URINE YELLOW; NITRITE,URINE NEGATIVE (NEG); PROTEIN,URINE NEGATIVE (NEG-TRACE)
--- NOTE | 2019-10-03 19:55 | PHYS DOC ---
Past Medical History Past Medical History: Asthma, Bronchitis, COPD, Diabetes-Type II, High Cholesterol, Hypertension, Pneumonia Additional Past Medical Histor: SLEEP APNEA Past Surgical History: Hysterectomy, Oophorectomy Additional Past Surgical Histo: Nose SX, RETINA SURGERY Smoking Status: Never Smoker Alcohol Use: None Drug Use: None General Adult EDM: Chief Complaint: ABDOMINAL PAIN HPI: HPI: Patient is a 54 year old [f__sex] who presents with [] Review of Systems: Review of Systems: Constitutional: Denies fever or chills. [] Eyes: Denies change in visual acuity. [] HENT: Denies nasal congestion or sore throat. [] Respiratory: Denies cough or shortness of breath. [] Cardiovascular: Denies chest pain or edema. [] GI: Denies abdominal pain, nausea, vomiting, bloody stools or diarrhea. [] : Denies dysuria. [] Musculoskeletal: Denies back pain or joint pain. [] Integument: Denies rash. [] Neurologic: Denies headache, focal weakness or sensory changes. [] Endocrine: Denies polyuria or polydipsia. [] Lymphatic: Denies swollen glands. [] Psychiatric: Denies depression or anxiety. [] Heart Score: Risk Factors: Risk Factors: DM, Current or recent (<one month) smoker, HTN, HLP, family history of CAD, obesity. Risk Scores: Score 0 - 3: 2.5% MACE over next 6 weeks - Discharge Home Score 4 - 6: 20.3% MACE over next 6 weeks - Admit for Clinical Observation Score 7 - 10: 72.7% MACE over next 6 weeks - Early Invasive Strategies Current Medications: Current Medications Medications (Trade) Dose Ordered Sig/Palak Start Time Stop Time Status Last Admin Dose Admin Ketorolac Tromethamine (Toradol 15mg Vial) 15 mg 1X ONCE 10/03/19 19:00 10/03/19 19:12 DC 10/03/19 19:21 15 MG Metoclopramide HCl (Reglan Vial) 10 mg STK-MED ONCE 10/03/19 19:11 10/03/19 19:13 DC Sodium Chloride 1,000 ml @ 1,000 mls/hr 1X ONCE 10/03/19 19:00 10/03/19 19:59 10/03/19 19:20 1,000 MLS/HR Allergies: Allergies: Allergies Coded Allergies Type Severity Reaction Last Updated Verified No Known Drug Allergies 06/07/13 No Physical Exam: PE: Constitutional: Well developed, well nourished, no acute distress, non-toxic appearance. [] HENT: Normocephalic, atraumatic, bilateral external ears normal, oropharynx moist, no oral exudates, nose normal. [] Eyes: PERRLA, EOMI, conjunctiva normal, no discharge. [] Neck: Normal range of motion, no tenderness, supple, no stridor. [] Cardiovascular:Heart rate regular rhythm, no murmur [] Lungs & Thorax: Bilateral breath sounds clear to auscultation [] Abdomen: Bowel sounds normal, soft, no tenderness, no masses, no pulsatile masses. [] Skin: Warm, dry, no erythema, no rash. [] Back: No tenderness, no CVA tenderness. [] Extremities: No tenderness, no cyanosis, no clubbing, ROM intact, no edema. [] Neurologic: Alert and oriented X 3, normal motor function, normal sensory function, no focal deficits noted. [] Psychologic: Affect normal, judgement normal, mood normal. [] Current Patient Data: Labs: Laboratory Tests Test 10/03/19 19:20 White Blood Count 9.2 x10^3/uL (4.0-11.0) Red Blood Count 3.99 x10^6/uL (3.50-5.40) Hemoglobin 11.8 g/dL (12.0-15.5) L Hematocrit 35.5 % (36.0-47.0) L Mean Corpuscular Volume 89 fL (79-100) Mean Corpuscular Hemoglobin 30 pg (25-35) Mean Corpuscular Hemoglobin Concent 33 g/dL (31-37) Red Cell Distribution Width 13.4 % (11.5-14.5) Platelet Count 216 x10^3/uL (140-400) Neutrophils (%) (Auto) 72 % (31-73) Lymphocytes (%) (Auto) 19 % (24-48) L Monocytes (%) (Auto) 7 % (0-9) Eosinophils (%) (Auto) 1 % (0-3) Basophils (%) (Auto) 1 % (0-3) Neutrophils # (Auto) 6.6 x10^3/uL (1.8-7.7) Lymphocytes # (Auto) 1.8 x10^3/uL (1.0-4.8) Monocytes # (Auto) 0.7 x10^3/uL (0.0-1.1) Eosinophils # (Auto) 0.1 x10^3/uL (0.0-0.7) Basophils # (Auto) 0.1 x10^3/uL (0.0-0.2) Sodium Level 139 mmol/L (136-145) Potassium Level 4.2 mmol/L (3.5-5.1) Chloride Level 104 mmol/L (98-107) Carbon Dioxide Level 27 mmol/L (21-32) Anion Gap 8 (6-14) Blood Urea Nitrogen 16 mg/dL (7-20) Creatinine 1.1 mg/dL (0.6-1.0) H Estimated GFR (Cockcroft-Gault) 51.6 BUN/Creatinine Ratio 15 (6-20) Glucose Level 249 mg/dL (70-99) H Calcium Level 10.2 mg/dL (8.5-10.1) H Magnesium Level 1.6 mg/dL (1.8-2.4) L Total Bilirubin 0.4 mg/dL (0.2-1.0) Aspartate Amino Transferase (AST) 17 U/L (15-37) Alanine Aminotransferase (ALT) 34 U/L (14-59) Alkaline Phosphatase 139 U/L (46-116) H Total Protein 7.0 g/dL (6.4-8.2) Albumin 3.2 g/dL (3.4-5.0) L Albumin/Globulin Ratio 0.8 (1.0-1.7) L Lipase 131 U/L (73-393) Laboratory Tests 10/03/19 19:20 Laboratory Tests 10/03/19 19:20 EKG: EKG: [] Radiology/Procedures: Radiology/Procedures: PROCEDURE: CT ABDOMEN PELVIS WO CONTRAST Study: CT abdomen/pelvis without intravenous contrast Indication: Left flank pain. Comparison: 10/02/2019 Technique: Helical CT imaging performed of the abdomen and pelvis without the use of intravenous contrast. Sagittal and coronal reformats were obtained. One or more of the following individualized dose reduction techniques were utilized for this examination: 1. Automated exposure control 2. Adjustment of the mA and/or kV according to patient size 3. Use of iterative reconstruction technique. Findings: Inherently limited evaluation without intravenous contrast. Chest: Opacity within the right middle lobe is again partially imaged and suggestive of atelectasis. A few punctate right lower lobe nodules are unchanged. Faint infiltrate at the left lower lung favored residual from a more pronounced infiltrate at this location on the 03/03/2019 comparison as opposed to an active infectious or inflammatory process. Left lower lobe granuloma. Liver: Unchanged. Gallbladder/Biliary Tree: No CT findings of acute cholecystitis. Pancreas: Unremarkable. Spleen: Granulomas. Adrenal Glands: Unremarkable. Kidneys/Ureters/Bladder: Unchanged right kidney and collecting system. There is again mild caliectasis on the left as well as hydroureter with a stone projecting in the region of the bladder trigone, image 203 series 2, measuring up to 5 mm. Reproductive Organs: No newly seen abnormality. Colon: Retained contrast scattered throughout the colon. No newly seen abnormality. Appendix: Normal with contrast opacifying the lumen. Small Bowel: Nonobstructed. Stomach: Unremarkable. Vasculature: Nonaneurysmal aorta. Multifocal calcific atherosclerosis. Lymph Nodes: No enlargement of any abdominal or pelvic lymph nodes. Peritoneum and Body Wall: No free fluid or gas. Midline ventral pelvis surgical scarring. Scattered body wall edema. Bones: No acute or aggressive osseous process. Scattered degenerative changes which are relatively mild. Miscellaneous: None. Impression: No interval change from 10/02/2019. There is again hydroureter on the left and minimal caliectasis in the setting of a 5 mm stone favored to be lodged at the ureterovesicular junction as opposed to layering within the dependent aspect of the bladder (image 203 series 2). Electronically signed by: PAL VILLASEÑOR MD (10/03/2019 7:29 PM) [id number] Course & Med Decision Making: Course & Med Decision Making Pertinent Labs and Imaging studies reviewed. (See chart for details) [] Gisella Disclaimer: Gisella Disclaimer: This electronic medical record was generated, in whole or in part, using a voice recognition dictation system. Departure Departure Impression: Primary Impression: Kidney stone on left side Additional Impression: Hypomagnesemia Disposition: 01 HOME, SELF-CARE Condition: STABLE Referrals: SARAH PAYAN MD (PCP) Patient Instructions: Diet for Kidney Stones, Hypomagnesemia, Kidney Stones, [id number] Scripts Ondansetron (ONDANSETRON ODT) 4 Mg Tab.rapdis 1 TAB PO PRN Q6-8HRS PRN for NAUSEA, #16 TAB Prov: ABBY BLANCAS DO 10/03/19 Tamsulosin Hcl (FLOMAX) 0.4 Mg Cap.er.24h 1 CAP PO DAILY for 5 Days, #5 CAP Prov: ABBY BLANCAS DO 10/03/19 Hydrocodone/Apap 5-325 (NORCO 5-325 TABLET) 1 Each Tablet 0.5-1 TAB PO PRN Q6HRS PRN for PAIN, #10 TAB 0 Refills Prov: ABBY BLANCAS DO 10/03/19 Justicifation of Admission Dx: Justifications for Admission: Justification of Admission Dx: N/A ABBY BLANCAS DO Oct 03, 2019 19:55
[2019-10-03] MEDS ORDERED: MAGNESIUM CHLORIDE ER 64 MG TABLET.ER PO ONE (20:00)
[2019-10-03] MEDS ORDERED: TAMSULOSIN 0.4 MG CAP.ER.24H. PO ONE (20:00)
[2019-10-03 20:12] LABS: RBC,URINE 0 /HPF (0-2)
[2019-10-03 20:15] LABS: BACTERIA,URINE 0 /HPF (0-FEW); SQUAMOUS EPITHELIAL CELL,UR MOD /LPF
[2019-10-03] MEDS ORDERED: ONDA4TAB12 PO (20:25)
[2019-10-03] MEDS ORDERED: TAMS0.4C97 PO (20:25)
[2019-10-03] MEDS ORDERED: HYDR-3164 PO (20:25)
[2019-10-03 20:30] VITALS: BP 187/83
== END 2019-10-03 20:33 | disposition home or self-care (01) ==
LOC: ER 18:32
DX: N20.0 Calculus of kidney (principal); E83.42 Hypomagnesemia; J44.9 Chronic obstructive pulmonary disease, unspecified; E11.9 Type 2 diabetes mellitus without complications; E78.00 Pure hypercholesterolemia, unspecified; I10 Essential (primary) hypertension; Z90.710 Acquired absence of both cervix and uterus; Z90.89 Acquired absence of other organs; Z98.890 Other specified postprocedural states
CPT/HCPCS: 36415; 74176; 80053; 81001; 83690; 83735; 85025; 87086; 96361; 96374; 96375; 99285; J1885; J2765; J7030

== ENCOUNTER 2019-10-11 15:09 | Emergency (ER) | payer MEDICARE ==
[~2019-10-11] VITALS: Ht 162.6 cm; Wt 105.0 kg
[~2019-10-11 15:09] MED LIST changes: +ONDA4TAB12 PO; +TAMS0.4C97 PO
--- NOTE | 2019-10-11 16:12 | PHYS DOC ---
Past Medical History Past Medical History: Asthma, Bronchitis, COPD, Diabetes-Type II, High Ch olesterol, Hypertension, Pneumonia Additional Past Medical Histor: SLEEP APNEA Past Surgical History: Hysterectomy, Oophorectomy Additional Past Surgical Histo: Nose SX, RETINA SURGERY Smoking Status: Never Smoker Alcohol Use: None Drug Use: None General Adult EDM: Chief Complaint: DIZZY/LIGHT HEADED HPI: HPI: Patient is a 54 year old female presents emergency department stating that she feels tired exhausted and sleepy for the past couple of weeks. Patient states that she uses a CPAP machine at home and when she wakes up she goes and sits on the couch and feels like that she has not slept very good throughout the night and then dozes off because she is so tired. Patient denies any dizziness or lightheadedness. Patient denies any fever or chills, or changes in her seeing, patient denies any nasal congestion or sore throat denies any cough or shortness of breath. Patient denies any chest pains or swelling of her extremities. Patient denies abdominal pain, nausea, vomiting, diarrhea or constipation. Patient states that she has some back pains that are off and on but currently has no pain in her back. Patient denies any rashes of her skin, any swelling of her glands, denies depressions or anxieties. Patient denies suicidal or homicidal ideations. Patient denies any problems urinating, denies any increased urination or increased thirst. Review of Systems: Review of Systems: Constitutional: Denies fever or chills. Complains of feeling tired all day long after sleeping at night. Denies recent exposure to the COVID-19 virus. Eyes: Denies change in visual acuity. HENT: Denies nasal congestion or sore throat. Respiratory: Denies cough or shortness of breath. Cardiovascular: Denies chest pain or edema. GI: Denies abdominal pain, nausea, vomiting, bloody stools or diarrhea. : Denies dysuria. Musculoskeletal: Denies back pain or joint pain. Integument: Denies rash. Neurologic: Denies headache, focal weakness or sensory changes. Endocrine: Denies polyuria or polydipsia. Lymphatic: Denies swollen glands. Psychiatric: Denies depression or anxiety. Denies homicidal or suicidal ideations. Heart Score: Risk Factors: Risk Factors: DM, Current or recent (<one month) smoker, HTN, HLP, family his tory of CAD, obesity. Risk Scores: Score 0 - 3: 2.5% MACE over next 6 weeks - Discharge Home Score 4 - 6: 20.3% MACE over next 6 weeks - Admit for Clinical Observation Score 7 - 10: 72.7% MACE over next 6 weeks - Early Invasive Strategies Allergies: Allergies: Allergies Coded Allergies Type Severity Reaction Last Updated Verified No Known Drug Allergies 06/07/13 No Physical Exam: PE: Constitutional: Well developed, well nourished, no acute distress, non-toxic appearance. [] HENT: Normocephalic, atraumatic, bilateral external ears normal, oropharynx moist, no oral exudates, nose normal. [] Eyes: PERRLA, EOMI, conjunctiva normal, no discharge. [] Neck: Normal range of motion, no tenderness, supple, no stridor. [] Cardiovascular:Heart rate regular rhythm, no murmur [] Lungs & Thorax: Bilateral breath sounds clear to auscultation [] Abdomen: Bowel sounds normal, soft, no tenderness, no masses, no pulsatile masses. [] Skin: Warm, dry, no erythema, no rash. [] Back: No tenderness, no CVA tenderness. [] Extremities: No tenderness, no cyanosis, no clubbing, ROM intact, no edema. [] Neurologic: Alert and oriented X 3, normal motor function, normal sensory function, no focal deficits noted. [] Psychologic: Affect normal, judgement normal, mood normal. [] Current Patient Data: Vital Signs: Vital Signs Date Time Temp Pulse Resp B/P (MAP) Pulse Ox O2 Delivery O2 Flow Rate FiO2 10/11/19 15:15 98.9 87 16 169/77 (107) 100 Room Air 98.9 EKG: EKG: EKG performed at 1617 today by ED nursing staff, heart rate was 80 bpm normal sinus rhythm without ectopy, interpreted by ED attending Dr. Bullock, no STEMI, no ACS concerns noted. [] Radiology/Procedures: Radiology/Procedures: REASON: EXHAUSTION, SHORT OF BREATH PROCEDURE: CHEST PA & LATERAL Exam: Chest 2 views INDICATION: Exhaustion, shortness of breath TECHNIQUE: Frontal and lateral views the chest Comparisons: 10/02/2019 FINDINGS: The cardiomediastinal silhouette and pulmonary vessels are within normal limits. Strandy opacities at the lung bases bilaterally. No pleural effusion. IMPRESSION: Bibasilar atelectasis. Electronically signed by: Osiris Olsen MD (10/11/2019 4:36 PM) [id number] DICTATED and SIGNED BY: OSIRIS OLSEN MD DATE: 10/11/19 1636 Course & Med Decision Making: Course & Med Decision Making Pertinent Labs and Imaging studies reviewed. (See chart for details) Patient arrives emergency department complaining of feeling tired all day. Patient states this is been going on for a couple of weeks. Vital signs were reviewed, labs ordered, EKG and chest x-ray not concerning for ACS or infectious process. Spoke with patient regarding findings, discussed possibility of her feeling tired because of her CPAP machine needing adjustment. Patient states she has not seen her doctor that prescribed her CPAP machine and quite some time. Recommended that she see this physician soon as she might need a sleep study to determine whether she needs some further adjustment of her CPAP care. Patient gave verbal understanding of discharge instructions, no prescriptions for home. Patient had no further questions or concerns. Patient discharged home. Dragon Disclaimer: Dragon Disclaimer: This electronic medical record was generated, in whole or in part, using a voice recognition dictation system. Departure Departure Impression: Primary Impression: Exhaustion Additional Impression: Obstructive sleep apnea on CPAP Disposition: 01 HOME, SELF-CARE Condition: GOOD Referrals: SARAH PAYAN MD (PCP) Additional Instructions: Please follow-up with your doctor regarding your CPAP settings and possible need for sleep study. Return to the emergency department for worsening symptoms, or further concerns. Justicifation of Admission Dx: Justifications for Admission: Justification of Admission Dx: N/A ABBY MCCLAIN APRN Oct 11, 2019 16:12
[2019-10-11 16:24] LABS: BASO # 0.1 x10^3/uL (0.0-0.2); BASO % 1 % (0-3); EOS # 0.1 x10^3/uL (0.0-0.7); EOS % 2 % (0-3); HEMATOCRIT 36.9 % (36.0-47.0); HEMOGLOBIN 12.3 g/dL (12.0-15.5); LYMPH # 1.8 x10^3/uL (1.0-4.8); LYMPH % 23 % (24-48); MEAN CORPUSCULAR HEMOGLOBIN 30 pg (25-35); MEAN CORPUSCULAR HGB CONC 33 g/dL (31-37); MEAN CORPUSCULAR VOLUME 90 fL (79-100); MONO # 0.6 x10^3/uL (0.0-1.1); MONO % 8 % (0-9); NEUT # 5.4 x10^3/uL (1.8-7.7); NEUT % 68 % (31-73); PLATELET COUNT 219 x10^3/uL (140-400); RED BLOOD COUNT 4.13 x10^6/uL (3.50-5.40); RED CELL DISTRIBUTION WIDTH 13.6 % (11.5-14.5)
[2019-10-11 16:27] LABS: BILIRUBIN,URINE NEGATIVE (NEG); CLARITY,URINE CLEAR; COLOR,URINE YELLOW; NITRITE,URINE NEGATIVE (NEG); PROTEIN,URINE NEGATIVE (NEG-TRACE)
[2019-10-11 16:31] LABS: CALCIUM 10.3 mg/dL (8.5-10.1); CREATININE 0.6 mg/dL (0.6-1.0); GFR 103.8
[2019-10-11 16:33] LABS: BACTERIA,URINE 0 /HPF (0-FEW); RBC,URINE 0 /HPF (0-2); SQUAMOUS EPITHELIAL CELL,UR FEW /LPF; WBC,URINE RARE /HPF (0-4)
[2019-10-11 16:37] LABS: ALBUMIN 3.5 g/dL (3.4-5.0); ALBUMIN/GLOBULIN RATIO 0.9 (1.0-1.7); TOTAL BILIRUBIN 0.5 mg/dL (0.2-1.0); TOTAL PROTEIN 7.2 g/dL (6.4-8.2)
[2019-10-11 16:39] LABS: POTASSIUM 5.3 mmol/L (3.5-5.1)
--- NOTE | 2019-10-11 16:40 | RAD ---
Exam: Chest 2 views INDICATION: Exhaustion, shortness of breath TECHNIQUE: Frontal and lateral views the chest Comparisons: 10/02/2019 FINDINGS: The cardiomediastinal silhouette and pulmonary vessels are within normal limits. Strandy opacities at the lung bases bilaterally. No pleural effusion. IMPRESSION: Bibasilar atelectasis. Electronically signed by: Nikky Godinez MD (10/11/2019 4:36 PM) [id number]
[2019-10-11 18:30] VITALS: BP 194/86
--- NOTE | 2019-10-13 05:00 | EKG ---
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
== END 2019-10-11 19:20 | disposition home or self-care (01) ==
LOC: ER 15:09
DX: R53.83 Other fatigue (principal); G47.33 Obstructive sleep apnea (adult) (pediatric); J98.11 Atelectasis; J44.9 Chronic obstructive pulmonary disease, unspecified; E11.9 Type 2 diabetes mellitus without complications; E78.00 Pure hypercholesterolemia, unspecified; I10 Essential (primary) hypertension; Z90.710 Acquired absence of both cervix and uterus; Z90.722 Acquired absence of ovaries, bilateral; X50.9XXA Other and unspecified overexertion or strenuous movements or postures, initial encounter; Y93.89 Activity, other specified; Y92.89 Other specified places as the place of occurrence of the external cause; Y99.8 Other external cause status
CPT/HCPCS: 36415; 71046; 80053; 81001; 82553; 84484; 85025; 93005; 99285-25

== ENCOUNTER → 2019-11-05 | Outpatient (CLI) | payer MEDICARE ==
[2019-10-11 18:30] VITALS: BP 194/86
[2019-11-05 11:17] LABS: BASO % 1 % (0-3); EOS # 0.1 x10^3/uL (0.0-0.7); EOS % 1 % (0-3); HEMOGLOBIN 12.5 g/dL (12.0-15.5); LYMPH # 1.6 x10^3/uL (1.0-4.8); LYMPH % 22 % (24-48); MEAN CORPUSCULAR HEMOGLOBIN 30 pg (25-35); MEAN CORPUSCULAR HGB CONC 34 g/dL (31-37); MEAN CORPUSCULAR VOLUME 89 fL (79-100); MONO # 0.4 x10^3/uL (0.0-1.1); MONO % 5 % (0-9); NEUT # 5.1 x10^3/uL (1.8-7.7); NEUT % 72 % (31-73); PLATELET COUNT 202 x10^3/uL (140-400); RED BLOOD COUNT 4.18 x10^6/uL (3.50-5.40); RED CELL DISTRIBUTION WIDTH 13.7 % (11.5-14.5); WHITE BLOOD COUNT 7.2 x10^3/uL (4.0-11.0)
== END | disposition home or self-care (01) ==
LOC: LAB 10:39
PROVIDERS: ATTEND Internal Medicine Pulmonary Disease
DX: J45.909 Unspecified asthma, uncomplicated (principal)
CPT/HCPCS: 82785; 85025

== ENCOUNTER 2019-12-22 22:25 | Emergency (ER) | payer MEDICARE ==
[~2019-12-22] VITALS: Ht 157.5 cm; Wt 100.0 kg
[2019-12-22] MEDS ORDERED: DEXAMETHASONE 4 MG TABLET PO ONE (22:45)
[2019-12-22] MEDS ORDERED: IPRATRPIUM/ALBUTEROL 0.5/2.5MG 3 ML NEBU. NEB ONE (22:45)
--- NOTE | 2019-12-22 22:46 | PHYS DOC ---
Past Medical History Past Medical History: Asthma, Bronchitis, COPD, Diabetes-Type II, High Ch olesterol, Hypertension, Pneumonia Additional Past Medical Histor: SLEEP APNEA Past Surgical History: Hysterectomy, Oophorectomy Additional Past Surgical Histo: Nose SX, RETINA SURGERY Smoking Status: Never Smoker Alcohol Use: None Drug Use: None General Adult EDM: Chief Complaint: ALLERGIC REACTION HPI: HPI: Patient is a 54-year-old female with a history of asthma who presents to the ED per EMS with shortness of breath after getting flu shot 1 hour ago. Patient states after she got her flu shot she felt chest discomfort, weak, dizzy, and diaphoretic. She says that she has gotten flu shots in the past and is not allergic to eggs. She used her inhaler prior to arrival and states that she still feels short of breath. Denies any other symptoms. Review of Systems: Review of Systems: Constitutional: Reports dizziness, weakness; Denies fever or chills Eyes: Denies redness or eye pain HENT: Denies nasal congestion or sore throat Respiratory: Reports shortness of breath Cardiovascular: Reports chest pain and palpitations GI: Denies abdominal pain, nausea, or vomiting : Denies dysuria or hematuria Musculoskeletal: Denies back pain or joint pain Integument: Denies rash or skin lesions Neurologic: Denies headache, focal weakness or sensory changes Complete systems were reviewed and found to be within normal limits, except as documented in this note. Allergies: Allergies: Allergies Coded Allergies Type Severity Reaction Last Updated Verified No Known Drug Allergies 06/07/13 No Physical Exam: PE: Constitutional: Well developed, well nourished, no acute distress, non-toxic appearance HENT: Normocephalic, atraumatic Eyes: Conjunctiva normal, no discharge Neck: Normal range of motion, no tenderness, supple Cardiovascular: Tachycardia with regular rhythm, no murmurs Lungs & Thorax: Equal chest rise and fall, tachypenic and taking short shallow breaths, Lungs clear to auscultation bilaterally Abdomen: Soft, no tenderness Skin: Warm, dry, no erythema, no rash Extremities: No tenderness, ROM intact, no edema Neurologic: Alert and oriented X 3, no focal deficits noted Psychologic: Affect normal, judgment normal Course & Med Decision Making: Course & Med Decision Making Patient is a 54-year-old female who presents to the ED with shortness of breath after flu shot. Patient is tachycardic and tachypneic but otherwise stable. Vital signs stable. Dexamethasone and breathing treatment ordered in the ED. Patient feels much improved after treatment. Patient stable for discharge with outpatient follow-up with PCP. Discussed findings and plan with patient, who acknowledges understanding and agreement. Gisella Disclaimer: Dragmir Disclaimer: This electronic medical record was generated, in whole or in part, using a voice recognition dictation system. Departure Departure Impression: Primary Impression: Allergic reaction to vaccine Disposition: 01 DC HOME SELF CARE/HOMELESS Condition: STABLE Referrals: SARAH PAYAN MD (PCP) Patient Instructions: Drug Allergy, [id number], Influenza Virus Vaccine injection ABBY BLANCAS DO Dec 22, 2019 22:46
[2019-12-23] VITALS: BP 167/74
== END 2019-12-23 00:16 | disposition home or self-care (01) ==
LOC: ER 22:25
DX: R06.02 Shortness of breath (principal); T50.B95A Adverse effect of other viral vaccines, initial encounter; R07.89 Other chest pain; R42 Dizziness and giddiness; R53.1 Weakness; R61 Generalized hyperhidrosis; J44.9 Chronic obstructive pulmonary disease, unspecified; E11.9 Type 2 diabetes mellitus without complications; E78.00 Pure hypercholesterolemia, unspecified; I10 Essential (primary) hypertension; Y92.89 Other specified places as the place of occurrence of the external cause
CPT/HCPCS: 94640; 99283

== ENCOUNTER 2020-01-11 17:07 | Emergency (ER) | payer SELFPAY ==
[~2020-01-11] VITALS: Ht 162.6 cm; Wt 106.8 kg
--- NOTE | 2020-01-11 19:45 | RAD ---
Exam: Chest one view INDICATION: Cough TECHNIQUE: Frontal view of the chest Comparisons: 10/11/2019 FINDINGS: The cardiomediastinal silhouette and pulmonary vessels are within normal limits. The lung and pleural spaces are clear. IMPRESSION: No acute cardiopulmonary process. Electronically signed by: Nikky Godinez MD (01/11/2020 7:42 PM) HEBER
[2020-01-11] MEDS ORDERED: BENZ100C PO (20:42)
[2020-01-11] MEDS ORDERED: ALBU2.5V8 IH (20:42)
[2020-01-11] MEDS ORDERED: PRED50TA PO (20:42)
--- NOTE | 2020-01-11 20:43 | PHYS DOC ---
Past Medical History Past Medical History: Asthma, Bronchitis, COPD, Diabetes-Type II, High Ch olesterol, Hypertension, Pneumonia Additional Past Medical Histor: SLEEP APNEA Past Surgical History: Hysterectomy, Oophorectomy Additional Past Surgical Histo: Nose SX, RETINA SURGERY Smoking Status: Never Smoker Alcohol Use: None Drug Use: None General Adult EDM: Chief Complaint: MULTIPLE COMPLAINTS HPI: HPI: Patient is a 54 year old female with history of hypertension, diabetes type 2, high cholesterol, asthma, bronchitis, COPD, who presents to the ED today complaining of a cough for 3 days. Patient denies any fever. She states she did a telemedicine visit with the PCP and was started on doxycycline 2 days ago. She states she feels similar to the last time she had pneumonia and would like to be checked for it. Denies any fever. Denies any shortness of breath. Review of Systems: Review of Systems: Constitutional: Denies fever or chills. [] Eyes: Denies change in visual acuity. [] HENT: Denies nasal congestion or sore throat. [] Respiratory: Reports cough, denies shortness of breath. [] Cardiovascular: Denies chest pain or edema. [] GI: Denies abdominal pain, nausea, vomiting, bloody stools or diarrhea. [] : Denies dysuria. [] Musculoskeletal: Denies back pain or joint pain. [] Integument: Denies rash. [] Neurologic: Denies headache, focal weakness or sensory changes. [] Psychiatric: Denies depression or anxiety. [] Heart Score: Risk Factors: Risk Factors: DM, Current or recent (<one month) smoker, HTN, HLP, family history of CAD, obesity. Risk Scores: Score 0 - 3: 2.5% MACE over next 6 weeks - Discharge Home Score 4 - 6: 20.3% MACE over next 6 weeks - Admit for Clinical Observation Score 7 - 10: 72.7% MACE over next 6 weeks - Early Invasive Strategies Allergies: Allergies: Allergies Coded Allergies Type Severity Reaction Last Updated Verified No Known Drug Allergies 06/07/13 No Physical Exam: PE: Constitutional: Well developed, well nourished, no acute distress, non-toxic appearance. [] HENT: Normocephalic, atraumatic, bilateral external ears normal, oropharynx moist, no oral exudates, nose normal. [] Eyes: PERRLA, EOMI, conjunctiva normal, no discharge. [] Neck: Normal range of motion, no tenderness, supple, no stridor. [] Cardiovascular:Heart rate regular rhythm, no murmur [] Lungs & Thorax: Bilateral breath sounds clear to auscultation [] Abdomen: Bowel sounds normal, soft, no tenderness, no masses, no pulsatile masses. [] Skin: Warm, dry, no erythema, no rash. [] Back: No tenderness, no CVA tenderness. [] Extremities: No tenderness, no cyanosis, no clubbing, ROM intact, no edema. [] Neurologic: Alert and oriented X 3, normal motor function, normal sensory function, no focal deficits noted. [] Psychologic: Affect normal, judgement normal, mood normal. [] Current Patient Data: Vital Signs: Vital Signs Date Time Temp Pulse Resp B/P (MAP) Pulse Ox O2 Delivery O2 Flow Rate FiO2 01/11/20 19:00 84 147/67 (93) 01/11/20 18:00 93 01/11/20 17:32 98.7 20 98.7 EKG: EKG: [] Radiology/Procedures: Radiology/Procedures: []PROCEDURE: CHEST AP ONLY Exam: Chest one view INDICATION: Cough TECHNIQUE: Frontal view of the chest Comparisons: 10/11/2019 FINDINGS: The cardiomediastinal silhouette and pulmonary vessels are within normal limits. The lung and pleural spaces are clear. IMPRESSION: No acute cardiopulmonary process. Electronically signed by: Nikky Olsen MD (01/11/2020 7:42 PM) [facility] DICTATED and SIGNED BY: NIKKY OLSEN MD DATE: 01/11/201941 Course & Med Decision Making: Course & Med Decision Making Pertinent Labs and Imaging studies reviewed. (See chart for details) This is a 54-year-old female patient well-known to this ED presenting today for cough for 3 days. Patient was started on doxycycline by the PCP 2 days ago. She is worried she has pneumonia and would like to be checked for it. Her temperature is 98.7 with a heart rate of 96, O2 sats 94 to 95% on room air. Chest x-ray interpreted by radiologist as negative for any acute findings. She also has known history of COPD. She was checked for COVID-19, results will be called to her. Will be discharged with prednisone and albuterol inhaler as well as Tessalon Perles. Encouraged to continue taking her doxycycline. Gisella Disclaimer: Gisella Disclaimer: This electronic medical record was generated, in whole or in part, using a voice recognition dictation system. Departure Departure Impression: Primary Impression: Acute bronchitis Qualified Codes: J20.9 - Acute bronchitis, unspecified Disposition: DC HOME SELF CARE/HOMELESS Condition: STABLE Referrals: SARAH PAYAN MD (PCP) Follow-up in 1 week Patient Instructions: Acute Bronchitis Additional Instructions: You were evaluated in the emergency room, your chest x-ray was negative for any acute findings. Continue taking doxycycline. Use the rest of the prescribed medications as ordered. Scripts Benzonatate (TESSALON PERLE) 100 Mg Capsule 1 CAP PO TID, #30 CAP Prov: PAOLO CHEEK APRN 01/11/20 Albuterol Sulfate (Proair Hfa) 8.5 Gm Hfa.aer.ad 2 PUFF IH PRN Q4-6HRS PRN for wheezing for 21 Days, #1 INHALER 0 Refills Prov: PAOLO CHEEK APRN 01/11/20 Prednisone (PREDNISONE) 50 Mg Tablet 1 TAB PO DAILY, #5 TAB Prov: PAOLO CHEEK APRN 01/11/20 PAOLO CHEEK APRN Jan 11, 2020 20:42
[2020-01-11 20:50] VITALS: BP 146/86
--- NOTE | 2020-01-15 09:02 | NUR ---
IP: Informed pt of negative COVID test. Pt verbalized understanding.
== END 2020-01-11 20:50 | disposition home or self-care (01) ==
LOC: ER 17:07
DX: J20.9 Acute bronchitis, unspecified (principal); Z20.828 Contact with and (suspected) exposure to other viral communicable diseases; R05 Cough; J44.9 Chronic obstructive pulmonary disease, unspecified; E78.00 Pure hypercholesterolemia, unspecified; I10 Essential (primary) hypertension; Z90.89 Acquired absence of other organs; Z90.710 Acquired absence of both cervix and uterus
CPT/HCPCS: 71045; 99284; U0003; C9803

== ENCOUNTER 2020-02-09 20:15 | Emergency (ER) | payer MEDICARE, OTHER ==
[~2020-02-09] VITALS: Ht 162.6 cm; Wt 106.8 kg
[~2020-02-09 20:15] MED LIST changes: +ALBU2.5V8 IH; -CLIN300C8 PO; +CLIN300C9 PO
--- NOTE | 2020-02-09 21:36 | ED.ADGEN ---
Past Medical History Past Medical History: Asthma, Bronchitis, COPD, Diabetes-Type II, High Cholesterol, Hypertension, Pneumonia Additional Past Medical Histor: SLEEP APNEA Past Surgical History: Hysterectomy, Oophorectomy Additional Past Surgical Histo: Nose SX, RETINA SURGERY Smoking Status: Never Smoker Alcohol Use: None Drug Use: None General Adult EDM: Chief Complaint: SHORTNESS OF BREATH HPI: HPI: Patient is a 54 year old female coming in for about 3 days of left back pain. Patient has had cough productive of white phlegm and congestion. States she has not any heavy lifting or had any falls. Says the pain started when she was using her nebulizer treatment was coughing. Denies any fevers or sick contacts. Had a negative Covid test yesterday. No GI complaints. Has a history of chronic asthma. Also has history of lower extremity edema, has had ultrasound done was negative for blood clots. Has further work-up for the lower extremity above planned with her primary care provider Review of Systems: Review of Systems: Constitutional: Denies fever or chills. [] Eyes: Denies change in visual acuity. [] HENT: Denies nasal congestion or sore throat. [] Respiratory: Denies cough or shortness of breath. [] Cardiovascular: Denies chest pain or edema. [] GI: Denies abdominal pain, nausea, vomiting, bloody stools or diarrhea. [] : Denies dysuria. [] Musculoskeletal: Denies back pain or joint pain. [] Integument: Denies rash. [] Neurologic: Denies headache, focal weakness or sensory changes. [] Endocrine: Denies polyuria or polydipsia. [] Lymphatic: Denies swollen glands. [] Psychiatric: Denies depression or anxiety. [] Current Medications: Current Medications Medications (Trade) Dose Ordered Sig/Palak Start Time Stop Time Status Last Admin Dose Admin Calcium Carbonate/ Glycine (Tums) 500 mg 1X ONCE 02/09/20 23:30 02/09/20 23:31 DC 02/09/20 23:29 500 MG Famotidine (Pepcid Vial) 20 mg 1X ONCE 02/09/20 23:30 02/09/20 23:31 DC 02/09/20 23:29 20 MG Allergies: Allergies: Allergies Coded Allergies Type Severity Reaction Last Updated Verified No Known Drug Allergies 06/07/13 No Physical Exam: PE: Constitutional: Well developed, well nourished, no acute distress, non-toxic appearance. [] HENT: Normocephalic, atraumatic, bilateral external ears normal, oropharynx moist, no oral exudates, nose normal. [] Eyes: PERRLA, EOMI, conjunctiva normal, no discharge. [] Neck: Normal range of motion, no tenderness, supple, no stridor. [] Cardiovascular:Heart rate regular rhythm, no murmur [] Lungs & Thorax: Bilateral crackles at bases Abdomen: Bowel sounds normal, soft, no tenderness, no masses, no pulsatile masses. [] Skin: Warm, dry, no erythema, no rash. [] Back: No tenderness, no CVA tenderness. [] Extremities: No tenderness, no cyanosis, no clubbing, ROM intact, bilateral lower extremity edema Neurologic: Alert and oriented X 3, normal motor function, normal sensory function, no focal deficits noted. [] Psychologic: Affect normal, judgement normal, mood normal. [] Current Patient Data: Labs: Laboratory Tests Test 02/09/20 21:50 02/09/20 22:10 White Blood Count 7.6 x10^3/uL (4.0-11.0) Red Blood Count 4.04 x10^6/uL (3.50-5.40) Hemoglobin 12.1 g/dL (12.0-15.5) Hematocrit 35.9 % (36.0-47.0) L Mean Corpuscular Volume 89 fL (79-100) Mean Corpuscular Hemoglobin 30 pg (25-35) Mean Corpuscular Hemoglobin Concent 34 g/dL (31-37) Red Cell Distribution Width 13.9 % (11.5-14.5) Platelet Count 214 x10^3/uL (140-400) Neutrophils (%) (Auto) 62 % (31-73) Lymphocytes (%) (Auto) 27 % (24-48) Monocytes (%) (Auto) 8 % (0-9) Eosinophils (%) (Auto) 2 % (0-3) Basophils (%) (Auto) 1 % (0-3) Neutrophils # (Auto) 4.7 x10^3/uL (1.8-7.7) Lymphocytes # (Auto) 2.1 x10^3/uL (1.0-4.8) Monocytes # (Auto) 0.6 x10^3/uL (0.0-1.1) Eosinophils # (Auto) 0.1 x10^3/uL (0.0-0.7) Basophils # (Auto) 0.1 x10^3/uL (0.0-0.2) D-Dimer (Priscilla) 0.39 ug/mlFEU (0.00-0.50) Sodium Level 139 mmol/L (136-145) Potassium Level 4.1 mmol/L (3.5-5.1) Chloride Level 104 mmol/L (98-107) Carbon Dioxide Level 28 mmol/L (21-32) Anion Gap 7 (6-14) Blood Urea Nitrogen 22 mg/dL (7-20) H Creatinine 0.8 mg/dL (0.6-1.0) Estimated GFR (Cockcroft-Gault) 74.5 BUN/Creatinine Ratio 28 (6-20) H Glucose Level 232 mg/dL (70-99) H Calcium Level 11.2 mg/dL (8.5-10.1) H Total Bilirubin 0.4 mg/dL (0.2-1.0) Aspartate Amino Transferase (AST) 22 U/L (15-37) Alanine Aminotransferase (ALT) 43 U/L (14-59) Alkaline Phosphatase 160 U/L (46-116) H Troponin I Quantitative < 0.017 ng/mL (0.000-0.055) FW-Rjm-L-Type Natriuretic Peptide 10 pg/mL (0-124) Total Protein 6.7 g/dL (6.4-8.2) Albumin 3.3 g/dL (3.4-5.0) L Albumin/Globulin Ratio 1.0 (1.0-1.7) Laboratory Tests 02/09/20 21:50 Laboratory Tests 02/09/20 22:10 Vital Signs: Vital Signs Date Time Temp Pulse Resp B/P (MAP) Pulse Ox O2 Delivery O2 Flow Rate FiO2 02/09/20 20:45 98.4 94 18 161/72 (101) 99 Room Air 98.4 EKG: EKG: [] Heart Score: Risk Factors: Risk Factors: DM, Current or recent (<one month) smoker, HTN, HLP, family history of CAD, obesity. Risk Scores: Score 0 - 3: 2.5% MACE over next 6 weeks - Discharge Home Score 4 - 6: 20.3% MACE over next 6 weeks - Admit for Clinical Observation Score 7 - 10: 72.7% MACE over next 6 weeks - Early Invasive Strategies Radiology/Procedures: Radiology/Procedures: Exam: Chest 2 views INDICATION: Left-sided back pain TECHNIQUE: Frontal and lateral views the chest Comparisons: 01/11/2020 FINDINGS: The cardiomediastinal silhouette and pulmonary vessels are within normal limits. The lung and pleural spaces are clear. IMPRESSION: No acute cardiopulmonary process. [] Course & Med Decision Making: Course & Med Decision Making Pertinent Labs and Imaging studies reviewed. (See chart for details) Work-up unremarkable, discussed patient that pain might likely be from pulling a muscle when she was coughing. Patient requesting starting medications for her gastric reflux, has a EGD scheduled in about 3 weeks. Patient also requesting s uggestions for dealing with her chronic congestion [] Dragon Disclaimer: Dragon Disclaimer: This electronic medical record was generated, in whole or in part, using a voice recognition dictation system. Departure Departure Impression: Primary Impression: Sinus congestion Additional Impressions: Back pain GERD (gastroesophageal reflux disease) Disposition: 01 DC HOME SELF CARE/HOMELESS Condition: STABLE Referrals: SARAH PAYAN MD (PCP) Patient Instructions: Back Exercises Additional Instructions: Take krde-hui-epbdnas Mucinex and increase water intake to help with sinus congestion Scripts Omeprazole (OMEPRAZOLE) 40 Mg Capsule.dr 1 CAP PO DAILY for GERD for 30 Days, #30 CAP 3 Refills Prov: REZA MIKE MD 02/09/20 Azelastine Hcl (AZELASTINE HCL) 137 Mcg/0.137 Ml [place].pump 2 SPRAY NS BID for congestion for 30 Days, #30 ML 0 Refills Prov: REZA MIKE MD 02/09/20 Problem Qualifiers REZA MIKE MD Feb 09, 2020 21:36
[2020-02-09 22:03] LABS: BASO # 0.1 x10^3/uL (0.0-0.2); BASO % 1 % (0-3); EOS # 0.1 x10^3/uL (0.0-0.7); EOS % 2 % (0-3); HEMATOCRIT 35.9 % (36.0-47.0); HEMOGLOBIN 12.1 g/dL (12.0-15.5); LYMPH # 2.1 x10^3/uL (1.0-4.8); LYMPH % 27 % (24-48); MEAN CORPUSCULAR HEMOGLOBIN 30 pg (25-35); MEAN CORPUSCULAR HGB CONC 34 g/dL (31-37); MEAN CORPUSCULAR VOLUME 89 fL (79-100); MONO # 0.6 x10^3/uL (0.0-1.1); MONO % 8 % (0-9); NEUT # 4.7 x10^3/uL (1.8-7.7); NEUT % 62 % (31-73); PLATELET COUNT 214 x10^3/uL (140-400); RED BLOOD COUNT 4.04 x10^6/uL (3.50-5.40); RED CELL DISTRIBUTION WIDTH 13.9 % (11.5-14.5); WHITE BLOOD COUNT 7.6 x10^3/uL (4.0-11.0)
[2020-02-09 22:29] LABS: CALCIUM 11.2 mg/dL (8.5-10.1); CREATININE 0.8 mg/dL (0.6-1.0); GFR 74.5; POTASSIUM 4.1 mmol/L (3.5-5.1)
[2020-02-09 22:34] LABS: ALBUMIN 3.3 g/dL (3.4-5.0); TOTAL BILIRUBIN 0.4 mg/dL (0.2-1.0); TOTAL PROTEIN 6.7 g/dL (6.4-8.2)
--- NOTE | 2020-02-09 22:41 | RAD ---
Exam: Chest 2 views INDICATION: Left-sided back pain TECHNIQUE: Frontal and lateral views the chest Comparisons: 01/11/2020 FINDINGS: The cardiomediastinal silhouette and pulmonary vessels are within normal limits. The lung and pleural spaces are clear. IMPRESSION: No acute cardiopulmonary process. Electronically signed by: Nikky Godinez MD (02/09/2020 10:38 PM) [facility]
[2020-02-09 23:28] VITALS: BP 153/75
[2020-02-09] MEDS ORDERED: CALCIUM CARBONATE 500 MG TAB.CHEW PO ONE (23:30)
[2020-02-09] MEDS ORDERED: FAMOTIDINE 20 MG/2 ML VIAL IVP ONE (23:30)
[2020-02-09] MEDS ORDERED: AZEL137S3 NS (23:46)
[2020-02-09] MEDS ORDERED: OMEP40CA45 PO (23:46)
== END 2020-02-09 23:55 | disposition home or self-care (01) ==
LOC: ER 20:15
DX: K21.9 Gastro-esophageal reflux disease without esophagitis (principal); M54.89 Other dorsalgia; R09.81 Nasal congestion; J44.9 Chronic obstructive pulmonary disease, unspecified; E11.9 Type 2 diabetes mellitus without complications; E78.00 Pure hypercholesterolemia, unspecified; I10 Essential (primary) hypertension
CPT/HCPCS: 36415; 71046; 80053; 83880; 84484; 85025; 85379; 96374; 99284; J3490

== ENCOUNTER 2020-02-19 09:55 | Emergency (ER) | payer MEDICARE ==
[~2020-02-19] VITALS: Ht 162.6 cm; Wt 108.0 kg
[~2020-02-19 09:55] MED LIST changes: +AZEL137S3 NS; +OMEP40CA45 PO
[2020-02-19] MEDS ORDERED: IV NORMAL SALINE 1000ML BAG 1,000 ML IV ONE (11:15)
[2020-02-19] MEDS ORDERED: ASPIRIN 325 MG TABLET PO ONE (11:15)
[2020-02-19 11:16] LABS: BASO # 0.1 x10^3/uL (0.0-0.2); BASO % 1 % (0-3); EOS # 0.1 x10^3/uL (0.0-0.7); EOS % 1 % (0-3); HEMATOCRIT 39.3 % (36.0-47.0); HEMOGLOBIN 12.9 g/dL (12.0-15.5); LYMPH % 26 % (24-48); MEAN CORPUSCULAR HEMOGLOBIN 29 pg (25-35); MEAN CORPUSCULAR HGB CONC 33 g/dL (31-37); MEAN CORPUSCULAR VOLUME 89 fL (79-100); MONO # 0.4 x10^3/uL (0.0-1.1); MONO % 6 % (0-9); NEUT # 5.1 x10^3/uL (1.8-7.7); NEUT % 66 % (31-73); PLATELET COUNT 198 x10^3/uL (140-400); RED CELL DISTRIBUTION WIDTH 13.4 % (11.5-14.5); WHITE BLOOD COUNT 7.7 x10^3/uL (4.0-11.0)
[2020-02-19 11:35] LABS: CALCIUM 11.1 mg/dL (8.5-10.1); CREATININE 0.7 mg/dL (0.6-1.0); GFR 86.9; POTASSIUM 4.9 mmol/L (3.5-5.1)
[2020-02-19 11:40] LABS: ALBUMIN 3.6 g/dL (3.4-5.0); TOTAL BILIRUBIN 0.3 mg/dL (0.2-1.0); TOTAL PROTEIN 7.3 g/dL (6.4-8.2)
--- NOTE | 2020-02-19 11:46 | PHYS DOC ---
Past Medical History Past Medical History: Arthritis, Asthma, Bronchitis, COPD, Diabetes-Type II, High Cholesterol, Hypertension, Pneumonia, Other Additional Past Medical Histor: SLEEP APNEA (ABBY BLANCAS DO) Past Surgical History: Hysterectomy, Oophorectomy Additional Past Surgical Histo: Nose SX,RETINA SURGERY (ABBY BLANCAS DO) Smoking Status: Never Smoker Alcohol Use: None Drug Use: None (ABBY BLANCAS DO) General Adult EDM: Chief Complaint: CHEST PAIN HPI: HPI: 54-year-old female presents with report of left-sided chest discomfort x2 days. Patient denies trauma. Patient reports she was recently tested for COVID-19 on 02/15/2020 with negative results. Patient reports initially had been h aving some thoracic back discomfort. Reports worse with exertion. Patient does report some worsening with deep inspiration. Denies leg swelling or calf tenderness. Denies history or family history of DVT/PE. (ABBY BLANCAS DO) Review of Systems: Review of Systems: Constitutional: Denies fever or chills Eyes: Denies redness or eye pain HENT: Denies nasal congestion or sore throat Respiratory: Denies cough; reports shortness of breath Cardiovascular: Reports chest pain; denies palpitations GI: Denies abdominal pain, nausea, or vomiting : Denies dysuria or hematuria Musculoskeletal: Reports thoracic back pain; denies leg pain or joint pain Integument: Denies rash or skin lesions Neurologic: Denies headache, focal weakness or sensory changes Complete systems were reviewed and found to be within normal limits, except as documented in this note. (ABBY BLANCAS DO) Heart Score: HEART Score for Chest Pain: HEART Score for Chest Pain Response (Comments) Value History Moderately Suspicious 1 ECG Normal 0 Age >45 - < 65 1 Risk Factors >3 Risk Factors or Hx CAD 2 Troponin < Normal Limit 0 Total 4 Risk Factors: Risk Factors: DM, Current or recent (<one month) smoker, HTN, HLP, family history of CAD, obesity. Risk Scores: Score 0 - 3: 2.5% MACE over next 6 weeks - Discharge Home Score 4 - 6: 20.3% MACE over next 6 weeks - Admit for Clinical Observation Score 7 - 10: 72.7% MACE over next 6 weeks - Early Invasive Strategies (ABBY BLANCAS DO) HEART Score for Chest Pain: HEART Score for Chest Pain Response (Comments) Value History Slighlty/Non-Suspicious 0 ECG Normal 0 Age >45 - < 65 1 Risk Factors >3 Risk Factors or Hx CAD 2 Troponin < Normal Limit 0 Total 3 Current Medications: Current Medications Medications (Trade) Dose Ordered Sig/Palak Start Time Stop Time Status Last Admin Dose Admin Aspirin (Olman Aspirin) 325 mg 1X ONCE 02/19/20 11:15 02/19/20 11:16 DC Sodium Chloride 1,000 ml @ 1,000 mls/hr 1X ONCE 02/19/20 11:15 02/19/20 12:14 (ABBY BLANCAS DO) Allergies: Allergies: Allergies Coded Allergies Type Severity Reaction Last Updated Verified Influenza Virus Vaccines Allergy Intermediate RASH 02/19/20 Yes (ABBY BLANCAS DO) Physical Exam: PE: Constitutional: Well developed, obese, no acute distress, non-toxic appearance HENT: Normocephalic, atraumatic Eyes: Conjunctiva normal, no discharge Neck: Normal range of motion, no tenderness, supple Lungs & Thorax: No respiratory distress, equal chest rise and fall Abdomen: Soft, no tenderness Skin: Warm, dry, no erythema, no rash Back: No midline tenderness, no thoracic paraspinal tenderness on palpation, no CVA tenderness Extremities: No tenderness, ROM intact, 1+ bilateral lower extremity edema Neurologic: Alert and oriented X 3, normal motor function, normal sensory function, no focal deficits noted Psychologic: Affect anxoius, judgment normal (ABBY BLANCAS DO) Current Patient Data: Labs: Laboratory Tests Test 02/19/20 10:10 White Blood Count 7.7 x10^3/uL (4.0-11.0) Red Blood Count 4.40 x10^6/uL (3.50-5.40) Hemoglobin 12.9 g/dL (12.0-15.5) Hematocrit 39.3 % (36.0-47.0) Mean Corpuscular Volume 89 fL (79-100) Mean Corpuscular Hemoglobin 29 pg (25-35) Mean Corpuscular Hemoglobin Concent 33 g/dL (31-37) Red Cell Distribution Width 13.4 % (11.5-14.5) Platelet Count 198 x10^3/uL (140-400) Neutrophils (%) (Auto) 66 % (31-73) Lymphocytes (%) (Auto) 26 % (24-48) Monocytes (%) (Auto) 6 % (0-9) Eosinophils (%) (Auto) 1 % (0-3) Basophils (%) (Auto) 1 % (0-3) Neutrophils # (Auto) 5.1 x10^3/uL (1.8-7.7) Lymphocytes # (Auto) 2.0 x10^3/uL (1.0-4.8) Monocytes # (Auto) 0.4 x10^3/uL (0.0-1.1) Eosinophils # (Auto) 0.1 x10^3/uL (0.0-0.7) Basophils # (Auto) 0.1 x10^3/uL (0.0-0.2) Sodium Level 139 mmol/L (136-145) Potassium Level 4.9 mmol/L (3.5-5.1) Chloride Level 103 mmol/L (98-107) Carbon Dioxide Level 26 mmol/L (21-32) Anion Gap 10 (6-14) Blood Urea Nitrogen 19 mg/dL (7-20) Creatinine 0.7 mg/dL (0.6-1.0) Estimated GFR (Cockcroft-Gault) 86.9 BUN/Creatinine Ratio 27 (6-20) H Glucose Level 313 mg/dL (70-99) H Calcium Level 11.1 mg/dL (8.5-10.1) H Magnesium Level 2.0 mg/dL (1.8-2.4) Total Bilirubin 0.3 mg/dL (0.2-1.0) Aspartate Amino Transferase (AST) 25 U/L (15-37) Alanine Aminotransferase (ALT) 58 U/L (14-59) Alkaline Phosphatase 191 U/L (46-116) H Total Protein 7.3 g/dL (6.4-8.2) Albumin 3.6 g/dL (3.4-5.0) Albumin/Globulin Ratio 1.0 (1.0-1.7) Lipase 106 U/L (73-393) Laboratory Tests 02/19/20 10:10 Laboratory Tests 02/19/20 10:10 Vital Signs: Vital Signs Date Time Temp Pulse Resp B/P (MAP) Pulse Ox O2 Delivery O2 Flow Rate FiO2 02/19/20 09:59 98.2 75 17 153/79 (103) 98 Room Air 98.2 (ABBY BLANCAS DO) EKG: EKG: @1005 NSR at 80bpm, NO ST elevation, QRS 78ms, QT/QTc 372/433ms (ABBY BLANCAS DO) Radiology/Procedures: Radiology/Procedures: [] (ABBY BLANCAS DO) Course & Med Decision Making: Course & Med Decision Making Pertinent Labs and Imaging studies reviewed. (See chart for details) Patient with significant cardiac risk factors presents with report of chest discomfort. Patient previously had had thoracic back pain. Unable to reproduce back pain on palpation. Patient without history or family history of DVT/PE. Patient reports recent Covid testing which was negative on 02/15/2020. EKG stable. Labs obtained and posted to chart. Initial troponin within normal limits. D-dimer pending. Hyperglycemia addressed. Signout given to Dr. Verma for further evaluation and final disposition. Discussed current findings and plan with patient, who acknowledges understanding and agreement. (ABBY BLANCAS DO) Course & Med Decision Making REPEATED TROPONIN I WAS NEGATIVE. EKG WAS NORMAL. SUSPECTED THAT CHEST PAIN NONCARDIAC IN NATURE. WILL DISCHARGE HER HOME. SHE WILL NEED TO FOLLOW UP WITH HER FAMILY PHYSICIAN. (JHONY VERMA DO) Dragon Disclaimer: Dragon Disclaimer: This electronic medical record was generated, in whole or in part, using a voice recognition dictation system. (ABBY BLANCAS DO) Departure Departure Impression: Primary Impression: Chest pain Qualified Codes: R07.9 - Chest pain, unspecified Additional Impression: Hyperglycemia Disposition: 01 DC HOME SELF CARE/HOMELESS Admitting Physician: Tegan Payan (ABBY BLANCAS DO) Condition: STABLE Referrals: TEGAN PAYAN MD (PCP) Patient Instructions: Chest Pain (Nonspecific) Additional Instructions: Thank you for visiting our Emergency Department. We appreciate you trusting us with your care. If any additional problems come up don't hesitate to return to visit us. Please follow up with your primary care provider so they can plan additional care if needed and know about the problem that you had. If symptoms worsen come back to the Emergency Department. Any concerning symptoms that start such as chest pain, shortness of air, weakness or numbness on one side of the body, running high fevers or any other concerning symptoms return to the ER. ABBY BLANCAS DO Feb 19, 2020 11:46 JHONY VERMA DO Feb 19, 2020 16:32
[2020-02-19] MEDS ORDERED: INSULIN REGULAR 100 UNIT/ML 3ML VIAL. SQ ONE (12:30)
--- NOTE | 2020-02-19 12:41 | RAD ---
Examination: XR CHEST 1V History: Reason: chest pain / Spl. Instructions: / History: Comparison/Correlation: 02/09/2020 two-view chest x-ray exam Findings: Portable upright chest x-ray exam was performed. Heart size and pulmonary vasculature is no rmal. No infiltrate or effusion. Bony structures are intact. Impression: No active disease. Electronically signed by: Reggie Alamo MD (02/19/2020 12:38 PM) [id number]
[2020-02-19 14:09] LABS: BILIRUBIN,URINE NEGATIVE (NEG); CLARITY,URINE CLOUDY; COLOR,URINE YELLOW; NITRITE,URINE NEGATIVE (NEG); PH,URINE 8.5 (<5.0-8.0); PROTEIN,URINE NEGATIVE (NEG-TRACE); UROBILINOGEN,URINE 0.2 mg/dL (0.2 mg/dL)
[2020-02-19 14:14] LABS: AMORPHOUS SEDIMENT,UR PRESENT /HPF; BACTERIA,URINE 0 /HPF (0-FEW); RBC,URINE 0 /HPF (0-2); WBC,URINE 0 /HPF (0-4)
[2020-02-19 16:37] VITALS: BP 161/74
[2020-02-19] MEDS ORDERED: KETOROLAC 30 MG/ML VIAL. IVP ONE (16:45)
--- NOTE | 2020-02-19 18:28 | EKG ---
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
== END 2020-02-19 17:15 | disposition home or self-care (01) ==
LOC: ER 09:55
DX: R07.89 Other chest pain (principal); M54.6 Pain in thoracic spine; M19.90 Unspecified osteoarthritis, unspecified site; J44.9 Chronic obstructive pulmonary disease, unspecified; E11.65 Type 2 diabetes mellitus with hyperglycemia; E78.00 Pure hypercholesterolemia, unspecified; I10 Essential (primary) hypertension; Z90.710 Acquired absence of both cervix and uterus; Z90.89 Acquired absence of other organs; Z98.890 Other specified postprocedural states; Z88.7 Allergy status to serum and vaccine
CPT/HCPCS: 36415; 71045; 80053; 81001; 82553; 82962; 83690; 83735; 83880; 84484; 85025; 85379; 93005; 96361; 96372; 96374; 99285; J1815; J1885; J7030

== ENCOUNTER 2020-02-28 19:46 | Emergency (ER) | payer SELFPAY ==
[~2020-02-28] VITALS: Ht 162.6 cm; Wt 109.0 kg
--- NOTE | 2020-02-28 20:06 | PHYS DOC ---
Past Medical History Past Medical History: Arthritis, Asthma, Bronchitis, COPD, Diabetes-Type II, High Cholesterol, Hypertension, Pneumonia, Other Additional Past Medical Histor: SLEEP APNEA Past Surgical History: Hysterectomy, Oophorectomy Additional Past Surgical Histo: Nose SX,RETINA SURGERY Smoking Status: Never Smoker Alcohol Use: None Drug Use: None General Adult EDM: Chief Complaint: DIZZY/LIGHT HEADED HPI: HPI: Patient is a 54 year old female who has chronic nasal congestion due to chronic sinusitis was using a Satin pot tonight and then had episode of lightheaded dizziness and feeling that she may pass out. Patient had some ringing in her ears with some nausea. The episode happened just prior to arrival last about 15 minutes that she currently feels much better. Patient has a mild shortness of breath associated with this. Patient denies any fever, chills or cough. Patient denies any chest pain. Patient has any headache. Patient got a hamburger in route to the hospital Review of Systems: Review of Systems: Constitutional: Denies fever or chills. [] Eyes: Denies change in visual acuity. [] HENT: Complains of nasal congestion and some ringing in her ears Respiratory: Denies cough or shortness of breath. [] Cardiovascular: Denies chest pain but has some chronic swelling in her legs GI: Denies abdominal pain, vomiting, bloody stools or diarrhea. [] Patient had some transient nausea : Denies dysuria. [] Musculoskeletal: Denies back pain or joint pain. [] Integument: Denies rash. [] Neurologic: Denies headache, focal weakness or sensory changes. [] Complains of transient near syncope Endocrine: Denies polyuria or polydipsia. [] Lymphatic: Denies swollen glands. [] Psychiatric: Denies depression or anxiety. [] Heart Score: Risk Factors: Risk Factors: DM, Current or recent (<one month) smoker, HTN, HLP, family history of CAD, obesity. Risk Scores: Score 0 - 3: 2.5% MACE over next 6 weeks - Discharge Home Score 4 - 6: 20.3% MACE over next 6 weeks - Admit for Clinical Observation Score 7 - 10: 72.7% MACE over next 6 weeks - Early Invasive Strategies Allergies: Allergies: Allergies Coded Allergies Type Severity Reaction Last Updated Verified Influenza Virus Vaccines Allergy Intermediate RASH 02/19/20 Yes Physical Exam: PE: Constitutional: Well developed, well nourished, no acute distress, non-toxic appearance. [] HENT: Normocephalic, atraumatic, bilateral external ears normal, no trismus nasal congestion Eyes: PERRLA, EOMI, conjunctiva normal, no discharge. [] Neck: Normal range of motion, no tenderness, supple, no stridor. [] Cardiovascular:Heart rate regular rhythm, no murmur [] Lungs & Thorax: Bilateral breath sounds clear to auscultation [] Abdomen: Bowel sounds normal, soft, no tenderness, no masses, no pulsatile masses. [] Skin: Warm, dry, no erythema, no rash. [] Back: No tenderness, no CVA tenderness. [] Extremities: No tenderness, no cyanosis, no clubbing, ROM intact, mild bilateral lower extremity edema Neurologic: Alert and oriented X 3, normal motor function, normal sensory function, no focal deficits noted. [] Psychologic: Affect normal, judgement normal, mood normal. [] Current Patient Data: Labs: Laboratory Tests Test 02/28/20 20:05 White Blood Count 6.7 x10^3/uL Red Blood Count 4.47 x10^6/uL Hemoglobin 13.3 g/dL Hematocrit 39.8 % Mean Corpuscular Volume 89 fL Mean Corpuscular Hemoglobin 30 pg Mean Corpuscular Hemoglobin Concent 33 g/dL Red Cell Distribution Width 13.6 % Platelet Count 196 x10^3/uL Neutrophils (%) (Auto) 57 % Lymphocytes (%) (Auto) 32 % Monocytes (%) (Auto) 8 % Eosinophils (%) (Auto) 1 % Basophils (%) (Auto) 1 % Neutrophils # (Auto) 3.9 x10^3/uL Lymphocytes # (Auto) 2.2 x10^3/uL Monocytes # (Auto) 0.6 x10^3/uL Eosinophils # (Auto) 0.1 x10^3/uL Basophils # (Auto) 0.1 x10^3/uL Sodium Level 137 mmol/L Potassium Level 4.5 mmol/L Chloride Level 104 mmol/L Carbon Dioxide Level 25 mmol/L Anion Gap 8 Blood Urea Nitrogen 20 mg/dL Creatinine 0.9 mg/dL Estimated GFR (Cockcroft-Gault) 65.0 Glucose Level 245 mg/dL Calcium Level 11.3 mg/dL Troponin I Quantitative < 0.017 ng/mL Vital Signs: Vital Signs Date Time Temp Pulse Resp B/P (MAP) Pulse Ox O2 Delivery O2 Flow Rate FiO2 02/28/20 20:00 98.9 81 16 175/85 (115) 99 Room Air 98.9 EKG: EKG: EKG interpreted by me normal sinus rhythm rate of 77 normal axis normal intervals, diffuse flattening of the ST segments [] Radiology/Procedures: Radiology/Procedures: [] Course & Med Decision Making: Course & Med Decision Making Pertinent Labs and Imaging studies reviewed. (See chart for details) [] 54-year-old female presents with lightheaded, dizziness following using a Mattie pot. Patient was able to stop and eat a hamburger in route to the hospital. Patient is neurologically intact. Patient is no meningeal signs. Cerebellar exam normal. Clinically doubt stroke. EKG is unremarkable. No evidence of arrhythmia in the ER. labs are unremarkable other than mild hyperglycemia. Patient reassessed at 9 PM and is clinically stable. We will give the patient ambulatory challenge. Patient be treated for sinusitis with antibiotics. Dragon Disclaimer: Dragon Disclaimer: This electronic medical record was generated, in whole or in part, using a voice recognition dictation system. Departure Departure Impression: Primary Impression: Dizziness Additional Impressions: Sinusitis Hyperglycemia Disposition: 01 DC HOME SELF CARE/HOMELESS Condition: STABLE Referrals: SARAH PAYAN MD (PCP) 2-3 DAYS Patient Instructions: Dizziness, Sinusitis Additional Instructions: EMERGENCY DEPARTMENT GENERAL DISCHARGE INSTRUCTIONS THANK YOU for coming to [facility] Emergency Department (ED) today and trusting us with your care. We trust that you had a positive experience in our Emergency Department. If you wish to speak to the department Management you can contact the group fitness assistant department head at . YOUR FOLLOW UP INSTRUCTIONS ARE FOLLOWS: Do you have a private doctor? If you do not have a private doctor, please ask for a resource list of physicians or clinics that may be able to assist you with follow up care. The Emergency Physician has interpreted your x-rays. The X-ray specialist will also review them. If there is a change in the findings you will be notified in 48 hours when at all possible. A lab test or lab culture may have been done, your results will be reviewed and you will be notified if you need a change in treatment. ADDITIONAL INSTRUCTIONS AND INFORMATION Your care today has been supervised by a physician who is specially trained in emergency care. Many problems require more than one evaluation for a complete diagnosis and treatment. We recommend that you schedule your follow up appointment as recommended to ensure complete treatment of your illness or injury. If you are unable to obtain follow up care and continue to have a problem, or if your condition worsens we recommend that you return to the ED. We are not able to safely determine your condition over the phone nor are we able to give sound medical advice over the phone. For these safety reasons, if you call for medical advice we will ask you to come to the ED for further evaluation If you have any questions regarding these discharge instructions please call the ED at . SAFETY INFORMATION In the interest of safety, wellness, and injury prevention; we encourage you to wear your seatbelt, if you smoke; quit smoking, and we encourage your family to use protective helmet for bicycling and other sporting events that present an increased risk for head injury. IF YOUR SYMPTOMS WORSEN OR NEW SYMPTOMS DEVELOP, OR YOU HAVE CONCERNS ABOUT YOUR CONDITION; OR IF YOUR CONDITION WORSENS WHILE YOU ARE WAITING FOR YOUR FOLLOW UP APPOINTMENT; EITHER CONTACT YOUR PRIMARY CARE DOCTOR, THE PHYSICIAN WHOSE NAME AND NUMBER YOU WERE GIVEN, OR RETURN TO THE ED IMMEDIATELY. Scripts Amoxicillin/Potassium Clav (AUGMENTIN 875-125 TABLET) 1 Each Tablet 1 TAB PO BID for 10 Days, #20 TAB 0 Refills Prov: MANUEL PINA MD 02/28/20 MANUEL PINA MD Feb 28, 2020 20:06
[2020-02-28 20:11] LABS: BASO # 0.1 x10^3/uL (0.0-0.2); BASO % 1 % (0-3); EOS # 0.1 x10^3/uL (0.0-0.7); EOS % 1 % (0-3); HEMATOCRIT 39.8 % (36.0-47.0); HEMOGLOBIN 13.3 g/dL (12.0-15.5); LYMPH # 2.2 x10^3/uL (1.0-4.8); LYMPH % 32 % (24-48); MEAN CORPUSCULAR HEMOGLOBIN 30 pg (25-35); MEAN CORPUSCULAR HGB CONC 33 g/dL (31-37); MEAN CORPUSCULAR VOLUME 89 fL (79-100); MONO # 0.6 x10^3/uL (0.0-1.1); MONO % 8 % (0-9); NEUT # 3.9 x10^3/uL (1.8-7.7); NEUT % 57 % (31-73); PLATELET COUNT 196 x10^3/uL (140-400); RED BLOOD COUNT 4.47 x10^6/uL (3.50-5.40); RED CELL DISTRIBUTION WIDTH 13.6 % (11.5-14.5); WHITE BLOOD COUNT 6.7 x10^3/uL (4.0-11.0)
[2020-02-28 20:20] LABS: CALCIUM 11.3 mg/dL (8.5-10.1); CREATININE 0.9 mg/dL (0.6-1.0); POTASSIUM 4.5 mmol/L (3.5-5.1)
[2020-02-28 20:26] VITALS: BP 167/98
--- NOTE | 2020-02-28 20:35 | RAD ---
Exam performed: One view chest. Indication: Reason: DIZZINESS, SOA / Spl. Instructions: / History: Date of Service: 02/28/2020 8:22 PM Comparison: One view chest from 02/19/2020. Single AP upright portable view chest findings: Cardiomediastinal silhouette is within limits of normal. No acute infiltrates, effusion or pneumotho rax is detected. The bony structures are normal. Impression: No acute cardiopulmonary process is detected. Electronically signed by: Vania Merchant MD (02/28/2020 8:32 PM) [facility]
[2020-02-28] MEDS ORDERED: AMOX1TAB61 PO (21:01)
--- NOTE | 2020-03-01 23:18 | EKG ---
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
== END 2020-02-28 21:10 | disposition home or self-care (01) ==
LOC: ER 19:46
DX: J32.9 Chronic sinusitis, unspecified (principal); R42 Dizziness and giddiness; R11.0 Nausea; E11.65 Type 2 diabetes mellitus with hyperglycemia; M19.90 Unspecified osteoarthritis, unspecified site; J44.9 Chronic obstructive pulmonary disease, unspecified; E78.00 Pure hypercholesterolemia, unspecified; I10 Essential (primary) hypertension; Z88.8 Allergy status to other drugs, medicaments and biological substances
CPT/HCPCS: 36415; 71045; 80048; 84484; 85025; 93005; 99285

== ENCOUNTER 2020-03-08 11:20 | Emergency (ER) | payer SELFPAY ==
[~2020-03-08] VITALS: Ht 162.6 cm; Wt 112.0 kg
[~2020-03-08 11:20] MED LIST changes: -CIPR500T PO; +CIPR500T2 PO; +GEMF600T20 PO; -GEMF600T8 PO; -OMEP40CA45 PO; +OMEP40CA7 PO
[2020-03-08 13:15] VITALS: BP 159/71
[2020-03-08] MEDS ORDERED: KETOROLAC 30 MG/ML VIAL. IM ONE (14:00)
[2020-03-08] MEDS ORDERED: ORPHENADRINE CITRATE 60 MG/2 ML VIAL. IM ONE (14:00)
--- NOTE | 2020-03-08 14:23 | RAD ---
EXAM: Left knee, 3 views. HISTORY: Fall. Pain. COMPARISON: None. FINDINGS: 3 views of the left knee are obtained. There is mild medial compartment joint space narrowi ng. There is no fracture, dislocation or subluxation. There is no joint effusion. There is a tiny bon e island within the distal femur. IMPRESSION: No acute osseous finding. Electronically signed by: Angie Gunn MD (03/08/2020 2:21 PM) [id number]
--- NOTE | 2020-03-08 14:26 | RAD ---
Three-view left shoulder study Clinical indications: Slipped and fell on ice this morning. Left shoulder pain. FINDINGS: No acute fracture or dislocation or lytic process or AC joint separation is seen. IMPRESSION: No acute fracture. Electronically signed by: Nazario Newell MD (03/08/2020 2:23 PM) [id number]
--- NOTE | 2020-03-08 14:30 | RAD ---
EXAM: Pelvis and left hip, 3 views. HISTORY: Fall. COMPARISON: None. FINDINGS: A frontal view the pelvis and 2 views of the left hip are obtained. There is no fracture, d islocation or subluxation. The femoral heads are normal in configuration. IMPRESSION: No acute osseous finding. Electronically signed by: Angie Gunn MD (03/08/2020 2:28 PM) [id number]
--- NOTE | 2020-03-08 14:34 | ED.ADGEN ---
Past Medical History Past Medical History: Arthritis, Asthma, Bronchitis, COPD, Diabetes-Type II, High Cholesterol, Hypertension, Pneumonia, Other Additional Past Medical Histor: SLEEP APNEA Past Surgical History: Hysterectomy, Oophorectomy Additional Past Surgical Histo: Nose SX,RETINA SURGERY Smoking Status: Never Smoker Alcohol Use: None Drug Use: None General Adult EDM: Chief Complaint: MECHANICAL FALL HPI: HPI: Patient is a 54 year old AA female who presents emergency department with complaints of left shoulder, left hip, and left knee pain after she slipped on ice in the parking lot of an apartment complex this morning and fell. Patient denies any head, or neck pain. She denies any bony tenderness of her back but states that her muscles in her back feel tight. She denies any numbness, tingling, or weakness. She reports that her shoulder knee and hip pain hurt worse with movement and weightbearing. She currently rates her pain a 7 out of 10 on the pain scale, she denies any alleviating factors. Review of Systems: Review of Systems: Complete ROS is negative unless otherwise noted in HPI. Current Medications: Current Medications Medications (Trade) Dose Ordered Sig/Palak Start Time Stop Time Status Last Admin Dose Admin Ketorolac Tromethamine (Toradol 30mg Vial) 30 mg 1X ONCE 03/08/20 14:00 03/08/20 14:01 DC 03/08/20 13:56 30 MG Orphenadrine Citrate (Norflex) 60 mg 1X ONCE 03/08/20 14:00 03/08/20 14:01 DC 03/08/20 13:55 60 MG Allergies: Allergies: Allergies Coded Allergies Type Severity Reaction Last Updated Verified Influenza Virus Vaccines Allergy Intermediate RASH 02/19/20 Yes Physical Exam: PE: See Above Constitutional: Well developed, well nourished, no acute distress, non-toxic a ppearance. [] HENT: Normocephalic, atraumatic, bilateral external ears normal, nose normal. [] Eyes: PERRLA, EOMI, conjunctiva normal, no discharge. [] Neck: Normal range of motion, no stridor. [] Cardiovascular:Heart rate regular rhythm Lungs & Thorax: Respirations even and unlabored, no retractions, no respiratory distress Skin: Warm, dry, no erythema, no rash. [] Extremities: Left shoulder: Anterior tenderness to palpation, no crepitus, no obvious deformity, no cyanosis, ROM intact, no edema. [ Left knee: Diffuse tenderness to palpation without crepitus or obvious deformity, 1+ edema, no bruising, range of motion limited due to pain Left hip: Lateral tenderness to palpation without crepitus or obvious deformity, no rotation or shortening of the affected extremity, ROM intact, no edema Neurologic: Alert and oriented X 3, no focal deficits noted. [] Psychologic: Affect normal, judgement normal, mood normal. [] Current Patient Data: Vital Signs: Vital Signs Date Time Temp Pulse Resp B/P (MAP) Pulse Ox O2 Delivery O2 Flow Rate FiO2 03/08/20 13:15 97.1 101 16 159/71 (100) 96 Room Air 97.1 EKG: EKG: [] Heart Score: Risk Factors: Risk Factors: DM, Current or recent (<one month) smoker, HTN, HLP, family history of CAD, obesity. Risk Scores: Score 0 - 3: 2.5% MACE over next 6 weeks - Discharge Home Score 4 - 6: 20.3% MACE over next 6 weeks - Admit for Clinical Observation Score 7 - 10: 72.7% MACE over next 6 weeks - Early Invasive Strategies Radiology/Procedures: Radiology/Procedures: PROCEDURE: SHOULDER 2+V LEFT Three-view left shoulder study Clinical indications: Slipped and fell on ice this morning. Left shoulder pain. FINDINGS: No acute fracture or dislocation or lytic process or AC joint separation is seen. IMPRESSION: No acute fracture. PROCEDURE: KNEE LEFT 3V EXAM: Left knee, 3 views. HISTORY: Fall. Pain. COMPARISON: None. FINDINGS: 3 views of the left knee are obtained. There is mild medial compartment joint space narrowing. There is no fracture, dislocation or subluxation. There is no joint effusion. There is a tiny bone island within the distal femur. IMPRESSION: No acute osseous finding. PROCEDURE: HIP LEFT 2V WITH PELVIS EXAM: Pelvis and left hip, 3 views. HISTORY: Fall. COMPARISON: None. FINDINGS: A frontal view the pelvis and 2 views of the left hip are obtained. Th ere is no fracture, dislocation or subluxation. The femoral heads are normal in configuration. IMPRESSION: No acute osseous finding. [] Course & Med Decision Making: Course & Med Decision Making Pertinent Labs and Imaging studies reviewed. (See chart for details) [] Dragon Disclaimer: Dragon Disclaimer: This electronic medical record was generated, in whole or in part, using a voice recognition dictation system. Departure Departure Impression: Primary Impression: Fall from slipping on ice Additional Impressions: Acute pain of left shoulder Left knee pain Left hip pain Disposition: HOME SELF CARE/HOMELESS Condition: STABLE Referrals: SARAH PAYAN MD (PCP) Patient Instructions: Contusion, [id number] Additional Instructions: Fill the prescriptions and take as directed. Apply ice to sore areas for 10-15 minutes every 1-2 hours today and tomorrow then apply heat or ice as needed for comfort. Follow up with your primary care doctor in 1-2 days return to the ER if symptoms worsen. Scripts Cyclobenzaprine Hcl (CYCLOBENZAPRINE HCL) 10 Mg Tablet 1 TAB PO TID PRN for MUSCLE PAIN for 10 Days, #30 TAB 0 Refills Prov: MATTHEW FUNG STATIONARY ENGINEER APPRENTICE 03/08/20 Naproxen (NAPROXEN) 375 Mg Tablet 1 TAB PO BID for 10 Days, #20 TAB 0 Refills Prov: MATTHEW FUNG STATIONARY ENGINEER APPRENTICE 03/08/20 Problem Qualifiers Primary Impression: Fall from slipping on ice Encounter type: initial encounter Qualified Codes: W00.9XXA - Unspecified fall due to ice and snow, initial encounter Additional Impressions: Left knee pain Chronicity: acute Qualified Codes: M25.562 - Pain in left knee MATTHEW FUNG STATIONARY ENGINEER APPRENTICE Mar 08, 2020 14:34
[2020-03-08] MEDS ORDERED: CYCL10TA2 PO (14:44)
[2020-03-08] MEDS ORDERED: NAPR-695 PO (14:44)
== END 2020-03-08 14:56 | disposition home or self-care (01) ==
LOC: ER 11:20
DX: M25.562 Pain in left knee (principal); M25.512 Pain in left shoulder; M25.552 Pain in left hip; G89.11 Acute pain due to trauma; J44.9 Chronic obstructive pulmonary disease, unspecified; E11.9 Type 2 diabetes mellitus without complications; E78.00 Pure hypercholesterolemia, unspecified; I10 Essential (primary) hypertension; Z90.710 Acquired absence of both cervix and uterus; Z90.722 Acquired absence of ovaries, bilateral; Z88.7 Allergy status to serum and vaccine; W00.0XXA Fall on same level due to ice and snow, initial encounter; Y93.89 Activity, other specified; Y92.481 Parking lot as the place of occurrence of the external cause; Y99.8 Other external cause status
CPT/HCPCS: 73030; 73502; 73562; 96372; 99284; J1885; J2360

== ENCOUNTER 2020-03-21 00:49 | Emergency (ER) | payer SELFPAY ==
[~2020-03-21] VITALS: Ht 162.6 cm; Wt 106.8 kg
[~2020-03-21 00:49] MED LIST changes: +CIPR500T PO; -CIPR500T2 PO; +CYCL10TA2 PO; -GEMF600T20 PO; +GEMF600T8 PO; +NAPR-695 PO; +OMEP40CA45 PO; -OMEP40CA7 PO
[2020-03-21 01:14] LABS: BASO # 0.1 x10^3/uL (0.0-0.2); BASO % 1 % (0-3); EOS # 0.1 x10^3/uL (0.0-0.7); EOS % 2 % (0-3); HEMATOCRIT 37.3 % (36.0-47.0); HEMOGLOBIN 12.4 g/dL (12.0-15.5); LYMPH # 2.2 x10^3/uL (1.0-4.8); LYMPH % 28 % (24-48); MEAN CORPUSCULAR HEMOGLOBIN 30 pg (25-35); MEAN CORPUSCULAR HGB CONC 33 g/dL (31-37); MEAN CORPUSCULAR VOLUME 89 fL (79-100); MONO # 0.5 x10^3/uL (0.0-1.1); MONO % 7 % (0-9); NEUT # 4.8 x10^3/uL (1.8-7.7); NEUT % 63 % (31-73); PLATELET COUNT 200 x10^3/uL (140-400); RED BLOOD COUNT 4.18 x10^6/uL (3.50-5.40); RED CELL DISTRIBUTION WIDTH 13.1 % (11.5-14.5); WHITE BLOOD COUNT 7.7 x10^3/uL (4.0-11.0)
[2020-03-21 01:24] LABS: CALCIUM 11.6 mg/dL (8.5-10.1); CREATININE 0.9 mg/dL (0.6-1.0); POTASSIUM 4.3 mmol/L (3.5-5.1)
[2020-03-21 01:32] LABS: ALBUMIN 3.4 g/dL (3.4-5.0); ALBUMIN/GLOBULIN RATIO 0.9 (1.0-1.7); MAGNESIUM 1.9 mg/dL (1.8-2.4); TOTAL BILIRUBIN 0.4 mg/dL (0.2-1.0); TOTAL PROTEIN 7.4 g/dL (6.4-8.2)
[2020-03-21 01:59] LABS: BILIRUBIN,URINE NEGATIVE (NEG); CLARITY,URINE CLEAR; COLOR,URINE YELLOW; NITRITE,URINE NEGATIVE (NEG); PH,URINE 6.5 (<5.0-8.0); PROTEIN,URINE NEGATIVE (NEG-TRACE); UROBILINOGEN,URINE 0.2 mg/dL (0.2 mg/dL)
--- NOTE | 2020-03-21 02:00 | PHYS DOC ---
Past Medical History Past Medical History: Arthritis, Asthma, Bronchitis, COPD, Diabetes-Type II, High Cholesterol, Hypertension, Pneumonia, Other Additional Past Medical Histor: SLEEP APNEA Past Surgical History: Hysterectomy, Oophorectomy Additional Past Surgical Histo: Nose SX,RETINA SURGERY Smoking Status: Never Smoker Alcohol Use: None Drug Use: None General Adult EDM: Chief Complaint: DIZZY/LIGHT HEADED HPI: HPI: Patient is a 54 year old female with PMH of COPD, diabetes, and HTN, hyperlipidemia who presents from home via EMS for dizziness. She states she did her normal nightly routine, took her water pill, BP medication, and flonase, and went to bed. Around 1am she woke up to go to the restroom and when she stood up she felt dizzy and like she was going to pass out. She went in to the bathroom and sat down to see if it would resolve and told her she still didn't feel right so they called EMS. Currently she is no longer feeling dizzy here in the ED. She denies any headache, SOB, chest pain, vertigo or changes in vision. She is not currently in any pain and does not have any other complaints. Review of Systems: Review of Systems: Constitutional: Denies fever or chills Eyes: Denies eye pain HENT: She has chronic nasal congestion, no sore throat Respiratory: Denies cough or shortness of breath Cardiovascular: Denies chest pain or palpitations GI: Denies abdominal pain, nausea, or vomiting : Denies dysuria or hematuria Musculoskeletal: Denies back pain or joint pain Integument: Denies rash or skin lesions Neurologic: Denies headache, focal weakness or sensory changes Complete systems were reviewed and found to be within normal limits, except as documented in this note. Family History: Family History: Cardiac disease in mother and father Allergies: Allergies: Allergies Coded Allergies Type Severity Reaction Last Updated Verified Influenza Virus Vaccines Allergy Intermediate RASH 02/19/20 Yes Physical Exam: PE: Constitutional: Well developed, well nourished, no acute distress, non-toxic appearance HENT: Normocephalic, atraumatic Eyes: PERRL, EOMI, red conjunctiva, no discharge Neck: Normal range of motion, no tenderness, supple Lungs & Thorax: No respiratory distress, equal chest rise and fall, crackles heard bilaterally Heart: RRR no m/r/g Abdomen: Soft, no tenderness Skin: Warm, dry, no erythema, no rash Back: No tenderness, no CVA tenderness Extremities: No tenderness, ROM intact, +2 pitting edema Neurologic: Alert and oriented X 3, normal motor function, normal sensory function, no focal deficits noted Psychologic: Affect normal, judgment normal Current Patient Data: Labs: Laboratory Tests Test 03/21/20 00:55 White Blood Count 7.7 x10^3/uL (4.0-11.0) Red Blood Count 4.18 x10^6/uL (3.50-5.40) Hemoglobin 12.4 g/dL (12.0-15.5) Hematocrit 37.3 % (36.0-47.0) Mean Corpuscular Volume 89 fL (79-100) Mean Corpuscular Hemoglobin 30 pg (25-35) Mean Corpuscular Hemoglobin Concent 33 g/dL (31-37) Red Cell Distribution Width 13.1 % (11.5-14.5) Platelet Count 200 x10^3/uL (140-400) Neutrophils (%) (Auto) 63 % (31-73) Lymphocytes (%) (Auto) 28 % (24-48) Monocytes (%) (Auto) 7 % (0-9) Eosinophils (%) (Auto) 2 % (0-3) Basophils (%) (Auto) 1 % (0-3) Neutrophils # (Auto) 4.8 x10^3/uL (1.8-7.7) Lymphocytes # (Auto) 2.2 x10^3/uL (1.0-4.8) Monocytes # (Auto) 0.5 x10^3/uL (0.0-1.1) Eosinophils # (Auto) 0.1 x10^3/uL (0.0-0.7) Basophils # (Auto) 0.1 x10^3/uL (0.0-0.2) Sodium Level 138 mmol/L (136-145) Potassium Level 4.3 mmol/L (3.5-5.1) Chloride Level 104 mmol/L (98-107) Carbon Dioxide Level 26 mmol/L (21-32) Anion Gap 8 (6-14) Blood Urea Nitrogen 20 mg/dL (7-20) Creatinine 0.9 mg/dL (0.6-1.0) Estimated GFR (Cockcroft-Gault) 65.0 BUN/Creatinine Ratio 22 (6-20) H Glucose Level 273 mg/dL (70-99) H Calcium Level 11.6 mg/dL (8.5-10.1) H Magnesium Level 1.9 mg/dL (1.8-2.4) Total Bilirubin 0.4 mg/dL (0.2-1.0) Aspartate Amino Transferase (AST) 23 U/L (15-37) Alanine Aminotransferase (ALT) 43 U/L (14-59) Alkaline Phosphatase 185 U/L (46-116) H Troponin I Quantitative < 0.017 ng/mL (0.000-0.055) Total Protein 7.4 g/dL (6.4-8.2) Albumin 3.4 g/dL (3.4-5.0) Albumin/Globulin Ratio 0.9 (1.0-1.7) L Laboratory Tests 03/21/20 00:55 Laboratory Tests 03/21/20 00:55 Vital Signs: Vital Signs Date Time Temp Pulse Resp B/P (MAP) Pulse Ox O2 Delivery O2 Flow Rate FiO2 03/21/20 00:50 98.1 91 22 179/81 (113) 97 Room Air 98.1 EKG: EKG: Normal sinus rhythm at 85 bpm, no ST elevation, QRS 82, QT/QTc 436/525 Radiology/Procedures: Radiology/Procedures: [] Course & Med Decision Making: Course & Med Decision Making Pertinent Labs and Imaging studies reviewed. (See chart for details) [] Dragon Disclaimer: Dragon Disclaimer: This electronic medical record was generated, in whole or in part, using a voice recognition dictation system. Departure Departure Impression: Primary Impression: Near syncope Disposition: 01 DC HOME SELF CARE/HOMELESS Condition: STABLE Referrals: SARAH PAYAN MD (PCP) Patient Instructions: Near-Syncope, [id number], Orthostatic Hypotension, Peripheral Edema Additional Instructions: Please continue taking your previously prescribed medications and follow closely with your doctor ABBY BLANCAS DO Mar 21, 2020 02:00
[2020-03-21 02:06] LABS: BACTERIA,URINE 0 /HPF (0-FEW); RBC,URINE OCC /HPF (0-2); WBC,URINE RARE /HPF (0-4)
[2020-03-21 03:00] VITALS: BP 182/83
--- NOTE | 2020-03-21 03:34 | EKG ---
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
--- NOTE | 2020-03-21 04:23 | RAD ---
EXAM: XR CHEST 1V 03/21/2020 1:07 AM CLINICAL INDICATION: Dizziness COMPARISON: Chest radiograph 02/28/2020 TECHNIQUE: AP view of the chest FINDINGS: The heart and mediastinum are normal. Lungs are well-expanded and clear. No pleural effusi on or pneumothorax. No acute osseous abnormality. IMPRESSION: No acute cardiopulmonary abnormality. Electronically signed by: Laura Vega MD (03/21/2020 4:21 AM) [id number]
== END 2020-03-21 03:43 | disposition home or self-care (01) ==
LOC: ER 00:49
DX: R55 Syncope and collapse (principal); J44.9 Chronic obstructive pulmonary disease, unspecified; E11.9 Type 2 diabetes mellitus without complications; E78.00 Pure hypercholesterolemia, unspecified; I10 Essential (primary) hypertension; Z88.7 Allergy status to serum and vaccine
CPT/HCPCS: 36415; 71045; 80053; 81001; 82553; 83735; 83880; 84484; 85025; 93005; 99285-25

== ENCOUNTER 2020-03-23 12:20 | Emergency (ER) | payer MEDICARE ==
[~2020-03-23] VITALS: Ht 162.6 cm; Wt 106.3 kg
[2020-03-23 13:06] LABS: BASO # 0.1 x10^3/uL (0.0-0.2); BASO % 1 % (0-3); EOS # 0.1 x10^3/uL (0.0-0.7); EOS % 1 % (0-3); HEMATOCRIT 39.4 % (36.0-47.0); LYMPH # 2.2 x10^3/uL (1.0-4.8); LYMPH % 24 % (24-48); MEAN CORPUSCULAR HEMOGLOBIN 30 pg (25-35); MEAN CORPUSCULAR HGB CONC 33 g/dL (31-37); MEAN CORPUSCULAR VOLUME 89 fL (79-100); MONO # 0.6 x10^3/uL (0.0-1.1); MONO % 7 % (0-9); NEUT % 67 % (31-73); PLATELET COUNT 213 x10^3/uL (140-400); RED BLOOD COUNT 4.41 x10^6/uL (3.50-5.40); RED CELL DISTRIBUTION WIDTH 13.2 % (11.5-14.5); WHITE BLOOD COUNT 8.9 x10^3/uL (4.0-11.0)
[2020-03-23 13:13] LABS: GFR 57.6; POTASSIUM 4.3 mmol/L (3.5-5.1)
[2020-03-23 13:15] LABS: BILIRUBIN,URINE NEGATIVE (NEG); CLARITY,URINE CLEAR; COLOR,URINE YELLOW; NITRITE,URINE NEGATIVE (NEG); PROTEIN,URINE NEGATIVE (NEG-TRACE); UROBILINOGEN,URINE 0.2 mg/dL (0.2 mg/dL)
[2020-03-23 13:19] LABS: ALBUMIN 3.6 g/dL (3.4-5.0); ALBUMIN/GLOBULIN RATIO 0.9 (1.0-1.7); TOTAL BILIRUBIN 0.4 mg/dL (0.2-1.0); TOTAL PROTEIN 7.8 g/dL (6.4-8.2)
--- NOTE | 2020-03-23 13:27 | PHYS DOC ---
Past Medical History Past Medical History: Arthritis, Asthma, Bronchitis, COPD, Diabetes-Type II, High Cholesterol, Hypertension, Pneumonia, Other Additional Past Medical Histor: SLEEP APNEA Past Surgical History: Hysterectomy, Oophorectomy Additional Past Surgical Histo: Nose SX,RETINA SURGERY Smoking Status: Never Smoker Alcohol Use: None Drug Use: None General Adult EDM: Chief Complaint: ABNORMAL LABS HPI: HPI: Patient is a 54 year old female with history of diabetes type 2, hypertension, high cholesterol, COPD, asthma, bronchitis, who presents to the ED today complaining of hypercalcemia. Patient states he was seen at the doctor's office yesterday where labs were drawn. She states she was told she had calcium and instructed to come to the emergency room. She states her A1c was also high. Patient states she has had a feeling she is going to pass out for months. She states she has been seen in the emergency room multiple times for presyncope symptoms multiple times and all her work-ups were negative for any acute findings. Review of Systems: Review of Systems: Constitutional: Denies fever or chills. [] Eyes: Denies change in visual acuity. [] HENT: Denies nasal congestion or sore throat. [] Respiratory: Denies cough or shortness of breath. [] Cardiovascular: denies chest pain or edema. [] GI: Denies abdominal pain, nausea, vomiting, bloody stools or diarrhea. [] : Denies dysuria. [] Musculoskeletal: Denies back pain or joint pain. [] Integument: Denies rash. [] Neurologic: Reports presyncope episode, reports high calcium, denies headache, focal weakness or sensory changes. [] Psychiatric: Denies depression or anxiety. [] Heart Score: Risk Factors: Risk Factors: DM, Current or recent (<one month) smoker, HTN, HLP, family history of CAD, obesity. Risk Scores: Score 0 - 3: 2.5% MACE over next 6 weeks - Discharge Home Score 4 - 6: 20.3% MACE over next 6 weeks - Admit for Clinical Observation Score 7 - 10: 72.7% MACE over next 6 weeks - Early Invasive Strategies Allergies: Allergies: Allergies Coded Allergies Type Severity Reaction Last Updated Verified Influenza Virus Vaccines Allergy Intermediate RASH, near syncope 03/23/20 Yes Physical Exam: PE: Constitutional: Well developed, well nourished, no acute distress, non-toxic appearance. [] HENT: Normocephalic, atraumatic, bilateral external ears normal, oropharynx moist, no oral exudates, nose normal. [] Eyes: PERRLA, EOMI, conjunctiva normal, no discharge. [] Neck: Normal range of motion, no tenderness, supple, no stridor. [] Cardiovascular:Heart rate regular rhythm, no murmur [] Lungs & Thorax: Bilateral breath sounds clear to auscultation [] Abdomen: Bowel sounds normal, soft, no tenderness, no masses, no pulsatile masses. [] Skin: Warm, dry, no erythema, no rash. [] Back: No tenderness, no CVA tenderness. [] Extremities: No tenderness, no cyanosis, no clubbing, ROM intact, no edema. [] Neurologic: Alert and oriented X 3, normal motor function, normal sensory function, no focal deficits noted. [] Psychologic: Affect normal, judgement normal, mood normal. [] Current Patient Data: Labs: Laboratory Tests Test 03/23/20 12:50 White Blood Count 8.9 x10^3/uL (4.0-11.0) Red Blood Count 4.41 x10^6/uL (3.50-5.40) Hemoglobin 13.0 g/dL (12.0-15.5) Hematocrit 39.4 % (36.0-47.0) Mean Corpuscular Volume 89 fL (79-100) Mean Corpuscular Hemoglobin 30 pg (25-35) Mean Corpuscular Hemoglobin Concent 33 g/dL (31-37) Red Cell Distribution Width 13.2 % (11.5-14.5) Platelet Count 213 x10^3/uL (140-400) Neutrophils (%) (Auto) 67 % (31-73) Lymphocytes (%) (Auto) 24 % (24-48) Monocytes (%) (Auto) 7 % (0-9) Eosinophils (%) (Auto) 1 % (0-3) Basophils (%) (Auto) 1 % (0-3) Neutrophils # (Auto) 6.0 x10^3/uL (1.8-7.7) Lymphocytes # (Auto) 2.2 x10^3/uL (1.0-4.8) Monocytes # (Auto) 0.6 x10^3/uL (0.0-1.1) Eosinophils # (Auto) 0.1 x10^3/uL (0.0-0.7) Basophils # (Auto) 0.1 x10^3/uL (0.0-0.2) Sodium Level 138 mmol/L (136-145) Potassium Level 4.3 mmol/L (3.5-5.1) Chloride Level 102 mmol/L (98-107) Carbon Dioxide Level 29 mmol/L (21-32) Anion Gap 7 (6-14) Blood Urea Nitrogen 18 mg/dL (7-20) Creatinine 1.0 mg/dL (0.6-1.0) Estimated GFR (Cockcroft-Gault) 57.6 BUN/Creatinine Ratio 18 (6-20) Glucose Level 205 mg/dL (70-99) H Calcium Level 11.0 mg/dL (8.5-10.1) H Total Bilirubin 0.4 mg/dL (0.2-1.0) Aspartate Amino Transferase (AST) 21 U/L (15-37) Alanine Aminotransferase (ALT) 43 U/L (14-59) Alkaline Phosphatase 196 U/L (46-116) H Total Protein 7.8 g/dL (6.4-8.2) Albumin 3.6 g/dL (3.4-5.0) Albumin/Globulin Ratio 0.9 (1.0-1.7) L Laboratory Tests 03/23/20 12:50 Laboratory Tests 03/23/20 12:50 Vital Signs: Vital Signs Date Time Temp Pulse Resp B/P (MAP) Pulse Ox O2 Delivery O2 Flow Rate FiO2 03/23/20 12:23 98.2 84 18 168/85 (112) 97 Room Air 98.2 EKG: EKG: [] Radiology/Procedures: Radiology/Procedures: [] Course & Med Decision Making: Course & Med Decision Making Pertinent Labs and Imaging studies reviewed. (See chart for details) This is a 54-year-old female patient well-known to this ED presenting today complaining of high calcium. She states her labs were drawn yesterday at the doctor's office and today she was told her calcium is high. She states she has had a sensation she is going to pass out for months. She has been worked up for this multiple times with nothing acute being found. Of note patient was in the ED on March 21, 2020 for dizziness, March 08, 2020 for fall, February 28, 2020 for dizziness, February 19, 2020 for chest pain, February 09, 2020 for sinus congestion among other visits. CBC with no acute findings, CMP with calcium of 11. Patient's calcium has been high at home quite some time. I spoke to Dr. boyd, he stated he never asked patient to come to the ED but he will follow up with her lab work. Dragon Disclaimer: Dragmir Disclaimer: This electronic medical record was generated, in whole or in part, using a voice recognition dictation system. Departure Departure Impression: Primary Impression: Hypercalcemia Additional Impression: Pre-syncope Disposition: 01 DC HOME SELF CARE/HOMELESS Condition: STABLE Referrals: SARAH BOYD MD (PCP) follow up in 1-2 weeks Patient Instructions: Hypercalcemia Additional Instructions: You were evaluated in the emergency room, your calcium is 11.0. Dr. Boyd will follow up with your labwork at his clinic PAOLO CHEEK APRN Mar 23, 2020 13:27
[2020-03-23 13:32] LABS: BACTERIA,URINE FEW /HPF (0-FEW); RBC,URINE 0 /HPF (0-2)
[2020-03-23 14:46] VITALS: BP 156/72
[2020-03-24 13:13] LABS: CALCIUM PTH 11.1 mg/dL (8.7-10.2); CREATININE PTH 0.89 mg/dL (0.57-1.00); PHOSPHORUS PTH 2.9 mg/dL (3.0-4.3); PTH INTACT 151 pg/mL (15-65)
== END 2020-03-23 14:59 | disposition home or self-care (01) ==
LOC: ER 12:20
DX: E83.52 Hypercalcemia (principal); R55 Syncope and collapse; E11.9 Type 2 diabetes mellitus without complications; I10 Essential (primary) hypertension; E78.00 Pure hypercholesterolemia, unspecified; J44.9 Chronic obstructive pulmonary disease, unspecified; Z90.710 Acquired absence of both cervix and uterus; Z90.722 Acquired absence of ovaries, bilateral; Z88.7 Allergy status to serum and vaccine
CPT/HCPCS: 36415; 80053; 81001; 83970; 84443; 85025; 87086; 99283

== ENCOUNTER 2020-04-01 03:12 | Emergency (ER) | payer MEDICARE ==
[~2020-04-01] VITALS: Ht 165.1 cm; Wt 77.2 kg
[~2020-04-01 03:12] MED LIST changes: -CIPR500T PO; +CIPR500T2 PO; +GEMF600T20 PO; -GEMF600T8 PO; -OMEP40CA45 PO; +OMEP40CA7 PO
[2020-04-01 03:59] LABS: BASO # 0.1 x10^3/uL (0.0-0.2); BASO % 1 % (0-3); EOS # 0.2 x10^3/uL (0.0-0.7); EOS % 3 % (0-3); HEMATOCRIT 34.2 % (36.0-47.0); HEMOGLOBIN 11.3 g/dL (12.0-15.5); LYMPH # 2.1 x10^3/uL (1.0-4.8); LYMPH % 30 % (24-48); MEAN CORPUSCULAR HEMOGLOBIN 29 pg (25-35); MEAN CORPUSCULAR HGB CONC 33 g/dL (31-37); MEAN CORPUSCULAR VOLUME 88 fL (79-100); MONO # 0.6 x10^3/uL (0.0-1.1); MONO % 9 % (0-9); NEUT # 3.9 x10^3/uL (1.8-7.7); NEUT % 57 % (31-73); PLATELET COUNT 227 x10^3/uL (140-400); RED BLOOD COUNT 3.87 x10^6/uL (3.50-5.40); RED CELL DISTRIBUTION WIDTH 13.1 % (11.5-14.5); WHITE BLOOD COUNT 6.9 x10^3/uL (4.0-11.0)
[2020-04-01 04:07] LABS: CALCIUM 10.7 mg/dL (8.5-10.1); CREATININE 0.8 mg/dL (0.6-1.0); GFR 74.5
[2020-04-01 04:13] LABS: ALBUMIN 3.1 g/dL (3.4-5.0); ALBUMIN/GLOBULIN RATIO 0.8 (1.0-1.7); TOTAL BILIRUBIN 0.3 mg/dL (0.2-1.0); TOTAL PROTEIN 6.9 g/dL (6.4-8.2)
--- NOTE | 2020-04-01 04:52 | PHYS DOC ---
Past Medical History Past Medical History: Arthritis, Asthma, Bronchitis, COPD, Diabetes-Type II, High Cholesterol, Hypertension, Pneumonia, Other Additional Past Medical Histor: SLEEP APNEA Past Surgical History: Hysterectomy, Oophorectomy Additional Past Surgical Histo: Nose SX,RETINA SURGERY Smoking Status: Never Smoker Alcohol Use: None Drug Use: None Adult General Chief Complaint Chief Complaint: HYPERTENSION HPI HPI Patient is a 54 year old with a past medical history of diabetes, hypertension, hyperlipidemia, hypertension, COPD presents emergency department complaining of high blood pressure and dizziness. Patient states that she is having a sensation of lightheadedness upon arrival. Noted that her blood pressure was elevated. Patient was recently started on a new medication for her diabetes but denies any other changes. Denies any nausea, vomiting, fever, chills, vision changes, numbness or weakness Review of Systems Review of Systems Constitutional: Denies fever or chills [] Eyes: Denies change in visual acuity, redness, or eye pain [] HENT: Denies nasal congestion or sore throat [] Respiratory: Denies cough or shortness of breath [] Cardiovascular: No additional information not addressed in HPI [] GI: Denies abdominal pain, nausea, vomiting, bloody stools or diarrhea [] : Denies dysuria or hematuria [] Musculoskeletal: Denies back pain or joint pain [] Integument: Denies rash or skin lesions [] Neurologic: Denies headache, focal weakness or sensory changes [] Endocrine: Denies polyuria or polydipsia [] All other systems were reviewed and found to be within normal limits, except as documented in this note. Current Medications Current Medications Current Medications Medications (Trade) Dose Ordered Sig/Palak Start Time Stop Time Status Last Admin Dose Admin Sodium Chloride 1,000 ml @ 1,000 mls/hr 1X ONCE 04/01/20 05:00 04/01/20 05:59 Allergies Allergies Allergies Coded Allergies Type Severity Reaction Last Updated Verified Influenza Virus Vaccines Allergy Intermediate RASH, near syncope 03/23/20 Yes Physical Exam Physical Exam Constitutional: Well developed, well nourished, no acute distress, non-toxic appearance. [] HENT: Normocephalic, atraumatic, bilateral external ears normal, oropharynx moist, no oral exudates, nose normal. [] Eyes: PERRLA, EOMI, conjunctiva normal, no discharge. [] Neck: Normal range of motion, no tenderness, supple, no stridor. [] Cardiovascular:Heart rate regular rhythm, no murmur [] Lungs & Thorax: Bilateral breath sounds clear to auscultation [] Abdomen: Bowel sounds normal, soft, no tenderness, no masses, no pulsatile masses. [] Skin: Warm, dry, no erythema, no rash. [] Back: No tenderness, no CVA tenderness. [] Extremities: No tenderness, no cyanosis, no clubbing, ROM intact, no edema. [] Neurologic: Alert and oriented X 3, normal motor function, normal sensory function, no focal deficits noted. [] Psychologic: Affect normal, judgement normal, mood normal. [] Current Patient Data Vital Signs Vital Signs Date Time Temp Pulse Resp B/P (MAP) Pulse Ox O2 Delivery O2 Flow Rate FiO2 04/01/20 03:21 98.1 76 18 172/80 (110) 97 Room Air 98.1 Lab Values Laboratory Tests Test 04/01/20 03:53 White Blood Count 6.9 x10^3/uL (4.0-11.0) Red Blood Count 3.87 x10^6/uL (3.50-5.40) Hemoglobin 11.3 g/dL (12.0-15.5) L Hematocrit 34.2 % (36.0-47.0) L Mean Corpuscular Volume 88 fL (79-100) Mean Corpuscular Hemoglobin 29 pg (25-35) Mean Corpuscular Hemoglobin Concent 33 g/dL (31-37) Red Cell Distribution Width 13.1 % (11.5-14.5) Platelet Count 227 x10^3/uL (140-400) Neutrophils (%) (Auto) 57 % (31-73) Lymphocytes (%) (Auto) 30 % (24-48) Monocytes (%) (Auto) 9 % (0-9) Eosinophils (%) (Auto) 3 % (0-3) Basophils (%) (Auto) 1 % (0-3) Neutrophils # (Auto) 3.9 x10^3/uL (1.8-7.7) Lymphocytes # (Auto) 2.1 x10^3/uL (1.0-4.8) Monocytes # (Auto) 0.6 x10^3/uL (0.0-1.1) Eosinophils # (Auto) 0.2 x10^3/uL (0.0-0.7) Basophils # (Auto) 0.1 x10^3/uL (0.0-0.2) Sodium Level 141 mmol/L (136-145) Potassium Level 4.0 mmol/L (3.5-5.1) Chloride Level 105 mmol/L (98-107) Carbon Dioxide Level 27 mmol/L (21-32) Anion Gap 9 (6-14) Blood Urea Nitrogen 14 mg/dL (7-20) Creatinine 0.8 mg/dL (0.6-1.0) Estimated GFR (Cockcroft-Gault) 74.5 BUN/Creatinine Ratio 18 (6-20) Glucose Level 185 mg/dL (70-99) H Calcium Level 10.7 mg/dL (8.5-10.1) H Total Bilirubin 0.3 mg/dL (0.2-1.0) Aspartate Amino Transferase (AST) 17 U/L (15-37) Alanine Aminotransferase (ALT) 32 U/L (14-59) Alkaline Phosphatase 162 U/L (46-116) H Troponin I Quantitative < 0.017 ng/mL (0.000-0.055) Total Protein 6.9 g/dL (6.4-8.2) Albumin 3.1 g/dL (3.4-5.0) L Albumin/Globulin Ratio 0.8 (1.0-1.7) L Laboratory Tests 04/01/20 03:53 Laboratory Tests 04/01/20 03:53 EKG EKG Normal sinus rhythm, no ST or T wave changes, intervals normal, no STEMI Radiology/Procedures Radiology/Procedures [] Course & Med Decision Making Course & Med Decision Making Pertinent Labs and Imaging studies reviewed. (See chart for details) 54-year-old female with mildly uncontrolled hypertension and sensation of dizziness. No significant findings on exam. Will obtain labs and EKG to make sure there is no significant underlying etiology. Anticipate safe discharge home Patient noted to have mild hypercalcemia which he states is normal for her. Will provide a liter of normal saline and plan for discharge home Dragon Disclaimer Dragon Disclaimer This electronic medical record was generated, in whole or in part, using a voice recognition dictation system. Departure Departure Impression: Primary Impression: Uncontrolled hypertension Disposition: 01 DC HOME SELF CARE/HOMELESS Condition: GOOD Referrals: SARAH PAYAN MD (PCP) Patient Instructions: Hypertension Additional Instructions: EMERGENCY DEPARTMENT GENERAL DISCHARGE INSTRUCTIONS Thank you for coming to [facility] Emergency Department (ED) today and trusting us with you care. We trust that you had a positive experience in our Emergency Department. If you wish to speak to the department management, you may call the Director at [phone]. YOUR FOLLOW UP INSTRUCTIONS ARE FOLLOWS: 1. Do you have a private Doctor? If you do not have a private doctor, please ask for a resource list of physicians or clinics that may be able to assist you with follow up care. 2. The Emergency Physicain has interpreted your x-rays. The X-Ray specialist will also review them. If there is a change in the findings, you will be notified in 48 hours when at all possible. 3. A lab test or culture has been done, your results will be reviewed and you will be notified if you need a change in treatment. ADDITIONAL INSTRUCTIONS AND INFORMATION: 1. Your care today has been supervised by a physician who is specially trained in emergency care. Many problems require more than one evaluation for a complete diagnosis and treatment. We recommend that you schedule your follow up appointment as recommended to ensure complete treatment of you illness or injury. If you are unable to obtain follow up care and continue to have a problem, or if your condition worsens, we recommend that you return to the ED. 2. We are not able to safely determine your condition over the phone nor are we able to give sound medical advice over the phone. For these safety reasons, if you call for medical advice we will ask you to come to the ED for further evaluation. 3. If you have any questions regarding these discharge instructions please call the ED at [phone]. SAFETY INFORMATION: In the interest of safety, wellness, and injury prevention; we encourage you to wear your sealbelt, if you smoke; quite smoking, and we encourage family to use a protective helmet for bicycling and other sporting events that present an increased risk for head injury. IF YOUR SYMPTOMS WORSEN OR NEW SYMPTOMS DEVELOP, OR YOU HAVE CONCERNS ABOUT YOUR CONDITION; OR IF YOUR CONDITION WORSENS WHILE YOU ARE WAITING FOR YOUR FOLLOW UP APPOINTMENT; EITHER CONTACT YOUR PRIMARY CARE DOCTOR, THE PHYSICIAN WHOSE NAME AND NUMBER YOU WERE GIVEN, OR RETURN TO THE ED IMMEDIATELY. EDGAR TORRES MD Apr 01, 2020 04:52
[2020-04-01] MEDS ORDERED: IV NORMAL SALINE 1000ML BAG 1,000 ML IV ONE (05:00)
[2020-04-01 05:42] VITALS: BP 165/77
--- NOTE | 2020-04-01 05:51 | EKG ---
[facility] [address] [place] [address] Test Date: 2020-04-01 Test Time: 03:45:13 Pat Name: BATSHEVA VASQUEZ Department: Room: Gender: F Pcts: : 1965 Requested By: EDGAR TORRES Order Number: [id number] Reading MD: Measurements Intervals [place] Rate: 71 P: 50 SD: 156 QRS: 19 QRSD: 78 T: -6 QT: 364 QTc: 396 Interpretive Statements SINUS RHYTHM NORMAL ECG RI6.02 No previous ECG available for comparison
== END 2020-04-01 05:50 | disposition home or self-care (01) ==
LOC: ER 03:12
DX: I10 Essential (primary) hypertension (principal); R42 Dizziness and giddiness; R20.2 Paresthesia of skin; M19.90 Unspecified osteoarthritis, unspecified site; J44.9 Chronic obstructive pulmonary disease, unspecified; E11.9 Type 2 diabetes mellitus without complications; E78.00 Pure hypercholesterolemia, unspecified; Z90.89 Acquired absence of other organs; Z90.710 Acquired absence of both cervix and uterus; Z98.890 Other specified postprocedural states; Z88.7 Allergy status to serum and vaccine
CPT/HCPCS: 36415; 80053; 84484; 85025; 93005; 96360; 99285; J7030

== ENCOUNTER 2020-04-05 18:40 | Emergency (ER) | payer MEDICARE ==
[~2020-04-05] VITALS: Ht 162.6 cm; Wt 106.8 kg
[~2020-04-05 18:40] MED LIST changes: +OMEP40CA45 PO; -OMEP40CA7 PO
--- NOTE | 2020-04-05 19:37 | ED.ADGEN ---
Past Medical History Past Medical History: Arthritis, Asthma, Bronchitis, COPD, Diabetes-Type II, High Cholesterol, Hypertension, Pneumonia, Other Additional Past Medical Histor: SLEEP APNEA Past Surgical History: Hysterectomy, Oophorectomy Additional Past Surgical Histo: Nose SX,RETINA SURGERY Smoking Status: Never Smoker Alcohol Use: None Drug Use: None General Adult EDM: Chief Complaint: SHORTNESS OF BREATH HPI: HPI: Patient is a 54 year old AA female who presents to the ER with complaints of feeling light headed, and short of breath while at the laundry mat this evening. Pt states she went home and was checking her blood pressure and noticed that it was elevated so she decided to come to the ER. Pt denies any vision changes, numbness, tingling, weakness, headache, chest pain, palpitations, increased swelling of lower extremities, fever, or cough. She states that she was unable to have her echocardiogram last month because she did not have the $300 co-pay. She denies any fever, nausea, vomiting, diarrhea, or abdominal pain. Pt states she is worried that something is wrong with her, she reports that she has been to this ER and [facility] several times in the last month. Three weeks ago she was prescribed a z-pack by her PCP, Dr. Payan, and she reports that she felt better for a little bit after taking that mediation. She currently denies any pain. Review of Systems: Review of Systems: Complete ROS is negative unless otherwise noted in HPI. Current Medications: Current Medications Medications (Trade) Dose Ordered Sig/Palak Start Time Stop Time Status Last Admin Dose Admin Sodium Chloride 1,000 ml @ 1,000 mls/hr 1X ONCE 04/05/20 20:15 04/05/20 21:14 DC 04/05/20 20:36 1,000 MLS/HR Allergies: Allergies: Allergies Coded Allergies Type Severity Reaction Last Updated Verified Influenza Virus Vaccines Allergy Intermediate RASH, near syncope 03/23/20 Yes Physical Exam: PE: See Above Constitutional: Well developed, well nourished, no acute distress, non-toxic appearance, obese. [] HENT: Normocephalic, atraumatic, bilateral external ears normal, nose normal. [] Eyes: PERRLA, EOMI, conjunctiva normal, no discharge. [] Neck: Normal range of motion, no stridor. [] Cardiovascular:Heart rate regular rhythm, no murmur Lungs & Thorax: Respirations even and unlabored, no retractions, no respiratory distress, lungs clear in all baker Abdomen: soft, no tenderness Skin: Warm, dry, no erythema, no rash. [] Extremities: No cyanosis, ROM intact, 1+ edema BLE Neurologic: Alert and oriented X 3, no focal deficits noted. [] Psychologic: Affect normal, judgement normal, mood anxious. Current Patient Data: Labs: Laboratory Tests Test 04/05/20 19:00 White Blood Count 7.9 x10^3/uL (4.0-11.0) Red Blood Count 3.87 x10^6/uL (3.50-5.40) Hemoglobin 11.2 g/dL (12.0-15.5) L Hematocrit 34.3 % (36.0-47.0) L Mean Corpuscular Volume 89 fL (79-100) Mean Corpuscular Hemoglobin 29 pg (25-35) Mean Corpuscular Hemoglobin Concent 33 g/dL (31-37) Red Cell Distribution Width 13.3 % (11.5-14.5) Platelet Count 235 x10^3/uL (140-400) Neutrophils (%) (Auto) 63 % (31-73) Lymphocytes (%) (Auto) 27 % (24-48) Monocytes (%) (Auto) 8 % (0-9) Eosinophils (%) (Auto) 2 % (0-3) Basophils (%) (Auto) 1 % (0-3) Neutrophils # (Auto) 5.0 x10^3/uL (1.8-7.7) Lymphocytes # (Auto) 2.1 x10^3/uL (1.0-4.8) Monocytes # (Auto) 0.6 x10^3/uL (0.0-1.1) Eosinophils # (Auto) 0.1 x10^3/uL (0.0-0.7) Basophils # (Auto) 0.0 x10^3/uL (0.0-0.2) Sodium Level 139 mmol/L (136-145) Potassium Level 4.3 mmol/L (3.5-5.1) Chloride Level 104 mmol/L (98-107) Carbon Dioxide Level 25 mmol/L (21-32) Anion Gap 10 (6-14) Blood Urea Nitrogen 14 mg/dL (7-20) Creatinine 0.9 mg/dL (0.6-1.0) Estimated GFR (Cockcroft-Gault) 65.0 BUN/Creatinine Ratio 16 (6-20) Glucose Level 330 mg/dL (70-99) H Calcium Level 10.6 mg/dL (8.5-10.1) H Total Bilirubin 0.3 mg/dL (0.2-1.0) Aspartate Amino Transferase (AST) 22 U/L (15-37) Alanine Aminotransferase (ALT) 35 U/L (14-59) Alkaline Phosphatase 172 U/L (46-116) H WE-Onf-N-Type Natriuretic Peptide 18 pg/mL (0-124) Total Protein 7.3 g/dL (6.4-8.2) Albumin 3.3 g/dL (3.4-5.0) L Albumin/Globulin Ratio 0.8 (1.0-1.7) L Laboratory Tests 04/05/20 19:00 Laboratory Tests 04/05/20 19:00 Vital Signs: Vital Signs Date Time Temp Pulse Resp B/P (MAP) Pulse Ox O2 Delivery O2 Flow Rate FiO2 04/05/20 18:44 98.7 87 26 165/77 (106) 97 Room Air 98.7 EKG: EK- SR rate 85, no STEMI read by Dr. lucero[][] Heart Score: Risk Scores: Score 0 - 3: 2.5% MACE over next 6 weeks - Discharge Home Score 4 - 6: 20.3% MACE over next 6 weeks - Admit for Clinical Observation Score 7 - 10: 72.7% MACE over next 6 weeks - Early Invasive Strategies Course & Med Decision Making: Course & Med Decision Making Pertinent Labs and Imaging studies reviewed. (See chart for details) 2117- I spoke with Dr. Payan about the patient. I advised him of the patient's complaints and her work-up. I believe that the patient's is likely experiencing anxiety due to her health. I will instruct patient to follow-up with Dr. Newton within the next 1 to 2 days. 54-year-old female presents emergency department with complaints of feeling lightheaded and short of breath earlier this evening. On arrival patient's vital signs are stable, EKG revealed no acute findings. Work-up included labs monitoring, and a liter of normal saline. CBC revealed mild anemia with a hemoglobin of 11.2, hematocrit of 34.3 otherwise unremarkable; patient's blood glucose was 330, calcium is 10.6 likely due to the elevated blood glucose, alk phos 172, BNP was 18. Patient denied any complaints during her visit in the ER. I discussed the recent results with her and advised her of the likelihood that she is suffering from anxiety. I encouraged her to follow-up with Dr. Payan for further evaluation and treatment, return to the ER if her symptoms worsened or fever develop. Patient verbalized an understanding of home care, medications, follow-up, and return to ED instructions and was in agreement with the plan of care. Dragon Disclaimer: Dragon Disclaimer: This electronic medical record was generated, in whole or in part, using a voice recognition dictation system. Departure Departure Impression: Primary Impression: Lightheadedness Additional Impression: Anxiety about health Disposition: 01 DC HOME SELF CARE/HOMELESS Condition: STABLE Referrals: SARAH PAYAN MD (PCP) Patient Instructions: Anxiety and Panic Attacks, [id number], Dizziness, [id number] Additional Instructions: Take your home medications as previously prescribed. Follow up with Dr. Payan in the next 1-2 days for reevaluation. Return to the ER if fever develops or symptoms worsen. Problem Qualifiers MATTHEW FUNG APRN Apr 05, 2020 19:37
[2020-04-05 19:49] LABS: BASO % 1 % (0-3); EOS # 0.1 x10^3/uL (0.0-0.7); EOS % 2 % (0-3); HEMATOCRIT 34.3 % (36.0-47.0); HEMOGLOBIN 11.2 g/dL (12.0-15.5); LYMPH # 2.1 x10^3/uL (1.0-4.8); LYMPH % 27 % (24-48); MEAN CORPUSCULAR HEMOGLOBIN 29 pg (25-35); MEAN CORPUSCULAR HGB CONC 33 g/dL (31-37); MEAN CORPUSCULAR VOLUME 89 fL (79-100); MONO # 0.6 x10^3/uL (0.0-1.1); MONO % 8 % (0-9); NEUT % 63 % (31-73); PLATELET COUNT 235 x10^3/uL (140-400); RED BLOOD COUNT 3.87 x10^6/uL (3.50-5.40); RED CELL DISTRIBUTION WIDTH 13.3 % (11.5-14.5); WHITE BLOOD COUNT 7.9 x10^3/uL (4.0-11.0)
[2020-04-05 19:59] LABS: CALCIUM 10.6 mg/dL (8.5-10.1); CREATININE 0.9 mg/dL (0.6-1.0); POTASSIUM 4.3 mmol/L (3.5-5.1)
[2020-04-05 20:04] LABS: ALBUMIN 3.3 g/dL (3.4-5.0); ALBUMIN/GLOBULIN RATIO 0.8 (1.0-1.7); TOTAL BILIRUBIN 0.3 mg/dL (0.2-1.0); TOTAL PROTEIN 7.3 g/dL (6.4-8.2)
[2020-04-05] MEDS ORDERED: IV NORMAL SALINE 1000ML BAG 1,000 ML IV ONE (20:15)
[2020-04-05 21:45] VITALS: BP 153/76
== END 2020-04-05 21:48 | disposition home or self-care (01) ==
LOC: ER 18:40
DX: R42 Dizziness and giddiness (principal); F41.8 Other specified anxiety disorders; R06.02 Shortness of breath; M19.90 Unspecified osteoarthritis, unspecified site; J44.9 Chronic obstructive pulmonary disease, unspecified; E11.9 Type 2 diabetes mellitus without complications; E78.00 Pure hypercholesterolemia, unspecified; I10 Essential (primary) hypertension; Z90.710 Acquired absence of both cervix and uterus; Z90.89 Acquired absence of other organs; Z98.890 Other specified postprocedural states; Z88.7 Allergy status to serum and vaccine
CPT/HCPCS: 36415; 80053; 83880; 85025; 96360; 99285; J7030; 93005

== ENCOUNTER 2020-04-13 16:17 | Emergency (ER) | payer MEDICARE ==
[~2020-04-13] VITALS: Ht 162.6 cm; Wt 106.8 kg
--- NOTE | 2020-04-13 17:45 | RAD ---
Exam: Chest 2 views INDICATION: Chest burning short of breath TECHNIQUE: Frontal and lateral views the chest Comparisons: None FINDINGS: The cardiomediastinal silhouette and pulmonary vessels are within normal limits. The lung and pleural spaces are clear. IMPRESSION: No acute cardiopulmonary process. Electronically signed by: Nikky Godinez MD (04/13/2020 5:42 PM) [facility]
[2020-04-13 17:51] LABS: BASO # 0.1 x10^3/uL (0.0-0.2); BASO % 1 % (0-3); EOS # 0.1 x10^3/uL (0.0-0.7); EOS % 1 % (0-3); HEMATOCRIT 35.2 % (36.0-47.0); HEMOGLOBIN 11.7 g/dL (12.0-15.5); LYMPH # 1.9 x10^3/uL (1.0-4.8); LYMPH % 25 % (24-48); MEAN CORPUSCULAR HEMOGLOBIN 30 pg (25-35); MEAN CORPUSCULAR HGB CONC 33 g/dL (31-37); MEAN CORPUSCULAR VOLUME 89 fL (79-100); MONO # 0.5 x10^3/uL (0.0-1.1); MONO % 7 % (0-9); NEUT # 5.1 x10^3/uL (1.8-7.7); NEUT % 66 % (31-73); PLATELET COUNT 209 x10^3/uL (140-400); RED BLOOD COUNT 3.95 x10^6/uL (3.50-5.40); RED CELL DISTRIBUTION WIDTH 13.3 % (11.5-14.5); WHITE BLOOD COUNT 7.7 x10^3/uL (4.0-11.0)
--- NOTE | 2020-04-13 17:59 | PHYS DOC ---
Past Medical History Past Medical History: Arthritis, Asthma, Bronchitis, COPD, Diabetes-Type II, High Cholesterol, Hypertension, Pneumonia, Other Additional Past Medical Histor: SLEEP APNEA Past Surgical History: Hysterectomy, Oophorectomy Additional Past Surgical Histo: Nose SX,RETINA SURGERY Smoking Status: Never Smoker Alcohol Use: None Drug Use: None General Adult EDM: Chief Complaint: HEADACHE HPI: HPI: Patient is a 54 year old female presents to the emergency department with chief complaint that she wants IV antibiotics. Patient states she has been seen several times over the past 2 months at several different emergency departments and is tired of being sent home without having her ENT surgery done. Patient states that she has a sinus infection and was seen by her ENT specialist Dr. Poonam Balbuena yesterday and started on Augmentin twice daily which she states she has been taking as directed. Patient states that Dr. Balbuena is planning on performing nasal surgery on her soon. Patient states that since seeing Dr. Inocencio Balbuena, that she has felt very nervous and is worried that she needs IV antibiotics and has presented to the ER today to receive IV antibiotics. Patient states in addition to these concerns, she feels some intermittent shortness of breath, intermittent chest tightness, states her blood sugars have been running high for several months in the 300s, patient is worried that she might need to be admitted to the hospital until she can receive her surgery. Patient denies current chest pain, chest palpitations, shortness of breath, chest tightness, nausea, vomiting, diarrhea, fever, chills, chest congestion, nasal congestion, rashes of her skin, body aches, loss of taste or smell. Review of Systems: Review of Systems: 14 body systems of review of systems have been reviewed. See HPI for pertinent positives and negative responses, otherwise all other systems are negative, nonpertinent or noncontributory. Heart Score: HEART Score for Chest Pain: HEART Score for Chest Pain Response (Comments) Value History Slighlty/Non-Suspicious 0 ECG Normal 0 Age >45 - < 65 1 Risk Factors 1 or 2 Risk Factors 1 Troponin < Normal Limit 0 Total 2 Risk Factors: Risk Factors: DM, Current or recent (<one month) smoker, HTN, HLP, family history of CAD, obesity. Risk Scores: Score 0 - 3: 2.5% MACE over next 6 weeks - Discharge Home Score 4 - 6: 20.3% MACE over next 6 weeks - Admit for Clinical Observation Score 7 - 10: 72.7% MACE over next 6 weeks - Early Invasive Strategies Allergies: Allergies: Allergies Coded Allergies Type Severity Reaction Last Updated Verified Influenza Virus Vaccines Allergy Intermediate RASH, near syncope 03/23/20 Yes Physical Exam: PE: Constitutional: Well developed, well nourished, no acute distress, non-toxic appearance. HENT: Normocephalic, atraumatic, bilateral external ears normal, oropharynx moist, no oral exudates, nose normal. Eyes: PERRLA, EOMI, conjunctiva normal, no discharge. Neck: Normal range of motion, no tenderness, supple, no stridor. Cardiovascular:Heart rate regular rhythm, no murmur, heart sounds S1-S2. Lungs & Thorax: Bilateral breath sounds clear to auscultation all lung baker. Abdomen: Bowel sounds normal, soft, no tenderness, no masses, no pulsatile masses. Skin: Warm, dry, no erythema, no rash. Back: No tenderness, no CVA tenderness. Extremities: No tenderness, no cyanosis, no clubbing, ROM intact, no edema. Neurologic: Alert and oriented X 3, normal motor function, normal sensory function, no focal deficits noted. Psychologic: Affect normal, judgement normal, mood normal. Current Patient Data: Vital Signs: Vital Signs Date Time Temp Pulse Resp B/P (MAP) Pulse Ox O2 Delivery O2 Flow Rate FiO2 04/13/20 16:30 98.2 76 18 173/79 (110) 98 Room Air 98.2 EKG: EKG: EKG performed at 1739 by ED nursing staff, shows a normal sinus rhythm without ectopy, heart rate 89 bpm, [place] interval 0.110, QTc interval 0.405, no acute STEMI, no ACS, no acute ischemia appreciated, EKG interpreted by ED attending mechelle Lares. Radiology/Procedures: Radiology/Procedures: PATIENT: BATSHEVA VASQUEZ MACCOUNT: [id number] : 1965 LOCATION: ER AGE: 54 SEX: F EXAM STATUS: REG ER ORD. PHYSICIAN: ABBY MCCLAIN APRN REASON: CHEST BURNING SHORT OF BREATH PROCEDURE: CHEST PA & LATERAL Exam: Chest 2 views INDICATION: Chest burning short of breath TECHNIQUE: Frontal and lateral views the chest Comparisons: None FINDINGS: The cardiomediastinal silhouette and pulmonary vessels are within normal limits. The lung and pleural spaces are clear. IMPRESSION: No acute cardiopulmonary process. Electronically signed by: Nikky Olsen MD (04/13/2020 5:42 PM) [facility] DICTATED and SIGNED BY: NIKKY OLSEN MD DATE: 04/13/20 [id number] 0 Course & Med Decision Making: Course & Med Decision Making Pertinent Labs and Imaging studies reviewed. (See chart for details) 54-year-old female, vital signs reviewed, presents to the ER with a chief complaint that she wants IV antibiotics for her sinus infection. Physical examination was unremarkable, this is most likely an anxiety of health. Related to patient's complaint of chest pain and shortness of breath along with complaint of elevated sugars, a cardiopulmonary work-up was initiated in the ER, pending results at this time. Patient's serum glucose 394. Gave 1 L normal saline with 5 units IV insulin. Upon reevaluation the patient's blood sugar 1 hour after infusion of saline and insulin, patient was eating hard candy. Patient states that she was afraid that her blood sugar might drop so she had not eaten in a while. Patient's recheck bedside fingerstick blood glucose was 394. Patient's labs were unremarkable other than her chronic hypercalcemia which she is aware of. Discussed findings with patient, patient will be discharged home. Patient gave verbal understanding of discharge home instructions, will call her primary care physician tomorrow for follow-up, return to emergency department precautions and concerns, patient was discharged home without incident. Dragon Disclaimer: Gisella Disclaimer: This electronic medical record was generated, in whole or in part, using a voice recognition dictation system. Departure Departure Impression: Primary Impression: Anxiety about health Additional Impressions: Type 2 diabetes mellitus Qualified Codes: E11.69 - Type 2 diabetes mellitus with other specified complication; Z79.4 - custodial (current) use of insulin Hypercalcemia Disposition: 01 DC HOME SELF CARE/HOMELESS Condition: GOOD Referrals: SARAH PAYAN MD (PCP) Additional Instructions: Please continue your antibiotics as prescribed by your ENT specialist, please call your primary care doctor tomorrow to let them know that your sugars have been elevated and to have them adjust your insulin regimen. Return to the emergency department for worsening symptoms or other concerns. EMERGENCY DEPARTMENT GENERAL DISCHARGE INSTRUCTIONS Thank you for coming to [facility] Emergency Department (ED) today and trusting us with you care. We trust that you had a positive experience in our Emergency Department. If you wish to speak to the department management, you may call the Director at [phone]. YOUR FOLLOW UP INSTRUCTIONS ARE FOLLOWS: 1. Do you have a private Doctor? If you do not have a private doctor, please ask for a resource list of physicians or clinics that may be able to assist you with follow up care. 2. The Emergency Physicain has interpreted your x-rays. The X-Ray specialist will also review them. If there is a change in the findings, you will be notified in 48 hours when at all possible. 3. A lab test or culture has been done, your results will be reviewed and you will be notified if you need a change in treatment. ADDITIONAL INSTRUCTIONS AND INFORMATION: 1. Your care today has been supervised by a physician who is specially trained in emergency care. Many problems require more than one evaluation for a complete diagnosis and treatment. We recommend that you schedule your follow up appointment as recommended to ensure complete treatment of you illness or injury. If you are unable to obtain follow up care and continue to have a problem, or if your condition worsens, we recommend that you return to the ED. 2. We are not able to safely determine your condition over the phone nor are we able to give sound medical advice over the phone. For these safety reasons, if you call for medical advice we will ask you to come to the ED for further evaluation. 3. If you have any questions regarding these discharge instructions please call the ED at [phone]. SAFETY INFORMATION: In the interest of safety, wellness, and injury prevention; we encourage you to wear your sealbelt, if you smoke; quite smoking, and we encourage family to use a protective helmet for bicycling and other sporting events that present an increased risk for head injury. IF YOUR SYMPTOMS WORSEN OR NEW SYMPTOMS DEVELOP, OR YOU HAVE CONCERNS ABOUT YOUR CONDITION; OR IF YOUR CONDITION WORSENS WHILE YOU ARE WAITING FOR YOUR FOLLOW UP APPOINTME NT; EITHER CONTACT YOUR PRIMARY CARE DOCTOR, THE PHYSICIAN WHOSE NAME AND NUMBER YOU WERE GIVEN, OR RETURN TO THE ED IMMEDIATELY. ABBY MCCLAIN APRN Apr 13, 2020 17:59
[2020-04-13 18:00] LABS: CALCIUM 11.3 mg/dL (8.5-10.1); CREATININE 1.1 mg/dL (0.6-1.0); GFR 51.6; POTASSIUM 4.4 mmol/L (3.5-5.1)
[2020-04-13 18:05] LABS: ALBUMIN 3.4 g/dL (3.4-5.0); ALBUMIN/GLOBULIN RATIO 0.8 (1.0-1.7); TOTAL BILIRUBIN 0.3 mg/dL (0.2-1.0); TOTAL PROTEIN 7.6 g/dL (6.4-8.2)
[2020-04-13 18:15] LABS: BILIRUBIN,URINE NEGATIVE (NEG); CLARITY,URINE CLEAR; COLOR,URINE YELLOW; NITRITE,URINE NEGATIVE (NEG); PROTEIN,URINE NEGATIVE (NEG-TRACE); UROBILINOGEN,URINE 0.2 mg/dL (0.2 mg/dL)
[2020-04-13 19:45] LABS: BACTERIA,URINE FEW /HPF (0-FEW); RBC,URINE 0 /HPF (0-2); WBC,URINE OCC /HPF (0-4); YEAST,URINE PRESENT /HPF
[2020-04-13] MEDS ORDERED: INSULIN REGULAR 100 UNIT/ML 3ML VIAL. IV ONE (19:45)
[2020-04-13] MEDS ORDERED: IV NORMAL SALINE 1000ML BAG 1,000 ML IV ONE (19:45)
[2020-04-13 20:45] VITALS: BP 179/77
--- NOTE | 2020-04-14 07:44 | EKG ---
[facility] [address] [place] [address] Test Date: 2020-04-13 Test Time: 17:39:41 Pat Name: BATSHEVA VASQUEZ Department: Room: Gender: F Staff Writer: : 1965 Requested By: ABBY MCCLAIN Order Number: [id number] Reading MD: Measurements Intervals [place] Rate: 98 P: -10 GA: 110 QRS: 18 QRSD: 78 T: 42 QT: 316 QTc: 405 Interpretive Statements SINUS RHYTHM NORMAL ECG RI6.02 No previous ECG available for comparison
== END 2020-04-13 21:40 | disposition home or self-care (01) ==
LOC: ER 16:17
DX: F41.9 Anxiety disorder, unspecified (principal); E11.69 Type 2 diabetes mellitus with other specified complication; E83.52 Hypercalcemia; R07.89 Other chest pain; Z79.4 Long term (current) use of insulin; Z88.7 Allergy status to serum and vaccine
CPT/HCPCS: 36415; 71046; 80053; 81001; 82010; 82962; 83735; 84484; 85025; 93005; 96361; 96374; 99285; J1815; J7030

== ENCOUNTER 2020-06-05 21:09 | Emergency (ER) | payer MEDICARE ==
[~2020-06-05] VITALS: Ht 162.6 cm; Wt 109.0 kg
[2020-06-05] MEDS ORDERED: methylPREDNISolone SOD SUCC PF 125 MG/2 ML VIAL. IV ONE (22:00)
[2020-06-05 22:05] LABS: BASO # 0.1 x10^3/uL (0.0-0.2); BASO % 1 % (0-3); EOS # 0.1 x10^3/uL (0.0-0.7); EOS % 2 % (0-3); HEMATOCRIT 35.3 % (36.0-47.0); HEMOGLOBIN 11.5 g/dL (12.0-15.5); LYMPH # 2.5 x10^3/uL (1.0-4.8); LYMPH % 25 % (24-48); MEAN CORPUSCULAR HEMOGLOBIN 29 pg (25-35); MEAN CORPUSCULAR HGB CONC 33 g/dL (31-37); MEAN CORPUSCULAR VOLUME 88 fL (79-100); MONO # 0.7 x10^3/uL (0.0-1.1); MONO % 7 % (0-9); NEUT # 6.6 x10^3/uL (1.8-7.7); NEUT % 66 % (31-73); PLATELET COUNT 225 x10^3/uL (140-400); RED BLOOD COUNT 4.01 x10^6/uL (3.50-5.40); RED CELL DISTRIBUTION WIDTH 13.7 % (11.5-14.5); WHITE BLOOD COUNT 9.9 x10^3/uL (4.0-11.0)
--- NOTE | 2020-06-05 22:07 | PHYS DOC ---
Past Medical History Past Medical History: Arthritis, Asthma, Bronchitis, COPD, Diabetes-Type II, High Cholesterol, Hypertension, Pneumonia, Other Additional Past Medical Histor: SLEEP APNEA Past Surgical History: Hysterectomy, Oophorectomy Additional Past Surgical Histo: Nose SX,RETINA SURGERY Smoking Status: Never Smoker Alcohol Use: None Drug Use: None General Adult EDM: Chief Complaint: SHORTNESS OF BREATH HPI: HPI: Patient is a 54 year old female presents with a chief complaint of shortness of breath. Patient states shortness of breath started yesterday evening. Patient has a past medical history of obstructive sleep apnea and uses a CPAP. Patient states last night while using her CPAP she felt short of breath. This a.m. patient used her inhaler with mild improvement of her shortness of breath. Patient use her albuterol nebulizer just prior to arrival. Because shortness of breath continued patient presents to the emergency department for evaluation. Patient states she has a chronic cough with some sputum production as well as as chronic sinus congestion with postnasal drip. Patient denies any fevers or chills. Patient denies any chest discomfort. She states she has chronic bilateral lower extremity swelling. Review of Systems: Review of Systems: Constitutional: Denies fever or chills. [] Eyes: Denies change in visual acuity. [] HENT: Denies nasal congestion or sore throat. [] Respiratory: Positive cough or shortness of breath. [] Cardiovascular: Denies chest pain or edema. [] GI: Denies abdominal pain, nausea, vomiting, bloody stools or diarrhea. [] : Denies dysuria. [] Musculoskeletal: Denies back pain or joint pain. [] Integument: Denies rash. [] Neurologic: Denies headache, focal weakness or sensory changes. [] Endocrine: Denies polyuria or polydipsia. [] Lymphatic: Denies swollen glands. [] Psychiatric: Denies depression or anxiety. [] Heart Score: C/O Chest Pain: N/A Risk Factors: Risk Factors: DM, Current or recent (<one month) smoker, HTN, HLP, family history of CAD, obesity. Risk Scores: Score 0 - 3: 2.5% MACE over next 6 weeks - Discharge Home Score 4 - 6: 20.3% MACE over next 6 weeks - Admit for Clinical Observation Score 7 - 10: 72.7% MACE over next 6 weeks - Early Invasive Strategies Current Medications: Current Medications Medications (Trade) Dose Ordered Sig/Palak Start Time Stop Time Status Last Admin Dose Admin Methylprednisolone Sodium Succinate (SOLU-Medrol 125MG VIAL) 125 mg 1X ONCE 06/05/20 22:00 06/05/20 22:01 DC 06/05/20 22:00 125 MG Allergies: Allergies: Allergies Coded Allergies Type Severity Reaction Last Updated Verified Influenza Virus Vaccines Allergy Intermediate RASH, near syncope 03/23/20 Yes Physical Exam: PE: General: alert, no acute distress. Skin: warm, dry and intact. Head:: Normocephalic, atraumatic. Neck: Trachea midline. Eyes: EOMI, Normal conjunctiva, No drainage CARDIOVASCULAR: Regular rate and rhythm RESPIRATORY: No respiratory distress Back: Full range of motion. MUSCULOSKELETAL: Full range of motion of bilateral upper and lower extremities. GASTROINTESTINAL: Abdomen soft without rebound or guarding. NEUROLOGICAL: Alert and noted to person, place and time. No neurological deficits observed Psychiatric: Cooperative. Normal judgment Current Patient Data: Vital Signs: Vital Signs Date Time Temp Pulse Resp B/P (MAP) Pulse Ox O2 Delivery O2 Flow Rate FiO2 06/05/20 21:25 98.6 76 22 142/81 (101) 99 Room Air 98.6 EKG: EKG: EKG performed at 2135 heart rate 78 normal sinus rhythm no ST elevation no ST depression no acute [place] [] Radiology/Procedures: Radiology/Procedures: [] Course & Med Decision Making: Course & Med Decision Making Pertinent Labs and Imaging studies reviewed. (See chart for details) [] Patient was evaluated for chief complaint. Work-up consisted of laboratory analysis radiologic imaging and EKG. Results reviewed and discussed with patient. Chest x-ray no focal infiltrate. Jolanta included albuterol Solu-Medrol. Patient be discharged home with Zithromax and prednisone Dragon Disclaimer: Dragon Disclaimer: This electronic medical record was generated, in whole or in part, using a voice recognition dictation system. Departure Departure Impression: Primary Impression: Acute bronchitis Disposition: HOME SELF CARE/HOMELESS Condition: STABLE Referrals: SARAH PAYAN MD (PCP) Patient Instructions: Acute Bronchitis Scripts Azithromycin (ZITHROMAX) 250 Mg Tablet 1 PKG PO UD, #6 TAB Prov: JANIE NELSON DO 06/05/20 Prednisone (PREDNISONE) 20 Mg Tablet 1 TAB PO UD for 12 Days, #15 TAB Take 2 tabs days 1,2,3 1.5 tabs days 3,4,5 1 tab days 6,7,8 0.5 tab days 9,10,11 Prov: JANIE NELSON DO 06/05/20 JANIE NELSON DO Jun 05, 2020 22:07
[2020-06-05 22:13] LABS: CALCIUM 10.6 mg/dL (8.5-10.1); CREATININE 1.1 mg/dL (0.6-1.0); GFR 51.6; POTASSIUM 4.5 mmol/L (3.5-5.1)
--- NOTE | 2020-06-05 22:13 | EKG ---
[facility] [address] [place] [address] Test Date: 2020-06-05 Test Time: 21:35:30 Pat Name: BATSHEVA VASQUEZ Department: Room: Gender: F Osd Clerk: : 1965 Requested By: JANIE NELSON Order Number: [id number] Reading MD: Measurements Intervals [place] Rate: 78 P: 44 SD: 142 QRS: 9 QRSD: 78 T: -11 QT: 362 QTc: 416 Interpretive Statements SINUS RHYTHM NORMAL ECG RI6.01 No previous ECG available for comparison
[2020-06-05 22:19] LABS: ALBUMIN 3.4 g/dL (3.4-5.0); ALBUMIN/GLOBULIN RATIO 0.8 (1.0-1.7); TOTAL BILIRUBIN 0.3 mg/dL (0.2-1.0); TOTAL PROTEIN 7.5 g/dL (6.4-8.2)
--- NOTE | 2020-06-05 22:20 | RAD ---
XR CHEST 1V 06/05/2020 10:13 PM INDICATION: Shortness of breath COMPARISON: 04/13/2020 TECHNIQUE: Portable frontal view of the chest is provided. FINDINGS: The cardiomediastinal silhouette is within normal limits. Lungs are clear. There are no significant pleural effusions. There is no pulmonary vascular congestion. No pneumothora x. No suspicious osseous abnormality. IMPRESSION: There is no acute cardiopulmonary process. Electronically signed by: Karely Smith MD (06/05/2020 10:17 PM) [facility]
[2020-06-05] MEDS ORDERED: ALBUTEROL SULFATE 2.5 MG/3 ML NEBU. NEB ONE (22:30)
[2020-06-05] MEDS ORDERED: AZIT250T PO (23:17)
[2020-06-05] MEDS ORDERED: PRED20TA PO (23:17)
[2020-06-05 23:22] VITALS: BP 158/74
== END 2020-06-05 23:30 | disposition home or self-care (01) ==
LOC: ER 21:09
DX: J20.9 Acute bronchitis, unspecified (principal); R06.02 Shortness of breath; R05 Cough; R09.81 Nasal congestion; M19.90 Unspecified osteoarthritis, unspecified site; J44.9 Chronic obstructive pulmonary disease, unspecified; E11.9 Type 2 diabetes mellitus without complications; E78.00 Pure hypercholesterolemia, unspecified; I10 Essential (primary) hypertension; Z90.710 Acquired absence of both cervix and uterus; Z90.89 Acquired absence of other organs; Z98.890 Other specified postprocedural states; Z88.7 Allergy status to serum and vaccine
CPT/HCPCS: 36415; 71045; 80053; 83880; 84484; 85025; 93005; 94640; 96374; 99285; J2930; J7613

== ENCOUNTER 2020-06-17 22:56 | Emergency (ER) | payer MEDICARE ==
[~2020-06-17] VITALS: Ht 162.6 cm; Wt 106.8 kg
--- NOTE | 2020-06-18 01:49 | EKG ---
[facility] [address] [place] [address] Test Date: 2020-06-17 Test Time: 23:28:59 Pat Name: BATSHEVA VASQUEZ Department: Room: Gender: F Material Combiner: : 1965 Requested By: EDGAR TORRES Order Number: [id number] Reading MD: Measurements Intervals [place] Rate: 77 P: 50 MS: 124 QRS: 3 QRSD: 78 T: -29 QT: 360 QTc: 409 Interpretive Statements SINUS RHYTHM T ABNORMALITY IN INFERIOR LEADS ABNORMAL ECG RI6.02 No previous ECG available for comparison
--- NOTE | 2020-06-18 02:32 | RAD ---
XR ABDOMEN 1V, XR CHEST 1V Clinical History: Reason: ABD PAIN / Spl. Instructions: / History: One view chest: Technique: AP view of the chest was obtained at 06/18/2020 1:46 AM. Comparison: None. Findings: The cardiomediastinal silhouette is normal. The pulmonary vasculature is normal. The lungs and pleura l margins are clear. Impression: No evidence of an acute cardiopulmonary process. End impression One view abdomen pelvis 12:55 AM: There is formed stool scattered the colon. There is a paucity small bowel gas. There is no free air. IMPRESSION: Fecal impaction and constipation. Electronically signed by: Bridger Jnasen III, MD (06/18/2020 2:30 AM) [facility]
[2020-06-18 02:37] LABS: BASO # 0.1 x10^3/uL (0.0-0.2); BASO % 1 % (0-3); EOS # 0.1 x10^3/uL (0.0-0.7); EOS % 1 % (0-3); HEMATOCRIT 35.3 % (36.0-47.0); HEMOGLOBIN 11.6 g/dL (12.0-15.5); LYMPH # 2.7 x10^3/uL (1.0-4.8); LYMPH % 24 % (24-48); MEAN CORPUSCULAR HEMOGLOBIN 29 pg (25-35); MEAN CORPUSCULAR HGB CONC 33 g/dL (31-37); MEAN CORPUSCULAR VOLUME 89 fL (79-100); MONO # 0.7 x10^3/uL (0.0-1.1); MONO % 6 % (0-9); NEUT # 7.7 x10^3/uL (1.8-7.7); NEUT % 68 % (31-73); PLATELET COUNT 212 x10^3/uL (140-400); RED BLOOD COUNT 3.97 x10^6/uL (3.50-5.40); RED CELL DISTRIBUTION WIDTH 14.6 % (11.5-14.5); WHITE BLOOD COUNT 11.3 x10^3/uL (4.0-11.0)
[2020-06-18 02:52] LABS: CALCIUM 10.3 mg/dL (8.5-10.1); CREATININE 1.1 mg/dL (0.6-1.0); GFR 62.4; POTASSIUM 5.1 mmol/L (3.5-5.1)
[2020-06-18 02:58] LABS: ALBUMIN 3.3 g/dL (3.4-5.0); TOTAL BILIRUBIN 0.2 mg/dL (0.2-1.0); TOTAL PROTEIN 6.6 g/dL (6.4-8.2)
--- NOTE | 2020-06-18 03:18 | PHYS DOC ---
Past Medical History Past Medical History: Arthritis, Asthma, Bronchitis, COPD, Diabetes-Type II, High Cholesterol, Hypertension, Pneumonia, Other Additional Past Medical Histor: SLEEP APNEA Past Surgical History: Hysterectomy, Oophorectomy Additional Past Surgical Histo: Nose SX,RETINA SURGERY Smoking Status: Never Smoker Alcohol Use: None Drug Use: None Adult General Chief Complaint Chief Complaint: GI PROBLEM HPI HPI Patient is a 54 year old female presenting with abdominal pain and constipation. Patient last 4 months has been having a sensation of fullness and pressure in the epigastric region whenever she has a meal. Patient states that she was seen by her primary care physician was placed on Protonix but feels this has not been provided. Patient also notes that she has been having constipation for last 2 weeks having difficulty having a bowel movement. Denies any fever, chills, nausea, vomiting, dizziness or lightheadedness. Review of Systems Review of Systems Constitutional: Denies fever or chills [] Eyes: Denies change in visual acuity, redness, or eye pain [] HENT: Denies nasal congestion or sore throat [] Respiratory: Denies cough or shortness of breath [] Cardiovascular: No additional information not addressed in HPI [] GI: Denies abdominal pain, nausea, vomiting, bloody stools or diarrhea [] : Denies dysuria or hematuria [] Musculoskeletal: Denies back pain or joint pain [] Integument: Denies rash or skin lesions [] Neurologic: Denies headache, focal weakness or sensory changes [] Endocrine: Denies polyuria or polydipsia [] All other systems were reviewed and found to be within normal limits, except as documented in this note. Allergies Allergies Allergies Coded Allergies Type Severity Reaction Last Updated Verified Influenza Virus Vaccines Allergy Intermediate RASH, near syncope 03/23/20 Yes Physical Exam Physical Exam Constitutional: Well developed, well nourished, no acute distress, non-toxic appearance. [] HENT: Normocephalic, atraumatic, bilateral external ears normal, oropharynx moist, no oral exudates, nose normal. [] Eyes: PERRLA, EOMI, conjunctiva normal, no discharge. [] Neck: Normal range of motion, no tenderness, supple, no stridor. [] Cardiovascular:Heart rate regular rhythm, no murmur [] Lungs & Thorax: Bilateral breath sounds clear to auscultation [] Abdomen: Bowel sounds normal, soft, no tenderness, no masses, no pulsatile masses. [] Skin: Warm, dry, no erythema, no rash. [] Back: No tenderness, no CVA tenderness. [] Extremities: No tenderness, no cyanosis, no clubbing, ROM intact, no edema. [] Neurologic: Alert and oriented X 3, normal motor function, normal sensory function, no focal deficits noted. [] Psychologic: Affect normal, judgement normal, mood normal. [] Current Patient Data Vital Signs Vital Signs Date Time Temp Pulse Resp B/P (MAP) Pulse Ox O2 Delivery O2 Flow Rate FiO2 06/17/20 23:20 98.2 87 20 165/72 (103) 98 Room Air 98.2 Lab Values Laboratory Tests Test 06/18/20 02:27 White Blood Count 11.3 x10^3/uL (4.0-11.0) H Red Blood Count 3.97 x10^6/uL (3.50-5.40) Hemoglobin 11.6 g/dL (12.0-15.5) L Hematocrit 35.3 % (36.0-47.0) L Mean Corpuscular Volume 89 fL (79-100) Mean Corpuscular Hemoglobin 29 pg (25-35) Mean Corpuscular Hemoglobin Concent 33 g/dL (31-37) Red Cell Distribution Width 14.6 % (11.5-14.5) H Platelet Count 212 x10^3/uL (140-400) Neutrophils (%) (Auto) 68 % (31-73) Lymphocytes (%) (Auto) 24 % (24-48) Monocytes (%) (Auto) 6 % (0-9) Eosinophils (%) (Auto) 1 % (0-3) Basophils (%) (Auto) 1 % (0-3) Neutrophils # (Auto) 7.7 x10^3/uL (1.8-7.7) Lymphocytes # (Auto) 2.7 x10^3/uL (1.0-4.8) Monocytes # (Auto) 0.7 x10^3/uL (0.0-1.1) Eosinophils # (Auto) 0.1 x10^3/uL (0.0-0.7) Basophils # (Auto) 0.1 x10^3/uL (0.0-0.2) Sodium Level 139 mmol/L (136-145) Potassium Level 5.1 mmol/L (3.5-5.1) Chloride Level 107 mmol/L (98-107) Carbon Dioxide Level 25 mmol/L (21-32) Anion Gap 7 (6-14) Blood Urea Nitrogen 26 mg/dL (7-20) H Creatinine 1.1 mg/dL (0.6-1.0) H Estimated GFR (Cockcroft-Gault) 62.4 BUN/Creatinine Ratio 24 (6-20) H Glucose Level 327 mg/dL (70-99) H Calcium Level 10.3 mg/dL (8.5-10.1) H Total Bilirubin 0.2 mg/dL (0.2-1.0) Aspartate Amino Transferase (AST) 14 U/L (15-37) L Alanine Aminotransferase (ALT) 37 U/L (14-59) Alkaline Phosphatase 159 U/L (46-116) H Total Protein 6.6 g/dL (6.4-8.2) Albumin 3.3 g/dL (3.4-5.0) L Albumin/Globulin Ratio 1.0 (1.0-1.7) Lipase 184 U/L (73-393) Laboratory Tests 06/18/20 02:27 Laboratory Tests 06/18/20 02:27 EKG EKG [] Radiology/Procedures Radiology/Procedures [] Course & Med Decision Making Course & Med Decision Making Pertinent Labs and Imaging studies reviewed. (See chart for details) Female presenting with abdominal pain and constipation. No significant findings on physical exam. X-ray does demonstrate significant fecal impaction. Discussed options with patient at this time will discharge home the patient continues enemas at home. Dragon Disclaimer Dragon Disclaimer This electronic medical record was generated, in whole or in part, using a voice recognition dictation system. Departure Departure Impression: Primary Impression: Fecal impaction in rectum Disposition: 01 HOME / SELF CARE / HOMELESS Condition: GOOD Referrals: SARAH PAYAN MD (PCP) Patient Instructions: Fecal Impaction Additional Instructions: EMERGENCY DEPARTMENT GENERAL DISCHARGE INSTRUCTIONS Thank you for coming to [facility] Emergency Department (ED) today and trusting us with you care. We trust that you had a positive experience in our Emergency Department. If you wish to speak to the department management, you may call the Director at [phone]. YOUR FOLLOW UP INSTRUCTIONS ARE FOLLOWS: 1. Do you have a private Doctor? If you do not have a private doctor, please ask for a resource list of physicians or clinics that may be able to assist you with follow up care. 2. The Emergency Physicain has interpreted your x-rays. The X-Ray specialist will also review them. If there is a change in the findings, you will be notified in 48 hours when at all possible. 3. A lab test or culture has been done, your results will be reviewed and you will be notified if you need a change in treatment. ADDITIONAL INSTRUCTIONS AND INFORMATION: 1. Your care today has been supervised by a physician who is specially trained in emergency care. Many problems require more than one evaluation for a complete diagnosis and treatment. We recommend that you schedule your follow up appointment as recommended to ensure complete treatment of you illness or injury. If you are unable to obtain follow up care and continue to have a problem, or if your condition worsens, we recommend that you return to the ED. 2. We are not able to safely determine your condition over the phone nor are we able to give sound medical advice over the phone. For these safety reasons, if you call for medical advice we will ask you to come to the ED for further evaluation. 3. If you have any questions regarding these discharge instructions please call the ED at [phone]. SAFETY INFORMATION: In the interest of safety, wellness, and injury prevention; we encourage you to wear your sealbelt, if you smoke; quite smoking, and we encourage family to use a protect margarita helmet for bicycling and other sporting events that present an increased risk for head injury. IF YOUR SYMPTOMS WORSEN OR NEW SYMPTOMS DEVELOP, OR YOU HAVE CONCERNS ABOUT YOUR CONDITION; OR IF YOUR CONDITION WORSENS WHILE YOU ARE WAITING FOR YOUR FOLLOW UP APPOINTMENT; EITHER CONTACT YOUR PRIMARY CARE DOCTOR, THE PHYSICIAN WHOSE NAME AND NUMBER YOU WERE GIVEN, OR RETURN TO THE ED IMMEDIATELY. EDGAR TORRES MD Jun 18, 2020 03:17
[2020-06-18] MEDS ORDERED: POLYETHYLENE GLYCOL 3350 17 GM PACKET. PO ONE (03:45)
[2020-06-18 03:53] VITALS: BP 184/83
== END 2020-06-18 04:08 | disposition home or self-care (01) ==
LOC: ER 22:56
DX: K56.41 Fecal impaction (principal); R20.2 Paresthesia of skin; M19.90 Unspecified osteoarthritis, unspecified site; J44.9 Chronic obstructive pulmonary disease, unspecified; E11.9 Type 2 diabetes mellitus without complications; E78.00 Pure hypercholesterolemia, unspecified; I10 Essential (primary) hypertension; Z98.890 Other specified postprocedural states; Z90.89 Acquired absence of other organs; Z88.7 Allergy status to serum and vaccine
CPT/HCPCS: 36415; 71045; 74018; 80053; 83690; 85025; 93005; 99285

== ENCOUNTER → 2020-06-29 | Day surgery (SDC) | payer MEDICARE ==
[~2020-06-29] MED LIST changes: +CEFP100T PO; +IV RINGERS,LACTATED 1000ML 1,000 ML IV SCH; +LIDOCAINE 2% PF 5 ML VIAL. ONE; +PROPOFOL 10 MG/ML (20ML) VIAL. IV ONE
[2020-06-29 07:50] VITALS: BP 129/57
== END | disposition home or self-care (01) ==
LOC: ENDOS 05:49
PROVIDERS: ATTEND Internal Medicine Gastroenterology
DX: R13.10 Dysphagia, unspecified (principal); K29.50 Unspecified chronic gastritis without bleeding; I10 Essential (primary) hypertension; E78.00 Pure hypercholesterolemia, unspecified; J44.9 Chronic obstructive pulmonary disease, unspecified; K21.9 Gastro-esophageal reflux disease without esophagitis; G47.30 Sleep apnea, unspecified; E66.9 Obesity, unspecified; M19.90 Unspecified osteoarthritis, unspecified site; E11.9 Type 2 diabetes mellitus without complications; F41.9 Anxiety disorder, unspecified; Z79.82 Long term (current) use of aspirin; Z79.4 Long term (current) use of insulin; Z79.899 Other long term (current) drug therapy; Z90.710 Acquired absence of both cervix and uterus; Z98.890 Other specified postprocedural states; Z88.8 Allergy status to other drugs, medicaments and biological substances; Z20.822 Contact with and (suspected) exposure to COVID-19
CPT/HCPCS: 43235; 43450; 82962; 87426; J2704

== ENCOUNTER 2020-06-30 23:07 | Emergency (ER) | payer MEDICARE ==
[~2020-06-30] VITALS: Ht 162.6 cm; Wt 109.5 kg
[~2020-06-30 23:07] MED LIST changes: -CEFP100T PO; -IV RINGERS,LACTATED 1000ML 1,000 ML IV SCH; -LIDOCAINE 2% PF 5 ML VIAL. ONE; -OMEP40CA45 PO; +OMEP40CA7 PO; -PROPOFOL 10 MG/ML (20ML) VIAL. IV ONE
[2020-07-01 00:49] LABS: BILIRUBIN,URINE NEGATIVE (NEG); CLARITY,URINE CLOUDY; COLOR,URINE YELLOW; NITRITE,URINE POSITIVE (NEG); PROTEIN,URINE NEGATIVE (NEG-TRACE); UROBILINOGEN,URINE 0.2 mg/dL (0.2 mg/dL)
--- NOTE | 2020-07-01 00:49 | RAD ---
Single view chest dated 07/01/2020. Comparison made to 06/18/2020. Clinical data indication: Dizziness. Findings: Single semiupright portable exam performed. Heart and mediastinal contours are stable. There is some hazy increased density at the left lung base. The right pleural effusion. No pneumothorax. IMPRESSION: Hazy left basilar opacity, atelectasis versus early pneumonia. Electronically signed by: Wilian Faith MD (07/01/2020 12:46 AM) PRIETO
[2020-07-01 01:12] LABS: BACTERIA,URINE MANY /HPF (0-FEW); RBC,URINE OCC /HPF (0-2); WBC,URINE 20-40 /HPF (0-4)
[2020-07-01 01:18] LABS: BASO % 1 % (0-3); EOS # 0.1 x10^3/uL (0.0-0.7); EOS % 2 % (0-3); HEMATOCRIT 34.3 % (36.0-47.0); HEMOGLOBIN 11.4 g/dL (12.0-15.5); LYMPH # 2.4 x10^3/uL (1.0-4.8); LYMPH % 38 % (24-48); MEAN CORPUSCULAR HEMOGLOBIN 29 pg (25-35); MEAN CORPUSCULAR HGB CONC 33 g/dL (31-37); MEAN CORPUSCULAR VOLUME 89 fL (79-100); MONO # 0.5 x10^3/uL (0.0-1.1); MONO % 8 % (0-9); NEUT # 3.2 x10^3/uL (1.8-7.7); NEUT % 51 % (31-73); PLATELET COUNT 196 x10^3/uL (140-400); RED BLOOD COUNT 3.87 x10^6/uL (3.50-5.40); RED CELL DISTRIBUTION WIDTH 14.4 % (11.5-14.5); WHITE BLOOD COUNT 6.2 x10^3/uL (4.0-11.0)
[2020-07-01 01:28] LABS: CALCIUM 10.3 mg/dL (8.5-10.1); CREATININE 1.3 mg/dL (0.6-1.0); GFR 51.5; POTASSIUM 5.1 mmol/L (3.5-5.1)
--- NOTE | 2020-07-01 01:32 | RAD ---
Single view abdomen dated 07/01/2020. Comparison made to 06/18/2020. CLINICAL INDICATION: Abdominal pain. FINDINGS: Single supine portable exam performed. Nondilated gas-filled loops of bowel throughout. No abnormal c alcification. Small moderate amount stool throughout the colon. IMPRESSION: Nonobstructive bowel gas pattern. Electronically signed by: Wilian Faith MD (07/01/2020 1:30 AM) PRIETO
[2020-07-01 01:34] LABS: ALBUMIN 3.4 g/dL (3.4-5.0); TOTAL BILIRUBIN 0.2 mg/dL (0.2-1.0); TOTAL PROTEIN 6.9 g/dL (6.4-8.2)
[2020-07-01] MEDS ORDERED: SIMETHICONE 80 MG TAB.CHEW PO PRN (01:45)
[2020-07-01] MEDS ORDERED: IV NORMAL SALINE 1000ML BAG 1,000 ML IV ONE (01:45)
[2020-07-01] MEDS ORDERED: cefTRIAXone IV Push 1 GM VIAL. IVP ONE (01:45)
[2020-07-01] MEDS ORDERED: LIDO:MAALOX 1:1 20 ML SINGLE DOSE. SWSW ONE (01:45)
--- NOTE | 2020-07-01 02:14 | ED.ADGEN ---
Past Medical History Past Medical History: Arthritis, Asthma, Bronchitis, COPD, Diabetes-Type II, High Cholesterol, Hypertension, Pneumonia, Other Additional Past Medical Histor: SLEEP APNEA Past Surgical History: Hysterectomy, Oophorectomy Additional Past Surgical Histo: Nose SX,RETINA SURGERY Smoking Status: Never Smoker Alcohol Use: None Drug Use: None General Adult EDM: Chief Complaint: DIZZY/LIGHT HEADED HPI: HPI: Patient is a 54-year-old female who presents to the emergency room complaining of feeling lightheaded. Patient states that she had an EGD done yesterday that went well without complication. She has had some abdominal tightness and some epigastric pain throughout the day today. She states that she has got some shortness of breath but does have a long history of asthma and COPD. She states that she has some substernal pain. She took her Percocet this evening which she takes for arthritis and her dizziness started shortly after that. She has been able to eat and drink without any difficulty. Review of Systems: Review of Systems: Complete ROS is negative unless otherwise documented in HPI Current Medications: Current Medications Medications (Trade) Dose Ordered Sig/Palak Start Time Stop Time Status Last Admin Dose Admin Ceftriaxone Sodium (Rocephin) 1 gm 1X ONCE 07/01/20 01:45 07/01/20 01:46 DC 07/01/20 01:54 1 GM Multi-Ingredient Mouthwash/Gargle (Gi Cocktail) 20 ml 1X ONCE 07/01/20 01:45 07/01/20 01:46 DC 07/01/20 01:53 20 ML Simethicone (Gas-X) 80 mg 1X PRN 07/01/20 01:45 07/01/20 01:52 80 MG Sodium Chloride 1,000 ml @ 1,000 mls/hr 1X ONCE 07/01/20 01:45 07/01/20 02:45 DC 07/01/20 01:50 1,000 MLS/HR Allergies: Allergies: Allergies Coded Allergies Type Severity Reaction Last Updated Verified Influenza Virus Vaccines Allergy Intermediate RASH, near syncope 06/29/20 Yes Physical Exam: PE: General: Awake, alert, NAD. Well Nourished, well hydrated. Cooperative HEENT: Atraumatic, EOMI, PERRL, airway patent, moist oral mucosa Neck: Supple, trachea midline Respiratory: CTA bilaterally, normal effort, no wheezing/crackles CV: RRR, no murmur, cap refill <2 GI: Soft, nondistended, nontender, no masses MSK: No obvious deformities Skin: Warm, dry, intact Neuro: A&O x3, speech NL, 5/5 strength in BUE/BLE distally and proximally, CN 2- 12 intact, cerebellar testing normal Psych: Normal affect, normal mood, not suicidal or homicidal Current Patient Data: Labs: Laboratory Tests Test 07/01/20 00:17 07/01/20 00:43 07/01/20 01:08 Glucose (Fingerstick) 338 mg/dL (70-99) H Urine Collection Type Unknown Urine Color Yellow Urine Clarity Cloudy Urine pH 6.0 (<5.0-8.0) Urine Specific [place] 1.025 (1.000-1.030) Urine Protein Negative mg/dL (NEG-TRACE) Urine Glucose (UA) >=1000 mg/dL (NEG) Urine Ketones (Stick) Negative mg/dL (NEG) Urine Blood Negative (NEG) Urine Nitrite Positive (NEG) Urine Bilirubin Negative (NEG) Urine Urobilinogen Dipstick 0.2 mg/dL (0.2 mg/dL) Urine Leukocyte Esterase Trace (NEG) Urine RBC Occ /HPF (0-2) Urine WBC 20-40 /HPF (0-4) Urine Squamous Epithelial Cells Mod /LPF Urine Bacteria Many /HPF (0-FEW) Urine Mucus Slight /LPF White Blood Count 6.2 x10^3/uL (4.0-11.0) Red Blood Count 3.87 x10^6/uL (3.50-5.40) Hemoglobin 11.4 g/dL (12.0-15.5) L Hematocrit 34.3 % (36.0-47.0) L Mean Corpuscular Volume 89 fL (79-100) Mean Corpuscular Hemoglobin 29 pg (25-35) Mean Corpuscular Hemoglobin Concent 33 g/dL (31-37) Red Cell Distribution Width 14.4 % (11.5-14.5) Platelet Count 196 x10^3/uL (140-400) Neutrophils (%) (Auto) 51 % (31-73) Lymphocytes (%) (Auto) 38 % (24-48) Monocytes (%) (Auto) 8 % (0-9) Eosinophils (%) (Auto) 2 % (0-3) Basophils (%) (Auto) 1 % (0-3) Neutrophils # (Auto) 3.2 x10^3/uL (1.8-7.7) Lymphocytes # (Auto) 2.4 x10^3/uL (1.0-4.8) Monocytes # (Auto) 0.5 x10^3/uL (0.0-1.1) Eosinophils # (Auto) 0.1 x10^3/uL (0.0-0.7) Basophils # (Auto) 0.0 x10^3/uL (0.0-0.2) Sodium Level 136 mmol/L (136-145) Potassium Level 5.1 mmol/L (3.5-5.1) Chloride Level 104 mmol/L (98-107) Carbon Dioxide Level 25 mmol/L (21-32) Anion Gap 7 (6-14) Blood Urea Nitrogen 23 mg/dL (7-20) H Creatinine 1.3 mg/dL (0.6-1.0) H Estimated GFR (Cockcroft-Gault) 51.5 BUN/Creatinine Ratio 18 (6-20) Glucose Level 337 mg/dL (70-99) H Calcium Level 10.3 mg/dL (8.5-10.1) H Total Bilirubin 0.2 mg/dL (0.2-1.0) Aspartate Amino Transferase (AST) 19 U/L (15-37) Alanine Aminotransferase (ALT) 41 U/L (14-59) Alkaline Phosphatase 163 U/L (46-116) H Troponin I Quantitative < 0.017 ng/mL (0.000-0.055) Total Protein 6.9 g/dL (6.4-8.2) Albumin 3.4 g/dL (3.4-5.0) Albumin/Globulin Ratio 1.0 (1.0-1.7) Laboratory Tests 07/01/20 01:08 Laboratory Tests 07/01/20 01:08 Vital Signs: Vital Signs Date Time Temp Pulse Resp B/P (MAP) Pulse Ox O2 Delivery O2 Flow Rate FiO2 07/01/20 01:37 78 17 160/74 (102) 96 Room Air 06/30/20 23:33 98.4 98.4 EKG: EKG: [] Heart Score: C/O Chest Pain: N/A Risk Factors: Risk Factors: DM, Current or recent (<one month) smoker, HTN, HLP, family history of CAD, obesity. Risk Scores: Score 0 - 3: 2.5% MACE over next 6 weeks - Discharge Home Score 4 - 6: 20.3% MACE over next 6 weeks - Admit for Clinical Observation Score 7 - 10: 72.7% MACE over next 6 weeks - Early Invasive Strategies Radiology/Procedures: Radiology/Procedures: [] Course & Med Decision Making: Course & Med Decision Making Pertinent Labs and Imaging studies reviewed. (See chart for details) Patient is a 54-year-old female who presents to the emergency room complaining of lightheadedness. Patient had an EGD done yesterday. She is overall well- appearing. Her abdomen does not have any signs of peritonitis. Chest x-ray does not show any mediastinal air. She does not have any free air in her abdomen. Patient does appear to be dehydrated and was given some fluids. Lab w ork is otherwise unremarkable. Patient's test results and vitals while in the ED were fully reviewed and discussed with the patient. Patient is stable and at this time does not need admission to the hospital. We have discussed strict return precautions and the importance of following up with their Primary Care Physician. Patient stated understanding and was given an opportunity to ask any questions. Patient is in agreement with plan. Cheleon Disclaimer: Gisella Disclaimer: This electronic medical record was generated, in whole or in part, using a voice recognition dictation system. Departure Departure Impression: Primary Impression: Postoperative pain Additional Impression: Lightheadedness Disposition: 01 HOME / SELF CARE / HOMELESS Condition: STABLE Referrals: SARAH PAYAN MD (PCP) Patient Instructions: Dizziness Problem Qualifiers SHAE WALL MD Jul 01, 2020 02:14
[2020-07-01 02:43] VITALS: BP 162/74
--- NOTE | 2020-07-01 06:22 | EKG ---
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
[2020-07-01] MEDS ORDERED: CEFP100T PO (13:21)
== END 2020-07-01 03:30 | disposition home or self-care (01) ==
LOC: ER 23:07
DX: G89.18 Other acute postprocedural pain (principal); R10.13 Epigastric pain; R42 Dizziness and giddiness; R06.02 Shortness of breath; R07.2 Precordial pain; J44.1 Chronic obstructive pulmonary disease with (acute) exacerbation; E11.9 Type 2 diabetes mellitus without complications; E78.00 Pure hypercholesterolemia, unspecified; I10 Essential (primary) hypertension; Z90.710 Acquired absence of both cervix and uterus; Z88.7 Allergy status to serum and vaccine
CPT/HCPCS: 36415; 71045; 74018; 80053; 81001; 82962; 84484; 85025; 93005; 96361; 96374; 99285; J0696; J7030

== ENCOUNTER 2020-07-01 09:12 | Emergency (ER) | payer MEDICARE ==
[~2020-07-01] VITALS: Ht 162.6 cm; Wt 110.0 kg
[~2020-07-01 09:12] MED LIST changes: +OMEP40CA45 PO; -OMEP40CA7 PO
[2020-07-01 09:58] LABS: BILIRUBIN,URINE NEGATIVE (NEG); CLARITY,URINE CLEAR; COLOR,URINE YELLOW; NITRITE,URINE NEGATIVE (NEG); PROTEIN,URINE 100 mg/dL (NEG-TRACE); UROBILINOGEN,URINE 0.2 mg/dL (0.2 mg/dL)
[2020-07-01 10:23] LABS: BACTERIA,URINE 0 /HPF (0-FEW); RBC,URINE 20-40 /HPF (0-2)
--- NOTE | 2020-07-01 11:02 | EKG ---
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
--- NOTE | 2020-07-01 11:48 | PHYS DOC ---
Past Medical History Past Medical History: Arthritis, Asthma, Bronchitis, COPD, Diabetes-Type II, High Cholesterol, Hypertension, Pneumonia, Other Additional Past Medical Histor: SLEEP APNEA Past Surgical History: Hysterectomy, Oophorectomy Additional Past Surgical Histo: Nose SX,RETINA SURGERY Smoking Status: Never Smoker Alcohol Use: None Drug Use: None General Adult EDM: Chief Complaint: DIZZY/LIGHT HEADED HPI: HPI: 54-year-old female Review of Systems: Review of Systems: Constitutional: Denies fever or chills. [] Eyes: Denies change in visual acuity. [] HENT: Denies nasal congestion or sore throat. [] Respiratory: Denies cough or shortness of breath. [] Cardiovascular: Denies chest pain or edema. [] GI: Denies abdominal pain, nausea, vomiting, bloody stools or diarrhea. [] : Denies dysuria. [] Musculoskeletal: Denies back pain or joint pain. [] Integument: Denies rash. [] Neurologic: Denies headache, focal weakness or sensory changes. [] Endocrine: Denies polyuria or polydipsia. [] Lymphatic: Denies swollen glands. [] Psychiatric: Denies depression or anxiety. [] Heart Score: C/O Chest Pain: No Risk Factors: Risk Factors: DM, Current or recent (<one month) smoker, HTN, HLP, family history of CAD, obesity. Risk Scores: Score 0 - 3: 2.5% MACE over next 6 weeks - Discharge Home Score 4 - 6: 20.3% MACE over next 6 weeks - Admit for Clinical Observation Score 7 - 10: 72.7% MACE over next 6 weeks - Early Invasive Strategies Allergies: Allergies: Allergies Coded Allergies Type Severity Reaction Last Updated Verified Influenza Virus Vaccines Allergy Intermediate RASH, near syncope 06/29/20 Yes Physical Exam: PE: Constitutional: Well developed, well nourished, no acute distress, non-toxic appearance. HENT: Normocephalic, atraumatic, Eyes: EOMI, conjunctiva normal, no discharge, no nystagmus Neck: Normal range of motion, supple, Cardiovascular: S1/2 present, regular rhythm Lungs & Thorax: Speaking in full sentences, bilateral equal chest rise, no tachypnea or increased work of breathing Abdomen: soft, no tenderness, Skin: Warm, dry, no erythema, no rash. [] Back: No tenderness, no CVA tenderness. [] Extremities: No tenderness, no cyanosis, no lower extremity edema Neurologic: Alert and oriented X 3, normal motor function, normal sensory function, no focal deficits noted, no ataxia/steady gait Psychologic: Affect normal, judgement normal, mood normal. [] HINTS exam not performed 2/2 no active persistent vertigo Current Patient Data: Labs: Laboratory Tests Test 07/01/20 09:42 Urine Collection Type Unknown Urine Color Yellow Urine Clarity Clear Urine pH 6.0 (<5.0-8.0) Urine Specific [place] 1.025 (1.000-1.030) Urine Protein 100 mg/dL (NEG-TRACE) Urine Glucose (UA) >=1000 mg/dL (NEG) Urine Ketones (Stick) Negative mg/dL (NEG) Urine Blood Large (NEG) Urine Nitrite Negative (NEG) Urine Bilirubin Negative (NEG) Urine Urobilinogen Dipstick 0.2 mg/dL (0.2 mg/dL) Urine Leukocyte Esterase Moderate (NEG) Urine RBC 20-40 /HPF (0-2) Urine WBC 5-10 /HPF (0-4) Urine Squamous Epithelial Cells Few /LPF Urine Bacteria 0 /HPF (0-FEW) Vital Signs: Vital Signs Date Time Temp Pulse Resp B/P (MAP) Pulse Ox O2 Delivery O2 Flow Rate FiO2 07/01/20 10:43 70 134/87 (103) 98 Room Air 07/01/20 09:36 98.2 18 98.2 EKG: EKG: Sinus rhythm at 72 bpm, no axis deviation, normal intervals, T wave inversion lead III and aVF, no ST elevations or ST depressions Radiology/Procedures: Radiology/Procedures: IMAGING REPORT Signed PATIENT: BATSHEVA VASQUEZ MACCOUNT: [id number] : 1965 LOCATION: ER AGE: 54 SEX: F EXAM STATUS: REG ER ORD. PHYSICIAN: EVELYN OLVERA DO REASON: weakness, near-syncope, r/o dissection PROCEDURE: CT ANGIO CHEST ABD PELVIS EXAM: CT angiography of the chest, abdomen and pelvis with intravenous contrast. HISTORY: Syncope. TECHNIQUE: Computed tomographic images of the chest, abdomen and pelvis were obtained following the administration of intravenous contrast according to angiography protocol. Multiplanar reformatting was performed and three dimensional maximum intensity projection images were obtained. *One or more of the following individualized dose reduction techniques were utilized for this examination: 1. Automated exposure control. 2. Adjustment of the mA and/or kV according to patient size. 3. Use of iterative reconstruction technique. COMPARISON: 10/03/2019. FINDINGS: The aorta is normal in caliber. There is no evidence of dissection. There is a standard aortic arch branching pattern. There is suspected noncalcified atherosclerotic plaque involving the proximal left subclavian artery, resulting in less than 50 percent stenosis. This may be accentuated due to motion in this location. No pathologically enlarged lymph node is seen. There are calcified mediastinal granulomas. There is no pneumothorax or pleural effusion. There is linear atelectasis, scarring or interstitial infiltrate within the right middle lobe. There is also linear left lower lobe atelectasis or scarring. There is pleural parenchymal scarring adjacent to a cluster of calcified granulomas at the left lung base. There is no acute or suspicious osseous finding. There is minimal calcification of the aortic valve. Abdomen and pelvis: There is hepatomegaly and hepatic steatosis. The gallbladder, pancreas, spleen and left adrenal gland are unremarkable. There is slight nodular thickening of the right adrenal gland. No discrete nodule is seen. There is minimal scarring within the upper pole of the left kidney. No solid or cystic renal lesion is seen. There is no hydronephrosis. 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 There is no appendicitis. There is no bowel obstruction. There is no abnormal bowel wall thickening. There is mild bladder wall thickening due to relative under distention. There is scarring within the midline ventral abdominal wall. No hematoma or abscess is seen. The aorta is normal in caliber. There is no aortic dissection. There is aortic and aortic branch vessel atherosclerosis. This results in less than 50 percent stenosis at the origins of the celiac axis and superior mesenteric artery and r ight renal artery. There is approximately 50 percent stenosis the origin of the left renal artery. There are nonspecific retroperitoneal and mesenteric lymph nodes. These are likely physiologic or reactive in etiology. There is no suspicious or acute osseous finding. There are degenerative changes involving the spine and both hips. IMPRESSION: 1. No evidence of aortic dissection. There is atherosclerotic plaque involving the aorta and aortic branch vessels, described above. No severe stenosis is seen. 2. Linear atelectasis, scarring or interstitial infiltrate within the right middle lobe. No consolidated infiltrate or suspicious nodule is seen. 3. Hepatomegaly and hepatic steatosis. 4. Scarring within the midline ventral abdominal wall. No abscess or hematoma is seen. 5. Nonspecific retroperitoneal and mesenteric lymph nodes. There is no pathologically enlarged lymph node. Electronically signed by: Angie Valentine MD (07/01/2020 1:08 PM) [id number] DICTATED and SIGNED BY: ANGIE VALENTINE MD DATE: 07/01/20 [id number] 0 Course & Med Decision Making: Course & Med Decision Making Pertinent Labs and Imaging studies reviewed. (See chart for details) Concern for UTI while patient has been taking Bactrim, has 5 days left of 21-day prescription. Will prescribe Vantin for 10 days to treat for complicated UTI. EKG unremarkable. Blood pressure improved in ED. Patient is well-appearing, hemodynamically stable with no associated flank pain, flulike symptoms, nausea, vomiting or body aches. Will discharge home with strict ED return precautions were given for []. Encouraged urgent outpatient follow-up with PMD and [specialist]. Life-threatening processes were considered but are low suspicion at this time, given history, physical exam and ED workup. Pt was educated on all prescription medications and adverse effects. All patient's questions were answered and pt was stable at time of discharge. Life/limb-threatening differential includes but is not limited to, cerebrovascular accident, cerebellar stroke, acute coronary syndrome, carbon monoxide poisoning or other toxidrome, syncope differential including cardiac arrhythmia/PE/aortic aneurysm or dissection/ACS, [place] syndrome, thyroid disease, infection, central and peripheral vertigo, intracranial hemorrhage, vertebrobasilar insufficiency, heat stroke, electrolyte disorder, rheumatologic or autoimmune disorder I spoken with the patient and her caregivers. I explained the patient's condition, diagnoses and treatment plan based on the information available to me at this time. I have answered the patient and her caregiver's questions and addressed any concerns. The patient and her caregivers have a good understanding of patient's diagnosis, condition and treatment plan as can be expected at this point. Vital signs have been stable. Patient's condition is stable and appropriate for discharge from the emergency department. Patient will pursue further outpatient evaluation with primary care physician or other designated or consulting physician as outlined in the discharge instructions. The patient and/or caregivers are agreeable to this plan of care and follow-up instructions have been explained in detail. The patient and/or caregivers have received these instructions in written form and have expressed an understanding of the discharge instructions. The patient and/or caregivers are aware that any significant change of condition or worsening of symptoms should prompt immediate return to this or the closest emergency department or call to 911. Gisella Disclaimer: Dragmir Disclaimer: This electronic medical record was generated, in whole or in part, using a voice recognition dictation system. Departure Departure Impression: Primary Impression: UTI (urinary tract infection) Additional Impression: Sinusitis Disposition: HOME / SELF CARE / HOMELESS Condition: STABLE Referrals: SARAH PAYAN MD (PCP) in 1-2 days for evaluation CONTINUE TAKING YOUR BACTRIM WITH THIS PRESCRIBED MEDICATION (BACTRIM AND CEFPODOXIME) Patient Instructions: Sinusitis, Urinary Tract Infection Additional Instructions: FOLLOW UP WITH ENT: For definitive management of sinusitis Otolaryngology Address: [address] [place] [address], [address] [place] [address] [facility] Address: [address] [place] [id number] EMERGENCY DEPARTMENT GENERAL DISCHARGE INSTRUCTIONS Thank you for coming to [facility] Emergency Department (ED) today and trusting us with you care. We trust that you had a positive experience in our Emergency Department. If you wish to speak to the department management, you may call the Director at [phone]. YOUR FOLLOW UP INSTRUCTIONS ARE FOLLOWS: 1. Do you have a private Doctor? If you do not have a private doctor, please ask for a resource list of physicians or clinics that may be able to assist you with follow up care. 2. The Emergency Physicain has interpreted your x-rays. The X-Ray specialist will also review them. If there is a change in the findings, you will be notified in 48 hours when at all possible. 3. A lab test or culture has been done, your results will be reviewed and you will be notified if you need a change in treatment. ADDITIONAL INSTRUCTIONS AND INFORMATION: 1. Your care today has been supervised by a physician who is specially trained in emergency care. Many problems require more than one evaluation for a complete diagnosis and treatment. We recommend that you schedule your follow up appointment as recommended to ensure complete treatment of you illness or injury. If you are unable to obtain follow up care and continue to have a problem, or if your condition worsens, we recommend that you return to the ED. 2. We are not able to safely determine your condition over the phone nor are we able to give sound medical advice over the phone. For these safety reasons, if you call for medical advice we will ask you to come to the ED for further evaluation. 3. If you have any questions regarding these discharge instructions please call the ED at [phone]. SAFETY INFORMATION: In the interest of safety, wellness, and injury prevention; we encourage you to wear your sealbelt, if you smoke; quite smoking, and we encourage family to use a protective helmet for bicycling and other sporting events that present an increased risk for head injury. IF YOUR SYMPTOMS WORSEN OR NEW SYMPTOMS DEVELOP, OR YOU HAVE CONCERNS ABOUT YOUR CONDITION; OR IF YOUR CONDITION WORSENS WHILE YOU ARE WAITING FOR YOUR FOLLOW UP APPOINTMENT; EITHER CONTACT YOUR PRIMARY CARE DOCTOR, THE PHYSICIAN WHOSE NAME AND NUMBER YOU WERE GIVEN, OR RETURN TO THE ED IMMEDIATELY. Scripts Cefpodoxime Proxetil (CEFPODOXIME PROXETIL) 100 Mg Tablet 100 MG PO BID for 10 Days, #20 TAB Prov: EVELYN OLVERA DO 07/01/20 EVELYN OLVERA DO Jul 01, 2020 11:48
[2020-07-01] MEDS: IV NORMAL SALINE 1000ML BAG 1,000 ML IV ONE (12:25)
[2020-07-01] MEDS: cefTRIAXone IV Push 1 GM VIAL. IVP ONE (12:26)
[2020-07-01] MEDS: IOHEXOL 350 MG/ML 100 ML VIAL. IV ONE (12:31)
--- NOTE | 2020-07-01 13:10 | RAD ---
EXAM: CT angiography of the chest, abdomen and pelvis with intravenous contrast. HISTORY: Syncope. TECHNIQUE: Computed tomographic images of the chest, abdomen and pelvis were obtained following the a dministration of intravenous contrast according to angiography protocol. Multiplanar reformatting was performed and three dimensional maximum intensity projection images were obtained. *One or more of the following individualized dose reduction techniques were utilized for this examina tion: 1. Automated exposure control. 2. Adjustment of the mA and/or kV according to patient size. 3. Use of iterative reconstruction technique. COMPARISON: 10/03/2019. FINDINGS: The aorta is normal in caliber. There is no evidence of dissection. There is a standard aor tic arch branching pattern. There is suspected noncalcified atherosclerotic plaque involving the prox imal left subclavian artery, resulting in less than 50 percent stenosis. This may be accentuated due to motion in this location. No pathologically enlarged lymph node is seen. There are calcified medias tinal granulomas. There is no pneumothorax or pleural effusion. There is linear atelectasis, scarring or interstitial infiltrate within the right middle lobe. There is also linear left lower lobe atelec tasis or scarring. There is pleural parenchymal scarring adjacent to a cluster of calcified granuloma s at the left lung base. There is no acute or suspicious osseous finding. There is minimal calcificat ion of the aortic valve. Abdomen and pelvis: There is hepatomegaly and hepatic steatosis. The gallbladder, pancreas, spleen an d left adrenal gland are unremarkable. There is slight nodular thickening of the right adrenal gland. No discrete nodule is seen. There is minimal scarring within the upper pole of the left kidney. No s olid or cystic renal lesion is seen. There is no hydronephrosis. There is an incidental partially dup licated right renal collecting system. There is no appendicitis. There is no bowel obstruction. There is no abnormal bowel wall thickening. There is mild bladder wall thickening due to relative under distention. There is scarring within the midline ventral abdominal wall. No hematoma or abscess is seen. The aorta is normal in caliber. There is no aortic dissection. There is aortic and aortic branch vess el atherosclerosis. This results in less than 50 percent stenosis at the origins of the celiac axis a nd superior mesenteric artery and right renal artery. There is approximately 50 percent stenosis the origin of the left renal artery. There are nonspecific retroperitoneal and mesenteric lymph nodes. Th jackeline are likely physiologic or reactive in etiology. There is no suspicious or acute osseous finding. There are degenerative changes involving the spine and both hips. IMPRESSION: 1. No evidence of aortic dissection. There is atherosclerotic plaque involving the aorta and aortic b ranch vessels, described above. No severe stenosis is seen. 2. Linear atelectasis, scarring or interstitial infiltrate within the right middle lobe. No consolida laila infiltrate or suspicious nodule is seen. 3. Hepatomegaly and hepatic steatosis. 4. Scarring within the midline ventral abdominal wall. No abscess or hematoma is seen. 5. Nonspecific retroperitoneal and mesenteric lymph nodes. There is no pathologically enlarged lymph node. Electronically signed by: Angie Gunn MD (07/01/2020 1:08 PM) [id number]
[2020-07-01] MEDS ORDERED: CEFP100T PO (13:21)
[2020-07-01 13:43] VITALS: BP 130/72
== END 2020-07-01 14:20 | disposition home or self-care (01) ==
LOC: ER 09:12
DX: J32.9 Chronic sinusitis, unspecified (principal); N39.0 Urinary tract infection, site not specified; J44.9 Chronic obstructive pulmonary disease, unspecified; E11.9 Type 2 diabetes mellitus without complications; E78.00 Pure hypercholesterolemia, unspecified; I10 Essential (primary) hypertension; Z88.7 Allergy status to serum and vaccine
CPT/HCPCS: 71275; 74174; 81001; 87086; 93005; 96361; 96374; 99285; J0696; J7030; Q9967

== ENCOUNTER 2020-07-19 11:54 | Emergency (ER) | payer MEDICARE ==
[~2020-07-19 11:54] MED LIST changes: +CEFP100T PO
[2020-07-19] MEDS ORDERED: CEPH500C PO (21:51)
[2020-07-19] MEDS ORDERED: ALBU2.5V8 INH (22:08)
== END 2020-07-19 12:09 | disposition left against medical advice (07) ==
LOC: ER 11:54
DX: R06.02 Shortness of breath (principal); R51.9 Headache, unspecified; Z53.21 Procedure and treatment not carried out due to patient leaving prior to being seen by health care provider

== ENCOUNTER 2020-07-19 17:11 | Emergency (ER) | payer MEDICARE ==
[~2020-07-19] VITALS: Ht 162.6 cm; Wt 106.8 kg
[2020-07-19] MEDS ORDERED: IV NORMAL SALINE 1000ML BAG 1,000 ML IV SCH (18:30)
--- NOTE | 2020-07-19 18:42 | PHYS DOC ---
Past Medical History Past Medical History: Arthritis, Asthma, Bronchitis, COPD, Diabetes-Type II, High Cholesterol, Hypertension, Pneumonia, Other Additional Past Medical Histor: SLEEP APNEA (TRAY VILLEGAS APRN) Past Surgical History: Hysterectomy, Oophorectomy Additional Past Surgical Histo: Nose SX,RETINA SURGERY (TRAY VILLEGAS TECHNICAL INSPECTOR) Smoking Status: Never Smoker Alcohol Use: None Drug Use: None (TRAY VILLEGAS APRN) General Adult EDM: Chief Complaint: ALLERGIC REACTION HPI: HPI: Patient is a 54 year old female who presents with upper back that the patient on erythromycin and she took her first dose this morning. She then began to feel dizzy, short of air, headache and weakness. She is not currently feel dizzy she just states that she just " does not feel right". She states she has generalized weakness and a headache. She states that Dr. Killian told her did not take any more of this. Patient states she also has a sinus infection and she is post to have sinus surgery in August with her ENT. Patient denies chest pain, syncope, vision change, focal weakness, numbness or tingling, abdominal pain, vomiting, diarrhea, fever. Patient has a history of a hysterectomy, retinal surgery, COPD, diabetes, asthma, arthritis, high cholesterol, hypertension. (TRAY VILLEGAS TECHNICAL INSPECTOR) Review of Systems: Review of Systems: Constitutional: Denies fever or chills. [] Eyes: Denies change in visual acuity. [] HENT: + nasal congestion or denies sore throat. [] Respiratory: Denies cough or +shortness of breath. [] Cardiovascular: Denies chest pain or edema. [] GI: Denies abdominal pain, nausea, vomiting, bloody stools or diarrhea. [] : Denies dysuria. [] Musculoskeletal: Denies back pain or joint pain.+ Generalized weakness [] Integument: Denies rash. [] Neurologic: + headache, denies focal weakness or sensory changes. + Dizziness [] Endocrine: Denies polyuria or polydipsia. [] Lymphatic: Denies swollen glands. [] Psychiatric: Denies depression or anxiety. [] (TRAY VILLEGAS APRN) Heart Score: C/O Chest Pain: No Risk Factors: Risk Factors: DM, Current or recent (<one month) smoker, HTN, HLP, family history of CAD, obesity. Risk Scores: Score 0 - 3: 2.5% MACE over next 6 weeks - Discharge Home Score 4 - 6: 20.3% MACE over next 6 weeks - Admit for Clinical Observation Score 7 - 10: 72.7% MACE over next 6 weeks - Early Invasive Strategies (TRAY VILLEGAS APRN) Current Medications: Current Medications Medications (Trade) Dose Ordered Sig/Palak Start Time Stop Time Status Last Admin Dose Admin Meclizine HCl (Antivert) 25 mg 1X ONCE 07/19/20 18:45 07/19/20 18:46 Sodium Chloride 1,000 ml @ 1,000 mls/hr Q1H 07/19/20 18:30 07/19/20 19:29 (TRAY VILLEGAS APRN) Allergies: Allergies: Allergies Coded Allergies Type Severity Reaction Last Updated Verified Influenza Virus Vaccines Allergy Intermediate RASH, near syncope 06/29/20 Yes (TRAY VILLEGAS APRN) Physical Exam: PE: Constitutional: Well developed, well nourished, no acute distress, non-toxic appearance. [] HENT: Normocephalic, atraumatic, bilateral external ears normal, oropharynx moist, no oral exudates, nose normal. [] Eyes: PERRLA, EOMI, conjunctiva normal, no discharge. Nystagmus [] Neck: Normal range of motion, no tenderness, supple, no stridor. [] Cardiovascular:Heart rate regular rhythm, no murmur [] Lungs & Thorax: Bilateral breath sounds clear to auscultation [] Abdomen: Bowel sounds normal, soft, no tenderness, no masses, no pulsatile masses. [] Skin: Warm, dry, no erythema, no rash. [] Back: No tenderness, no CVA tenderness. [] Extremities: No tenderness, no cyanosis, no clubbing, ROM intact, no edema. [] Neurologic: Alert and oriented X 3, normal motor function, normal sensory function, no focal deficits noted. [] Psychologic: Affect normal, judgement normal, mood normal. [] (TRAY VILLEGAS APRN) EKG: EK and read by Dr. Queen as sinus rhythm and no STEMI (TRAY VILLEGAS APRN) Radiology/Procedures: Radiology/Procedures: [] Impression: [facility] [address] [place] [address] IMAGING REPORT Signed PATIENT: BATSHEVA VASQUEZUNT: [id number] : 1965 LOCATION: ER AGE: 54 SEX: F EXAM STATUS: REG ER ORD. PHYSICIAN: TRAY VILLEGAS APRN REASON: dizziness PROCEDURE: PORTABLE CHEST 1V EXAMINATION: XR CHEST 1V CLINICAL HISTORY: Dizziness EXAM DATE/TIME: 07/19/2020 7:20 PM COMPARISON: 07/01/2020 FINDINGS: Lines, Tubes, and Devices: None. Cardiomediastinal Silhouette: Normal heart size. Aortic atherosclerotic calcification. Lungs and Pleura: Hazy opacities in the bilateral lower lung zones, similar to prior study and thought to favor soft tissue attenuation rather than true pathology. No evidence of focal airspace consolidation or pleural effusion. Bilateral parahilar old calcified granulomas. Bones and Soft Tissues: Degenerative changes of the thoracic spine. Epigastric surgical clips. IMPRESSION: No evidence of acute cardiopulmonary abnormality or significant interval change. Electronically signed by: Lenny Matute DO (07/19/2020 7:55 PM) [facility] DICTATED and SIGNED BY: LENNY MATUTE DO DATE: 07/19/20 [id number] [facility] [address] [place] [address] IMAGING REPORT Signed PATIENT: BATSHEVA VASQUEZCOUNT: [id number] : 1965 LOCATION: ER AGE: 54 SEX: F EXAM STATUS: REG ER ORD. PHYSICIAN: TRAY VILLEGAS APRN REASON: dizziness, nasal congestion PROCEDURE: CT HEAD AND MAXILLOFACIAL WO Exam: CT head and maxillofacial without INDICATION: Dizziness, nasal congestion TECHNIQUE: Sequential axial images through the head and maxillofacial were obtained without the administration of IV contrast. Exposure: One or more of the following in the visualized dose reduction techniques were utilized for this examination: 1. Automated exposure control 2. Adjustment of the MA and/or KV according to patient size 3. Use of iterative of reconstructive technique Comparisons: None FINDINGS: Head: No focal parenchymal lesion or hemorrhage is identified. There is no midline shift or sulcal effacement. No acute vascular territory infarction is identified. Franz-white distinction is preserved. The ventricular system is within normal limits without compression hydrocephalus. The basal cisterns are well maintained. Face: Postoperative changes at the maxillary sinuses bilaterally. There is moderate mucosal thickening of the maxillary sinus, ethmoid air cells and sphenoid sinuses. No acute fractures. Globes and orbital contents are normal. IMPRESSION: 1. No acute intracranial abnormality. 2. Sinus disease as described above. Electronically signed by: Nikky Olsen MD (07/19/2020 7:43 PM) [facility] DICTATED and SIGNED BY: NIKKY OLSEN MD DATE: 07/19/[id number] 0 (TRAY VILLEGAS APRN) Course & Med Decision Making: Course & Med Decision Making Pertinent Labs and Imaging studies reviewed. (See chart for details) See HPI. Ambulatory with a steady gait. Speaks in full clear sentences. Skin pink warm and dry. Maxillary sinus tenderness or pressure with palpation. nasal congestion present. Lungs are clear to auscultate in all lobes. Patient does have bilateral lower extremity edema 2+. Patient states this is normal for her. No respiratory distress. There is no swelling of her face, mouth, tongue and lips. Uvula midline. Her throat is not swollen. She is not wheezing. Lab work is unremarkable. Chest x-ray does not show any acute findings. CT of the head of the face show sinus disease. She does have a UTI. I will place her on Keflex antibiotic. She is to follow-up with her ENT doctor. Orthostatics are normal. [] (TRAY VILLEGAS TECHNICAL INSPECTOR) Course & Med Decision Making I oversaw on the above date of service of this patient and discussed the care with the CENTERLESS GRINDER OPERATOR. I agree with the findings, plan of care, and disposition as documented. Electronically signed, Real Queen DO (REAL QUEEN DO) Gisella Disclaimer: Gisella Disclaimer: This electronic medical record was generated, in whole or in part, using a voice recognition dictation system. (TRAY VILLEGAS APRN) Departure Departure Impression: Primary Impression: Dizziness Additional Impressions: Sinus disease Medication reaction Qualified Codes: T50.905A - Adverse effect of unspecified drugs, medicaments and biological substances, initial encounter UTI (urinary tract infection) Qualified Codes: N39.0 - Urinary tract infection, site not specified Disposition: HOME / SELF CARE / HOMELESS Condition: STABLE Referrals: SARAH PAYAN MD (PCP) Patient Instructions: Dizziness, Sinusitis, Vertigo Additional Instructions: Follow-up with your primary care provider soon as possible. Drink plenty of fluids. Take medication as prescribed and with food. Stop taking the erythromycin. If you begin having chest pain, shortness of air and severe dizziness return the emergency room. Scripts Albuterol Sulfate (PROAIR HFA INHALER) 8.5 Gm Hfa.aer.ad 1 PUFF INH PRN Q6HRS PRN for SHORTNESS OF BREATH, #1 EACH 0 Refills Prov: TRAY VILLEGAS APRN 07/19/20 Cephalexin (CEPHALEXIN) 500 Mg Capsule 1 CAP PO TID, #30 CAP Prov: TRAY VILLEGAS APRN 07/19/20 TRAY VILLEGAS APRN July 19, 2020 18:42 REAL QUEEN DO July 22, 2020 09:56
[2020-07-19] MEDS ORDERED: MECLIZINE HCL 12.5 MG TABLET. PO ONE (18:45)
[2020-07-19 19:09] LABS: BASO % 1 % (0-3); EOS # 0.1 x10^3/uL (0.0-0.7); EOS % 1 % (0-3); HEMATOCRIT 34.3 % (36.0-47.0); HEMOGLOBIN 11.4 g/dL (12.0-15.5); LYMPH # 1.9 x10^3/uL (1.0-4.8); LYMPH % 28 % (24-48); MEAN CORPUSCULAR HEMOGLOBIN 30 pg (25-35); MEAN CORPUSCULAR HGB CONC 33 g/dL (31-37); MEAN CORPUSCULAR VOLUME 89 fL (79-100); MONO # 0.5 x10^3/uL (0.0-1.1); MONO % 8 % (0-9); NEUT # 4.3 x10^3/uL (1.8-7.7); NEUT % 62 % (31-73); PLATELET COUNT 193 x10^3/uL (140-400); RED BLOOD COUNT 3.85 x10^6/uL (3.50-5.40); RED CELL DISTRIBUTION WIDTH 15.3 % (11.5-14.5); WHITE BLOOD COUNT 6.9 x10^3/uL (4.0-11.0)
[2020-07-19 19:18] LABS: CALCIUM 10.4 mg/dL (8.5-10.1); GFR 69.7; POTASSIUM 4.4 mmol/L (3.5-5.1)
[2020-07-19 19:23] LABS: ALBUMIN 3.7 g/dL (3.4-5.0); ALBUMIN/GLOBULIN RATIO 1.2 (1.0-1.7); TOTAL BILIRUBIN 0.2 mg/dL (0.2-1.0); TOTAL PROTEIN 6.7 g/dL (6.4-8.2)
--- NOTE | 2020-07-19 19:45 | RAD ---
Exam: CT head and maxillofacial without INDICATION: Dizziness, nasal congestion TECHNIQUE: Sequential axial images through the head and maxillofacial were obtained without the admin istration of IV contrast. Exposure: One or more of the following in the visualized dose reduction techniques were utilized for this examination: 1. Automated exposure control 2. Adjustment of the MA and/or KV according to patient size 3. Use of iterative of reconstructive technique Comparisons: None FINDINGS: Head: No focal parenchymal lesion or hemorrhage is identified. There is no midline shift or sulcal effaceme nt. No acute vascular territory infarction is identified. Franz-white distinction is preserved. The ventricular system is within normal limits without compression hydrocephalus. The basal cisterns are well maintained. Face: Postoperative changes at the maxillary sinuses bilaterally. There is moderate mucosal thickening of t he maxillary sinus, ethmoid air cells and sphenoid sinuses. No acute fractures. Globes and orbital co ntents are normal. IMPRESSION: 1. No acute intracranial abnormality. 2. Sinus disease as described above. Electronically signed by: Nikky Godinez MD (07/19/2020 7:43 PM) [facility]
--- NOTE | 2020-07-19 19:57 | RAD ---
EXAMINATION: XR CHEST 1V CLINICAL HISTORY: Dizziness EXAM DATE/TIME: 07/19/2020 7:20 PM COMPARISON: 07/01/2020 FINDINGS: Lines, Tubes, and Devices: None. Cardiomediastinal Silhouette: Normal heart size. Aortic atherosclerotic calcification. Lungs and Pleura: Hazy opacities in the bilateral lower lung zones, similar to prior study and though t to favor soft tissue attenuation rather than true pathology. No evidence of focal airspace consolid ation or pleural effusion. Bilateral parahilar old calcified granulomas. Bones and Soft Tissues: Degenerative changes of the thoracic spine. Epigastric surgical clips. IMPRESSION: No evidence of acute cardiopulmonary abnormality or significant interval change. Electronically signed by: Lenny Werner DO (07/19/2020 7:55 PM) [facility]
[2020-07-19] MEDS ORDERED: methylPREDNISolone SOD SUCC PF 125 MG/2 ML VIAL. IV ONE (20:45)
[2020-07-19] MEDS ORDERED: ALBUTEROL SULFATE 2.5 MG/3 ML NEBU. NEB ONE (20:45)
[2020-07-19 21:06] LABS: BILIRUBIN,URINE NEGATIVE (NEG); CLARITY,URINE CLEAR; COLOR,URINE YELLOW; NITRITE,URINE NEGATIVE (NEG); PROTEIN,URINE NEGATIVE (NEG-TRACE); UROBILINOGEN,URINE 0.2 mg/dL (0.2 mg/dL)
[2020-07-19 21:14] LABS: BACTERIA,URINE 0 /HPF (0-FEW); RBC,URINE RARE /HPF (0-2)
--- NOTE | 2020-07-19 21:28 | EKG ---
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
[2020-07-19] MEDS ORDERED: CEPH500C PO (21:51)
[2020-07-19] MEDS ORDERED: ALBU2.5V8 INH (22:08)
[2020-07-19 22:25] VITALS: BP 188/81
== END 2020-07-19 22:20 | disposition home or self-care (01) ==
LOC: ER 17:11
DX: R42 Dizziness and giddiness (principal); T36.3X5A Adverse effect of macrolides, initial encounter; J32.9 Chronic sinusitis, unspecified; N39.0 Urinary tract infection, site not specified; M19.90 Unspecified osteoarthritis, unspecified site; J44.9 Chronic obstructive pulmonary disease, unspecified; E11.9 Type 2 diabetes mellitus without complications; E78.00 Pure hypercholesterolemia, unspecified; I10 Essential (primary) hypertension; Z88.7 Allergy status to serum and vaccine; Y92.89 Other specified places as the place of occurrence of the external cause
CPT/HCPCS: 36415; 70450; 70486; 71045; 80053; 81001; 83690; 84484; 85025; 87086; 93005; 96361; 96374; 99285; J2930; J7030; J8597

== ENCOUNTER 2020-08-23 00:05 | Emergency (ER) | payer MEDICARE ==
[~2020-08-23] VITALS: Ht 162.6 cm; Wt 109.1 kg
[~2020-08-23 00:05] MED LIST changes: +CEPH500C PO; -OMEP40CA45 PO; +OMEP40CA7 PO
[2020-08-23 00:54] LABS: BILIRUBIN,URINE NEGATIVE (NEG); CLARITY,URINE CLEAR; COLOR,URINE YELLOW; NITRITE,URINE NEGATIVE (NEG); PROTEIN,URINE NEGATIVE (NEG-TRACE); UROBILINOGEN,URINE 0.2 mg/dL (0.2 mg/dL)
[2020-08-23 01:03] LABS: BACTERIA,URINE 0 /HPF (0-FEW)
[2020-08-23 01:23] LABS: BASO # 0.1 x10^3/uL (0.0-0.2); BASO % 1 % (0-3); EOS # 0.1 x10^3/uL (0.0-0.7); EOS % 1 % (0-3); HEMATOCRIT 35.4 % (36.0-47.0); HEMOGLOBIN 11.9 g/dL (12.0-15.5); LYMPH # 2.1 x10^3/uL (1.0-4.8); LYMPH % 28 % (24-48); MEAN CORPUSCULAR HEMOGLOBIN 30 pg (25-35); MEAN CORPUSCULAR HGB CONC 34 g/dL (31-37); MEAN CORPUSCULAR VOLUME 88 fL (79-100); MONO # 0.8 x10^3/uL (0.0-1.1); MONO % 10 % (0-9); NEUT # 4.6 x10^3/uL (1.8-7.7); NEUT % 61 % (31-73); PLATELET COUNT 224 x10^3/uL (140-400); RED BLOOD COUNT 4.02 x10^6/uL (3.50-5.40); RED CELL DISTRIBUTION WIDTH 14.9 % (11.5-14.5); WHITE BLOOD COUNT 7.6 x10^3/uL (4.0-11.0)
[2020-08-23 01:36] LABS: CALCIUM 10.5 mg/dL (8.5-10.1); CREATININE 1.1 mg/dL (0.6-1.0); GFR 62.4
[2020-08-23 01:42] LABS: ALBUMIN 3.4 g/dL (3.4-5.0); ALBUMIN/GLOBULIN RATIO 0.9 (1.0-1.7); TOTAL BILIRUBIN 0.3 mg/dL (0.2-1.0)
--- NOTE | 2020-08-23 01:43 | PHYS DOC ---
Past Medical History Past Medical History: Arthritis, Asthma, Bronchitis, COPD, Diabetes-Type II, High Cholesterol, Hypertension, Pneumonia, Other Additional Past Medical Histor: SLEEP APNEA Past Surgical History: Hysterectomy, Oophorectomy Additional Past Surgical Histo: Nose SX,RETINA SURGERY Smoking Status: Never Smoker Alcohol Use: None Drug Use: None General Adult EDM: Chief Complaint: ABDOMINAL PAIN HPI: HPI: Patient is a 54 year old male with a past medical history hypertension hyperlipidemia diabetes presents with a chief complaint of abdominal discomfort. Patient describes the discomfort as a tightness located in the epigastric region with radiation to the back. Patient attributes pain to delayed gastric digestion. Patient states her current pain is chronic and has been present for greater than 2 months. Patient states tonight pain intensified and caused patient to have shortness of breath. Patient has been evaluated by her primary care physician she has under went esophageal dilation as well as an upper and lower GI. Patient's primary care physician has referred her to a new packaging manager at [facility]. Patient states she was previously placed on hydrocodone for this pain she states she is currently out. Patient also reports right shoulder right flank and right hip discomfort due to a fall 2 months ago. Review of Systems: Review of Systems: Review of systems: Constitutional symptoms- No fever, no chills. Eyes- No Discharge, No Visual Loss Respiratory symptoms- Positive shortness of breath, No wheezing, No Dyspnea on Exertion Cardiovascular Systems; No chest pain, No Palpitations, No syncope Gastrointestinal symptoms: Positive abdominal pain, no nausea, no vomiting or diarrhea. Genitourinary symptoms: No dysuria. Musculoskeletal symptoms: No back pain No extremity pain. NEUROLOGICAL Symptoms: No headache, no generalized weakness; No focal Weakness Skin: No rash. Heart Score: C/O Chest Pain: N/A Risk Factors: Risk Factors: DM, Current or recent (<one month) smoker, HTN, HLP, family history of CAD, obesity. Risk Scores: Score 0 - 3: 2.5% MACE over next 6 weeks - Discharge Home Score 4 - 6: 20.3% MACE over next 6 weeks - Admit for Clinical Observation Score 7 - 10: 72.7% MACE over next 6 weeks - Early Invasive Strategies Allergies: Allergies: Allergies Coded Allergies Type Severity Reaction Last Updated Verified Influenza Virus Vaccines Allergy Intermediate RASH, near syncope 06/29/20 Yes I S O L A T I O N *CONTACT* Allergy Unknown 07/25/20 Yes Physical Exam: PE: General: alert, no acute distress. Skin: warm, dry and intact. HENT: bilateral external ears normal, oropharynx moist, nose normal. Head:: Normocephalic, atraumatic. Neck: Trachea midline. Eyes: EOMI, Normal conjunctiva, No drainage CARDIOVASCULAR: Regular rate and rhythm RESPIRATORY: No respiratory distress Back: Full range of motion. Skin: Warm, dry, no erythema, no rash. MUSCULOSKELETAL: Full range of motion of bilateral upper and lower extremities. GASTROINTESTINAL: Abdomen soft without rebound or guarding. NEUROLOGICAL: Alert and noted to person, place and time. No neurological deficits observed Psychiatric: Cooperative. Normal judgment Current Patient Data: Labs: Laboratory Tests Test 08/23/20 00:14 08/23/20 01:14 Urine Collection Type Unknown Urine Color Yellow Urine Clarity Clear Urine pH 5.0 (<5.0-8.0) Urine Specific [place] 1.020 (1.000-1.030) Urine Protein Negative mg/dL (NEG-TRACE) Urine Glucose (UA) >=1000 mg/dL (NEG) Urine Ketones (Stick) Negative mg/dL (NEG) Urine Blood Negative (NEG) Urine Nitrite Negative (NEG) Urine Bilirubin Negative (NEG) Urine Urobilinogen Dipstick 0.2 mg/dL (0.2 mg/dL) Urine Leukocyte Esterase Negative (NEG) Urine RBC 1-2 /HPF (0-2) Urine WBC 1-4 /HPF (0-4) Urine Squamous Epithelial Cells Mod /LPF Urine Bacteria 0 /HPF (0-FEW) White Blood Count 7.6 x10^3/uL (4.0-11.0) Red Blood Count 4.02 x10^6/uL (3.50-5.40) Hemoglobin 11.9 g/dL (12.0-15.5) L Hematocrit 35.4 % (36.0-47.0) L Mean Corpuscular Volume 88 fL (79-100) Mean Corpuscular Hemoglobin 30 pg (25-35) Mean Corpuscular Hemoglobin Concent 34 g/dL (31-37) Red Cell Distribution Width 14.9 % (11.5-14.5) H Platelet Count 224 x10^3/uL (140-400) Neutrophils (%) (Auto) 61 % (31-73) Lymphocytes (%) (Auto) 28 % (24-48) Monocytes (%) (Auto) 10 % (0-9) H Eosinophils (%) (Auto) 1 % (0-3) Basophils (%) (Auto) 1 % (0-3) Neutrophils # (Auto) 4.6 x10^3/uL (1.8-7.7) Lymphocytes # (Auto) 2.1 x10^3/uL (1.0-4.8) Monocytes # (Auto) 0.8 x10^3/uL (0.0-1.1) Eosinophils # (Auto) 0.1 x10^3/uL (0.0-0.7) Basophils # (Auto) 0.1 x10^3/uL (0.0-0.2) Sodium Level 142 mmol/L (136-145) Potassium Level 4.0 mmol/L (3.5-5.1) Chloride Level 106 mmol/L (98-107) Carbon Dioxide Level 27 mmol/L (21-32) Anion Gap 9 (6-14) Blood Urea Nitrogen 16 mg/dL (7-20) Creatinine 1.1 mg/dL (0.6-1.0) H Estimated GFR (Cockcroft-Gault) 62.4 BUN/Creatinine Ratio 15 (6-20) Glucose Level 247 mg/dL (70-99) H Calcium Level 10.5 mg/dL (8.5-10.1) H Total Bilirubin 0.3 mg/dL (0.2-1.0) Aspartate Amino Transferase (AST) 16 U/L (15-37) Alanine Aminotransferase (ALT) 30 U/L (14-59) Alkaline Phosphatase 197 U/L (46-116) H Total Protein 7.0 g/dL (6.4-8.2) Albumin 3.4 g/dL (3.4-5.0) Albumin/Globulin Ratio 0.9 (1.0-1.7) L Lipase 107 U/L (73-393) Laboratory Tests 08/23/20 01:14 Laboratory Tests 08/23/20 01:14 Vital Signs: Vital Signs Date Time Temp Pulse Resp B/P (MAP) Pulse Ox O2 Delivery O2 Flow Rate FiO2 08/23/20 00:25 98.3 91 20 163/76 (105) 97 Room Air 98.3 EKG: EKG: Performed at 133 Rate 82 Normal sinus rhythm No ST elevation No ST depression No acute NC [] Radiology/Procedures: Radiology/Procedures: [] Impression: Wet read chest x-ray no focal infiltrate no bony abnormalities no acute process Course & Med Decision Making: Course & Med Decision Making Pertinent Labs and Imaging studies reviewed. (See chart for details) [] Patient was evaluated for chief complaint. Work-up consisted of laboratory analysis radiologic imaging and EKG. Results reviewed and discussed with patient. Labs without acute abnormalities. Chest x-ray no focal infiltrate. Patient was discharged home with prescription refill of hydrocodone. Patient advised to follow-up with her [facility] Dr. Shannon. Gisella Disclaimer: Gisella Disclaimer: This electronic medical record was generated, in whole or in part, using a voice recognition dictation system. Departure Departure Impression: Primary Impression: Epigastric abdominal pain Additional Impression: Dyspnea Disposition: HOME / SELF CARE / HOMELESS Condition: STABLE Referrals: SARAH PAYAN MD (PCP) Patient Instructions: Abdominal Pain, Chronic Pain, Shortness of Breath Scripts Hydrocodone Bit/Acetaminophen (HYDROCODONE-APAP 10-325 ) 1 Tab Tablet 1 TAB PO PRN Q6HRS PRN for PAIN, #20 TAB 0 Refills Prov: JANIE NELSON DO 08/23/20 JANIE NELSON DO Aug 23, 2020 01:43
[2020-08-23 03:07] VITALS: BP 199/82
[2020-08-23] MEDS ORDERED: HYDR-2769 PO (03:36)
[2020-08-23] MEDS ORDERED: HYDROcodone/APAP 5/325MG 1 TAB TABLET PO ONE (04:00)
--- NOTE | 2020-08-23 13:42 | RAD ---
EXAMINATION: XR CHEST 1V CLINICAL HISTORY: Shortness of breath EXAM DATE/TIME: 08/23/2020 2:29 AM COMPARISON: 07/19/2020 FINDINGS: Lines, Tubes, and Devices: None. Cardiomediastinal Silhouette: Normal heart size. Lungs and Pleura: No evidence of focal airspace consolidation or pleural effusion. Bilateral parahila r old calcified granulomas. Pulmonary vasculature unremarkable. Bones and Soft Tissues: Degenerative changes of the thoracic spine. IMPRESSION: No evidence of acute cardiopulmonary abnormality or significant interval change. Electronically signed by: Lenny Werner DO (08/23/2020 2:58 AM) [facility]
--- NOTE | 2020-08-23 13:42 | EKG ---
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
== END 2020-08-23 03:56 | disposition home or self-care (01) ==
LOC: ER 00:05
DX: R10.13 Epigastric pain (principal); R07.89 Other chest pain; J44.9 Chronic obstructive pulmonary disease, unspecified; E11.9 Type 2 diabetes mellitus without complications; E78.00 Pure hypercholesterolemia, unspecified; I10 Essential (primary) hypertension; Z90.710 Acquired absence of both cervix and uterus; Z90.722 Acquired absence of ovaries, bilateral; Z88.7 Allergy status to serum and vaccine; Z91.041 Radiographic dye allergy status
CPT/HCPCS: 36415; 71045; 80053; 81001; 83690; 84484; 85025; 93005; 96374; 99283; 99285-25

== ENCOUNTER 2020-09-01 02:12 | Emergency (ER) | payer MEDICARE ==
[~2020-09-01] VITALS: Ht 162.6 cm; Wt 109.1 kg
[~2020-09-01 02:12] MED LIST changes: +HYDR-2769 PO
[2020-09-01] MEDS ORDERED: IV NORMAL SALINE 1000ML BAG 1,000 ML IV ONE (03:00)
[2020-09-01 03:05] LABS: BASO % 1 % (0-3); EOS # 0.1 x10^3/uL (0.0-0.7); EOS % 1 % (0-3); HEMATOCRIT 34.2 % (36.0-47.0); HEMOGLOBIN 11.2 g/dL (12.0-15.5); LYMPH # 1.2 x10^3/uL (1.0-4.8); LYMPH % 20 % (24-48); MEAN CORPUSCULAR HEMOGLOBIN 30 pg (25-35); MEAN CORPUSCULAR HGB CONC 33 g/dL (31-37); MEAN CORPUSCULAR VOLUME 91 fL (79-100); MONO # 0.5 x10^3/uL (0.0-1.1); MONO % 8 % (0-9); NEUT # 4.1 x10^3/uL (1.8-7.7); NEUT % 70 % (31-73); PLATELET COUNT 215 x10^3/uL (140-400); RED BLOOD COUNT 3.78 x10^6/uL (3.50-5.40); RED CELL DISTRIBUTION WIDTH 14.9 % (11.5-14.5); WHITE BLOOD COUNT 5.9 x10^3/uL (4.0-11.0)
[2020-09-01 03:13] LABS: CALCIUM 10.1 mg/dL (8.5-10.1); CREATININE 1.1 mg/dL (0.6-1.0); GFR 62.4; POTASSIUM 4.6 mmol/L (3.5-5.1)
[2020-09-01 03:20] LABS: BILIRUBIN,URINE NEGATIVE (NEG); CLARITY,URINE CLEAR; COLOR,URINE YELLOW; NITRITE,URINE NEGATIVE (NEG); PROTEIN,URINE NEGATIVE (NEG-TRACE); UROBILINOGEN,URINE 0.2 mg/dL (0.2 mg/dL)
[2020-09-01 03:30] LABS: BACTERIA,URINE 0 /HPF (0-FEW); RBC,URINE 0 /HPF (0-2); WBC,URINE OCC /HPF (0-4)
[2020-09-01] MEDS ORDERED: INSULIN REGULAR 100 UNIT/ML 3ML VIAL. IV ONE (04:00)
--- NOTE | 2020-09-01 04:10 | RAD ---
XR BILATERAL HIP (WITH OR WITHOUT PELVIS) 2 VIEWS_RIGHT DATE: 09/01/2020 3:50 AM INDICATION: Reason: pain / Spl. Instructions: / History: COMPARISON: None. FINDINGS: Bones: There is no evidence of acute fracture or dislocation. Joints: The joint spaces are normal. Miscellaneous: None. IMPRESSION: No evidence of acute fracture. Electronically signed by: Prasanna Kaufman MD (09/01/2020 4:08 AM) [facility]
--- NOTE | 2020-09-01 04:44 | ED.ADGEN ---
Past Medical History Past Medical History: Arthritis, Asthma, Bronchitis, COPD, Diabetes-Type II, High Cholesterol, Hypertension, Pneumonia, Other Additional Past Medical Histor: SLEEP APNEA Past Surgical History: Hysterectomy, Oophorectomy Additional Past Surgical Histo: Nose SX,RETINA SURGERY Smoking Status: Never Smoker Alcohol Use: None Drug Use: None General Adult EDM: Chief Complaint: HYPERGLYCEMIA HPI: HPI: Patient is a 54-year-old female past medical history of diabetes who presents to the emergency room concerned that she has hyperglycemia. Patient states that she checked her glucose which was elevated then ate a banana and took 30 units of insulin. She checked her glucose again 15 minutes later and it was still elevated. She states she otherwise feels normal. She is complaining of right hip pain from a fall that occurred 2 weeks ago and is requesting an x-ray. She denies any nausea or vomiting. She has never had DKA. Review of Systems: Review of Systems: Complete ROS is negative unless otherwise documented in HPI Current Medications: Current Medications Medications (Trade) Dose Ordered Sig/Palak Start Time Stop Time Status Last Admin Dose Admin Insulin Human Regular (HumuLIN R VIAL) 10 unit 1X ONCE 09/01/20 04:00 09/01/20 04:01 DC 09/01/20 03:51 10 UNIT Magnesium Citrate (Citroma) 296 ml 1X ONCE 09/01/20 05:00 09/01/20 05:01 DC 09/01/20 05:00 296 ML Sodium Chloride 1,000 ml @ 1,000 mls/hr 1X ONCE 09/01/20 03:00 09/01/20 03:59 DC 09/01/20 02:56 1,000 MLS/HR Allergies: Allergies: Allergies Coded Allergies Type Severity Reaction Last Updated Verified Influenza Virus Vaccines Allergy Intermediate RASH, near syncope 06/29/20 Yes I S O L A T I O N *CONTACT* Allergy Unknown 07/25/20 Yes Physical Exam: PE: General: Awake, alert, NAD. Well Nourished, well hydrated. Cooperative HEENT: Atraumatic, EOMI, PERRL, airway patent, moist oral mucosa Neck: Supple, trachea midline Respiratory: CTA bilaterally, normal effort, no wheezing/crackles CV: RRR, no murmur, cap refill <2 GI: Soft, nondistended, nontender, no masses MSK: No obvious deformities Skin: Warm, dry, intact Neuro: A&O x3, speech NL, sensory and motor grossly intact, no focal deficits Psych: Normal affect, normal mood, not suicidal or homicidal Current Patient Data: Labs: Laboratory Tests Test 09/01/20 02:26 09/01/20 02:53 09/01/20 03:13 09/01/20 04:13 Glucose (Fingerstick) 464 mg/dL (70-99) H 327 mg/dL (70-99) H White Blood Count 5.9 x10^3/uL (4.0-11.0) Red Blood Count 3.78 x10^6/uL (3.50-5.40) Hemoglobin 11.2 g/dL (12.0-15.5) L Hematocrit 34.2 % (36.0-47.0) L Mean Corpuscular Volume 91 fL (79-100) Mean Corpuscular Hemoglobin 30 pg (25-35) Mean Corpuscular Hemoglobin Concent 33 g/dL (31-37) Red Cell Distribution Width 14.9 % (11.5-14.5) H Platelet Count 215 x10^3/uL (140-400) Neutrophils (%) (Auto) 70 % (31-73) Lymphocytes (%) (Auto) 20 % (24-48) L Monocytes (%) (Auto) 8 % (0-9) Eosinophils (%) (Auto) 1 % (0-3) Basophils (%) (Auto) 1 % (0-3) Neutrophils # (Auto) 4.1 x10^3/uL (1.8-7.7) Lymphocytes # (Auto) 1.2 x10^3/uL (1.0-4.8) Monocytes # (Auto) 0.5 x10^3/uL (0.0-1.1) Eosinophils # (Auto) 0.1 x10^3/uL (0.0-0.7) Basophils # (Auto) 0.0 x10^3/uL (0.0-0.2) Sodium Level 136 mmol/L (136-145) Potassium Level 4.6 mmol/L (3.5-5.1) Chloride Level 103 mmol/L (98-107) Carbon Dioxide Level 25 mmol/L (21-32) Anion Gap 8 (6-14) Blood Urea Nitrogen 15 mg/dL (7-20) Creatinine 1.1 mg/dL (0.6-1.0) H Estimated GFR (Cockcroft-Gault) 62.4 Glucose Level 459 mg/dL (70-99) H Calcium Level 10.1 mg/dL (8.5-10.1) Urine Collection Type Unknown Urine Color Yellow Urine Clarity Clear Urine pH 5.0 (<5.0-8.0) Urine Specific Hobson 1.015 (1.000-1.030) Urine Protein Negative mg/dL (NEG-TRACE) Urine Glucose (UA) >=1000 mg/dL (NEG) Urine Ketones (Stick) Negative mg/dL (NEG) Urine Blood Negative (NEG) Urine Nitrite Negative (NEG) Urine Bilirubin Negative (NEG) Urine Urobilinogen Dipstick 0.2 mg/dL (0.2 mg/dL) Urine Leukocyte Esterase Negative (NEG) Urine RBC 0 /HPF (0-2) Urine WBC Occ /HPF (0-4) Urine Squamous Epithelial Cells Mod /LPF Urine Bacteria 0 /HPF (0-FEW) Test 09/01/20 04:34 Glucose (Fingerstick) 283 mg/dL (70-99) H Laboratory Tests 09/01/20 02:53 Laboratory Tests 09/01/20 02:53 Vital Signs: Vital Signs Date Time Temp Pulse Resp B/P (MAP) Pulse Ox O2 Delivery O2 Flow Rate FiO2 09/01/20 05:00 88 18 163/72 (102) 99 Room Air 09/01/20 02:22 98.2 98.2 EKG: EKG: [] Heart Score: C/O Chest Pain: N/A Risk Factors: Risk Factors: DM, Current or recent (<one month) smoker, HTN, HLP, family history of CAD, obesity. Risk Scores: Score 0 - 3: 2.5% MACE over next 6 weeks - Discharge Home Score 4 - 6: 20.3% MACE over next 6 weeks - Admit for Clinical Observation Score 7 - 10: 72.7% MACE over next 6 weeks - Early Invasive Strategies Radiology/Procedures: Radiology/Procedures: [] Course & Med Decision Making: Course & Med Decision Making Pertinent Labs and Imaging studies reviewed. (See chart for details) Patient is a 54-year-old female who presents to the emergency room complaining of hyperglycemia. Patient is well-appearing at this time. Her vitals are normal. Glucose is elevated. Lab work was done to rule out DKA and was normal. Patient does not have any symptoms consistent with HHS. X-ray was done of her hip and is normal. She has a follow-up appointment with her primary care doctor set up and is supposed to see a GI specialist for her gastroparesis. Patient's test results and vitals while in the ED were fully reviewed and discussed with the patient. Patient is stable and at this time does not need admission to the hospital. We have discussed strict return precautions and the i mportance of following up with their Primary Care Physician. Patient stated understanding and was given an opportunity to ask any questions. Patient is in agreement with plan. Gisella Disclaimer: Gisella Disclaimer: This electronic medical record was generated, in whole or in part, using a voice recognition dictation system. Departure Departure Impression: Primary Impression: Hyperglycemia Additional Impressions: Type 2 diabetes mellitus Constipation Disposition: HOME / SELF CARE / HOMELESS Condition: STABLE Referrals: SARAH PAYAN MD (PCP) Patient Instructions: Hyperglycemia Problem Qualifiers SHAE WALL MD Sep 01, 2020 04:44
[2020-09-01 05:00] VITALS: BP 163/72
[2020-09-01] MEDS ORDERED: MAGNESIUM CITRATE 296 ML SOLUTION. PO ONE (05:00)
== END 2020-09-01 05:10 | disposition home or self-care (01) ==
LOC: ER 02:12
DX: E11.65 Type 2 diabetes mellitus with hyperglycemia (principal); K59.00 Constipation, unspecified; M25.551 Pain in right hip; M19.90 Unspecified osteoarthritis, unspecified site; J44.9 Chronic obstructive pulmonary disease, unspecified; E78.00 Pure hypercholesterolemia, unspecified; I10 Essential (primary) hypertension; Z88.7 Allergy status to serum and vaccine; Z88.8 Allergy status to other drugs, medicaments and biological substances
CPT/HCPCS: 36415; 73502; 80048; 81001; 82962; 85025; 96361; 96374; 99284; J1815; J7030

== ENCOUNTER 2020-09-03 12:58 | Emergency (ER) | payer MEDICARE | END 2020-09-03 14:24 | disposition left against medical advice (07) | LOC: ER 12:58 | DX: R05 Cough (principal); R06.02 Shortness of breath; Z53.21 Procedure and treatment not carried out due to patient leaving prior to being seen by health care provider ==

== ENCOUNTER 2020-09-03 17:21 | Emergency (ER) | payer MEDICARE ==
[2020-09-03 19:05] VITALS: BP 118/70
== END 2020-09-03 19:07 | disposition left against medical advice (07) ==
LOC: ER 17:21
DX: R06.02 Shortness of breath (principal); Z53.21 Procedure and treatment not carried out due to patient leaving prior to being seen by health care provider

== ENCOUNTER 2020-10-08 21:50 | Emergency (ER) | payer MEDICARE ==
[~2020-10-08] VITALS: Ht 162.6 cm; Wt 110.0 kg
[2020-10-09 00:06] VITALS: BP 155/71
--- NOTE | 2020-10-09 00:29 | PHYS DOC ---
Past Medical History Past Medical History: Arthritis, Asthma, Bronchitis, COPD, Diabetes-Type II, High Cholesterol, Hypertension, Pneumonia, Other Additional Past Medical Histor: SLEEP APNEA Past Surgical History: Hysterectomy, Oophorectomy Additional Past Surgical Histo: Nose SX,RETINA SURGERY Smoking Status: Never Smoker Alcohol Use: None Drug Use: None General Adult EDM: Chief Complaint: SORE THROAT Problems: (1) Postoperative pain HPI: HPI: 55-year-old female with a history of esophageal widening, EGD in the last several months presents with several months of sore throat, burning throat pain. She reports no different symptoms today than usual. Pain usually worse at night. She also complains of bilateral leg swelling for the last several weeks. She follows up with Dr. Cano in the clinic. She denies any acute symptoms tonight that are different from her chronic symptoms. The patient denies nausea, vomiting, fever, chills, chest pain, shortness of breath, abdominal pain, urinary symptoms, cough, recent trauma, or any other complaints. Review of Systems: Review of Systems: ROS otherwise unremarkable except for as mentioned in the HPI. Heart Score: C/O Chest Pain: No Current Medications: Current Medications Medications (Trade) Dose Ordered Sig/Palak Start Time Stop Time Status Last Admin Dose Admin Multi-Ingredient Mouthwash/Gargle (Gi Cocktail) 20 ml 1X ONCE 10/09/20 00:30 10/09/20 00:31 Allergies: Allergies: Allergies Coded Allergies Type Severity Reaction Last Updated Verified Influenza Virus Vaccines Allergy Intermediate RASH, near syncope 06/29/20 Yes I S O L A T I O N *CONTACT* Allergy Unknown 07/25/20 Yes Physical Exam: PE: Constitutional: No acute distress, non-toxic appearance. HENT: Atraumatic, bilateral external ears normal, nose normal. Oropharynx normal, uvula midline, floor mouth soft, normal dentition, no submental edema Eyes: PERRLA, EOMI, conjunctiva normal, no discharge. Neck: Normal range of motion, supple, no stridor. Cardiovascular: Heart rate regular rhythm. 2+ radial pulses Lungs & Thorax: No respiratory distress, symmetrical expansion. Bilateral breath sounds clear to auscultation Abdomen: Soft, no tenderness Skin: Warm, dry. Extremities: No tenderness, no cyanosis, ROM intact, +1 edema lower extremities. Neurologic: Alert and oriented X 3, normal motor function, normal sensory function, no focal deficits noted. Non ataxic gait. GCS 15. Lymph: No cervical lymphadenopathy Psychologic: Affect normal, judgment normal, mood normal. Current Patient Data: Vital Signs: Vital Signs Date Time Temp Pulse Resp B/P (MAP) Pulse Ox O2 Delivery O2 Flow Rate FiO2 10/09/20 00:06 98.0 90 18 155/71 (86) 100 Room Air 98.0 Course & Med Decision Making: Course & Med Decision Making Sore throat with no acute symptoms today, likely from her recent GI procedures. She was advised to follow-up with her [facility] as well as her primary care doctor for further testing on her leg swelling Departure Departure Impression: Primary Impression: Sore throat Disposition: HOME / SELF CARE / HOMELESS Condition: GOOD Referrals: SARAH CANO MD (PCP) Patient Instructions: Sore Throat, [id number] Additional Instructions: You were seen in the emergency department for a sore throat which is likely a result of your recent EGD procedure, you may use Tylenol or ibuprofen at home. Please follow-up with your primary care doctor with regard to your leg swelling as you will likely need further testing SEAN VELAZQUEZ DO Oct 09, 2020 00:29
[2020-10-09] MEDS ORDERED: LIDO:MAALOX 1:1 20 ML SINGLE DOSE. SWSW ONE (00:30)
== END 2020-10-09 01:04 | disposition home or self-care (01) ==
LOC: ER 21:50
DX: J02.9 Acute pharyngitis, unspecified (principal); J44.9 Chronic obstructive pulmonary disease, unspecified; E11.9 Type 2 diabetes mellitus without complications; E78.00 Pure hypercholesterolemia, unspecified; I10 Essential (primary) hypertension; Z91.041 Radiographic dye allergy status; Z88.7 Allergy status to serum and vaccine
CPT/HCPCS: 99282

== ENCOUNTER 2020-10-17 15:57 | Emergency (ER) | payer MEDICARE ==
[~2020-10-17] VITALS: Ht 162.6 cm; Wt 109.0 kg
[2020-10-17 21:25] VITALS: BP 196/134
[2020-10-17] MEDS ORDERED: [UNRECOGNIZED DRUG - CODE] TP (21:25)
[2020-10-17] MEDS ORDERED: GABA300C18 PO (21:25)
[2020-10-17] MEDS ORDERED: ACYC800T88 PO (21:25)
--- NOTE | 2020-10-17 21:25 | ED.ADGEN ---
Past Medical History Past Medical History: Arthritis, Asthma, Bronchitis, COPD, Diabetes-Type II, High Cholesterol, Hypertension, Pneumonia, Other Additional Past Medical Histor: SLEEP APNEA Past Surgical History: , Hysterectomy Additional Past Surgical Histo: Nose SX,RETINA SURGERY Smoking Status: Never Smoker Alcohol Use: None Drug Use: None General Adult EDM: Chief Complaint: UPPER EXTREMITY PAIN HPI: HPI: Patient is a 55 year old female coming in for right arm pain for the past week. Patient states she saw her primary care provider 3 days ago and was told she had arthritis. Patient states the pain is on the ulnar aspect of her right arm and is traveled up her forearm and onto her arm. Noticed lesions on her back. No left-sided pains. Denies any injury or cuts to the arm. No systemic complaints. Review of Systems: Review of Systems: All other systems within normal limits except for as noted in the HPI Allergies: Allergies: Allergies Coded Allergies Type Severity Reaction Last Updated Verified Influenza Virus Vaccines Allergy Intermediate RASH, near syncope 06/29/20 Yes I S O L A T I O N *CONTACT* Allergy Unknown 07/25/20 Yes Physical Exam: PE: Constitutional: Well developed, well nourished, no acute distress, non-toxic appearance. [] HENT: Normocephalic, atraumatic, bilateral external ears normal, nose normal. [] Eyes: PERRLA, conjunctiva normal, no discharge. [] Neck: No rigidity, supple, no stridor. [] Cardiovascular: Regular rate and rhythm, brisk cap refill [] Lungs & Thorax: Non labored symmetric respirations, no tachypnea or respiratory distress [] Abdomen: Soft, nondistended. Skin: Warm, dry, no erythema, clusters of vesicular lesions along ulnar aspect of forearm and on right side spine consistent with a C8 dermatome Back: Unremarkable Extremities: No deformities, range of motion grossly intact, no lower extremity edema [] Neurologic: Alert and oriented X 3, no focal deficits noted. [] Psychologic: Affect normal, judgement normal, mood normal. [] Current Patient Data: Vital Signs: Vital Signs Date Time Temp Pulse Resp B/P (MAP) Pulse Ox O2 Delivery O2 Flow Rate FiO2 10/17/20 20:41 98.2 75 20 226/98 95 Room Air 98.2 EKG: EKG: [] Heart Score: C/O Chest Pain: No Risk Factors: Risk Factors: DM, Current or recent (<one month) smoker, HTN, HLP, family history of CAD, obesity. Risk Scores: Score 0 - 3: 2.5% MACE over next 6 weeks - Discharge Home Score 4 - 6: 20.3% MACE over next 6 weeks - Admit for Clinical Observation Score 7 - 10: 72.7% MACE over next 6 weeks - Early Invasive Strategies Radiology/Procedures: Radiology/Procedures: [facility] [address] [place] [address] IMAGING REPORT Signed PATIENT: BATSHEVA VASQUEZ MACCOUNT: [id number] : 1965 LOCATION: ER AGE: 55 SEX: F EXAM STATUS: REG ER ORD. PHYSICIAN: REZA MIKE MD REASON: pain PROCEDURE: SHOULDER 2+V RIGHT Three-view right shoulder dated 10/17/2020. No comparison available. CLINICAL INDICATION: Pain. FINDINGS: 3 views the right shoulder show normal bony alignment. No displaced fracture. Mild to moderate degenerative change of the AC joint. No acute osseous or ar ticular abnormality. There is some patchy increased density at the right lung base. IMPRESSION: 1. No apparent acute bony abnormality. 2. Mild degenerative changes as above. 3. Mild patchy opacity at the right lung base, atelectasis versus pneumonia. Electronically signed by: Wilian Faith MD (10/17/2020 9:25 PM) [facility] [place] DICTATED and SIGNED BY: WILIAN FAITH MD DATE: 10/17/20 [id number] [] Course & Med Decision Making: Course & Med Decision Making Pertinent Labs and Imaging studies reviewed. (See chart for details) [] Dragmir Disclaimer: Gisella Disclaimer: This electronic medical record was generated, in whole or in part, using a voice recognition dictation system. Departure Departure Impression: Primary Impression: Shinromelia Disposition: 01 HOME / SELF CARE / HOMELESS Condition: STABLE Referrals: SARAH PAYAN MD (PCP) Patient Instructions: Shingljarod, [id number] Scripts Gabapentin (GABAPENTIN ) 300 Mg Capsule 300 MG PO TID for NEUROGENIC PAIN for 5 Days, #15 CAP Prov: REZA MIKE MD 10/17/20 Lidocaine (Lidocaine) 28.35 Gm Cream..g. 1 FELICIANO TP TID PRN PRN for PAIN for 10 Days, #30 EACH Prov: REZA MIKE MD 10/17/20 Acyclovir (ACYCLOVIR) 800 Mg Tablet 1 TAB PO 5XDAY for antiviral for 7 Days, #35 TAB Prov: REZA MIKE MD 10/17/20 REZA MIKE MD Oct 17, 2020 21:25
--- NOTE | 2020-10-17 21:27 | RAD ---
Three-view right shoulder dated 10/17/2020. No comparison available. CLINICAL INDICATION: Pain. FINDINGS: 3 views the right shoulder show normal bony alignment. No displaced fracture. Mild to moderate degene rative change of the AC joint. No acute osseous or articular abnormality. There is some patchy increa sed density at the right lung base. IMPRESSION: 1. No apparent acute bony abnormality. 2. Mild degenerative changes as above. 3. Mild patchy opacity at the right lung base, atelectasis versus pneumonia. Electronically signed by: Wilian Faith MD (10/17/2020 9:25 PM) [facility]
== END 2020-10-17 21:51 | disposition home or self-care (01) ==
LOC: ER 15:57
DX: B02.9 Zoster without complications (principal); J44.9 Chronic obstructive pulmonary disease, unspecified; E11.9 Type 2 diabetes mellitus without complications; E78.00 Pure hypercholesterolemia, unspecified; I10 Essential (primary) hypertension; Z91.041 Radiographic dye allergy status; Z88.7 Allergy status to serum and vaccine
CPT/HCPCS: 73030; 99283

== ENCOUNTER 2021-02-25 01:25 | Emergency (ER) | payer MEDICARE ==
[~2021-02-25] VITALS: Ht 162.6 cm; Wt 106.8 kg
[~2021-02-25 01:25] MED LIST changes: +ACYC800T88 PO; +AMLO-54 PO; -AMLO1CAP54 PO; +CLIN-94 PO; -CLIN300C9 PO; +CYCL10TA19 PO; -CYCL10TA2 PO; +GABA300C18 PO; +[UNRECOGNIZED DRUG - CODE] TP
--- NOTE | 2021-02-25 01:36 | PHYS DOC ---
Past Medical History Past Medical History: Arthritis, Asthma, Bronchitis, COPD, Diabetes-Type II, High Cholesterol, Hypertension, Pneumonia, Other Additional Past Medical Histor: SLEEP APNEA Past Surgical History: , Hysterectomy Additional Past Surgical Histo: Nose SX,RETINA SURGERY Smoking Status: Never Smoker Alcohol Use: None Drug Use: None General Adult EDM: Chief Complaint: SHORTNESS OF BREATH HPI: HPI: Patient is a 55 year old here with report of feeling short of breath which began this morning. She has sleep apnea, she was sleeping on her sofa, wearing her CPAP, and she felt like she was choking and felt briefly short of breath. She is not actively dyspneic at this time. She denies chest pain. She reports that she felt like she had something stuck in her throat, and felt like she needed to clear her throat and was coughing. She had not experienced cough before this. No hemoptysis. No fevers or chills. No headache. No dizziness or diaphoresis. No abdominal pain or nausea or vomiting. She has chronic lower extremity swelling, which is unchanged times years. No calf pain. No recent prolonged immobilization, travel history, hospitalization. She does have a history of acid reflux, and she notes that this feels similar to previous acid reflux symptoms. She ate quite a bit of food before lying down tonight. She reports that she has medications for her acid reflux. Review of Systems: Review of Systems: Constitutional: Denies fever or chills. [] Eyes: Denies change in visual acuity. [] HENT: Reports some drainage and sensation of needing to clear her throat, though she denies any sore throat symptoms. No odynophagia. Respiratory: Reports a brief episode of dyspnea and coughing/gagging. This is resolved. Cardiovascular: Denies chest pain. GI: Denies abdominal pain, nausea, vomiting Musculoskeletal: Denies back pain or joint pain. [] Integument: Denies rash. [] Neurologic: Denies headache, focal weakness or sensory changes. [] Endocrine: Denies polyuria or polydipsia. [] Lymphatic: Denies swollen glands. [] Psychiatric: Denies depression or anxiety. [] Heart Score: C/O Chest Pain: No Risk Factors: Risk Factors: DM, Current or recent (<one month) smoker, HTN, HLP, family history of CAD, obesity. Risk Scores: Score 0 - 3: 2.5% MACE over next 6 weeks - Discharge Home Score 4 - 6: 20.3% MACE over next 6 weeks - Admit for Clinical Observation Score 7 - 10: 72.7% MACE over next 6 weeks - Early Invasive Strategies Allergies: Allergies: Allergies Coded Allergies Type Severity Reaction Last Updated Verified Influenza Virus Vaccines Allergy Intermediate RASH, near syncope 06/29/20 Yes I S O L A T I O N *CONTACT* Allergy Unknown 07/25/20 Yes Physical Exam: PE: Constitutional: Well developed, well nourished, no acute distress, non-toxic appearance. [] HENT: Normocephalic, atraumatic, oropharynx is patent and clear, no exudate or erythema, mucous membranes are moist Eyes: Sclera are clear and anicteric Neck: Trachea is midline, no JVD, no tenderness Cardiovascular: Warm and well-perfused appearing, heart is regular rate and rhythm, no murmur, +2 dorsalis pedis and +2 radial pulses bilaterally Lungs & Thorax: Scattered fine rhonchi, clear with coughing, no rales, wheezes, or stridor. No tachypnea. Speaks in full and clear sentences. No evidence of distress. Abdomen: Abdomen is soft, nondistended, nontender to palpation Skin: Warm, dry, no erythema, no rash. [] Back: No tenderness, no CVA tenderness. [] Extremities: No tenderness, no calf tenderness. She has symmetric, bilateral 1+ lower extremity edema. Neurologic: Alert and oriented X 3, normal motor function, normal sensory function, no focal deficits noted. [] Psychologic: Affect normal, judgement normal, mood normal. [] EKG: EKG: EKG is interpreted at 0155 Rhythm is sinus Rate is 71 bpm [place] is normal No STEMI Radiology/Procedures: Radiology/Procedures: IMAGING REPORT Signed PATIENT: BATSHEVA VASQUEZ MACCOUNT: [id number] : 1965 LOCATION: ER AGE: 55 SEX: F EXAM STATUS: DEP ER ORD. PHYSICIAN: SINGH MURGUIA DO REASON: cough, dyspnea PROCEDURE: PORTABLE CHEST 1V EXAM: CHEST ONE VIEW. HISTORY: Cough, dyspnea. COMPARISON: 08/23/2020. FINDINGS: A frontal view of the chest is obtained. There are no confluent infiltrates. There is no pneumothorax or pleural effusion. The heart is not enlarged. Calcified lymph nodes likely reflect old gr anulomatous disease. IMPRESSION: 1. No confluent infiltrates. Electronically signed by: Majo Rosario MD (02/25/2021 4:53 AM) [facility] [place] DICTATED and SIGNED BY: ANKUSH ROSARIO MD DATE: 02/25/21 [id number] Course & Med Decision Making: Course & Med Decision Making Pertinent Labs and Imaging studies reviewed. (See chart for details) I have discussed the findings, differential diagnosis and plan of care with the patient. She is well-appearing. She manifests no evidence of distress or hypoxia. She has a library helper at , she is scheduled to have a bronchoscopy. I explained that it is possible that she had an episode of GERD which caused her brief symptoms, I gave her home care instructions for this. There is currently no indication for further invasive exams, imaging or admission at this time, based on current clinical presentation. I told her to contact her PCP and library helper for follow-up. She is comfortable with the plan of care. Strict return precautions are given. Dragon Disclaimer: Dragon Disclaimer: This electronic medical record was generated, in whole or in part, using a voice recognition dictation system. Departure Departure Impression: Primary Impression: Dyspnea Additional Impressions: Obstructive sleep apnea History of gastroesophageal reflux (GERD) Disposition: HOME / SELF CARE / HOMELESS Condition: STABLE Referrals: SARAH PAYAN MD (PCP) Patient Instructions: Diet for Gastroesophageal Reflux Disease, Adult, Shortness of Breath, Sleep Apnea Additional Instructions: Continue taking your regularly prescribed medications as per your primary care doctor and your specialist. Return to the ER for fever 100.4 or higher, coughing up blood, wheezing, more severe shortness of breath, severe chest pain or any other concerns. Please keep all of your scheduled appointments with your primary care doctor as well as with your library helper at [facility]. SINGH MURGUIA DO Feb 25, 2021 01:36
[2021-02-25 02:48] LABS: BASO % 1 % (0-3); EOS # 0.1 x10^3/uL (0.0-0.7); EOS % 2 % (0-3); HEMOGLOBIN 11.2 g/dL (12.0-15.5); LYMPH # 2.1 x10^3/uL (1.0-4.8); LYMPH % 30 % (24-48); MEAN CORPUSCULAR HEMOGLOBIN 30 pg (25-35); MEAN CORPUSCULAR HGB CONC 33 g/dL (31-37); MEAN CORPUSCULAR VOLUME 90 fL (79-100); MONO # 0.6 x10^3/uL (0.0-1.1); MONO % 9 % (0-9); NEUT % 58 % (31-73); PLATELET COUNT 198 x10^3/uL (140-400); RED CELL DISTRIBUTION WIDTH 14.2 % (11.5-14.5); WHITE BLOOD COUNT 6.9 x10^3/uL (4.0-11.0)
[2021-02-25 02:59] LABS: CALCIUM 10.5 mg/dL (8.5-10.1); CREATININE 0.9 mg/dL (0.6-1.0); GFR 78.4; POTASSIUM 4.8 mmol/L (3.5-5.1)
[2021-02-25 03:02] LABS: ALBUMIN 3.2 g/dL (3.4-5.0); ALBUMIN/GLOBULIN RATIO 0.7 (1.0-1.7); TOTAL BILIRUBIN 0.3 mg/dL (0.2-1.0); TOTAL PROTEIN 7.5 g/dL (6.4-8.2)
[2021-02-25 03:19] VITALS: BP 171/73
--- NOTE | 2021-02-25 04:29 | EKG ---
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
--- NOTE | 2021-02-25 04:55 | RAD ---
EXAM: CHEST ONE VIEW. HISTORY: Cough, dyspnea. COMPARISON: 08/23/2020. FINDINGS: A frontal view of the chest is obtained. There are no confluent infiltrates. There is no pneumothorax or pleural effusion. The heart is not en larged. Calcified lymph nodes likely reflect old granulomatous disease. IMPRESSION: 1. No confluent infiltrates. Electronically signed by: Majo Rosario MD (02/25/2021 4:53 AM) [facility]
--- NOTE | 2021-02-27 11:08 | NUR ---
IP: Informed pt of negative covid test. pt verbalized understanding.
== END 2021-02-25 03:30 | disposition home or self-care (01) ==
LOC: ER 01:25
DX: R06.02 Shortness of breath (principal); G47.33 Obstructive sleep apnea (adult) (pediatric); Z20.822 Contact with and (suspected) exposure to COVID-19; K21.9 Gastro-esophageal reflux disease without esophagitis; J44.9 Chronic obstructive pulmonary disease, unspecified; E11.9 Type 2 diabetes mellitus without complications; E78.00 Pure hypercholesterolemia, unspecified; I10 Essential (primary) hypertension; Z91.041 Radiographic dye allergy status; Z88.7 Allergy status to serum and vaccine
CPT/HCPCS: 36415; 71045; 80053; 83880; 84484; 85025; 85379; 87426; 93005; 99285; U0003; U0005

== ENCOUNTER 2021-04-03 20:42 | Emergency (ER) | payer MEDICARE ==
[~2021-04-03] VITALS: Ht 162.6 cm; Wt 104.5 kg
[2021-04-03 22:46] LABS: BILIRUBIN,URINE NEGATIVE (NEG); CLARITY,URINE CLEAR; COLOR,URINE YELLOW; NITRITE,URINE NEGATIVE (NEG); PROTEIN,URINE NEGATIVE (NEG-TRACE); UROBILINOGEN,URINE 0.2 mg/dL (0.2 mg/dL)
[2021-04-03 22:58] LABS: BACTERIA,URINE 0 /HPF (0-FEW); RBC,URINE 0 /HPF (0-2)
--- NOTE | 2021-04-03 23:00 | PHYS DOC ---
Past Medical History Past Medical History: Arthritis, Asthma, Bronchitis, COPD, Diabetes-Type II, High Cholesterol, Hypertension, Pneumonia, Other Additional Past Medical Histor: SLEEP APNEA Past Surgical History: , Hysterectomy Additional Past Surgical Histo: Nose SX,RETINA SURGERY Smoking Status: Never Smoker Alcohol Use: None Drug Use: None General Adult EDM: Chief Complaint: URINARY FREQUENCY HPI: HPI: Patient is a 55 year old female with a history of diabetes type 2, hypertension, high cholesterol, COPD currently not a smoker, asthma, who presents to the ED today complaining of itching, shortness of breath and not feeling generally well, symptoms began 3 days ago. Patient states she was started on Macrobid on March 28, 2021 for UTI, she states she believes this is one of reasons for her symptoms. She also mentions she was started on Ozempic for weight loss as well as her diabetes and this could also be making her feel that way she does, she states since she started taking Ozempic she feels more tired and does not have an appetite. She states she has been taking Ozempic for 1 month. She states her blood glucose is getting better on Ozempic. Denies any chest pain. Review of Systems: Review of Systems: Constitutional: Reports not feeling well, poor appetite denies fever or chills. [] Eyes: Denies change in visual acuity. [] HENT: Denies nasal congestion or sore throat. [] Respiratory: Reports shortness of breath. Denies cough Cardiovascular: Denies chest pain or edema. [] GI: Denies abdominal pain, nausea, vomiting, bloody stools or diarrhea. [] : Denies dysuria. [] Musculoskeletal: Denies back pain or joint pain. [] Integument: Reports itching Neurologic: Denies headache, focal weakness or sensory changes. [] Psychiatric: Denies depression or anxiety. [] Heart Score: C/O Chest Pain: N/A Risk Factors: Risk Factors: DM, Current or recent (<one month) smoker, HTN, HLP, family history of CAD, obesity. Risk Scores: Score 0 - 3: 2.5% MACE over next 6 weeks - Discharge Home Score 4 - 6: 20.3% MACE over next 6 weeks - Admit for Clinical Observation Score 7 - 10: 72.7% MACE over next 6 weeks - Early Invasive Strategies Current Medications: Current Medications Medications (Trade) Dose Ordered Sig/Palak Start Time Stop Time Status Last Admin Dose Admin Dexamethasone Sodium Phosphate (Decadron) 10 mg 1X ONCE 04/03/21 23:00 04/03/21 23:01 Diphenhydramine HCl (Benadryl) 25 mg 1X ONCE 04/03/21 23:00 04/03/21 23:01 Famotidine (Pepcid Vial) 20 mg 1X ONCE 04/03/21 23:00 04/03/21 23:01 Sodium Chloride 1,000 ml @ 1,000 mls/hr 1X ONCE 04/03/21 23:00 04/03/21 23:59 Allergies: Allergies: Allergies Coded Allergies Type Severity Reaction Last Updated Verified Influenza Virus Vaccines Allergy Intermediate RASH, near syncope 06/29/20 Yes I S O L A T I O N *CONTACT* Allergy Unknown 07/25/20 Yes Physical Exam: PE: Constitutional: Well developed, well nourished, no acute distress, non-toxic appearance. [] HENT: Normocephalic, atraumatic, bilateral external ears normal, oropharynx moist, no oral exudates, nose normal. [] Eyes: PERRLA, EOMI, conjunctiva normal, no discharge. [] Neck: Normal range of motion, no tenderness, supple, no stridor. [] Cardiovascular:Heart rate regular rhythm, no murmur [] Lungs & Thorax: Bilateral breath sounds clear to auscultation [] Abdomen: Bowel sounds normal, soft, no tenderness, no masses, no pulsatile masses. [] Skin: Warm, dry, no erythema, no rash. [] Back: No tenderness, no CVA tenderness. [] Extremities: No tenderness, no cyanosis, no clubbing, ROM intact, no edema. [] Neurologic: Alert and oriented X 3, normal motor function, normal sensory function, no focal deficits noted. [] Psychologic: Affect normal, judgement normal, mood normal. [] EKG: EKG: [] Radiology/Procedures: Radiology/Procedures: []PROCEDURE: CHEST AP ONLY EXAM: CHEST ONE VIEW. HISTORY: Shortness of breath. COMPARISON: 02/25/2021. FINDINGS: A frontal view of the chest is obtained. There are no confluent infiltrates. There is no pneumothorax or pleural effusion. The heart is not enlarged. IMPRESSION: 1. No confluent infiltrates. Electronically signed by: Majo Rosario MD (04/03/2021 11:14 PM) [facility] DICTATED and SIGNED BY: ANKUSH ROSARIO MD DATE: 04/03/21 [id number] 0 Course & Med Decision Making: Course & Med Decision Making Pertinent Labs and Imaging studies reviewed. (See chart for details) This is a 55-year-old female patient well-known to this ED presenting today with multiple complaints. Patient is complaining of itching, shortness of breath and not feeling well symptoms began 3 days ago, she believes this could be caused by Macrobid which she is taking for UTI. She started taking the Macrobid on March 28, 2021. She also states she was started on Ozempic a month ago a nd has had poor appetite since then but blood glucose is getting better Patient's physical exam does no rashes noted. Chest x-ray is negative for any acute findings, D-dimer is normal. UA is negative for infection. CBC with a normal WBC, hemoglobin 11.2 with hematocrit of 34.4, this is around her baseline. Calcium 10.3 she has history of chronic elevation of calcium. Glucose 166, anion gap is normal. She has received a liter of fluid She was discharged to home and instructed to follow-up with her own PCP Gisella Disclaimer: Gisella Disclaimer: This electronic medical record was generated, in whole or in part, using a voice recognition dictation system. Departure Departure Impression: Primary Impression: Shortness of breath Additional Impression: Hypercalcemia Disposition: HOME / SELF CARE / HOMELESS Condition: STABLE Referrals: SARAH PAYAN MD (PCP) follow up in 2 weeks Patient Instructions: Shortness of Breath, [id number] Additional Instructions: You were evaluated in the emergency room, there is no acute finding in your lab work or chest x-ray. Your UTI is improving. I would recommend you complete the Macrobid and follow-up with your primary care doctor in the next 2 weeks PAOLO CHEEK APRN Apr 03, 2021 23:00
[2021-04-03 23:15] LABS: BASO # 0.1 x10^3/uL (0.0-0.2); BASO % 1 % (0-3); EOS # 0.1 x10^3/uL (0.0-0.7); EOS % 2 % (0-3); HEMATOCRIT 34.4 % (36.0-47.0); HEMOGLOBIN 11.2 g/dL (12.0-15.5); LYMPH # 2.6 x10^3/uL (1.0-4.8); LYMPH % 33 % (24-48); MEAN CORPUSCULAR HEMOGLOBIN 29 pg (25-35); MEAN CORPUSCULAR HGB CONC 33 g/dL (31-37); MEAN CORPUSCULAR VOLUME 89 fL (79-100); MONO # 0.6 x10^3/uL (0.0-1.1); MONO % 7 % (0-9); NEUT # 4.3 x10^3/uL (1.8-7.7); NEUT % 56 % (31-73); PLATELET COUNT 199 x10^3/uL (140-400); RED BLOOD COUNT 3.87 x10^6/uL (3.50-5.40); RED CELL DISTRIBUTION WIDTH 14.1 % (11.5-14.5); WHITE BLOOD COUNT 7.7 x10^3/uL (4.0-11.0)
[2021-04-03] MEDS: IV NORMAL SALINE 1000ML BAG 1,000 ML IV ONE (23:15)
[2021-04-03] MEDS: DEXAMETHASONE SOD PHOS 20 MG/5 ML VIAL. IV ONE (23:15)
[2021-04-03] MEDS: FAMOTIDINE 20 MG/2 ML VIAL IVP ONE (23:15)
[2021-04-03] MEDS: diphenhydrAMINE HCL 25 MG CAPSULE PO ONE (23:15)
--- NOTE | 2021-04-03 23:16 | RAD ---
EXAM: CHEST ONE VIEW. HISTORY: Shortness of breath. COMPARISON: 02/25/2021. FINDINGS: A frontal view of the chest is obtained. There are no confluent infiltrates. There is no pneumothorax or pleural effusion. The heart is not en larged. IMPRESSION: 1. No confluent infiltrates. Electronically signed by: Majo Rosario MD (04/03/2021 11:14 PM) [facility]
[2021-04-03 23:23] LABS: CALCIUM 10.3 mg/dL (8.5-10.1); CREATININE 1.2 mg/dL (0.6-1.0); GFR 56.2; POTASSIUM 4.5 mmol/L (3.5-5.1)
[2021-04-03 23:29] LABS: ALBUMIN 3.2 g/dL (3.4-5.0); ALBUMIN/GLOBULIN RATIO 0.7 (1.0-1.7); TOTAL BILIRUBIN 0.2 mg/dL (0.2-1.0); TOTAL PROTEIN 7.7 g/dL (6.4-8.2)
[2021-04-03 23:54] VITALS: BP 176/77
== END 2021-04-04 00:28 | disposition home or self-care (01) ==
LOC: ER 20:42
DX: R06.02 Shortness of breath (principal); E83.52 Hypercalcemia; J44.9 Chronic obstructive pulmonary disease, unspecified; E11.9 Type 2 diabetes mellitus without complications; E78.00 Pure hypercholesterolemia, unspecified; I10 Essential (primary) hypertension; Z90.710 Acquired absence of both cervix and uterus; Z91.041 Radiographic dye allergy status; Z88.7 Allergy status to serum and vaccine
CPT/HCPCS: 36415; 71045; 80053; 81001; 85025; 85379; 96361; 96374; 96375; 99284; J1100; J3490; J7030; Q0163

== ENCOUNTER 2021-05-15 04:05 | Emergency (ER) | payer MEDICARE ==
[~2021-05-15] VITALS: Ht 162.6 cm; Wt 106.8 kg
[2021-05-15 04:30] VITALS: BP 163/72
== END 2021-05-15 05:55 | disposition left against medical advice (07) ==
LOC: ER 04:05
DX: I10 Essential (primary) hypertension (principal); Z53.21 Procedure and treatment not carried out due to patient leaving prior to being seen by health care provider